=== PATIENT | female | born 1935 | race Caucasian/White ===

== ENCOUNTER 2017-03-30 20:12 | Inpatient (IN) | payer MEDICARE ==
[~2017-03-30] VITALS: Ht 175.3 cm; Wt 60.4 kg
[2017-03-30] MEDS ORDERED: ZIPRASIDONE IM 20 MG VIAL. IM ONE ×2 (20:37→20:45)
[2017-03-30 21:27] LABS: BASO # 0.2 x10^3/uL (0.0-0.2); BASO % 1 % (0-3); EOS # 0.5 x10^3/uL (0.0-0.7); EOS % 4 % (0-3); HEMOGLOBIN 14.4 g/dL (12.0-15.5); LYMPH # 3.6 x10^3/uL (1.0-4.8); LYMPH % 28 % (24-48); MEAN CORPUSCULAR HEMOGLOBIN 29 pg (25-35); MEAN CORPUSCULAR HGB CONC 34 g/dL (31-37); MEAN CORPUSCULAR VOLUME 86 fL (79-100); MONO # 1.2 x10^3/uL (0.0-1.1); MONO % 9 % (0-9); NEUT # 7.5 x10^3uL (1.8-7.7); NEUT % 58 % (31-73); PLATELET COUNT 450 x10^3/uL (140-400); RED CELL DISTRIBUTION WIDTH 13.6 % (11.5-14.5); WHITE BLOOD COUNT 12.9 x10^3/uL (4.0-11.0)
[2017-03-30 21:37] LABS: ACETAMIN < 2.0 mcg/mL (10-30); ETHANOL < 10 mg/dL (0-10)
[2017-03-30 21:39] LABS: ALBUMIN/GLOBULIN RATIO 0.9 (1.0-1.7); CREATININE 0.7 mg/dL (0.6-1.0); GFR 80.1; MAGNESIUM 2.4 mg/dL (1.8-2.4); POTASSIUM 3.8 mmol/L (3.5-5.1); TOTAL BILIRUBIN 0.3 mg/dL (0.2-1.0); TOTAL PROTEIN 8.6 g/dL (6.4-8.2)
--- NOTE | 2017-03-30 21:42 | PHYS DOC ---
Adult General Chief Complaint Chief Complaint: PSYCH EVALUATION [facility] HPI Patient is a 81 year old female who presents for psych clearance. Patient does not know why she is here. She states she was just out here visiting and she got evicted from her. Facility. She states she doesn't have a balcony to try to jump off of. She denies a headache, shortness of breath, neck pain, fevers chills, shortness of breath or abdominal discomfort. Review of Systems Review of Systems Constitutional: Denies fever or chills [] Eyes: Denies change in visual acuity, redness, or eye pain [] HENT: Denies nasal congestion or sore throat [] Respiratory: Denies cough or shortness of breath [] Cardiovascular: No additional information not addressed in HPI [] GI: Denies abdominal pain, nausea, vomiting, bloody stools or diarrhea [] : Denies dysuria or hematuria [] Musculoskeletal: Denies back pain or joint pain [] Integument: Denies rash or skin lesions [] Neurologic: Denies headache, focal weakness or sensory changes [] Endocrine: Denies polyuria or polydipsia [] Current Medications Current Medications Current Medications Medications (Trade) Dose Ordered Sig/Mckenzie Start Time Stop Time Status Last Admin Dose Admin Ziprasidone (Geodon Im) 10 mg 1X ONCE 03/30/17 20:45 03/30/17 20:46 UNV 03/30/17 20:45 10 MG Physical Exam Physical Exam Constitutional: Well developed, well nourished, no acute distress, non-toxic appearance. [] HENT: Normocephalic, atraumatic, bilateral external ears normal, oropharynx moist, no oral exudates, nose normal. [] Eyes: PERRLA, EOMI, conjunctiva normal, no discharge. [] Neck: Normal range of motion, no tenderness, supple, no stridor. [] Cardiovascular:Heart rate regular rhythm, no murmur [] Lungs & Thorax: Bilateral breath sounds clear to auscultation [] Abdomen: Bowel sounds normal, soft, no tenderness, no masses, no pulsatile masses. [] Skin: Warm, dry, no erythema, no rash. [] Back: No tenderness, no CVA tenderness. [] Extremities: No tenderness, no cyanosis, no clubbing, ROM intact, no edema. [] Neurologic: Alert and oriented X 3, normal motor function, normal sensory function, no focal deficits noted. [] Psychologic: Interactive Current Patient Data Lab Results Laboratory Tests Test 03/30/17 21:02 White Blood Count 12.9 x10^3/uL (4.0-11.0) H Red Blood Count 4.90 x10^6/uL (3.50-5.40) Hemoglobin 14.4 g/dL (12.0-15.5) Hematocrit 42.0 % (36.0-47.0) Mean Corpuscular Volume 86 fL (79-100) Mean Corpuscular Hemoglobin 29 pg (25-35) Mean Corpuscular Hemoglobin Concent 34 g/dL (31-37) Red Cell Distribution Width 13.6 % (11.5-14.5) Platelet Count 450 x10^3/uL (140-400) H Neutrophils (%) (Auto) 58 % (31-73) Lymphocytes (%) (Auto) 28 % (24-48) Monocytes (%) (Auto) 9 % (0-9) Eosinophils (%) (Auto) 4 % (0-3) H Basophils (%) (Auto) 1 % (0-3) Neutrophils # (Auto) 7.5 x10^3uL (1.8-7.7) Lymphocytes # (Auto) 3.6 x10^3/uL (1.0-4.8) Monocytes # (Auto) 1.2 x10^3/uL (0.0-1.1) H Eosinophils # (Auto) 0.5 x10^3/uL (0.0-0.7) Basophils # (Auto) 0.2 x10^3/uL (0.0-0.2) Salicylates Level 2.0 mg/dL (2.8-20.0) L Salicylate Last Dose Date 03/30/17 Salicylate Last Dose Time 2047 Acetaminophen Level < 2.0 mcg/mL (10-30) L Acetaminophen Last Dose Date 03/30/17 Acetaminophen Last Dose Time 2047 Ethyl Alcohol Level < 10 mg/dL (0-10) EKG EKG EKG shows sinus rhythm [address] elevations or T-wave inversions, normal axis, QTC 411 ms, as interpreted by me. Radiology/Procedures Radiology/Procedures [] Impressions: Brianna psych clearance Course & Med Decision Making Course & Med Decision Making Pertinent Labs and Imaging studies reviewed. (See chart for details) Do not believe this patient has any medical condition that's holding them up from being transferred to [facility] this time. She did receive 10 mg of Geodon upon arrival for agitation and not wanting to cooperate. Since Geodon she is very pleasant and has been resting. Dragon Disclaimer Dragon Disclaimer This chart was dictated in whole or in part using Voice Recognition software in a busy, high-work load, and often noisy Emergency Department environment. It may contain unintended and wholly unrecognized errors or omissions. Departure Departure: Impression: Primary Impression: Medical clearance for psychiatric admission Disposition: XFER SHT-TRM HOSP Condition: STABLE TOM HELMS MD Mar 30, 2017 21:42
[2017-03-30 22:48] LABS: BILIRUBIN,URINE NEG (NEG); CLARITY,URINE CLEAR; COLOR,URINE STRAW; GLUCOSE,URINE NEG (NEG); NITRITE,URINE NEG (NEG); UROBILINOGEN,URINE 0.2 mg/dL (0.2 mg/dL)
[2017-03-30 22:49] LABS: BACTERIA,URINE 0 /HPF (0-FEW); RBC,URINE OCC /HPF (0-2); SQUAMOUS EPITHELIAL CELL,UR MOD /LPF
--- NOTE | 2017-03-30 23:44 | EKG ---
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
[2017-03-31 00:25] VITALS: BP 156/57
[2017-03-31] MEDS ORDERED: METHYL SALICYLATE/MENTHOL TOPICAL OINTMENT 29GM TUBE. TP PRN (00:30)
[2017-03-31] MEDS ORDERED: ACETAMINOPHEN 325 MG TABLET PO PRN (00:30)
[2017-03-31] MEDS ORDERED: ASPI-630 PO (01:04)
[2017-03-31] MEDS ORDERED: HALO2TAB PO (01:04)
[2017-03-31] MEDS ORDERED: DOCU100C28 PO (01:04)
[2017-03-31] MEDS ORDERED: ATOR20TA58 PO (01:04)
[2017-03-31] MEDS ORDERED: QUET25TA5 PO (01:04)
[2017-03-31] MEDS ORDERED: MECL12.52 PO (01:04)
[2017-03-31 06:25] VITALS: BP 120/61
[2017-03-31] MEDS: HALOPERIDOL 2 MG TABLET PO PRN (07:47)
[2017-03-31] MEDS: NICOTINE 21MG PATCH. TD SCH (08:41)
[2017-03-31] MEDS ORDERED: MECLIZINE 12.5 MG TABLET. PO SCH (09:30)
[2017-03-31 14:44] LABS: THYROID STIM HORMONE (TSH) 4.285 uIU/mL (0.358-3.740)
--- NOTE | 2017-03-31 15:32 | HP ---
ADMIT DATE: 03/31/2017 REASON FOR ADMISSION TO THE SENIOR BEHAVIORAL UNIT: This is an 81-year-old female coming from [facility] in [place], [place], where she has been receiving 18/01 care, private duty and share care, but has been suffering from major depression, suicidal ideation, threatening to throw herself off the third balcony, combative with cares, throwing things. She herself tells me that people are trying to steal from her bank account that she is miserable being here that she came for a visit, is being made to stay here. PAST MEDICAL HISTORY: Dementia, suicidal ideation, stroke 2 weeks ago, hypertension, fall risk. ALLERGIES: None. MEDICATIONS: Aspirin 81 mg a day, atorvastatin 20 mg at bedtime, Colace 100 mg twice a day, Seroquel 6.25 mg at bedtime, Haldol 1 mg q. 8 hours p.r.n., meclizine 12.5 mg q. 8 hours p.r.n. SOCIAL HISTORY: The patient states she started smoking at 9 years of age and smokes 1 pack per day. Alcohol: None. Drug use: None. 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 REVIEW OF SYSTEMS: The patient does not have any specific complaints and was asked several times in several ways. OBJECTIVE: VITAL SIGNS: Blood pressure 120/61, pulse 91, respirations 18, temperature 98, pulse ox is 95% on room air. Height 69 inches, weight 183 pounds. GENERAL: The patient is an 81-year-old in no acute distress. She has her makeup on. She is slightly hard of hearing. HEENT: Her pupils are equal, round, and reactive to light. Extraocular muscles are intact. She can see without glasses. Her nose is patent. Throat was clear. Tongue was midline. NECK: Supple, without adenopathy. Thyroid is not enlarged. LUNGS: Clear to auscultation. CARDIOVASCULAR: Regular rhythm and rate. ABDOMEN: Soft, nontender. EXTREMITIES: Without edema. SKIN: Large scrape on the left posterior upper arm, multiple senile keratoses. 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 LABORATORY DATA: Her white blood cell count was 12.9, platelet count 450,000. Chemistry, essentially unremarkable. Urinalysis appears negative. Tylenol and alcohol screen negative. MENTAL STATUS EXAMINATION: Mood is confused and thought processes, although she has very excellent remote memory, in other words, able to recall her sisters getting her to ask her father for cigarette money at the age of 9 and her giving the money to the older sisters to get cigarettes and then her taking up cigarette smoking at age 9, also remembered her occupation. ASSESSMENT: 1. Cognitive impairment with behavior disturbance. 2. Cerebrovascular accident 2 weeks ago. 3. Hypertension. 4. Fall risk. 5. Suicidal ideation. PLAN: Treat her medical conditions and follow along with Dr. Ren. SAM LOZADA DO DR: ANDRES/shaina JOB#: [id number] / [id number]
[2017-03-31 16:38] VITALS: BP 147/91
[2017-03-31] MEDS ORDERED: traZODone 50 MG TABLET. PO PRN (18:00)
[2017-03-31] MEDS: MAGNESIUM HYDROXIDE 2,400 MG/30 ML ORAL.SUSP. PO PRN (18:17)
[2017-03-31 19:11] LABS: T3 TOTAL 128 ng/dL (71-180); THYROXINE 8.7 ug/dL (4.5-12.0)
[2017-03-31] MEDS: DOCUSATE SODIUM 100 MG CAPSULE PO SCH (20:04)
[2017-03-31] MEDS: traZODone 50 MG TABLET. PO SCH (20:04)
[2017-03-31] MEDS: MIRTAZAPINE 7.5 MG TABLET. PO SCH (20:04)
[2017-03-31] MEDS: ASPIRIN 81 MG TAB.CHEW PO SCH (20:04)
[2017-03-31] MEDS: ATORVASTATIN CALCIUM 20 MG TABLET PO SCH (20:04)
--- NOTE | 2017-03-31 20:59 | PDOC ---
Exam Unruly Demential Exam: Unruly Note: Please also refer to the separate dictated note~for this date of service dictated separately.~Patient seen individually. Discussed the patient with Nursing staff reviewed the chart.~Reviewed interim history and current functioning. Reviewed vital signs,~Labs/ Radiology~and current medications noted below. Continue current treatment with the changes noted in the dictated addendum note Assessment: Vital Signs: Vital Signs Date Time Temp Pulse Resp B/P (MAP) Pulse Ox O2 Delivery O2 Flow Rate FiO2 03/31/17 16:38 98.2 71 20 147/91 (109) 97 03/30/17 23:30 Room Air I&O Intake and Output 04/01/17 07:00 Intake Total 480 ml Balance 480 ml Intake Oral 480 ml Labs: Laboratory Tests Test 03/30/17 21:02 03/30/17 22:02 03/30/17 22:20 White Blood Count 12.9 x10^3/uL (4.0-11.0) H Red Blood Count 4.90 x10^6/uL (3.50-5.40) Hemoglobin 14.4 g/dL (12.0-15.5) Hematocrit 42.0 % (36.0-47.0) Mean Corpuscular Volume 86 fL (79-100) Mean Corpuscular Hemoglobin 29 pg (25-35) Mean Corpuscular Hemoglobin Concent 34 g/dL (31-37) Red Cell Distribution Width 13.6 % (11.5-14.5) Platelet Count 450 x10^3/uL (140-400) H Neutrophils (%) (Auto) 58 % (31-73) Lymphocytes (%) (Auto) 28 % (24-48) Monocytes (%) (Auto) 9 % (0-9) Eosinophils (%) (Auto) 4 % (0-3) H Basophils (%) (Auto) 1 % (0-3) Neutrophils # (Auto) 7.5 x10^3uL (1.8-7.7) Lymphocytes # (Auto) 3.6 x10^3/uL (1.0-4.8) Monocytes # (Auto) 1.2 x10^3/uL (0.0-1.1) H Eosinophils # (Auto) 0.5 x10^3/uL (0.0-0.7) Basophils # (Auto) 0.2 x10^3/uL (0.0-0.2) Sodium Level 139 mmol/L (136-145) Potassium Level 3.8 mmol/L (3.5-5.1) Chloride Level 100 mmol/L (98-107) Carbon Dioxide Level 30 mmol/L (21-32) Anion Gap 9 (6-14) Blood Urea Nitrogen 11 mg/dL (7-20) Creatinine 0.7 mg/dL (0.6-1.0) Estimated GFR (Cockcroft-Gault) 80.1 BUN/Creatinine Ratio 16 (6-20) Glucose Level 145 mg/dL (70-99) H Calcium Level 10.0 mg/dL (8.5-10.1) Magnesium Level 2.4 mg/dL (1.8-2.4) Iron Level 26 ug/dL (50-170) L Total Iron Binding Capacity 349 ug/dL (250-450) Iron Saturation 7 % (15-34) L Total Bilirubin 0.3 mg/dL (0.2-1.0) Aspartate Amino Transferase (AST) 14 U/L (15-37) L Alanine Aminotransferase (ALT) 21 U/L (14-59) Alkaline Phosphatase 102 U/L (46-116) Total Protein 8.6 g/dL (6.4-8.2) H Albumin 4.0 g/dL (3.4-5.0) Albumin/Globulin Ratio 0.9 (1.0-1.7) L Vitamin B12 Level 599 pg/mL (247-911) Salicylates Level 2.0 mg/dL (2.8-20.0) L Salicylate Last Dose Date 03/30/17 Salicylate Last Dose Time 2047 Acetaminophen Level < 2.0 mcg/mL (10-30) L Acetaminophen Last Dose Date 03/30/17 Acetaminophen Last Dose Time 2047 Ethyl Alcohol Level < 10 mg/dL (0-10) Triglycerides Level 92 mg/dL (0-150) Cholesterol Level 137 mg/dL (0-200) LDL Cholesterol, Calculated 75 mg/dL (0-100) VLDL Cholesterol, Calculated 18 mg/dL (0-40) Non-HDL Cholesterol Calculated 93 mg/dL (0-129) HDL Cholesterol 44 mg/dL (40-60) Cholesterol/HDL Ratio 3.0 Thyroid Stimulating Hormone (TSH) 4.285 uIU/mL (0.358-3.740) Thyroxine (T4) 8.7 ug/dL (4.5-12.0) Total Triiodothyronine (TT3) 128 ng/dL (71-180) RPR Titer Additional Testing Pending Urine Collection Type U cath Urine Color Straw Urine Clarity Clear Urine pH 6.0 Urine Specific [place] <=1.005 Urine Protein Neg (NEG-TRACE) Urine Glucose (UA) Neg mg/dL (NEG) Urine Ketones (Stick) Neg mg/dL (NEG) Urine Blood Small (NEG) Urine Nitrite Neg (NEG) Urine Bilirubin Neg (NEG) Urine Urobilinogen Dipstick 0.2 mg/dL (0.2 mg/dL) Urine Leukocyte Esterase Trace (NEG) Urine RBC Occ /HPF (0-2) Urine WBC 1-4 /HPF (0-4) Urine Squamous Epithelial Cells Mod /LPF Urine Bacteria 0 /HPF (0-FEW) Current Medications: Meds: Current Medications Ziprasidone (Geodon Im) 20 mg STK-MED ONCE IM ; Start 03/30/17 at 20:37; Stop 03/30/17 at 20:38; Status DC Ziprasidone (Geodon Im) 10 mg 1X ONCE IM Last administered on 03/30/17 20:45 ; Start 03/30/17 at 20:45; Stop 03/30/17 at 22:14; Status DC Acetaminophen (Tylenol) 650 mg PRN Q6HRS PRN PO PAIN / TEMP; Start 03/31/17 at 00:30 Multi-Ingredient Ointment (Analgesic [place]) 1 jefferson PRN QID PRN TP MUSCLE PAIN; Start 03/31/17 at 00:30 Al Hydroxide/Mg Hydroxide (Mylanta Plus Xs) 15 ml PRN AFTMEALHC PRN PO DYSPEPSIA; Start 03/31/17 at 00:30 Magnesium Hydroxide (Milk Of Magnesia) 2,400 mg PRN QHS PRN PO CONSTIPATION Last administered on 03/31/17 18:17; Start 03/31/17 at 00:30 Nicotine (Nicoderm Cq 21mg) 1 patch DAILY TD Last administered on 03/31/17 08: 41; Start 03/31/17 at 09:00 Haloperidol (Haldol) 1 mg PRN Q8HRS PRN PO ANXIETY / AGITATION Last administered on 03/31/17 07:47; Start 03/31/17 at 01:15 Quetiapine Fumarate (SEROquel) 12.5 mg HS PO ; Start 03/31/17 at 21:00; Stop at 21:00; Status DC Aspirin (Children'S Aspirin) 81 mg QHS PO Last administered on 03/31/17 20:04 ; Start 03/31/17 at 21:00 Atorvastatin Calcium (Lipitor) 20 mg QHS PO Last administered on 03/31/17 20: 04; Start 03/31/17 at 21:00 Docusate Sodium (Colace) 100 mg BID PO Last administered on 03/31/17 20:04; Start 03/31/17 at 21:00 Meclizine HCl (Antivert) 12.5 mg PRN Q8HRS PO ; Start 03/31/17 at 09:30 Quetiapine Fumarate (SEROquel) 6.25 mg HS PO Last administered on 03/31/17 20: 05; Start 03/31/17 at 21:00 Mirtazapine (Remeron) 7.5 mg QHS PO Last administered on 03/31/17 20:04; Start 03/31/17 at 21:00 Trazodone HCl (Desyrel) 50 mg QHS PO Last administered on 03/31/17 20:04; Start 03/31/17 at 21:00 Trazodone HCl (Desyrel) 50 mg PRN QHS PRN PO INSOMNIA, MAY REPEAT X1; Start at 18:00 Olanzapine (ZyPREXA ZYDIS) 2.5 mg PRN Q2HR PRN PO psychosis; Start 03/31/17 at 18:00 Active Scripts Active Reported Meclizine Hcl 12.5 Mg Tablet 12.5 Mg PO PRN Q8HRS Haloperidol 2 Mg Tablet 1 Mg PO PRN Q8HRS PRN Seroquel (Quetiapine Fumarate) 25 Mg Tablet 12.5 Mg PO HS Docusate Sodium 100 Mg Capsule 100 Mg PO BID Atorvastatin Calcium 20 Mg Tablet 20 Mg PO QHS Aspirin 81 Mg Tab.chew 81 Mg PO QHS Diagnosis: Problems: (1) Anxiety disorder (2) Dementia, vascular, with depression (3) Dementia, vascular, with delusions (4) Impulse control disorder (5) Major depressive disorder, recurrent episode EDE OGDEN MD Mar 31, 2017 20:59
[2017-03-31] MEDS ORDERED: QUEtiapine 25 MG TABLET. PO SCH ×2 (21:00)
[2017-03-31 22:09] LABS: HEMOGLOBIN A1C 5.5 % (4.8-5.6)
[2017-04-01 06:32] VITALS: BP 160/62
--- NOTE | 2017-04-01 08:30 | HP ---
ADMIT DATE: 03/31/2017 PSYCHIATRIC ADMISSION HISTORY AND EVALUATION This late entry 03/31 covers elements not covered in my initial note of 03/31. The patient was seen individually evening of 03/31 for this evaluation. I had previously discussed the patient with the nursing staff on 2 or 3 different occasions to gather background historical information from the [facility] and from family about the patient's history and circumstances prompting admission. IDENTIFYING DATA: The patient is an 81-year-old female referred by her primary care physician, Dr. Rasta Cunha, from [facility] and referred from [facility] where she resides since April of 2016 and previously had been living at home. The patient has a history of major depressive disorder, vascular dementia, status post CVA. She is being increasingly depressed and made statements of wanting to commit suicide, planning to jump off the balcony. She was throwing things combative with cares, yelling, paranoid. She had failed outpatient psychiatric interventions and 18/01 care with private duty nursing shared care. She had failed outpatient psychiatric intervention. Behaviors were deemed dangerous worsening over the past 2 weeks since she had a CVA and then referred for inpatient psychiatric stabilization. CHIEF COMPLAINT: "No." The patient is quite confused, oriented perhaps to herself, paranoid, but ambulates on her own. HISTORY OF PRESENT ILLNESS: The patient has a history of approximately 2 years memory deficits specifically for short term which have been much worse since the CVA 2 weeks ago. She does have a family history of dementia and daughter at age 57 has fairly significant dementia. Over the past 2-3 weeks, the patient's behaviors have been escalating. She has been quite impulsive, threatening suicide as noted above. Plan to jump off the balcony and she lives in an independent living creating a high risk situation prompting this admission. No clear history of bipolar disorder or homicidal ideation. She has had marked insomnia, intermittently as well and while in the ER at [facility] she needed 10 mg IM Geodon for her marked psychosis, threatening behaviors, aggressiveness. PAST PSYCHIATRIC HISTORY: As above. PAST MEDICAL HISTORY: Recent CVA, hypertension, and history of falls. CODE STATUS: DNR. DRUG ALLERGIES: Negative. CURRENT PSYCHOTROPICS: Seroquel 6.25 mg at bedtime, Haldol 1 mg q. 8 hours p.r.n. FAMILY HISTORY: Positive for Alzheimer's dementia in daughter who is 57. SOCIAL HISTORY: No alcohol, drug abuse, physical, sexual, or elder abuse. She is not known to be a perpetrator. MENTAL STATUS EXAMINATION: The patient was seen individually evening of 03/31. She is carrying around her purse, believes people are trying to steal from her, quite paranoid, delusional, irritable, labile, ambulating well on her own. Insight, judgment, recent and remote memory, attention, concentration, fund of knowledge poor, consistent with her diagnosis. Attention span short. Language function intact. Intellect compromised due to her dementia. LABORATORY DATA: Reviewed. REVIEW OF SYSTEMS: No CV, , pulmonary, eye, ENT system symptoms on review. IMPRESSION: Major neurocognitive disorder, probably vascular with delusion, depression, behavioral disturbance; anxiety disorder, unspecified; impulse control disorder, unspecified; major depressive disorder, recurrent with suicidal ideation. MEDICATIONS: No current suicidal intent noted at my evaluation. Rest diagnoses as above. PLAN: Admit to the Geropsychiatry Unit at [facility]. I will see the patient daily individually from a psychiatric standpoint and medical followup with Dr. Thomason/Dr. Martinez. Continue current psychotropics, we will observe the patient's baseline, make further adjustments as clinically indicated. We will start Remeron 7.5 mg p.o. at bedtime and trazodone 50 mg at bedtime p.r.n., may repeat x 1 for insomnia and Zyprexa 2.5 mg q. 2 hours p.r.n. psychosis, agitation, max 10 mg in 24 hours. Consider Depakote as a mood stabilizer and we will make all these decisions post baseline assessment. MAN Jess OGDEN MD DR: LEXII/shaina JOB#: [id number] / [id number]
[2017-04-01] MEDS: DOCUSATE SODIUM 100 MG CAPSULE PO SCH ×3 (11:26→20:55)
[2017-04-01] MEDS: NICOTINE 21MG PATCH. TD SCH (11:26)
[2017-04-01] MEDS: LORazepam 0.5 MG TABLET PO PRN (15:12)
[2017-04-01 16:21] VITALS: BP 128/88
[2017-04-01] MEDS: ASPIRIN 81 MG TAB.CHEW PO SCH ×2 (19:15→20:55)
[2017-04-01] MEDS: traZODone 50 MG TABLET. PO SCH ×2 (19:16→20:55)
[2017-04-01] MEDS: ATORVASTATIN CALCIUM 20 MG TABLET PO SCH ×2 (19:16→20:55)
[2017-04-01] MEDS: MIRTAZAPINE 7.5 MG TABLET. PO SCH ×2 (19:16→20:55)
[2017-04-01] MEDS: QUEtiapine 25 MG TABLET. PO SCH ×2 (19:35→20:55)
--- NOTE | 2017-04-01 21:03 | PDOC ---
Exam Unruly Demential Exam: Unruly Note: Please also refer to the separate dictated note~for this date of service dictated separately.~Patient seen individually. Discussed the patient with Nursing staff reviewed the chart.~Reviewed interim history and current functioning. Reviewed vital signs,~Labs/ Radiology~and current medications noted below. Continue current treatment with the changes noted in the dictated addendum note Assessment: Vital Signs: Vital Signs Date Time Temp Pulse Resp B/P (MAP) Pulse Ox O2 Delivery O2 Flow Rate FiO2 04/01/17 16:21 98.4 100 20 128/88 (101) 98 04/01/17 06:32 Room Air I&O Intake and Output 04/02/17 07:00 Intake Total 360 ml Balance 360 ml Intake Oral 360 ml Current Medications: Meds: Current Medications Ziprasidone (Geodon Im) 20 mg STK-MED ONCE IM ; Start 03/30/17 at 20:37; Stop 03/30/17 at 20:38; Status DC Ziprasidone (Geodon Im) 10 mg 1X ONCE IM Last administered on 03/30/17 20:45 ; Start 03/30/17 at 20:45; Stop 03/30/17 at 22:14; Status DC Acetaminophen (Tylenol) 650 mg PRN Q6HRS PRN PO PAIN / TEMP; Start 03/31/17 at 00:30 Multi-Ingredient Ointment (Analgesic [place]) 1 jefferson PRN QID PRN TP MUSCLE PAIN; Start 03/31/17 at 00:30 Al Hydroxide/Mg Hydroxide (Mylanta Plus Xs) 15 ml PRN AFTMEALHC PRN PO DYSPEPSIA; Start 03/31/17 at 00:30 Magnesium Hydroxide (Milk Of Magnesia) 2,400 mg PRN QHS PRN PO CONSTIPATION Last administered on 03/31/17 18:17; Start 03/31/17 at 00:30 Nicotine (Nicoderm Cq 21mg) 1 patch DAILY TD Last administered on 04/01/17 11: 26; Start 03/31/17 at 09:00 Haloperidol (Haldol) 1 mg PRN Q8HRS PRN PO ANXIETY / AGITATION Last administered on 03/31/17 07:47; Start 03/31/17 at 01:15 Quetiapine Fumarate (SEROquel) 12.5 mg HS PO ; Start 03/31/17 at 21:00; Stop at 21:00; Status DC Aspirin (Children'S Aspirin) 81 mg QHS PO Last administered on 03/31/17 20:04 ; Start 03/31/17 at 21:00 Atorvastatin Calcium (Lipitor) 20 mg QHS PO Last administered on 03/31/17 20: 04; Start 03/31/17 at 21:00 Docusate Sodium (Colace) 100 mg BID PO Last administered on 04/01/17 11:26; Start 03/31/17 at 21:00 Meclizine HCl (Antivert) 12.5 mg PRN Q8HRS PO ; Start 03/31/17 at 09:30 Quetiapine Fumarate (SEROquel) 6.25 mg HS PO Last administered on 03/31/17 20: 05; Start 03/31/17 at 21:00; Stop 04/01/17 at 10:09; Status DC Mirtazapine (Remeron) 7.5 mg QHS PO Last administered on 03/31/17 20:04; Start 03/31/17 at 21:00 Trazodone HCl (Desyrel) 50 mg QHS PO Last administered on 03/31/17 20:04; Start 03/31/17 at 21:00 Trazodone HCl (Desyrel) 50 mg PRN QHS PRN PO INSOMNIA, MAY REPEAT X1; Start at 18:00 Olanzapine (ZyPREXA ZYDIS) 2.5 mg PRN Q2HR PRN PO psychosis Last administered on 04/01/17 11:32; Start 03/31/17 at 18:00 Quetiapine Fumarate (SEROquel) 25 mg HS PO ; Start 04/01/17 at 21:00 Sertraline HCl (Zoloft) 25 mg DAILY PO ; Start 04/02/17 at 09:00 Lorazepam (Ativan) 0.5 mg PRN Q2HR PRN PO ANXIETY / AGITATION Last administered on 04/01/17 15:12; Start 04/01/17 at 15:15 Active Scripts Active Reported Meclizine Hcl 12.5 Mg Tablet 12.5 Mg PO PRN Q8HRS Haloperidol 2 Mg Tablet 1 Mg PO PRN Q8HRS PRN Seroquel (Quetiapine Fumarate) 25 Mg Tablet 12.5 Mg PO HS Docusate Sodium 100 Mg Capsule 100 Mg PO BID Atorvastatin Calcium 20 Mg Tablet 20 Mg PO QHS Aspirin 81 Mg Tab.chew 81 Mg PO QHS Diagnosis: Problems: (1) Anxiety disorder (2) Dementia, vascular, with depression (3) Dementia, vascular, with delusions (4) Impulse control disorder (5) Major depressive disorder, recurrent episode EDE OGDEN MD Apr 01, 2017 21:03
[2017-04-02 06:07] VITALS: BP 117/70
[2017-04-02] MEDS ORDERED: SERTRALINE 25 MG TABLET. PO SCH (09:00)
[2017-04-02] MEDS ORDERED: FAMOTIDINE 20 MG TABLET PO ONE (09:25)
[2017-04-02] MEDS: NICOTINE 21MG PATCH. TD SCH (10:00)
[2017-04-02] MEDS: DOCUSATE SODIUM 100 MG CAPSULE PO SCH ×2 (10:00→19:15)
[2017-04-02 15:49] VITALS: BP 139/81
[2017-04-02] MEDS: traZODone 50 MG TABLET. PO SCH (19:15)
[2017-04-02] MEDS: ATORVASTATIN CALCIUM 20 MG TABLET PO SCH (19:15)
[2017-04-02] MEDS: MIRTAZAPINE 7.5 MG TABLET. PO SCH (19:15)
[2017-04-02] MEDS: ASPIRIN 81 MG TAB.CHEW PO SCH (19:15)
[2017-04-02] MEDS: QUEtiapine 25 MG TABLET. PO SCH (19:15)
--- NOTE | 2017-04-02 21:12 | PDOC ---
Exam Unruly Demential Exam: Unruly Note: Please also refer to the separate dictated note~for this date of service dictated separately.~Patient seen individually. Discussed the patient with Nursing staff reviewed the chart.~Reviewed interim history and current functioning. Reviewed vital signs,~Labs/ Radiology~and current medications noted below. Continue current treatment with the changes noted in the dictated addendum note Assessment: Vital Signs: Vital Signs Date Time Temp Pulse Resp B/P (MAP) Pulse Ox O2 Delivery O2 Flow Rate FiO2 04/02/17 15:49 97.7 72 16 139/81 (100) 98 04/01/17 06:32 Room Air I&O Intake and Output 04/03/17 07:00 Intake Total 600 ml Balance 600 ml Intake Oral 600 ml # Bowel Movements 1 Current Medications: Meds: Current Medications Ziprasidone (Geodon Im) 20 mg STK-MED ONCE IM ; Start 03/30/17 at 20:37; Stop 03/30/17 at 20:38; Status DC Ziprasidone (Geodon Im) 10 mg 1X ONCE IM Last administered on 03/30/17 20:45 ; Start 03/30/17 at 20:45; Stop 03/30/17 at 22:14; Status DC Acetaminophen (Tylenol) 650 mg PRN Q6HRS PRN PO PAIN / TEMP; Start 03/31/17 at 00:30 Multi-Ingredient Ointment (Analgesic [place]) 1 jefferson PRN QID PRN TP MUSCLE PAIN; Start 03/31/17 at 00:30 Al Hydroxide/Mg Hydroxide (Mylanta Plus Xs) 15 ml PRN AFTMEALHC PRN PO DYSPEPSIA; Start 03/31/17 at 00:30 Magnesium Hydroxide (Milk Of Magnesia) 2,400 mg PRN QHS PRN PO CONSTIPATION Last administered on 03/31/17 18:17; Start 03/31/17 at 00:30 Nicotine (Nicoderm Cq 21mg) 1 patch DAILY TD Last administered on 04/02/17 10: 00; Start 03/31/17 at 09:00 Haloperidol (Haldol) 1 mg PRN Q8HRS PRN PO ANXIETY / AGITATION Last administered on 03/31/17 07:47; Start 03/31/17 at 01:15 Quetiapine Fumarate (SEROquel) 12.5 mg HS PO ; Start 03/31/17 at 21:00; Stop at 21:00; Status DC Aspirin (Children'S Aspirin) 81 mg QHS PO Last administered on 04/02/17 19:15 ; Start 03/31/17 at 21:00 Atorvastatin Calcium (Lipitor) 20 mg QHS PO Last administered on 04/02/17 19: 15; Start 03/31/17 at 21:00 Docusate Sodium (Colace) 100 mg BID PO Last administered on 04/02/17 19:15; Start 03/31/17 at 21:00 Meclizine HCl (Antivert) 12.5 mg PRN Q8HRS PO ; Start 03/31/17 at 09:30 Quetiapine Fumarate (SEROquel) 6.25 mg HS PO Last administered on 03/31/17 20: 05; Start 03/31/17 at 21:00; Stop 04/01/17 at 10:09; Status DC Mirtazapine (Remeron) 7.5 mg QHS PO Last administered on 04/02/17 19:15; Start 03/31/17 at 21:00 Trazodone HCl (Desyrel) 50 mg QHS PO Last administered on 04/02/17 19:15; Start 03/31/17 at 21:00 Trazodone HCl (Desyrel) 50 mg PRN QHS PRN PO INSOMNIA, MAY REPEAT X1; Start at 18:00 Olanzapine (ZyPREXA ZYDIS) 2.5 mg PRN Q2HR PRN PO psychosis Last administered on 04/01/17 11:32; Start 03/31/17 at 18:00 Quetiapine Fumarate (SEROquel) 25 mg HS PO Last administered on 04/02/17 19:15 ; Start 04/01/17 at 21:00 Sertraline HCl (Zoloft) 25 mg DAILY PO Last administered on 04/02/17 09:59; Start 04/02/17 at 09:00; Stop 04/02/17 at 18:43; Status DC Lorazepam (Ativan) 0.5 mg PRN Q2HR PRN PO ANXIETY / AGITATION Last administered on 04/01/17 15:12; Start 04/01/17 at 15:15 Famotidine (Pepcid) 20 mg PRN DAILY PRN PO HEARTBURN / GAS; Start 04/02/17 at 09:15 Famotidine (Pepcid) 20 mg 1X ONCE PO Last administered on 04/02/17t 09:59; Start 04/02/17 at 09:25; Stop 04/02/17 at 09:26; Status DC Sertraline HCl (Zoloft) 37.5 mg DAILY PO ; Start 04/03/17 at 09:00 Active Scripts Active Reported Meclizine Hcl 12.5 Mg Tablet 12.5 Mg PO PRN Q8HRS Haloperidol 2 Mg Tablet 1 Mg PO PRN Q8HRS PRN Seroquel (Quetiapine Fumarate) 25 Mg Tablet 12.5 Mg PO HS Docusate Sodium 100 Mg Capsule 100 Mg PO BID Atorvastatin Calcium 20 Mg Tablet 20 Mg PO QHS Aspirin 81 Mg Tab.chew 81 Mg PO QHS Diagnosis: Problems: (1) Anxiety disorder (2) Dementia, vascular, with depression (3) Dementia, vascular, with delusions (4) Impulse control disorder (5) Major depressive disorder, recurrent episode EDE OGDEN MD Apr 02, 2017 21:12
--- NOTE | 2017-04-03 00:29 | PN ---
DATE: 04/01/2017 PSYCHIATRIC PROGRESS NOTE This late entry 04/01/2017 covers elements, not covered in my initial note of 04/01/2017. SUBJECTIVE: The patient was staffed at treatment team meeting with entire team morning of 04/01/2017, seen individually evening of 04/01/2017, reviewed her history at length. She had fleeting suicidal ideations, threats of wanting to jump off the balcony at the independent living. She carries around a red purse and has some snacks in it and she is also carrying out some snacks from her dinner tray, remains confused, slept 3-1/2 hours. [place]. Kelsey raised her. Her daughter at age 57 has early onset dementia. Alcohol abuse was evident in the parents. She has 2 daughters, 1 son. 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 For the past 2 years, she has had short-term memory deficits, which has worsened since her CVA. REVIEW OF SYSTEMS: No CV, , pulmonary, eye, ENT system symptoms on review. MENTAL STATUS EXAM: Oriented to herself, at times situation. Speech coherent, abstraction fair, computation impaired, language function intact, attention span short. Mood and affect remain somewhat anxious, labile at times. LABORATORY DATA: Reviewed. IMPRESSION: Unchanged from initial note. Major neurocognitive disorder, probably vascular with delusion, depression, behavioral disturbance; anxiety disorder, unspecified; impulse control disorder, unspecified. PLAN: Increase Seroquel to 25 mg p.o. at bedtime, maintain trazodone at bedtime p.r.n., Remeron and Zyprexa p.r.n. CT head to be done 04/01/2017 and we will await results. Reviewed drug interactions. Risk/benefit ratio favors no further change. EDE OGDEN MD DR: LEXII/shaina JOB#: [id number] / [id number]
[2017-04-03 06:06] VITALS: BP 124/69
[2017-04-03] MEDS ORDERED: SERTRALINE 25 MG TABLET. PO SCH (09:00)
[2017-04-03] MEDS: NICOTINE 21MG PATCH. TD SCH (09:49)
[2017-04-03] MEDS: DOCUSATE SODIUM 100 MG CAPSULE PO SCH ×2 (09:49→19:30)
--- NOTE | 2017-04-03 13:08 | PN ---
DATE: 04/02/2017 This late entry date of service 04/02/2017 covers elements not covered in my initial note of 04/02/2017. SUBJECTIVE: The patient slept 5-1/2 hours previous evening, slept in the morning of 04/02/2017. No PRNs have been given. Anxious in the morning, sarcastic, refused Zoloft, was mocking at others around her. Her son listed at 5:00 p.m., she was smiling and the son made a statement that he felt she was more lucid than she had been in her long time. REVIEW OF SYSTEMS: No CV, , pulmonary, eye, ENT system symptoms on review. Reliability poor. MENTAL STATUS EXAM: Oriented to herself. Insight, judgment, recent and remote memory, attention, concentration, fund of knowledge poor, consistent with her diagnosis. LABORATORY DATA: Reviewed. IMPRESSION: Major neurocognitive disorder; Alzheimer; vascular with depression; delusions; major depressive disorder, recurrent, moderate, with psychotic features. Rest unchanged. PLAN: Increase Seroquel from 25 mg at bedtime to 37.5 mg p.o. at bedtime. Continue the rest of her psychotropics. Reviewed drug interactions, risk/benefit ratio favors, no further change. EDE OGDEN MD DR: LEXII/shaina JOB#: [id number] / [id number]
[2017-04-03] MEDS: HALOPERIDOL 2 MG TABLET PO PRN (17:14)
[2017-04-03] MEDS: ATORVASTATIN CALCIUM 20 MG TABLET PO SCH (19:29)
[2017-04-03] MEDS: MIRTAZAPINE 7.5 MG TABLET. PO SCH (19:30)
[2017-04-03] MEDS: traZODone 50 MG TABLET. PO SCH (19:30)
[2017-04-03] MEDS: QUEtiapine 25 MG TABLET. PO SCH (19:30)
[2017-04-03] MEDS: ASPIRIN 81 MG TAB.CHEW PO SCH (19:30)
[2017-04-03] MEDS: FAMOTIDINE 20 MG TABLET PO PRN (19:53)
--- NOTE | 2017-04-03 22:56 | PDOC ---
Exam Unruly Demential Exam: Unruly Note: Please also refer to the separate dictated note~for this date of service dictated separately.~Patient seen individually. Discussed the patient with Nursing staff reviewed the chart.~Reviewed interim history and current functioning. Reviewed vital signs,~Labs/ Radiology~and current medications noted below. Continue current treatment with the changes noted in the dictated addendum note Assessment: Vital Signs: Vital Signs Date Time Temp Pulse Resp B/P (MAP) Pulse Ox O2 Delivery O2 Flow Rate FiO2 04/03/17 06:06 97.6 68 20 124/69 (87) 97 Room Air I&O Intake and Output 04/04/17 07:00 Intake Total 480 ml Balance 480 ml Intake Oral 480 ml Current Medications: Meds: Current Medications Ziprasidone (Geodon Im) 20 mg STK-MED ONCE IM ; Start 03/30/17 at 20:37; Stop 03/30/17 at 20:38; Status DC Ziprasidone (Geodon Im) 10 mg 1X ONCE IM Last administered on 03/30/17 20:45 ; Start 03/30/17 at 20:45; Stop 03/30/17 at 22:14; Status DC Acetaminophen (Tylenol) 650 mg PRN Q6HRS PRN PO PAIN / TEMP; Start 03/31/17 at 00:30 Multi-Ingredient Ointment (Analgesic [place]) 1 jefferson PRN QID PRN TP MUSCLE PAIN; Start 03/31/17 at 00:30 Al Hydroxide/Mg Hydroxide (Mylanta Plus Xs) 15 ml PRN AFTMEALHC PRN PO DYSPEPSIA; Start 03/31/17 at 00:30 Magnesium Hydroxide (Milk Of Magnesia) 2,400 mg PRN QHS PRN PO CONSTIPATION Last administered on 03/31/17 18:17; Start 03/31/17 at 00:30 Nicotine (Nicoderm Cq 21mg) 1 patch DAILY TD Last administered on 04/03/17 09: 49; Start 03/31/17 at 09:00 Haloperidol (Haldol) 1 mg PRN Q8HRS PRN PO ANXIETY / AGITATION Last administered on 04/03/17 17:14; Start 03/31/17 at 01:15 Quetiapine Fumarate (SEROquel) 12.5 mg HS PO ; Start 03/31/17 at 21:00; Stop at 21:00; Status DC Aspirin (Children'S Aspirin) 81 mg QHS PO Last administered on 04/03/17 19:30 ; Start 03/31/17 at 21:00 Atorvastatin Calcium (Lipitor) 20 mg QHS PO Last administered on 04/03/17 19: 29; Start 03/31/17 at 21:00 Docusate Sodium (Colace) 100 mg BID PO Last administered on 04/03/17 19:30; Start 03/31/17 at 21:00 Meclizine HCl (Antivert) 12.5 mg PRN Q8HRS PO ; Start 03/31/17 at 09:30 Quetiapine Fumarate (SEROquel) 6.25 mg HS PO Last administered on 03/31/17 20: 05; Start 03/31/17 at 21:00; Stop 04/01/17 at 10:09; Status DC Mirtazapine (Remeron) 7.5 mg QHS PO Last administered on 04/03/17 19:30; Start 03/31/17 at 21:00 Trazodone HCl (Desyrel) 50 mg QHS PO Last administered on 04/03/17 19:30; Start 03/31/17 at 21:00 Trazodone HCl (Desyrel) 50 mg PRN QHS PRN PO INSOMNIA, MAY REPEAT X1; Start at 18:00 Olanzapine (ZyPREXA ZYDIS) 2.5 mg PRN Q2HR PRN PO psychosis Last administered on 04/01/17 11:32; Start 03/31/17 at 18:00 Quetiapine Fumarate (SEROquel) 25 mg HS PO Last administered on 04/02/17 19:15 ; Start 04/01/17 at 21:00; Stop 04/03/17 at 18:56; Status DC Sertraline HCl (Zoloft) 25 mg DAILY PO Last administered on 04/02/17 09:59; Start 04/02/17 at 09:00; Stop 04/02/17 at 18:43; Status DC Lorazepam (Ativan) 0.5 mg PRN Q2HR PRN PO ANXIETY / AGITATION Last administered on 04/01/17 15:12; Start 04/01/17 at 15:15 Famotidine (Pepcid) 20 mg PRN DAILY PRN PO HEARTBURN / GAS Last administered on 04/03/17 19:53; Start 04/02/17 at 09:15 Famotidine (Pepcid) 20 mg 1X ONCE PO Last administered on 04/02/17 09:59; Start 04/02/17 at 09:25; Stop 04/02/17 at 09:26; Status DC Sertraline HCl (Zoloft) 37.5 mg DAILY PO Last administered on 04/03/17 09:52; Start 04/03/17 at 09:00; Stop 04/03/17 at 18:56; Status DC Quetiapine Fumarate (SEROquel) 50 mg HS PO Last administered on 04/03/17 19:30 ; Start 04/03/17 at 21:00 Sertraline HCl (Zoloft) 50 mg DAILY PO ; Start 04/04/17 at 09:00 Active Scripts Active Reported Meclizine Hcl 12.5 Mg Tablet 12.5 Mg PO PRN Q8HRS Haloperidol 2 Mg Tablet 1 Mg PO PRN Q8HRS PRN Seroquel (Quetiapine Fumarate) 25 Mg Tablet 12.5 Mg PO HS Docusate Sodium 100 Mg Capsule 100 Mg PO BID Atorvastatin Calcium 20 Mg Tablet 20 Mg PO QHS Aspirin 81 Mg Tab.chew 81 Mg PO QHS Diagnosis: Problems: (1) Medical clearance for psychiatric admission (2) Anxiety disorder (3) Dementia, vascular, with depression (4) Dementia, vascular, with delusions (5) Impulse control disorder (6) Major depressive disorder, recurrent episode EDE OGDEN MD Apr 03, 2017 22:56
[2017-04-04 05:53] VITALS: BP 107/72
[2017-04-04] MEDS: NICOTINE 21MG PATCH. TD SCH (09:00)
[2017-04-04] MEDS: DOCUSATE SODIUM 100 MG CAPSULE PO SCH ×2 (09:07→19:26)
[2017-04-04] MEDS: SERTRALINE 25 MG TABLET. PO SCH (09:08)
[2017-04-04] MEDS: LORazepam 0.5 MG TABLET PO PRN (10:37)
[2017-04-04 15:49] VITALS: BP 129/86
[2017-04-04] MEDS: MIRTAZAPINE 7.5 MG TABLET. PO SCH (19:26)
[2017-04-04] MEDS: FAMOTIDINE 20 MG TABLET PO PRN (19:26)
[2017-04-04] MEDS: QUEtiapine 25 MG TABLET. PO SCH (19:26)
[2017-04-04] MEDS: traZODone 50 MG TABLET. PO SCH (19:26)
[2017-04-04] MEDS: ATORVASTATIN CALCIUM 20 MG TABLET PO SCH (19:26)
[2017-04-04] MEDS: ASPIRIN 81 MG TAB.CHEW PO SCH (19:26)
--- NOTE | 2017-04-04 20:38 | PDOC ---
Exam Unruly Demential Exam: Unruly Note: Please also refer to the separate dictated note~for this date of service dictated separately.~Patient seen individually. Discussed the patient with Nursing staff reviewed the chart.~Reviewed interim history and current functioning. Reviewed vital signs,~Labs/ Radiology~and current medications noted below. Continue current treatment with the changes noted in the dictated addendum note Assessment: Vital Signs: Vital Signs Date Time Temp Pulse Resp B/P (MAP) Pulse Ox O2 Delivery O2 Flow Rate FiO2 04/04/17 15:49 83 22 129/86 (100) 98 04/04/17 05:53 98.3 04/03/17 06:06 Room Air I&O Intake and Output 04/05/17 07:00 Intake Total 840 ml Balance 840 ml Intake Oral 840 ml # Bowel Movements 1 Current Medications: Meds: Current Medications Ziprasidone (Geodon Im) 20 mg STK-MED ONCE IM ; Start 03/30/17 at 20:37; Stop 03/30/17 at 20:38; Status DC Ziprasidone (Geodon Im) 10 mg 1X ONCE IM Last administered on 03/30/17 20:45 ; Start 03/30/17 at 20:45; Stop 03/30/17 at 22:14; Status DC Acetaminophen (Tylenol) 650 mg PRN Q6HRS PRN PO PAIN / TEMP; Start 03/31/17 at 00:30 Multi-Ingredient Ointment (Analgesic [place]) 1 jefferson PRN QID PRN TP MUSCLE PAIN; Start 03/31/17 at 00:30 Al Hydroxide/Mg Hydroxide (Mylanta Plus Xs) 15 ml PRN AFTMEALHC PRN PO DYSPEPSIA; Start 03/31/17 at 00:30 Magnesium Hydroxide (Milk Of Magnesia) 2,400 mg PRN QHS PRN PO CONSTIPATION Last administered on 03/31/17 18:17; Start 03/31/17 at 00:30 Nicotine (Nicoderm Cq 21mg) 1 patch DAILY TD Last administered on 04/03/17 09: 49; Start 03/31/17 at 09:00 Haloperidol (Haldol) 1 mg PRN Q8HRS PRN PO ANXIETY / AGITATION Last administered on 04/03/17 17:14; Start 03/31/17 at 01:15 Quetiapine Fumarate (SEROquel) 12.5 mg HS PO ; Start 03/31/17 at 21:00; Stop at 21:00; Status DC Aspirin (Children'S Aspirin) 81 mg QHS PO Last administered on 04/04/17 19:26 ; Start 03/31/17 at 21:00 Atorvastatin Calcium (Lipitor) 20 mg QHS PO Last administered on 04/04/17 19: 26; Start 03/31/17 at 21:00 Docusate Sodium (Colace) 100 mg BID PO Last administered on 04/04/17 19:26; Start 03/31/17 at 21:00 Meclizine HCl (Antivert) 12.5 mg PRN Q8HRS PO ; Start 03/31/17 at 09:30 Quetiapine Fumarate (SEROquel) 6.25 mg HS PO Last administered on 03/31/17 20: 05; Start 03/31/17 at 21:00; Stop 04/01/17 at 10:09; Status DC Mirtazapine (Remeron) 7.5 mg QHS PO Last administered on 04/04/17 19:26; Start 03/31/17 at 21:00 Trazodone HCl (Desyrel) 50 mg QHS PO Last administered on 04/04/17 19:26; Start 03/31/17 at 21:00 Trazodone HCl (Desyrel) 50 mg PRN QHS PRN PO INSOMNIA, MAY REPEAT X1; Start at 18:00 Olanzapine (ZyPREXA ZYDIS) 2.5 mg PRN Q2HR PRN PO psychosis Last administered on 04/04/17 10:37; Start 03/31/17 at 18:00 Quetiapine Fumarate (SEROquel) 25 mg HS PO Last administered on 04/02/17 19:15 ; Start 04/01/17 at 21:00; Stop 04/03/17 at 18:56; Status DC Sertraline HCl (Zoloft) 25 mg DAILY PO Last administered on 04/02/17 09:59; Start 04/02/17 at 09:00; Stop 04/02/17 at 18:43; Status DC Lorazepam (Ativan) 0.5 mg PRN Q2HR PRN PO ANXIETY / AGITATION Last administered on 04/04/17 10:37; Start 04/01/17 at 15:15 Famotidine (Pepcid) 20 mg PRN DAILY PRN PO HEARTBURN / GAS Last administered on 04/04/17 19:26; Start 04/02/17 at 09:15 Famotidine (Pepcid) 20 mg 1X ONCE PO Last administered on 04/02/17 09:59; Start 04/02/17 at 09:25; Stop 04/02/17 at 09:26; Status DC Sertraline HCl (Zoloft) 37.5 mg DAILY PO Last administered on 04/03/17 09:52; Start 04/03/17 at 09:00; Stop 04/03/17 at 18:56; Status DC Quetiapine Fumarate (SEROquel) 50 mg HS PO Last administered on 04/04/17 19:26 ; Start 04/03/17 at 21:00 Sertraline HCl (Zoloft) 50 mg DAILY PO Last administered on 04/04/17 09:08; Start 04/04/17 at 09:00 Active Scripts Active Reported Meclizine Hcl 12.5 Mg Tablet 12.5 Mg PO PRN Q8HRS Haloperidol 2 Mg Tablet 1 Mg PO PRN Q8HRS PRN Seroquel (Quetiapine Fumarate) 25 Mg Tablet 12.5 Mg PO HS Docusate Sodium 100 Mg Capsule 100 Mg PO BID Atorvastatin Calcium 20 Mg Tablet 20 Mg PO QHS Aspirin 81 Mg Tab.chew 81 Mg PO QHS Diagnosis: Problems: (1) Anxiety disorder (2) Dementia, vascular, with depression (3) Dementia, vascular, with delusions (4) Impulse control disorder (5) Major depressive disorder, recurrent episode EDE OGDEN MD Apr 04, 2017 20:38
--- NOTE | 2017-04-04 22:33 | PN ---
DATE: 04/03/2017 PSYCHIATRIC PROGRESS NOTE This is a late entry for 04/03/2017, covers elements not covered in my initial note of 04/03/2017. SUBJECTIVE: I met with the patient the evening of 04/06/2017. The patient slept 6-1/4 hours the previous evening. She has been quite labile, angry, irritable, paranoid, delusional, takes her medications hidden in ice cream, calling family members " ." She has been obsessing over allergy medications, somewhat confused, banging on the doors at times. REVIEW OF SYSTEMS: No CV, , pulmonary, eye, ENT system symptoms on review. Reliability poor. MENTAL STATUS EXAM: Oriented to herself. Insight, judgment, recent and remote memory, attention, concentration, fund of knowledge poor, consistent with her diagnosis as mentioned in my initial note. PLAN: Increase Seroquel from 37.5 mg at bedtime to 50 mg at bedtime, Zoloft from 25 mg a day to 50 mg a day. Continue rest of the psychotropics unchanged. Reviewed drug interactions. Risk/benefit ratio favors no further change. EDE OGDEN MD DR: LEXII/shaina JOB#: [id number] / [id number]
[2017-04-05 06:22] VITALS: BP 115/74
[2017-04-05 06:27] LABS: BASO # 0.1 x10^3/uL (0.0-0.2); BASO % 1 % (0-3); EOS # 0.3 x10^3/uL (0.0-0.7); EOS % 4 % (0-3); HEMATOCRIT 40.2 % (36.0-47.0); HEMOGLOBIN 13.6 g/dL (12.0-15.5); LYMPH # 3.1 x10^3/uL (1.0-4.8); LYMPH % 35 % (24-48); MEAN CORPUSCULAR HEMOGLOBIN 29 pg (25-35); MEAN CORPUSCULAR HGB CONC 34 g/dL (31-37); MEAN CORPUSCULAR VOLUME 86 fL (79-100); MONO # 0.7 x10^3/uL (0.0-1.1); MONO % 8 % (0-9); NEUT # 4.6 x10^3uL (1.8-7.7); NEUT % 53 % (31-73); PLATELET COUNT 361 x10^3/uL (140-400); RED CELL DISTRIBUTION WIDTH 13.6 % (11.5-14.5); WHITE BLOOD COUNT 8.8 x10^3/uL (4.0-11.0)
[2017-04-05] MEDS: NICOTINE 21MG PATCH. TD SCH (07:56)
[2017-04-05] MEDS: SERTRALINE 25 MG TABLET. PO SCH (07:57)
[2017-04-05] MEDS: DOCUSATE SODIUM 100 MG CAPSULE PO SCH ×2 (07:57→20:26)
[2017-04-05 16:09] VITALS: BP 145/74
[2017-04-05] MEDS: ASPIRIN 81 MG TAB.CHEW PO SCH (20:25)
[2017-04-05] MEDS: ATORVASTATIN CALCIUM 20 MG TABLET PO SCH (20:25)
[2017-04-05] MEDS: traZODone 50 MG TABLET. PO SCH (20:26)
[2017-04-05] MEDS: MIRTAZAPINE 7.5 MG TABLET. PO SCH (20:26)
--- NOTE | 2017-04-05 20:26 | PDOC ---
Exam Unruly Demential Exam: Unruly Note: Please also refer to the separate dictated note~for this date of service dictated separately.~Patient seen individually. Discussed the patient with Nursing staff reviewed the chart.~Reviewed interim history and current functioning. Reviewed vital signs,~Labs/ Radiology~and current medications noted below. Continue current treatment with the changes noted in the dictated addendum note Assessment: Vital Signs: Vital Signs Date Time Temp Pulse Resp B/P (MAP) Pulse Ox O2 Delivery O2 Flow Rate FiO2 04/05/17 16:09 98.5 70 18 145/74 (97) 98 Room Air I&O Intake and Output 04/06/17 07:00 Intake Total 1380 ml Balance 1380 ml Intake Oral 1380 ml Labs: Laboratory Tests Test 04/05/17 06:01 White Blood Count 8.8 x10^3/uL (4.0-11.0) Red Blood Count 4.70 x10^6/uL (3.50-5.40) Hemoglobin 13.6 g/dL (12.0-15.5) Hematocrit 40.2 % (36.0-47.0) Mean Corpuscular Volume 86 fL (79-100) Mean Corpuscular Hemoglobin 29 pg (25-35) Mean Corpuscular Hemoglobin Concent 34 g/dL (31-37) Red Cell Distribution Width 13.6 % (11.5-14.5) Platelet Count 361 x10^3/uL (140-400) Neutrophils (%) (Auto) 53 % (31-73) Lymphocytes (%) (Auto) 35 % (24-48) Monocytes (%) (Auto) 8 % (0-9) Eosinophils (%) (Auto) 4 % (0-3) H Basophils (%) (Auto) 1 % (0-3) Neutrophils # (Auto) 4.6 x10^3uL (1.8-7.7) Lymphocytes # (Auto) 3.1 x10^3/uL (1.0-4.8) Monocytes # (Auto) 0.7 x10^3/uL (0.0-1.1) Eosinophils # (Auto) 0.3 x10^3/uL (0.0-0.7) Basophils # (Auto) 0.1 x10^3/uL (0.0-0.2) Current Medications: Meds: Current Medications Ziprasidone (Geodon Im) 20 mg STK-MED ONCE IM ; Start 03/30/17 at 20:37; Stop 03/30/17 at 20:38; Status DC Ziprasidone (Geodon Im) 10 mg 1X ONCE IM Last administered on 03/30/17 20:45 ; Start 03/30/17 at 20:45; Stop 03/30/17 at 22:14; Status DC Acetaminophen (Tylenol) 650 mg PRN Q6HRS PRN PO PAIN / TEMP; Start 03/31/17 at 00:30 Multi-Ingredient Ointment (Analgesic [place]) 1 jefferson PRN QID PRN TP MUSCLE PAIN; Start 03/31/17 at 00:30 Al Hydroxide/Mg Hydroxide (Mylanta Plus Xs) 15 ml PRN AFTMEALHC PRN PO DYSPEPSIA; Start 03/31/17 at 00:30 Magnesium Hydroxide (Milk Of Magnesia) 2,400 mg PRN QHS PRN PO CONSTIPATION Last administered on 03/31/17 18:17; Start 03/31/17 at 00:30 Nicotine (Nicoderm Cq 21mg) 1 patch DAILY TD Last administered on 04/05/17 07: 56; Start 03/31/17 at 09:00 Haloperidol (Haldol) 1 mg PRN Q8HRS PRN PO ANXIETY / AGITATION Last administered on 04/03/17 17:14; Start 03/31/17 at 01:15 Quetiapine Fumarate (SEROquel) 12.5 mg HS PO ; Start 03/31/17 at 21:00; Stop at 21:00; Status DC Aspirin (Children'S Aspirin) 81 mg QHS PO Last administered on 04/04/17 19:26 ; Start 03/31/17 at 21:00 Atorvastatin Calcium (Lipitor) 20 mg QHS PO Last administered on 04/04/17 19: 26; Start 03/31/17 at 21:00 Docusate Sodium (Colace) 100 mg BID PO Last administered on 04/05/17 07:57; Start 03/31/17 at 21:00 Meclizine HCl (Antivert) 12.5 mg PRN Q8HRS PO ; Start 03/31/17 at 09:30 Quetiapine Fumarate (SEROquel) 6.25 mg HS PO Last administered on 03/31/17 20: 05; Start 03/31/17 at 21:00; Stop 04/01/17 at 10:09; Status DC Mirtazapine (Remeron) 7.5 mg QHS PO Last administered on 04/04/17 19:26; Start 03/31/17 at 21:00 Trazodone HCl (Desyrel) 50 mg QHS PO Last administered on 04/04/17 19:26; Start 03/31/17 at 21:00 Trazodone HCl (Desyrel) 50 mg PRN QHS PRN PO INSOMNIA, MAY REPEAT X1; Start at 18:00 Olanzapine (ZyPREXA ZYDIS) 2.5 mg PRN Q2HR PRN PO psychosis Last administered on 04/04/17 10:37; Start 03/31/17 at 18:00 Quetiapine Fumarate (SEROquel) 25 mg HS PO Last administered on 04/02/17 19:15 ; Start 04/01/17 at 21:00; Stop 04/03/17 at 18:56; Status DC Sertraline HCl (Zoloft) 25 mg DAILY PO Last administered on 04/02/17 09:59; Start 04/02/17 at 09:00; Stop 04/02/17 at 18:43; Status DC Lorazepam (Ativan) 0.5 mg PRN Q2HR PRN PO ANXIETY / AGITATION Last administered on 04/04/17 10:37; Start 04/01/17 at 15:15 Famotidine (Pepcid) 20 mg PRN DAILY PRN PO HEARTBURN / GAS Last administered on 04/04/17 19:26; Start 04/02/17 at 09:15 Famotidine (Pepcid) 20 mg 1X ONCE PO Last administered on 04/02/17 09:59; Start 04/02/17 at 09:25; Stop 04/02/17 at 09:26; Status DC Sertraline HCl (Zoloft) 37.5 mg DAILY PO Last administered on 04/03/17 09:52; Start 04/03/17 at 09:00; Stop 04/03/17 at 18:56; Status DC Quetiapine Fumarate (SEROquel) 50 mg HS PO Last administered on 04/04/17 19:26 ; Start 04/03/17 at 21:00; Stop 04/05/17 at 13:22; Status DC Sertraline HCl (Zoloft) 50 mg DAILY PO Last administered on 04/05/17 07:57; Start 04/04/17 at 09:00; Stop 04/05/17 at 13:23; Status DC Quetiapine Fumarate (SEROquel) 50 mg QHS PO ; Start 04/05/17 at 21:00 Sertraline HCl (Zoloft) 50 mg DAILY PO ; Start 04/06/17 at 09:00 Active Scripts Active Reported Meclizine Hcl 12.5 Mg Tablet 12.5 Mg PO PRN Q8HRS Haloperidol 2 Mg Tablet 1 Mg PO PRN Q8HRS PRN Seroquel (Quetiapine Fumarate) 25 Mg Tablet 12.5 Mg PO HS Docusate Sodium 100 Mg Capsule 100 Mg PO BID Atorvastatin Calcium 20 Mg Tablet 20 Mg PO QHS Aspirin 81 Mg Tab.chew 81 Mg PO QHS Diagnosis: Problems: (1) Anxiety disorder (2) Dementia, vascular, with depression (3) Dementia, vascular, with delusions (4) Impulse control disorder (5) Major depressive disorder, recurrent episode EDE OGDEN MD Apr 05, 2017 20:26
[2017-04-05] MEDS: HALOPERIDOL 2 MG TABLET PO PRN (20:31)
[2017-04-05] MEDS ORDERED: QUEtiapine 50 MG TABLET. PO SCH (21:00)
[2017-04-06 07:12] VITALS: BP 150/73
[2017-04-06] MEDS: SERTRALINE 50 MG TABLET. PO SCH (07:57)
[2017-04-06] MEDS: NICOTINE 21MG PATCH. TD SCH (07:58)
[2017-04-06] MEDS: DOCUSATE SODIUM 100 MG CAPSULE PO SCH ×2 (07:58→19:15)
[2017-04-06] MEDS: MAGNESIUM HYDROXIDE 2,400 MG/30 ML ORAL.SUSP. PO PRN (15:00)
[2017-04-06] MEDS: LORazepam 0.5 MG TABLET PO PRN (15:27)
[2017-04-06] MEDS: FAMOTIDINE 20 MG TABLET PO PRN (15:31)
[2017-04-06 15:58] VITALS: BP 143/81
[2017-04-06] MEDS: traZODone 50 MG TABLET. PO SCH (19:15)
[2017-04-06] MEDS: ASPIRIN 81 MG TAB.CHEW PO SCH (19:15)
[2017-04-06] MEDS: ATORVASTATIN CALCIUM 20 MG TABLET PO SCH (19:16)
[2017-04-06] MEDS: MIRTAZAPINE 7.5 MG TABLET. PO SCH (19:16)
[2017-04-06] MEDS: QUEtiapine 50 MG TABLET. PO SCH (19:36)
--- NOTE | 2017-04-06 20:46 | PDOC ---
Exam Unruly Demential Exam: Unruly Note: Please also refer to the separate dictated note~for this date of service dictated separately.~Patient seen individually. Discussed the patient with Nursing staff reviewed the chart.~Reviewed interim history and current functioning. Reviewed vital signs,~Labs/ Radiology~and current medications noted below. Continue current treatment with the changes noted in the dictated addendum note Assessment: Vital Signs: Vital Signs Date Time Temp Pulse Resp B/P (MAP) Pulse Ox O2 Delivery O2 Flow Rate FiO2 04/06/17 15:58 96.8 90 20 143/81 (101) 99 04/05/17 16:09 Room Air I&O Intake and Output 04/07/17 07:00 Intake Total 840 ml Balance 840 ml Intake Oral 840 ml Current Medications: Meds: Current Medications Ziprasidone (Geodon Im) 20 mg STK-MED ONCE IM ; Start 03/30/17 at 20:37; Stop 03/30/17 at 20:38; Status DC Ziprasidone (Geodon Im) 10 mg 1X ONCE IM Last administered on 03/30/17 20:45 ; Start 03/30/17 at 20:45; Stop 03/30/17 at 22:14; Status DC Acetaminophen (Tylenol) 650 mg PRN Q6HRS PRN PO PAIN / TEMP; Start 03/31/17 at 00:30 Multi-Ingredient Ointment (Analgesic [place]) 1 jefferson PRN QID PRN TP MUSCLE PAIN; Start 03/31/17 at 00:30 Al Hydroxide/Mg Hydroxide (Mylanta Plus Xs) 15 ml PRN AFTMEALHC PRN PO DYSPEPSIA; Start 03/31/17 at 00:30 Magnesium Hydroxide (Milk Of Magnesia) 2,400 mg PRN QHS PRN PO CONSTIPATION Last administered on 03/31/17 18:17; Start 03/31/17 at 00:30 Nicotine (Nicoderm Cq 21mg) 1 patch DAILY TD Last administered on 04/06/17 07 :58; Start 03/31/17 at 09:00 Haloperidol (Haldol) 1 mg PRN Q8HRS PRN PO ANXIETY / AGITATION Last administered on 04/05/17 20:31; Start 03/31/17 at 01:15 Quetiapine Fumarate (SEROquel) 12.5 mg HS PO ; Start 03/31/17 at 21:00; Stop at 21:00; Status DC Aspirin (Children'S Aspirin) 81 mg QHS PO Last administered on 04/06/17 19:15 ; Start 03/31/17 at 21:00 Atorvastatin Calcium (Lipitor) 20 mg QHS PO Last administered on 04/06/17 19: 16; Start 03/31/17 at 21:00 Docusate Sodium (Colace) 100 mg BID PO Last administered on 04/06/17 19:15; Start 03/31/17 at 21:00 Meclizine HCl (Antivert) 12.5 mg PRN Q8HRS PO ; Start 03/31/17 at 09:30 Quetiapine Fumarate (SEROquel) 6.25 mg HS PO Last administered on 03/31/17 20: 05; Start 03/31/17 at 21:00; Stop 04/01/17 at 10:09; Status DC Mirtazapine (Remeron) 7.5 mg QHS PO Last administered on 04/06/17 19:16; Start 03/31/17 at 21:00 Trazodone HCl (Desyrel) 50 mg QHS PO Last administered on 04/06/17 19:15; Start 03/31/17 at 21:00 Trazodone HCl (Desyrel) 50 mg PRN QHS PRN PO INSOMNIA, MAY REPEAT X1; Start at 18:00 Olanzapine (ZyPREXA ZYDIS) 2.5 mg PRN Q2HR PRN PO psychosis Last administered on 04/04/17 10:37; Start 03/31/17 at 18:00 Quetiapine Fumarate (SEROquel) 25 mg HS PO Last administered on 04/02/17 19:15 ; Start 04/01/17 at 21:00; Stop 04/03/17 at 18:56; Status DC Sertraline HCl (Zoloft) 25 mg DAILY PO Last administered on 04/02/17 09:59; Start 04/02/17 at 09:00; Stop 04/02/17 at 18:43; Status DC Lorazepam (Ativan) 0.5 mg PRN Q2HR PRN PO ANXIETY / AGITATION Last administered on 04/06/17 15:27; Start 04/01/17 at 15:15 Famotidine (Pepcid) 20 mg PRN DAILY PRN PO HEARTBURN / GAS Last administered on 04/06/17 15:31; Start 04/02/17 at 09:15 Famotidine (Pepcid) 20 mg 1X ONCE PO Last administered on 04/02/17 09:59; Start 04/02/17 at 09:25; Stop 04/02/17 at 09:26; Status DC Sertraline HCl (Zoloft) 37.5 mg DAILY PO Last administered on 04/03/17 09:52; Start 04/03/17 at 09:00; Stop 04/03/17 at 18:56; Status DC Quetiapine Fumarate (SEROquel) 50 mg HS PO Last administered on 04/04/17 19:26 ; Start 04/03/17 at 21:00; Stop 04/05/17 at 13:22; Status DC Sertraline HCl (Zoloft) 50 mg DAILY PO Last administered on 04/05/17 07:57; Start 04/04/17 at 09:00; Stop 04/05/17 at 13:23; Status DC Quetiapine Fumarate (SEROquel) 50 mg QHS PO Last administered on 04/05/17 20: 26; Start 04/05/17 at 21:00; Stop 04/06/17 at 18:15; Status DC Sertraline HCl (Zoloft) 50 mg DAILY PO Last administered on 04/06/17 07:57; Start 04/06/17 at 09:00 Quetiapine Fumarate (SEROquel) 75 mg QHS PO Last administered on 04/06/17 19: 36; Start 04/06/17 at 21:00 Active Scripts Active Reported Meclizine Hcl 12.5 Mg Tablet 12.5 Mg PO PRN Q8HRS Haloperidol 2 Mg Tablet 1 Mg PO PRN Q8HRS PRN Seroquel (Quetiapine Fumarate) 25 Mg Tablet 12.5 Mg PO HS Docusate Sodium 100 Mg Capsule 100 Mg PO BID Atorvastatin Calcium 20 Mg Tablet 20 Mg PO QHS Aspirin 81 Mg Tab.chew 81 Mg PO QHS Diagnosis: Problems: (1) Anxiety disorder (2) Dementia, vascular, with depression (3) Dementia, vascular, with delusions (4) Impulse control disorder (5) Major depressive disorder, recurrent episode EDE OGDEN MD Apr 06, 2017 20:46
[2017-04-06] MEDS: MAG HYDROX/AL HYDROX/SIMETH 30 ML ORAL.SUSP PO PRN (22:28)
--- NOTE | 2017-04-07 02:26 | PN ---
DATE: 04/05/2017 This late entry 04/05/2017 covers elements not covered in my initial note of 04/05/2017. I met with the patient in the evening of 04/05/2017. Overall, the patient remains somewhat confused, compliant, obsessed about getting into a closet for medication suspicious. Anxious, restless. REVIEW OF SYSTEMS: No CV, , pulmonary, eye, ENT system symptoms on review. MENTAL STATUS EXAM: Oriented to herself. Insight, judgment, recent and remote memory, attention, concentration, fund of knowledge poor, consistent with her diagnosis mentioned in my initial note. PLAN: Continue psychotropics mentioned in my initial note, reviewed drug interactions, risk/benefit ratio favors no further change at this time. MAN Jess OGDEN MD DR: LEXII/shaina JOB#: [id number] / [id number]
[2017-04-07 06:04] VITALS: BP 113/62
[2017-04-07] MEDS: DOCUSATE SODIUM 100 MG CAPSULE PO SCH ×2 (08:52→20:32)
[2017-04-07] MEDS: NICOTINE 21MG PATCH. TD SCH ×2 (08:52→09:00)
[2017-04-07] MEDS: SERTRALINE 50 MG TABLET. PO SCH (08:52)
[2017-04-07 10:04] LABS: ALBUMIN 3.4 g/dL (3.4-5.0); ALBUMIN/GLOBULIN RATIO 0.9 (1.0-1.7); CALCIUM 9.6 mg/dL (8.5-10.1); CREATININE 0.8 mg/dL (0.6-1.0); GFR 68.5; TOTAL BILIRUBIN 0.4 mg/dL (0.2-1.0)
[2017-04-07] MEDS: FAMOTIDINE 20 MG TABLET PO PRN (14:44)
[2017-04-07] MEDS: LORazepam 0.5 MG TABLET PO PRN (14:44)
[2017-04-07 16:39] VITALS: BP 129/66
--- NOTE | 2017-04-07 20:28 | PDOC ---
Exam Unruly Demential Exam: Unruly Note: Please also refer to the separate dictated note~for this date of service dictated separately.~Patient seen individually. Discussed the patient with Nursing staff reviewed the chart.~Reviewed interim history and current functioning. Reviewed vital signs,~Labs/ Radiology~and current medications noted below. Continue current treatment with the changes noted in the dictated addendum note Assessment: Vital Signs: Vital Signs Date Time Temp Pulse Resp B/P (MAP) Pulse Ox O2 Delivery O2 Flow Rate FiO2 04/07/17 16:39 97.9 55 20 129/66 (87) 97 04/05/17 16:09 Room Air I&O Intake and Output 04/08/17 07:00 Intake Total 600 ml Balance 600 ml Intake Oral 600 ml Labs: Laboratory Tests Test 04/07/17 09:20 Sodium Level 140 mmol/L (136-145) Potassium Level 4.0 mmol/L (3.5-5.1) Chloride Level 103 mmol/L (98-107) Carbon Dioxide Level 33 mmol/L (21-32) H Anion Gap 4 (6-14) L Blood Urea Nitrogen 11 mg/dL (7-20) Creatinine 0.8 mg/dL (0.6-1.0) Estimated GFR (Cockcroft-Gault) 68.5 BUN/Creatinine Ratio 14 (6-20) Glucose Level 153 mg/dL (70-99) H Calcium Level 9.6 mg/dL (8.5-10.1) Total Bilirubin 0.4 mg/dL (0.2-1.0) Aspartate Amino Transferase (AST) 11 U/L (15-37) L Alanine Aminotransferase (ALT) 18 U/L (14-59) Alkaline Phosphatase 84 U/L (46-116) Total Protein 7.0 g/dL (6.4-8.2) Albumin 3.4 g/dL (3.4-5.0) Albumin/Globulin Ratio 0.9 (1.0-1.7) L Current Medications: Meds: Current Medications Ziprasidone (Geodon Im) 20 mg STK-MED ONCE IM ; Start 03/30/17 at 20:37; Stop 03/30/17 at 20:38; Status DC Ziprasidone (Geodon Im) 10 mg 1X ONCE IM Last administered on 03/30/17t 20:45 ; Start 03/30/17 at 20:45; Stop 03/30/17 at 22:14; Status DC Acetaminophen (Tylenol) 650 mg PRN Q6HRS PRN PO PAIN / TEMP; Start 03/31/17 at 00:30 Multi-Ingredient Ointment (Analgesic [place]) 1 jefferson PRN QID PRN TP MUSCLE PAIN; Start 03/31/17 at 00:30 Al Hydroxide/Mg Hydroxide (Mylanta Plus Xs) 15 ml PRN AFTMEALHC PRN PO DYSPEPSIA Last administered on 04/06/17 22:28; Start 03/31/17 at 00:30 Magnesium Hydroxide (Milk Of Magnesia) 2,400 mg PRN QHS PRN PO CONSTIPATION Last administered on 03/31/17 18:17; Start 03/31/17 at 00:30 Nicotine (Nicoderm Cq 21mg) 1 patch DAILY TD Last administered on 04/06/17 07 :58; Start 03/31/17 at 09:00 Haloperidol (Haldol) 1 mg PRN Q8HRS PRN PO ANXIETY / AGITATION Last administered on 04/05/17 20:31; Start 03/31/17 at 01:15 Quetiapine Fumarate (SEROquel) 12.5 mg HS PO ; Start 03/31/17 at 21:00; Stop at 21:00; Status DC Aspirin (Children'S Aspirin) 81 mg QHS PO Last administered on 04/06/17 19:15 ; Start 03/31/17 at 21:00 Atorvastatin Calcium (Lipitor) 20 mg QHS PO Last administered on 04/06/17 19: 16; Start 03/31/17 at 21:00 Docusate Sodium (Colace) 100 mg BID PO Last administered on 04/07/17 08:52; Start 03/31/17 at 21:00 Meclizine HCl (Antivert) 12.5 mg PRN Q8HRS PO ; Start 03/31/17 at 09:30 Quetiapine Fumarate (SEROquel) 6.25 mg HS PO Last administered on 03/31/17 20: 05; Start 03/31/17 at 21:00; Stop 04/01/17 at 10:09; Status DC Mirtazapine (Remeron) 7.5 mg QHS PO Last administered on 04/06/17 19:16; Start 03/31/17 at 21:00 Trazodone HCl (Desyrel) 50 mg QHS PO Last administered on 04/06/17 19:15; Start 03/31/17 at 21:00 Trazodone HCl (Desyrel) 50 mg PRN QHS PRN PO INSOMNIA, MAY REPEAT X1 Last administered on 04/06/17 22:29; Start 03/31/17 at 18:00 Olanzapine (ZyPREXA ZYDIS) 2.5 mg PRN Q2HR PRN PO psychosis Last administered on 04/04/17 10:37; Start 03/31/17 at 18:00 Quetiapine Fumarate (SEROquel) 25 mg HS PO Last administered on 04/02/17 19:15 ; Start 04/01/17 at 21:00; Stop 04/03/17 at 18:56; Status DC Sertraline HCl (Zoloft) 25 mg DAILY PO Last administered on 04/02/17 09:59; Start 04/02/17 at 09:00; Stop 04/02/17 at 18:43; Status DC Lorazepam (Ativan) 0.5 mg PRN Q2HR PRN PO ANXIETY / AGITATION Last administered on 04/07/17 14:44; Start 04/01/17 at 15:15 Famotidine (Pepcid) 20 mg PRN DAILY PRN PO HEARTBURN / GAS Last administered on 04/07/17 14:44; Start 04/02/17 at 09:15 Famotidine (Pepcid) 20 mg 1X ONCE PO Last administered on 04/02/17 09:59; Start 04/02/17 at 09:25; Stop 04/02/17 at 09:26; Status DC Sertraline HCl (Zoloft) 37.5 mg DAILY PO Last administered on 04/03/17 09:52; Start 04/03/17 at 09:00; Stop 04/03/17 at 18:56; Status DC Quetiapine Fumarate (SEROquel) 50 mg HS PO Last administered on 04/04/17 19:26 ; Start 04/03/17 at 21:00; Stop 04/05/17 at 13:22; Status DC Sertraline HCl (Zoloft) 50 mg DAILY PO Last administered on 04/05/17 07:57; Start 04/04/17 at 09:00; Stop 04/05/17 at 13:23; Status DC Quetiapine Fumarate (SEROquel) 50 mg QHS PO Last administered on 04/05/17 20: 26; Start 04/05/17 at 21:00; Stop 04/06/17 at 18:15; Status DC Sertraline HCl (Zoloft) 50 mg DAILY PO Last administered on 04/07/17 08:52; Start 04/06/17 at 09:00 Quetiapine Fumarate (SEROquel) 75 mg QHS PO Last administered on 04/06/17 19: 36; Start 04/06/17 at 21:00 Active Scripts Active Reported Meclizine Hcl 12.5 Mg Tablet 12.5 Mg PO PRN Q8HRS Haloperidol 2 Mg Tablet 1 Mg PO PRN Q8HRS PRN Seroquel (Quetiapine Fumarate) 25 Mg Tablet 12.5 Mg PO HS Docusate Sodium 100 Mg Capsule 100 Mg PO BID Atorvastatin Calcium 20 Mg Tablet 20 Mg PO QHS Aspirin 81 Mg Tab.chew 81 Mg PO QHS Diagnosis: Problems: (1) Anxiety disorder (2) Dementia, vascular, with depression (3) Dementia, vascular, with delusions (4) Impulse control disorder (5) Major depressive disorder, recurrent episode EDE OGDEN MD Apr 07, 2017 20:28
[2017-04-07] MEDS: ATORVASTATIN CALCIUM 20 MG TABLET PO SCH (20:32)
[2017-04-07] MEDS: MIRTAZAPINE 7.5 MG TABLET. PO SCH (20:32)
[2017-04-07] MEDS: QUEtiapine 50 MG TABLET. PO SCH (20:32)
[2017-04-07] MEDS: ASPIRIN 81 MG TAB.CHEW PO SCH (20:32)
[2017-04-07] MEDS: traZODone 50 MG TABLET. PO SCH (20:32)
[2017-04-08 03:50] LABS: BACTERIA,URINE FEW /HPF (0-FEW); BILIRUBIN,URINE NEG (NEG); CLARITY,URINE HAZY; COLOR,URINE YELLOW; GLUCOSE,URINE NEG (NEG); NITRITE,URINE NEG (NEG); RBC,URINE OCC /HPF (0-2); UROBILINOGEN,URINE 0.2 mg/dL (0.2 mg/dL)
--- NOTE | 2017-04-08 04:44 | PN ---
DATE: 04/06/2017 This late entry 04/06/2017 covers elements not covered in my initial note of 04/06/2017. I met with the patient evening of 04/06/2017 on two separate occasions and then she followed me around the unit. She has slept through breakfast, slept 5-1/2 hours previous evening, got up at 11:00 a.m., goes back to her room, frequently at times she gets agitated, pushing at nursing staff, slammed the door, slept through lunch as well, anxious, restless, frequently wanting to go to the restroom. We will repeat a UA. REVIEW OF SYSTEMS: Frequency of urination. No CV, pulmonary, eye, ENT, GI system symptoms on review. Reliability poor. MENTAL STATUS EXAM: Oriented to herself. Insight, judgment, recent and remote memory, attention, concentration, fund of knowledge poor, consistent with her diagnosis. During the individual visit, she talked at length going [facility] in [facility] and had caregiver at home. Her mother was a teacher and much of her upbringing was with the caregiver, who she remembers fondly. No suicidal or homicidal ideation. Oriented to herself and situation. Speech coherent, abstraction fair, computation impaired, language function intact. Mood and affect somewhat anxious, labile. LABORATORY DATA: Reviewed. IMPRESSION: Unchanged from initial note. PLAN: Increase Seroquel from 50 mg at bedtime to 75 mg at bedtime. Maintain rest unchanged, reviewed drug interactions, risk/benefit ratio favors no further change. EDE OGDEN MD DR: LEXII/shaina JOB#: [id number] / [id number]
[2017-04-08 06:05] VITALS: BP 115/64
[2017-04-08] MEDS: SERTRALINE 50 MG TABLET. PO SCH (08:03)
[2017-04-08] MEDS: DOCUSATE SODIUM 100 MG CAPSULE PO SCH ×2 (08:03→19:40)
[2017-04-08] MEDS: NICOTINE 21MG PATCH. TD SCH (08:04)
[2017-04-08] MEDS: FAMOTIDINE 20 MG TABLET PO PRN (12:37)
[2017-04-08] MEDS: LORazepam 0.5 MG TABLET PO PRN (12:37)
[2017-04-08] MEDS: QUEtiapine 25 MG TABLET. PO SCH (14:20)
[2017-04-08 16:28] VITALS: BP 138/73
[2017-04-08] MEDS: ASPIRIN 81 MG TAB.CHEW PO SCH (19:39)
[2017-04-08] MEDS: QUEtiapine 50 MG TABLET. PO SCH (19:39)
[2017-04-08] MEDS: ATORVASTATIN CALCIUM 20 MG TABLET PO SCH (19:40)
[2017-04-08] MEDS: traZODone 50 MG TABLET. PO SCH (19:40)
[2017-04-08] MEDS: MIRTAZAPINE 15 MG TABLET PO SCH (19:40)
--- NOTE | 2017-04-08 20:35 | PDOC ---
Exam Unruly Demential Exam: Unruly Note: Please also refer to the separate dictated note~for this date of service dictated separately.~Patient seen individually. Discussed the patient with Nursing staff reviewed the chart.~Reviewed interim history and current functioning. Reviewed vital signs,~Labs/ Radiology~and current medications noted below. Continue current treatment with the changes noted in the dictated addendum note Assessment: Vital Signs: Vital Signs Date Time Temp Pulse Resp B/P (MAP) Pulse Ox O2 Delivery O2 Flow Rate FiO2 04/08/17 16:28 97.6 60 16 138/73 (94) 97 04/05/17 16:09 Room Air I&O Intake and Output 04/09/17 07:00 Intake Total 480 ml Balance 480 ml Intake Oral 480 ml Labs: Laboratory Tests Test 04/08/17 02:30 Urine Collection Type Unknown Urine Color Yellow Urine Clarity Hazy Urine pH 7.0 Urine Specific [place] 1.010 Urine Protein Neg (NEG-TRACE) Urine Glucose (UA) Neg mg/dL (NEG) Urine Ketones (Stick) Neg mg/dL (NEG) Urine Blood Trace (NEG) Urine Nitrite Neg (NEG) Urine Bilirubin Neg (NEG) Urine Urobilinogen Dipstick 0.2 mg/dL (0.2 mg/dL) Urine Leukocyte Esterase Mod (NEG) Urine RBC Occ /HPF (0-2) Urine WBC 5-10 /HPF (0-4) Urine Squamous Epithelial Cells None /LPF Urine Bacteria Few /HPF (0-FEW) Current Medications: Meds: Current Medications Ziprasidone (Geodon Im) 20 mg STK-MED ONCE IM ; Start 03/30/17 at 20:37; Stop 03/30/17 at 20:38; Status DC Ziprasidone (Geodon Im) 10 mg 1X ONCE IM Last administered on 03/30/17t 20:45 ; Start 03/30/17 at 20:45; Stop 03/30/17 at 22:14; Status DC Acetaminophen (Tylenol) 650 mg PRN Q6HRS PRN PO PAIN / TEMP; Start 03/31/17 at 00:30 Multi-Ingredient Ointment (Analgesic [place]) 1 jefferson PRN QID PRN TP MUSCLE PAIN; Start 03/31/17 at 00:30 Al Hydroxide/Mg Hydroxide (Mylanta Plus Xs) 15 ml PRN AFTMEALHC PRN PO DYSPEPSIA Last administered on 04/06/17 22:28; Start 03/31/17 at 00:30 Magnesium Hydroxide (Milk Of Magnesia) 2,400 mg PRN QHS PRN PO CONSTIPATION Last administered on 03/31/17 18:17; Start 03/31/17 at 00:30 Nicotine (Nicoderm Cq 21mg) 1 patch DAILY TD Last administered on 04/08/17 08 :04; Start 03/31/17 at 09:00 Haloperidol (Haldol) 1 mg PRN Q8HRS PRN PO ANXIETY / AGITATION Last administered on 04/05/17 20:31; Start 03/31/17 at 01:15 Quetiapine Fumarate (SEROquel) 12.5 mg HS PO ; Start 03/31/17 at 21:00; Stop at 21:00; Status DC Aspirin (Children'S Aspirin) 81 mg QHS PO Last administered on 04/08/17 19:39 ; Start 03/31/17 at 21:00 Atorvastatin Calcium (Lipitor) 20 mg QHS PO Last administered on 04/08/17 19: 40; Start 03/31/17 at 21:00 Docusate Sodium (Colace) 100 mg BID PO Last administered on 04/08/17 19:40; Start 03/31/17 at 21:00 Meclizine HCl (Antivert) 12.5 mg PRN Q8HRS PO ; Start 03/31/17 at 09:30 Quetiapine Fumarate (SEROquel) 6.25 mg HS PO Last administered on 03/31/17 20: 05; Start 03/31/17 at 21:00; Stop 04/01/17 at 10:09; Status DC Mirtazapine (Remeron) 7.5 mg QHS PO Last administered on 04/07/17 20:32; Start 03/31/17 at 21:00; Stop 04/08/17 at 11:04; Status DC Trazodone HCl (Desyrel) 50 mg QHS PO Last administered on 04/08/17 19:40; Start 03/31/17 at 21:00 Trazodone HCl (Desyrel) 50 mg PRN QHS PRN PO INSOMNIA, MAY REPEAT X1 Last administered on 04/06/17 22:29; Start 03/31/17 at 18:00 Olanzapine (ZyPREXA ZYDIS) 2.5 mg PRN Q2HR PRN PO psychosis Last administered on 04/04/17 10:37; Start 03/31/17 at 18:00 Quetiapine Fumarate (SEROquel) 25 mg HS PO Last administered on 04/02/17 19:15 ; Start 04/01/17 at 21:00; Stop 04/03/17 at 18:56; Status DC Sertraline HCl (Zoloft) 25 mg DAILY PO Last administered on 04/02/17 09:59; Start 04/02/17 at 09:00; Stop 04/02/17 at 18:43; Status DC Lorazepam (Ativan) 0.5 mg PRN Q2HR PRN PO ANXIETY / AGITATION Last administered on 04/08/17 12:37; Start 04/01/17 at 15:15 Famotidine (Pepcid) 20 mg PRN DAILY PRN PO HEARTBURN / GAS Last administered on 04/08/17 12:37; Start 04/02/17 at 09:15 Famotidine (Pepcid) 20 mg 1X ONCE PO Last administered on 04/02/17 09:59; Start 04/02/17 at 09:25; Stop 04/02/17 at 09:26; Status DC Sertraline HCl (Zoloft) 37.5 mg DAILY PO Last administered on 04/03/17 09:52; Start 04/03/17 at 09:00; Stop 04/03/17 at 18:56; Status DC Quetiapine Fumarate (SEROquel) 50 mg HS PO Last administered on 04/04/17 19:26 ; Start 04/03/17 at 21:00; Stop 04/05/17 at 13:22; Status DC Sertraline HCl (Zoloft) 50 mg DAILY PO Last administered on 04/05/17 07:57; Start 04/04/17 at 09:00; Stop 04/05/17 at 13:23; Status DC Quetiapine Fumarate (SEROquel) 50 mg QHS PO Last administered on 04/05/17 20: 26; Start 04/05/17 at 21:00; Stop 04/06/17 at 18:15; Status DC Sertraline HCl (Zoloft) 50 mg DAILY PO Last administered on 04/08/17 08:03; Start 04/06/17 at 09:00; Stop 04/08/17 at 11:04; Status DC Quetiapine Fumarate (SEROquel) 75 mg QHS PO Last administered on 04/08/17 19: 39; Start 04/06/17 at 21:00 Mirtazapine (Remeron) 15 mg QHS PO Last administered on 04/08/17 19:40; Start 04/08/17 at 21:00 Sertraline HCl (Zoloft) 75 mg DAILY PO ; Start 04/09/17 at 09:00 Quetiapine Fumarate (SEROquel) 12.5 mg [id number] PO Last administered on 14:20; Start 04/08/17 at 14:00 Active Scripts Active Reported Meclizine Hcl 12.5 Mg Tablet 12.5 Mg PO PRN Q8HRS Haloperidol 2 Mg Tablet 1 Mg PO PRN Q8HRS PRN Seroquel (Quetiapine Fumarate) 25 Mg Tablet 12.5 Mg PO HS Docusate Sodium 100 Mg Capsule 100 Mg PO BID Atorvastatin Calcium 20 Mg Tablet 20 Mg PO QHS Aspirin 81 Mg Tab.chew 81 Mg PO QHS Diagnosis: Problems: (1) Anxiety disorder (2) Dementia, vascular, with depression (3) Dementia, vascular, with delusions (4) Impulse control disorder (5) Major depressive disorder, recurrent episode EDE OGDEN MD Apr 08, 2017 20:35
--- NOTE | 2017-04-09 04:05 | PN ---
DATE: 04/07/2017 This late entry of 04/07 covers elements not covered in my initial note. SUBJECTIVE: I met with the patient on the evening of 04/07. The patient remains confused, resistant to medications, obsessed with her bowels, received milk of mag, refused Nicorette patch, withdrawn at times. We will repeat a UA. She complains of having had a fall with possible CVA. She had some breakfast and lunch. Complains of some dyspepsia. REVIEW OF SYSTEMS: No CV, or pulmonary system symptoms on review. MENTAL STATUS EXAM: Oriented to herself and situation. Speech is coherent, abstraction fair, computation impaired, language function intact, attention span short. Mood and affect somewhat anxious and labile. LABORATORY DATA: Reviewed. IMPRESSION: Unchanged from initial note. PLAN: Continue current psychotropics as mentioned in my initial note. Reviewed drug interactions, risk/benefit ratio favors no further change. EDE OGDEN MD DR: LEXII/shaina JOB#: [id number] / [id number]
[2017-04-09 06:17] VITALS: BP 145/76
[2017-04-09] MEDS: DOCUSATE SODIUM 100 MG CAPSULE PO SCH ×2 (08:22→19:24)
[2017-04-09] MEDS: QUEtiapine 25 MG TABLET. PO SCH ×2 (08:22→14:00)
[2017-04-09] MEDS: SERTRALINE 50 MG TABLET. PO SCH (08:23)
[2017-04-09] MEDS: NICOTINE 21MG PATCH. TD SCH (09:00)
[2017-04-09] MEDS: MAGNESIUM HYDROXIDE 2,400 MG/30 ML ORAL.SUSP. PO PRN (10:01)
[2017-04-09] MEDS: FAMOTIDINE 20 MG TABLET PO PRN (10:11)
[2017-04-09] MEDS: LORazepam 0.5 MG TABLET PO PRN (10:12)
[2017-04-09 16:34] VITALS: BP 143/73
[2017-04-09] MEDS: MIRTAZAPINE 15 MG TABLET PO SCH (19:24)
[2017-04-09] MEDS: QUEtiapine 50 MG TABLET. PO SCH (19:24)
[2017-04-09] MEDS: ATORVASTATIN CALCIUM 20 MG TABLET PO SCH (19:24)
[2017-04-09] MEDS: ASPIRIN 81 MG TAB.CHEW PO SCH (19:24)
[2017-04-09] MEDS: traZODone 50 MG TABLET. PO SCH (19:25)
--- NOTE | 2017-04-09 20:42 | PDOC ---
Exam Unruly Demential Exam: Unruly Note: Please also refer to the separate dictated note~for this date of service dictated separately.~Patient seen individually. Discussed the patient with Nursing staff reviewed the chart.~Reviewed interim history and current functioning. Reviewed vital signs,~Labs/ Radiology~and current medications noted below. Continue current treatment with the changes noted in the dictated addendum note Assessment: Vital Signs: Vital Signs Date Time Temp Pulse Resp B/P (MAP) Pulse Ox O2 Delivery O2 Flow Rate FiO2 04/09/17 16:34 98.8 64 20 143/73 (96) 97 04/05/17 16:09 Room Air I&O Intake and Output 04/10/17 07:00 Intake Total 1080 ml Balance 1080 ml Intake Oral 1080 ml Current Medications: Meds: Current Medications Ziprasidone (Geodon Im) 20 mg STK-MED ONCE IM ; Start 03/30/17 at 20:37; Stop 03/30/17 at 20:38; Status DC Ziprasidone (Geodon Im) 10 mg 1X ONCE IM Last administered on 03/30/17 20:45 ; Start 03/30/17 at 20:45; Stop 03/30/17 at 22:14; Status DC Acetaminophen (Tylenol) 650 mg PRN Q6HRS PRN PO PAIN / TEMP; Start 03/31/17 at 00:30 Multi-Ingredient Ointment (Analgesic [place]) 1 jefferson PRN QID PRN TP MUSCLE PAIN; Start 03/31/17 at 00:30 Al Hydroxide/Mg Hydroxide (Mylanta Plus Xs) 15 ml PRN AFTMEALHC PRN PO DYSPEPSIA Last administered on 04/06/17 22:28; Start 03/31/17 at 00:30 Magnesium Hydroxide (Milk Of Magnesia) 2,400 mg PRN QHS PRN PO CONSTIPATION Last administered on 03/31/17 18:17; Start 03/31/17 at 00:30 Nicotine (Nicoderm Cq 21mg) 1 patch DAILY TD Last administered on 04/08/17 08 :04; Start 03/31/17 at 09:00 Haloperidol (Haldol) 1 mg PRN Q8HRS PRN PO ANXIETY / AGITATION Last administered on 04/05/17 20:31; Start 03/31/17 at 01:15 Quetiapine Fumarate (SEROquel) 12.5 mg HS PO ; Start 03/31/17 at 21:00; Stop at 21:00; Status DC Aspirin (Children'S Aspirin) 81 mg QHS PO Last administered on 04/09/17 19:24 ; Start 03/31/17 at 21:00 Atorvastatin Calcium (Lipitor) 20 mg QHS PO Last administered on 04/09/17 19: 24; Start 03/31/17 at 21:00 Docusate Sodium (Colace) 100 mg BID PO Last administered on 04/09/17 19:24; Start 03/31/17 at 21:00 Meclizine HCl (Antivert) 12.5 mg PRN Q8HRS PO ; Start 03/31/17 at 09:30 Quetiapine Fumarate (SEROquel) 6.25 mg HS PO Last administered on 03/31/17 20: 05; Start 03/31/17 at 21:00; Stop 04/01/17 at 10:09; Status DC Mirtazapine (Remeron) 7.5 mg QHS PO Last administered on 04/07/17 20:32; Start 03/31/17 at 21:00; Stop 04/08/17 at 11:04; Status DC Trazodone HCl (Desyrel) 50 mg QHS PO Last administered on 04/09/17 19:25; Start 03/31/17 at 21:00 Trazodone HCl (Desyrel) 50 mg PRN QHS PRN PO INSOMNIA, MAY REPEAT X1 Last administered on 04/06/17 22:29; Start 03/31/17 at 18:00 Olanzapine (ZyPREXA ZYDIS) 2.5 mg PRN Q2HR PRN PO psychosis Last administered on 04/04/17 10:37; Start 03/31/17 at 18:00 Quetiapine Fumarate (SEROquel) 25 mg HS PO Last administered on 04/02/17 19:15 ; Start 04/01/17 at 21:00; Stop 04/03/17 at 18:56; Status DC Sertraline HCl (Zoloft) 25 mg DAILY PO Last administered on 04/02/17 09:59; Start 04/02/17 at 09:00; Stop 04/02/17 at 18:43; Status DC Lorazepam (Ativan) 0.5 mg PRN Q2HR PRN PO ANXIETY / AGITATION Last administered on 04/09/17 10:12; Start 04/01/17 at 15:15 Famotidine (Pepcid) 20 mg PRN DAILY PRN PO HEARTBURN / GAS Last administered on 04/09/17 10:11; Start 04/02/17 at 09:15 Famotidine (Pepcid) 20 mg 1X ONCE PO Last administered on 04/02/17 09:59; Start 04/02/17 at 09:25; Stop 04/02/17 at 09:26; Status DC Sertraline HCl (Zoloft) 37.5 mg DAILY PO Last administered on 04/03/17 09:52; Start 04/03/17 at 09:00; Stop 04/03/17 at 18:56; Status DC Quetiapine Fumarate (SEROquel) 50 mg HS PO Last administered on 04/04/17 19:26 ; Start 04/03/17 at 21:00; Stop 04/05/17 at 13:22; Status DC Sertraline HCl (Zoloft) 50 mg DAILY PO Last administered on 04/05/17 07:57; Start 04/04/17 at 09:00; Stop 04/05/17 at 13:23; Status DC Quetiapine Fumarate (SEROquel) 50 mg QHS PO Last administered on 04/05/17 20: 26; Start 04/05/17 at 21:00; Stop 04/06/17 at 18:15; Status DC Sertraline HCl (Zoloft) 50 mg DAILY PO Last administered on 04/08/17 08:03; Start 04/06/17 at 09:00; Stop 04/08/17 at 11:04; Status DC Quetiapine Fumarate (SEROquel) 75 mg QHS PO Last administered on 04/09/17 19: 24; Start 04/06/17 at 21:00 Mirtazapine (Remeron) 15 mg QHS PO Last administered on 04/09/17 19:24; Start 04/08/17 at 21:00 Sertraline HCl (Zoloft) 75 mg DAILY PO Last administered on 04/09/17 08:23; Start 04/09/17 at 09:00 Quetiapine Fumarate (SEROquel) 12.5 mg BID92 PO Last administered on t 08:22; Start 04/08/17 at 14:00; Stop 04/09/17 at 18:32; Status DC Quetiapine Fumarate (SEROquel) 12.5 mg TID@0900,1400,1700 PO ; Start 04/10/17 at 09:00 Active Scripts Active Reported Meclizine Hcl 12.5 Mg Tablet 12.5 Mg PO PRN Q8HRS Haloperidol 2 Mg Tablet 1 Mg PO PRN Q8HRS PRN Seroquel (Quetiapine Fumarate) 25 Mg Tablet 12.5 Mg PO HS Docusate Sodium 100 Mg Capsule 100 Mg PO BID Atorvastatin Calcium 20 Mg Tablet 20 Mg PO QHS Aspirin 81 Mg Tab.chew 81 Mg PO QHS Diagnosis: Problems: (1) Medical clearance for psychiatric admission (2) Anxiety disorder (3) Dementia, vascular, with depression (4) Dementia, vascular, with delusions (5) Impulse control disorder (6) Major depressive disorder, recurrent episode EDE OGDEN MD Apr 09, 2017 20:42
--- NOTE | 2017-04-10 03:44 | PN ---
DATE: 04/08/2017 This late entry 04/08/2017 covers elements not covered in my initial note of 04/08/2017. SUBJECTIVE: I met with the patient in the evening of 04/08/2017. She was staffed at the treatment team meeting with the entire team the morning of 04/08/2017. The patient's daughter Lenora and son Warren attended the treatment team meeting, reviewed her history at length, current diagnosis, progress, medications. She remains anxious up to the nursing station frequently and then to the closet wanting things out of the closet, resistive to medications. Family is looking for a new placement in [place] and she was living at the [facility] in [place] before coming here, prior to that was in [place]. REVIEW OF SYSTEMS: No CV, , pulmonary, eye, ENT system symptoms on review. She slept 5 hours previous evening, appetite 50% of meals. MENTAL STATUS EXAM: Oriented to herself. Insight, judgment, recent and remote memory, attention, concentration, fund of knowledge poor, consistent with her diagnosis mentioned in my initial note. PLAN: Increase Zoloft from 50 mg a day to 75 mg a day. Start Seroquel 12.5 mg at 9:00 a.m. and 2 p.m. and she has already taken 75 mg at bedtime, and increase Remeron from 7.5 mg at bedtime to 15 mg at bedtime. Continue rest of the psychotropics, reviewed drug contractions, risk/benefit ratio favors no further change. EDE OGDEN MD DR: LEXII/shaina JOB#: [id number] / [id number]
[2017-04-10 06:27] VITALS: BP 122/64
[2017-04-10] MEDS: SERTRALINE 50 MG TABLET. PO SCH (07:52)
[2017-04-10] MEDS: DOCUSATE SODIUM 100 MG CAPSULE PO SCH ×2 (07:52→19:25)
[2017-04-10] MEDS: NICOTINE 21MG PATCH. TD SCH ×2 (07:53→09:00)
[2017-04-10] MEDS: QUEtiapine 25 MG TABLET. PO SCH ×3 (07:54→17:00)
[2017-04-10 16:10] VITALS: BP 120/70
[2017-04-10] MEDS: traZODone 50 MG TABLET. PO SCH (19:25)
[2017-04-10] MEDS: QUEtiapine 50 MG TABLET. PO SCH (19:26)
[2017-04-10] MEDS: ATORVASTATIN CALCIUM 20 MG TABLET PO SCH (19:26)
[2017-04-10] MEDS: ASPIRIN 81 MG TAB.CHEW PO SCH (19:26)
[2017-04-10] MEDS: MIRTAZAPINE 15 MG TABLET PO SCH (19:26)
--- NOTE | 2017-04-10 21:42 | PDOC ---
Exam Unruly Demential Exam: Unruly Note: Please also refer to the separate dictated note~for this date of service dictated separately.~Patient seen individually. Discussed the patient with Nursing staff reviewed the chart.~Reviewed interim history and current functioning. Reviewed vital signs,~Labs/ Radiology~and current medications noted below. Continue current treatment with the changes noted in the dictated addendum note Assessment: Vital Signs: Vital Signs Date Time Temp Pulse Resp B/P (MAP) Pulse Ox O2 Delivery O2 Flow Rate FiO2 04/10/17 16:10 98.2 72 18 120/70 (87) 96 Room Air I&O Intake and Output 04/11/17 07:00 Intake Total 720 ml Balance 720 ml Intake Oral 720 ml Current Medications: Meds: Current Medications Ziprasidone (Geodon Im) 20 mg STK-MED ONCE IM ; Start 03/30/17 at 20:37; Stop 03/30/17 at 20:38; Status DC Ziprasidone (Geodon Im) 10 mg 1X ONCE IM Last administered on 03/30/17 20:45 ; Start 03/30/17 at 20:45; Stop 03/30/17 at 22:14; Status DC Acetaminophen (Tylenol) 650 mg PRN Q6HRS PRN PO PAIN / TEMP; Start 03/31/17 at 00:30 Multi-Ingredient Ointment (Analgesic [place]) 1 jefferson PRN QID PRN TP MUSCLE PAIN; Start 03/31/17 at 00:30 Al Hydroxide/Mg Hydroxide (Mylanta Plus Xs) 15 ml PRN AFTMEALHC PRN PO DYSPEPSIA Last administered on 04/06/17 22:28; Start 03/31/17 at 00:30 Magnesium Hydroxide (Milk Of Magnesia) 2,400 mg PRN QHS PRN PO CONSTIPATION Last administered on 03/31/17 18:17; Start 03/31/17 at 00:30 Nicotine (Nicoderm Cq 21mg) 1 patch DAILY TD Last administered on 04/08/17 08 :04; Start 03/31/17 at 09:00 Haloperidol (Haldol) 1 mg PRN Q8HRS PRN PO ANXIETY / AGITATION Last administered on 04/05/17 20:31; Start 03/31/17 at 01:15 Quetiapine Fumarate (SEROquel) 12.5 mg HS PO ; Start 03/31/17 at 21:00; Stop at 21:00; Status DC Aspirin (Children'S Aspirin) 81 mg QHS PO Last administered on 04/10/17 19:26 ; Start 03/31/17 at 21:00 Atorvastatin Calcium (Lipitor) 20 mg QHS PO Last administered on 04/10/17 19: 26; Start 03/31/17 at 21:00 Docusate Sodium (Colace) 100 mg BID PO Last administered on 04/10/17 19:25; Start 03/31/17 at 21:00 Meclizine HCl (Antivert) 12.5 mg PRN Q8HRS PO ; Start 03/31/17 at 09:30 Quetiapine Fumarate (SEROquel) 6.25 mg HS PO Last administered on 03/31/17 20: 05; Start 03/31/17 at 21:00; Stop 04/01/17 at 10:09; Status DC Mirtazapine (Remeron) 7.5 mg QHS PO Last administered on 04/07/17 20:32; Start 03/31/17 at 21:00; Stop 04/08/17 at 11:04; Status DC Trazodone HCl (Desyrel) 50 mg QHS PO Last administered on 04/10/17 19:25; Start 03/31/17 at 21:00 Trazodone HCl (Desyrel) 50 mg PRN QHS PRN PO INSOMNIA, MAY REPEAT X1 Last administered on 04/06/17 22:29; Start 03/31/17 at 18:00 Olanzapine (ZyPREXA ZYDIS) 2.5 mg PRN Q2HR PRN PO psychosis Last administered on 04/04/17 10:37; Start 03/31/17 at 18:00 Quetiapine Fumarate (SEROquel) 25 mg HS PO Last administered on 04/02/17 19:15 ; Start 04/01/17 at 21:00; Stop 04/03/17 at 18:56; Status DC Sertraline HCl (Zoloft) 25 mg DAILY PO Last administered on 04/02/17 09:59; Start 04/02/17 at 09:00; Stop 04/02/17 at 18:43; Status DC Lorazepam (Ativan) 0.5 mg PRN Q2HR PRN PO ANXIETY / AGITATION Last administered on 04/09/17 10:12; Start 04/01/17 at 15:15 Famotidine (Pepcid) 20 mg PRN DAILY PRN PO HEARTBURN / GAS Last administered on 04/09/17 10:11; Start 04/02/17 at 09:15 Famotidine (Pepcid) 20 mg 1X ONCE PO Last administered on 04/02/17 09:59; Start 04/02/17 at 09:25; Stop 04/02/17 at 09:26; Status DC Sertraline HCl (Zoloft) 37.5 mg DAILY PO Last administered on 04/03/17 09:52; Start 04/03/17 at 09:00; Stop 04/03/17 at 18:56; Status DC Quetiapine Fumarate (SEROquel) 50 mg HS PO Last administered on 04/04/17 19:26 ; Start 04/03/17 at 21:00; Stop 04/05/17 at 13:22; Status DC Sertraline HCl (Zoloft) 50 mg DAILY PO Last administered on 04/05/17 07:57; Start 04/04/17 at 09:00; Stop 04/05/17 at 13:23; Status DC Quetiapine Fumarate (SEROquel) 50 mg QHS PO Last administered on 04/05/17 20: 26; Start 04/05/17 at 21:00; Stop 04/06/17 at 18:15; Status DC Sertraline HCl (Zoloft) 50 mg DAILY PO Last administered on 04/08/17 08:03; Start 04/06/17 at 09:00; Stop 04/08/17 at 11:04; Status DC Quetiapine Fumarate (SEROquel) 75 mg QHS PO Last administered on 04/10/17 19: 26; Start 04/06/17 at 21:00 Mirtazapine (Remeron) 15 mg QHS PO Last administered on 04/10/17 19:26; Start 04/08/17 at 21:00 Sertraline HCl (Zoloft) 75 mg DAILY PO Last administered on 04/10/17 07:52; Start 04/09/17 at 09:00 Quetiapine Fumarate (SEROquel) 12.5 mg BID92 PO Last administered on 08:22; Start 04/08/17 at 14:00; Stop 04/09/17 at 18:32; Status DC Quetiapine Fumarate (SEROquel) 12.5 mg TID@0900,1400,1700 PO Last administered on 04/10/17 17:00; Start 04/10/17 at 09:00 Active Scripts Active Reported Meclizine Hcl 12.5 Mg Tablet 12.5 Mg PO PRN Q8HRS Haloperidol 2 Mg Tablet 1 Mg PO PRN Q8HRS PRN Seroquel (Quetiapine Fumarate) 25 Mg Tablet 12.5 Mg PO HS Docusate Sodium 100 Mg Capsule 100 Mg PO BID Atorvastatin Calcium 20 Mg Tablet 20 Mg PO QHS Aspirin 81 Mg Tab.chew 81 Mg PO QHS Diagnosis: Problems: (1) Medical clearance for psychiatric admission (2) Anxiety disorder (3) Dementia, vascular, with depression (4) Dementia, vascular, with delusions (5) Impulse control disorder (6) Major depressive disorder, recurrent episode EDE OGDEN MD Apr 10, 2017 21:42
--- NOTE | 2017-04-11 00:47 | PN ---
DATE: 04/09/2017 This late entry 04/09/2017 covers elements not covered in my initial note of 04/09/2017. SUBJECTIVE: I met with the patient in the evening of 04/09/2017. Per nursing report, the patient was resistive to treatment the previous evening, slept 7 hours, quite hateful, combative morning of 04/09/2017, withdrawn to her room all day, frequently asking for Pepcid and Zantac, somatically preoccupied, delusional, believed people are stealing from her and that her children put her here to get her money. We processed this with her at length but she is somewhat paranoid. REVIEW OF SYSTEMS: No CV, , pulmonary, eye, ENT system symptoms on review. Reliability poor. MENTAL STATUS EXAM: Oriented to herself. Insight, judgment, recent and remote memory, attention, concentration, fund of knowledge poor, consistent with her diagnosis. LABORATORY DATA: Reviewed. IMPRESSION: Unchanged from initial note. PLAN: Continue current psychotropics mentioned in my initial note, increase Seroquel from 12.5 mg b.i.d. to 12.5 mg 3 times a day, reviewed drug interactions, risk/benefit ratio favors no further change. EDE OGDEN MD DR: LEXII/shaina JOB#: [id number] / [id number]
--- NOTE | 2017-04-11 03:07 | PN ---
DATE: 04/10/2017 PSYCHIATRIC PROGRESS NOTE This note covers the elements not covered in my initial note of 04/10/2017. I met with the patient evening of 04/10/2017. She is at times resistive to medications, refuses Seroquel ____ this with her, she feels people are stealing from her at times. No CV, , pulmonary, eye, ENT system symptoms on review. Reliability poor. MENTAL STATUS EXAM: Oriented to herself. Insight, judgment, recent and remote memory, attention, concentration, fund of knowledge poor, consistent with her diagnosis mentioned in my initial note. PLAN: Continue current psychotropics mentioned in my initial note, reviewed drug interactions, risk/benefit ratio favors no further change, may need to increase Seroquel if delusional thought processes persist. MAN Jess OGDEN MD DR: LEXII/shaina JOB#: [id number] / [id number]
[2017-04-11 06:15] VITALS: BP 142/73
[2017-04-11] MEDS: QUEtiapine 25 MG TABLET. PO SCH ×3 (08:00→18:09)
[2017-04-11] MEDS: SERTRALINE 50 MG TABLET. PO SCH (08:00)
[2017-04-11] MEDS: DOCUSATE SODIUM 100 MG CAPSULE PO SCH ×2 (08:00→19:39)
[2017-04-11] MEDS: NICOTINE 21MG PATCH. TD SCH (08:01)
[2017-04-11 08:23] LABS: BASO % 0 % (0-3); EOS # 0.3 x10^3/uL (0.0-0.7); EOS % 2 % (0-3); HEMATOCRIT 38.7 % (36.0-47.0); HEMOGLOBIN 13.1 g/dL (12.0-15.5); LYMPH # 2.4 x10^3/uL (1.0-4.8); LYMPH % 20 % (24-48); MEAN CORPUSCULAR HEMOGLOBIN 29 pg (25-35); MEAN CORPUSCULAR HGB CONC 34 g/dL (31-37); MEAN CORPUSCULAR VOLUME 86 fL (79-100); MONO # 1.1 x10^3/uL (0.0-1.1); MONO % 10 % (0-9); NEUT # 7.9 x10^3uL (1.8-7.7); NEUT % 68 % (31-73); PLATELET COUNT 305 x10^3/uL (140-400); RED BLOOD COUNT 4.53 x10^6/uL (3.50-5.40); RED CELL DISTRIBUTION WIDTH 13.9 % (11.5-14.5); WHITE BLOOD COUNT 11.7 x10^3/uL (4.0-11.0)
[2017-04-11 08:33] LABS: ALBUMIN 3.3 g/dL (3.4-5.0); ALBUMIN/GLOBULIN RATIO 0.9 (1.0-1.7); CALCIUM 9.6 mg/dL (8.5-10.1); CREATININE 0.6 mg/dL (0.6-1.0); GFR 95.5; POTASSIUM 4.4 mmol/L (3.5-5.1); TOTAL BILIRUBIN 0.5 mg/dL (0.2-1.0); TOTAL PROTEIN 6.8 g/dL (6.4-8.2)
[2017-04-11] MEDS: MAG HYDROX/AL HYDROX/SIMETH 30 ML ORAL.SUSP PO PRN (14:17)
[2017-04-11] MEDS: LORazepam 0.5 MG TABLET PO PRN (14:17)
[2017-04-11 16:13] VITALS: BP 109/65
[2017-04-11] MEDS: traZODone 50 MG TABLET. PO SCH (19:38)
[2017-04-11] MEDS: QUEtiapine 50 MG TABLET. PO SCH (19:38)
[2017-04-11] MEDS: MIRTAZAPINE 15 MG TABLET PO SCH (19:38)
[2017-04-11] MEDS: ATORVASTATIN CALCIUM 20 MG TABLET PO SCH (19:39)
[2017-04-11] MEDS: ASPIRIN 81 MG TAB.CHEW PO SCH (19:39)
--- NOTE | 2017-04-11 20:48 | PDOC ---
Exam Unruly Demential Exam: Unruly Note: Please also refer to the separate dictated note~for this date of service dictated separately.~Patient seen individually. Discussed the patient with Nursing staff reviewed the chart.~Reviewed interim history and current functioning. Reviewed vital signs,~Labs/ Radiology~and current medications noted below. Continue current treatment with the changes noted in the dictated addendum note Assessment: Vital Signs: Vital Signs Date Time Temp Pulse Resp B/P (MAP) Pulse Ox O2 Delivery O2 Flow Rate FiO2 04/11/17 16:13 98.6 56 16 109/65 (80) 96 Room Air I&O Intake and Output 04/12/17 07:00 Intake Total 120 ml Balance 120 ml Intake Oral 120 ml Labs: Laboratory Tests Test 04/11/17 07:56 White Blood Count 11.7 x10^3/uL (4.0-11.0) H Red Blood Count 4.53 x10^6/uL (3.50-5.40) Hemoglobin 13.1 g/dL (12.0-15.5) Hematocrit 38.7 % (36.0-47.0) Mean Corpuscular Volume 86 fL (79-100) Mean Corpuscular Hemoglobin 29 pg (25-35) Mean Corpuscular Hemoglobin Concent 34 g/dL (31-37) Red Cell Distribution Width 13.9 % (11.5-14.5) Platelet Count 305 x10^3/uL (140-400) Neutrophils (%) (Auto) 68 % (31-73) Lymphocytes (%) (Auto) 20 % (24-48) L Monocytes (%) (Auto) 10 % (0-9) H Eosinophils (%) (Auto) 2 % (0-3) Basophils (%) (Auto) 0 % (0-3) Neutrophils # (Auto) 7.9 x10^3uL (1.8-7.7) H Lymphocytes # (Auto) 2.4 x10^3/uL (1.0-4.8) Monocytes # (Auto) 1.1 x10^3/uL (0.0-1.1) Eosinophils # (Auto) 0.3 x10^3/uL (0.0-0.7) Basophils # (Auto) 0.0 x10^3/uL (0.0-0.2) Sodium Level 138 mmol/L (136-145) Potassium Level 4.4 mmol/L (3.5-5.1) Chloride Level 102 mmol/L (98-107) Carbon Dioxide Level 32 mmol/L (21-32) Anion Gap 4 (6-14) L Blood Urea Nitrogen 10 mg/dL (7-20) Creatinine 0.6 mg/dL (0.6-1.0) Estimated GFR (Cockcroft-Gault) 95.5 BUN/Creatinine Ratio 17 (6-20) Glucose Level 103 mg/dL (70-99) H Calcium Level 9.6 mg/dL (8.5-10.1) Total Bilirubin 0.5 mg/dL (0.2-1.0) Aspartate Amino Transferase (AST) 12 U/L (15-37) L Alanine Aminotransferase (ALT) 19 U/L (14-59) Alkaline Phosphatase 82 U/L (46-116) Total Protein 6.8 g/dL (6.4-8.2) Albumin 3.3 g/dL (3.4-5.0) L Albumin/Globulin Ratio 0.9 (1.0-1.7) L Current Medications: Meds: Current Medications Ziprasidone (Geodon Im) 20 mg STK-MED ONCE IM ; Start 03/30/17 at 20:37; Stop 03/30/17 at 20:38; Status DC Ziprasidone (Geodon Im) 10 mg 1X ONCE IM Last administered on 03/30/17 20:45 ; Start 03/30/17 at 20:45; Stop 03/30/17 at 22:14; Status DC Acetaminophen (Tylenol) 650 mg PRN Q6HRS PRN PO PAIN / TEMP; Start 03/31/17 at 00:30 Multi-Ingredient Ointment (Analgesic [place]) 1 jefferson PRN QID PRN TP MUSCLE PAIN; Start 03/31/17 at 00:30 Al Hydroxide/Mg Hydroxide (Mylanta Plus Xs) 15 ml PRN AFTMEALHC PRN PO DYSPEPSIA Last administered on 04/11/17 14:17; Start 03/31/17 at 00:30 Magnesium Hydroxide (Milk Of Magnesia) 2,400 mg PRN QHS PRN PO CONSTIPATION Last administered on 03/31/17 18:17; Start 03/31/17 at 00:30 Nicotine (Nicoderm Cq 21mg) 1 patch DAILY TD Last administered on 04/08/17 08 :04; Start 03/31/17 at 09:00 Haloperidol (Haldol) 1 mg PRN Q8HRS PRN PO ANXIETY / AGITATION Last administered on 04/05/17 20:31; Start 03/31/17 at 01:15 Quetiapine Fumarate (SEROquel) 12.5 mg HS PO ; Start 03/31/17 at 21:00; Stop at 21:00; Status DC Aspirin (Children'S Aspirin) 81 mg QHS PO Last administered on 04/11/17 19:39 ; Start 03/31/17 at 21:00 Atorvastatin Calcium (Lipitor) 20 mg QHS PO Last administered on 04/11/17 19: 39; Start 03/31/17 at 21:00 Docusate Sodium (Colace) 100 mg BID PO Last administered on 04/11/17 19:39; Start 03/31/17 at 21:00 Meclizine HCl (Antivert) 12.5 mg PRN Q8HRS PO ; Start 03/31/17 at 09:30 Quetiapine Fumarate (SEROquel) 6.25 mg HS PO Last administered on 03/31/17 20: 05; Start 03/31/17 at 21:00; Stop 04/01/17 at 10:09; Status DC Mirtazapine (Remeron) 7.5 mg QHS PO Last administered on 04/07/17 20:32; Start 03/31/17 at 21:00; Stop 04/08/17 at 11:04; Status DC Trazodone HCl (Desyrel) 50 mg QHS PO Last administered on 04/11/17 19:38; Start 03/31/17 at 21:00 Trazodone HCl (Desyrel) 50 mg PRN QHS PRN PO INSOMNIA, MAY REPEAT X1 Last administered on 04/06/17 22:29; Start 03/31/17 at 18:00 Olanzapine (ZyPREXA ZYDIS) 2.5 mg PRN Q2HR PRN PO psychosis Last administered on 04/04/17 10:37; Start 03/31/17 at 18:00 Quetiapine Fumarate (SEROquel) 25 mg HS PO Last administered on 04/02/17 19:15 ; Start 04/01/17 at 21:00; Stop 04/03/17 at 18:56; Status DC Sertraline HCl (Zoloft) 25 mg DAILY PO Last administered on 04/02/17 09:59; Start 04/02/17 at 09:00; Stop 04/02/17 at 18:43; Status DC Lorazepam (Ativan) 0.5 mg PRN Q2HR PRN PO ANXIETY / AGITATION Last administered on 04/11/17 14:17; Start 04/01/17 at 15:15 Famotidine (Pepcid) 20 mg PRN DAILY PRN PO HEARTBURN / GAS Last administered on 04/09/17 10:11; Start 04/02/17 at 09:15 Famotidine (Pepcid) 20 mg 1X ONCE PO Last administered on 04/02/17 09:59; Start 04/02/17 at 09:25; Stop 04/02/17 at 09:26; Status DC Sertraline HCl (Zoloft) 37.5 mg DAILY PO Last administered on 04/03/17 09:52; Start 04/03/17 at 09:00; Stop 04/03/17 at 18:56; Status DC Quetiapine Fumarate (SEROquel) 50 mg HS PO Last administered on 04/04/17 19:26 ; Start 04/03/17 at 21:00; Stop 04/05/17 at 13:22; Status DC Sertraline HCl (Zoloft) 50 mg DAILY PO Last administered on 04/05/17 07:57; Start 04/04/17 at 09:00; Stop 04/05/17 at 13:23; Status DC Quetiapine Fumarate (SEROquel) 50 mg QHS PO Last administered on 04/05/17 20: 26; Start 04/05/17 at 21:00; Stop 04/06/17 at 18:15; Status DC Sertraline HCl (Zoloft) 50 mg DAILY PO Last administered on 04/08/17 08:03; Start 04/06/17 at 09:00; Stop 04/08/17 at 11:04; Status DC Quetiapine Fumarate (SEROquel) 75 mg QHS PO Last administered on 04/11/17 19: 38; Start 04/06/17 at 21:00 Mirtazapine (Remeron) 15 mg QHS PO Last administered on 04/11/17 19:38; Start 04/08/17 at 21:00 Sertraline HCl (Zoloft) 75 mg DAILY PO Last administered on 04/11/17 08:00; Start 04/09/17 at 09:00; Stop 04/11/17 at 19:18; Status DC Quetiapine Fumarate (SEROquel) 12.5 mg BID92 PO Last administered on 08:22; Start 04/08/17 at 14:00; Stop 04/09/17 at 18:32; Status DC Quetiapine Fumarate (SEROquel) 12.5 mg TID@0900,1400,1700 PO Last administered on 04/11/17 18:09; Start 04/10/17 at 09:00 Fluvoxamine Maleate (Luvox) 50 mg HS PO Last administered on 04/11/17 19:40; Start 04/11/17 at 21:00 Active Scripts Active Reported Meclizine Hcl 12.5 Mg Tablet 12.5 Mg PO PRN Q8HRS Haloperidol 2 Mg Tablet 1 Mg PO PRN Q8HRS PRN Seroquel (Quetiapine Fumarate) 25 Mg Tablet 12.5 Mg PO HS Docusate Sodium 100 Mg Capsule 100 Mg PO BID Atorvastatin Calcium 20 Mg Tablet 20 Mg PO QHS Aspirin 81 Mg Tab.chew 81 Mg PO QHS Diagnosis: Problems: (1) Anxiety disorder (2) Dementia, vascular, with depression (3) Dementia, vascular, with delusions (4) Impulse control disorder (5) Major depressive disorder, recurrent episode EDE OGDEN MD Apr 11, 2017 20:47
[2017-04-12 07:21] VITALS: BP 92/47
[2017-04-12] MEDS: DOCUSATE SODIUM 100 MG CAPSULE PO SCH ×2 (08:06→19:47)
[2017-04-12] MEDS: QUEtiapine 25 MG TABLET. PO SCH ×3 (08:06→17:26)
[2017-04-12] MEDS: NICOTINE 21MG PATCH. TD SCH (09:00)
[2017-04-12 12:09] LABS: BACTERIA,URINE MANY /HPF (0-FEW); BILIRUBIN,URINE NEG (NEG); CLARITY,URINE TURBID; COLOR,URINE YELLOW; GLUCOSE,URINE NEG (NEG); NITRITE,URINE NEG (NEG); SQUAMOUS EPITHELIAL CELL,UR MOD /LPF; UROBILINOGEN,URINE 0.2 mg/dL (0.2 mg/dL); WBC,URINE >40 /HPF (0-4)
[2017-04-12] MEDS: HALOPERIDOL 2 MG TABLET PO PRN (15:29)
[2017-04-12] MEDS: FAMOTIDINE 20 MG TABLET PO PRN (15:29)
[2017-04-12 16:11] VITALS: BP 138/71
[2017-04-12] MEDS: LORazepam 0.5 MG TABLET PO PRN (18:12)
[2017-04-12] MEDS: ASPIRIN 81 MG TAB.CHEW PO SCH (19:46)
[2017-04-12] MEDS: ATORVASTATIN CALCIUM 20 MG TABLET PO SCH (19:46)
[2017-04-12] MEDS: traZODone 50 MG TABLET. PO SCH (19:47)
[2017-04-12] MEDS: MIRTAZAPINE 15 MG TABLET PO SCH (19:47)
[2017-04-12] MEDS: QUEtiapine 50 MG TABLET. PO SCH (19:49)
--- NOTE | 2017-04-12 21:24 | PDOC ---
Exam Unruly Demential Exam: Unruly Note: Please also refer to the separate dictated note~for this date of service dictated separately.~Patient seen individually. Discussed the patient with Nursing staff reviewed the chart.~Reviewed interim history and current functioning. Reviewed vital signs,~Labs/ Radiology~and current medications noted below. Continue current treatment with the changes noted in the dictated addendum note Assessment: Vital Signs: Vital Signs Date Time Temp Pulse Resp B/P (MAP) Pulse Ox O2 Delivery O2 Flow Rate FiO2 04/12/17 16:11 98.9 89 20 138/71 (93) 96 Room Air I&O Intake and Output 04/13/17 07:00 Intake Total 1080 ml Balance 1080 ml Intake Oral 1080 ml Labs: Laboratory Tests Test 04/12/17 11:35 Urine Collection Type Unknown Urine Color Yellow Urine Clarity Turbid Urine pH 6.5 Urine Specific [place] 1.015 Urine Protein Neg (NEG-TRACE) Urine Glucose (UA) Neg mg/dL (NEG) Urine Ketones (Stick) Neg mg/dL (NEG) Urine Blood Small (NEG) Urine Nitrite Neg (NEG) Urine Bilirubin Neg (NEG) Urine Urobilinogen Dipstick 0.2 mg/dL (0.2 mg/dL) Urine Leukocyte Esterase Large (NEG) Urine RBC 3-5 /HPF (0-2) Urine WBC >40 /HPF (0-4) Urine Squamous Epithelial Cells Mod /LPF Urine Bacteria Many /HPF (0-FEW) Current Medications: Meds: Current Medications Ziprasidone (Geodon Im) 20 mg STK-MED ONCE IM ; Start 03/30/17 at 20:37; Stop 03/30/17 at 20:38; Status DC Ziprasidone (Geodon Im) 10 mg 1X ONCE IM Last administered on 03/30/17 20:45 ; Start 03/30/17 at 20:45; Stop 03/30/17 at 22:14; Status DC Acetaminophen (Tylenol) 650 mg PRN Q6HRS PRN PO PAIN / TEMP; Start 03/31/17 at 00:30 Multi-Ingredient Ointment (Analgesic [place]) 1 jefferson PRN QID PRN TP MUSCLE PAIN; Start 03/31/17 at 00:30 Al Hydroxide/Mg Hydroxide (Mylanta Plus Xs) 15 ml PRN AFTMEALHC PRN PO DYSPEPSIA Last administered on 04/11/17 14:17; Start 03/31/17 at 00:30 Magnesium Hydroxide (Milk Of Magnesia) 2,400 mg PRN QHS PRN PO CONSTIPATION Last administered on 03/31/17 18:17; Start 03/31/17 at 00:30 Nicotine (Nicoderm Cq 21mg) 1 patch DAILY TD Last administered on 04/08/17 08 :04; Start 03/31/17 at 09:00 Haloperidol (Haldol) 1 mg PRN Q8HRS PRN PO ANXIETY / AGITATION Last administered on 04/12/17 15:29; Start 03/31/17 at 01:15 Quetiapine Fumarate (SEROquel) 12.5 mg HS PO ; Start 03/31/17 at 21:00; Stop at 21:00; Status DC Aspirin (Children'S Aspirin) 81 mg QHS PO Last administered on 04/12/17 19:46 ; Start 03/31/17 at 21:00 Atorvastatin Calcium (Lipitor) 20 mg QHS PO Last administered on 04/12/17 19: 46; Start 03/31/17 at 21:00 Docusate Sodium (Colace) 100 mg BID PO Last administered on 04/12/17 19:47; Start 03/31/17 at 21:00 Meclizine HCl (Antivert) 12.5 mg PRN Q8HRS PO ; Start 03/31/17 at 09:30 Quetiapine Fumarate (SEROquel) 6.25 mg HS PO Last administered on 03/31/17 20: 05; Start 03/31/17 at 21:00; Stop 04/01/17 at 10:09; Status DC Mirtazapine (Remeron) 7.5 mg QHS PO Last administered on 04/07/17 20:32; Start 03/31/17 at 21:00; Stop 04/08/17 at 11:04; Status DC Trazodone HCl (Desyrel) 50 mg QHS PO Last administered on 04/12/17 19:47; Start 03/31/17 at 21:00 Trazodone HCl (Desyrel) 50 mg PRN QHS PRN PO INSOMNIA, MAY REPEAT X1 Last administered on 04/06/17 22:29; Start 03/31/17 at 18:00 Olanzapine (ZyPREXA ZYDIS) 2.5 mg PRN Q2HR PRN PO psychosis Last administered on 04/04/17 10:37; Start 03/31/17 at 18:00 Quetiapine Fumarate (SEROquel) 25 mg HS PO Last administered on 04/02/17 19:15 ; Start 04/01/17 at 21:00; Stop 04/03/17 at 18:56; Status DC Sertraline HCl (Zoloft) 25 mg DAILY PO Last administered on 04/02/17 09:59; Start 04/02/17 at 09:00; Stop 04/02/17 at 18:43; Status DC Lorazepam (Ativan) 0.5 mg PRN Q2HR PRN PO ANXIETY / AGITATION Last administered on 04/12/17 18:12; Start 04/01/17 at 15:15 Famotidine (Pepcid) 20 mg PRN DAILY PRN PO HEARTBURN / GAS Last administered on 04/12/17 15:29; Start 04/02/17 at 09:15 Famotidine (Pepcid) 20 mg 1X ONCE PO Last administered on 04/02/17 09:59; Start 04/02/17 at 09:25; Stop 04/02/17 at 09:26; Status DC Sertraline HCl (Zoloft) 37.5 mg DAILY PO Last administered on 04/03/17 09:52; Start 04/03/17 at 09:00; Stop 04/03/17 at 18:56; Status DC Quetiapine Fumarate (SEROquel) 50 mg HS PO Last administered on 04/04/17 19:26 ; Start 04/03/17 at 21:00; Stop 04/05/17 at 13:22; Status DC Sertraline HCl (Zoloft) 50 mg DAILY PO Last administered on 04/05/17 07:57; Start 04/04/17 at 09:00; Stop 04/05/17 at 13:23; Status DC Quetiapine Fumarate (SEROquel) 50 mg QHS PO Last administered on 04/05/17 20: 26; Start 04/05/17 at 21:00; Stop 04/06/17 at 18:15; Status DC Sertraline HCl (Zoloft) 50 mg DAILY PO Last administered on 04/08/17 08:03; Start 04/06/17 at 09:00; Stop 04/08/17 at 11:04; Status DC Quetiapine Fumarate (SEROquel) 75 mg QHS PO Last administered on 04/12/17 19: 49; Start 04/06/17 at 21:00 Mirtazapine (Remeron) 15 mg QHS PO Last administered on 04/12/17 19:47; Start 04/08/17 at 21:00 Sertraline HCl (Zoloft) 75 mg DAILY PO Last administered on 04/11/17 08:00; Start 04/09/17 at 09:00; Stop 04/11/17 at 19:18; Status DC Quetiapine Fumarate (SEROquel) 12.5 mg BID92 PO Last administered on 08:22; Start 04/08/17 at 14:00; Stop 04/09/17 at 18:32; Status DC Quetiapine Fumarate (SEROquel) 12.5 mg TID@0900,1400,1700 PO Last administered on 04/12/17 17:26; Start 04/10/17 at 09:00 Fluvoxamine Maleate (Luvox) 50 mg HS PO Last administered on 04/12/17 19:46; Start 04/11/17 at 21:00 Active Scripts Active Reported Meclizine Hcl 12.5 Mg Tablet 12.5 Mg PO PRN Q8HRS Haloperidol 2 Mg Tablet 1 Mg PO PRN Q8HRS PRN Seroquel (Quetiapine Fumarate) 25 Mg Tablet 12.5 Mg PO HS Docusate Sodium 100 Mg Capsule 100 Mg PO BID Atorvastatin Calcium 20 Mg Tablet 20 Mg PO QHS Aspirin 81 Mg Tab.chew 81 Mg PO QHS Diagnosis: Problems: (1) Anxiety disorder (2) Dementia, vascular, with depression (3) Dementia, vascular, with delusions (4) Impulse control disorder (5) Major depressive disorder, recurrent episode EDE OGDEN MD Apr 12, 2017 21:24
--- NOTE | 2017-04-12 23:07 | PN ---
DATE: 04/11/2017 This late entry for 04/11/2017 covers elements not covered in my initial note of 04/11/2017. SUBJECTIVE: Overall, the patient remains quite anxious, obsessive, fixated on wanting things out of her closet, back and forth with the nursing station and she is obsessing about this as I met with her as well. REVIEW OF SYSTEMS: No CV, , pulmonary, eye, ENT system symptoms on review. Reliability poor. MENTAL STATUS EXAM: Oriented to herself. Insight, judgment, recent and remote memory, attention, concentration, fund of knowledge poor, consistent with her diagnosis mentioned in my initial note. PLAN: Given the extent of her obsessive thought processes, compulsive behaviors, we will go ahead and change the Zoloft to Luvox 50 mg p.o. at bedtime. Maintain the rest of the psychotropics including Seroquel along with trazodone p.r.n., Remeron at bedtime. Reviewed drug interactions. Risk/benefit ratio favors no further change. EDE OGDEN MD DR: LEXII/shaina JOB#: [id number] / [id number]
[2017-04-13 06:15] VITALS: BP 103/56
[2017-04-13] MEDS: QUEtiapine 25 MG TABLET. PO SCH ×3 (08:12→17:13)
[2017-04-13] MEDS: DOCUSATE SODIUM 100 MG CAPSULE PO SCH ×2 (08:12→20:22)
[2017-04-13] MEDS: NICOTINE 21MG PATCH. TD SCH ×2 (08:14→08:40)
[2017-04-13] MEDS: LORazepam 0.5 MG TABLET PO PRN (12:05)
[2017-04-13 16:04] VITALS: BP 157/73
[2017-04-13] MEDS: FAMOTIDINE 20 MG TABLET PO PRN (18:46)
--- NOTE | 2017-04-13 20:20 | PDOC ---
Exam Unruly Demential Exam: Unruly Note: Please also refer to the separate dictated note~for this date of service dictated separately.~Patient seen individually. Discussed the patient with Nursing staff reviewed the chart.~Reviewed interim history and current functioning. Reviewed vital signs,~Labs/ Radiology~and current medications noted below. Continue current treatment with the changes noted in the dictated addendum note Assessment: Vital Signs: Vital Signs Date Time Temp Pulse Resp B/P (MAP) Pulse Ox O2 Delivery O2 Flow Rate FiO2 04/13/17 16:04 98.6 66 18 157/73 (101) 97 04/12/17 16:11 Room Air I&O Intake and Output 04/14/17 07:00 Intake Total 1080 ml Balance 1080 ml Intake Oral 1080 ml Current Medications: Meds: Current Medications Ziprasidone (Geodon Im) 20 mg STK-MED ONCE IM ; Start 03/30/17 at 20:37; Stop 03/30/17 at 20:38; Status DC Ziprasidone (Geodon Im) 10 mg 1X ONCE IM Last administered on 03/30/17 20:45 ; Start 03/30/17 at 20:45; Stop 03/30/17 at 22:14; Status DC Acetaminophen (Tylenol) 650 mg PRN Q6HRS PRN PO PAIN / TEMP; Start 03/31/17 at 00:30 Multi-Ingredient Ointment (Analgesic [place]) 1 jefferson PRN QID PRN TP MUSCLE PAIN; Start 03/31/17 at 00:30 Al Hydroxide/Mg Hydroxide (Mylanta Plus Xs) 15 ml PRN AFTMEALHC PRN PO DYSPEPSIA Last administered on 04/11/17 14:17; Start 03/31/17 at 00:30 Magnesium Hydroxide (Milk Of Magnesia) 2,400 mg PRN QHS PRN PO CONSTIPATION Last administered on 03/31/17 18:17; Start 03/31/17 at 00:30 Nicotine (Nicoderm Cq 21mg) 1 patch DAILY TD Last administered on 04/08/17 08 :04; Start 03/31/17 at 09:00 Haloperidol (Haldol) 1 mg PRN Q8HRS PRN PO ANXIETY / AGITATION Last administered on 04/12/17 15:29; Start 03/31/17 at 01:15 Quetiapine Fumarate (SEROquel) 12.5 mg HS PO ; Start 03/31/17 at 21:00; Stop at 21:00; Status DC Aspirin (Children'S Aspirin) 81 mg QHS PO Last administered on 04/12/17 19:46 ; Start 03/31/17 at 21:00 Atorvastatin Calcium (Lipitor) 20 mg QHS PO Last administered on 04/12/17 19: 46; Start 03/31/17 at 21:00 Docusate Sodium (Colace) 100 mg BID PO Last administered on 04/13/17 08:12; Start 03/31/17 at 21:00 Meclizine HCl (Antivert) 12.5 mg PRN Q8HRS PO ; Start 03/31/17 at 09:30 Quetiapine Fumarate (SEROquel) 6.25 mg HS PO Last administered on 03/31/17 20: 05; Start 03/31/17 at 21:00; Stop 04/01/17 at 10:09; Status DC Mirtazapine (Remeron) 7.5 mg QHS PO Last administered on 04/07/17 20:32; Start 03/31/17 at 21:00; Stop 04/08/17 at 11:04; Status DC Trazodone HCl (Desyrel) 50 mg QHS PO Last administered on 04/12/17 19:47; Start 03/31/17 at 21:00 Trazodone HCl (Desyrel) 50 mg PRN QHS PRN PO INSOMNIA, MAY REPEAT X1 Last administered on 04/06/17 22:29; Start 03/31/17 at 18:00 Olanzapine (ZyPREXA ZYDIS) 2.5 mg PRN Q2HR PRN PO psychosis Last administered on 04/04/17 10:37; Start 03/31/17 at 18:00 Quetiapine Fumarate (SEROquel) 25 mg HS PO Last administered on 04/02/17 19:15 ; Start 04/01/17 at 21:00; Stop 04/03/17 at 18:56; Status DC Sertraline HCl (Zoloft) 25 mg DAILY PO Last administered on 04/02/17 09:59; Start 04/02/17 at 09:00; Stop 04/02/17 at 18:43; Status DC Lorazepam (Ativan) 0.5 mg PRN Q2HR PRN PO ANXIETY / AGITATION Last administered on 04/13/17 12:05; Start 04/01/17 at 15:15 Famotidine (Pepcid) 20 mg PRN DAILY PRN PO HEARTBURN / GAS Last administered on 04/13/17 18:46; Start 04/02/17 at 09:15 Famotidine (Pepcid) 20 mg 1X ONCE PO Last administered on 04/02/17 09:59; Start 04/02/17 at 09:25; Stop 04/02/17 at 09:26; Status DC Sertraline HCl (Zoloft) 37.5 mg DAILY PO Last administered on 04/03/17 09:52; Start 04/03/17 at 09:00; Stop 04/03/17 at 18:56; Status DC Quetiapine Fumarate (SEROquel) 50 mg HS PO Last administered on 04/04/17 19:26 ; Start 04/03/17 at 21:00; Stop 04/05/17 at 13:22; Status DC Sertraline HCl (Zoloft) 50 mg DAILY PO Last administered on 04/05/17 07:57; Start 04/04/17 at 09:00; Stop 04/05/17 at 13:23; Status DC Quetiapine Fumarate (SEROquel) 50 mg QHS PO Last administered on 04/05/17 20: 26; Start 04/05/17 at 21:00; Stop 04/06/17 at 18:15; Status DC Sertraline HCl (Zoloft) 50 mg DAILY PO Last administered on 04/08/17 08:03; Start 04/06/17 at 09:00; Stop 04/08/17 at 11:04; Status DC Quetiapine Fumarate (SEROquel) 75 mg QHS PO Last administered on 04/12/17 19: 49; Start 04/06/17 at 21:00 Mirtazapine (Remeron) 15 mg QHS PO Last administered on 04/12/17 19:47; Start 04/08/17 at 21:00 Sertraline HCl (Zoloft) 75 mg DAILY PO Last administered on 04/11/17 08:00; Start 04/09/17 at 09:00; Stop 04/11/17 at 19:18; Status DC Quetiapine Fumarate (SEROquel) 12.5 mg BID92 PO Last administered on 08:22; Start 04/08/17 at 14:00; Stop 04/09/17 at 18:32; Status DC Quetiapine Fumarate (SEROquel) 12.5 mg TID@0900,1400,1700 PO Last administered on 04/13/17 17:13; Start 04/10/17 at 09:00 Fluvoxamine Maleate (Luvox) 50 mg HS PO Last administered on 04/12/17 19:46; Start 04/11/17 at 21:00 Active Scripts Active Reported Meclizine Hcl 12.5 Mg Tablet 12.5 Mg PO PRN Q8HRS Haloperidol 2 Mg Tablet 1 Mg PO PRN Q8HRS PRN Seroquel (Quetiapine Fumarate) 25 Mg Tablet 12.5 Mg PO HS Docusate Sodium 100 Mg Capsule 100 Mg PO BID Atorvastatin Calcium 20 Mg Tablet 20 Mg PO QHS Aspirin 81 Mg Tab.chew 81 Mg PO QHS Diagnosis: Problems: (1) Anxiety disorder (2) Dementia, vascular, with depression (3) Dementia, vascular, with delusions (4) Impulse control disorder (5) Major depressive disorder, recurrent episode EDE OGDEN MD Apr 13, 2017 20:20
[2017-04-13] MEDS: ASPIRIN 81 MG TAB.CHEW PO SCH (20:21)
[2017-04-13] MEDS: traZODone 50 MG TABLET. PO SCH (20:22)
[2017-04-13] MEDS: QUEtiapine 50 MG TABLET. PO SCH (20:22)
[2017-04-13] MEDS: MIRTAZAPINE 15 MG TABLET PO SCH (20:22)
[2017-04-13] MEDS: ATORVASTATIN CALCIUM 20 MG TABLET PO SCH (20:23)
--- NOTE | 2017-04-14 03:02 | PN ---
DATE: 04/12/2017 This late entry, date of service 04/12/2017, covers elements not covered in my initial note of 04/12/2017. SUBJECTIVE: The patient slept 7 hours previous evening. UA has reflex to culture. She remains quite confused, obsessed about her purse and followed me around the unit even after I met with her, asking for her purse. She has done the same with nursing staff. She did take a shower with the persistence of nursing staff that she had refused one since from the time of her admission. REVIEW OF SYSTEMS: No CV, , pulmonary, eye, ENT system symptoms on review. Reliability poor. MENTAL STATUS EXAM: Oriented to herself and situation. Insight, judgment, recent and remote memory, attention, concentration, fund of knowledge poor, consistent with her diagnosis. LABORATORY DATA: Reviewed. IMPRESSION: Unchanged from initial note. PLAN: Continue current psychotropics including Luvox 50 mg at bedtime. May need to increase this gradually. Reviewed drug interactions. Risk/benefit ratio favors no further change. EDE OGDEN MD DR: LEXII/shaina JOB#: [id number] / [id number]
[2017-04-14 05:57] VITALS: BP 145/77
[2017-04-14] MEDS: NICOTINE 21MG PATCH. TD SCH (09:00)
[2017-04-14] MEDS: QUEtiapine 25 MG TABLET. PO SCH ×3 (09:20→16:51)
[2017-04-14] MEDS: DOCUSATE SODIUM 100 MG CAPSULE PO SCH ×2 (09:20→19:33)
[2017-04-14] MEDS: HALOPERIDOL 2 MG TABLET PO PRN (10:52)
[2017-04-14] MEDS: FAMOTIDINE 20 MG TABLET PO PRN (11:21)
[2017-04-14] MEDS: LORazepam 0.5 MG TABLET PO PRN (15:39)
[2017-04-14 16:17] VITALS: BP 128/70
[2017-04-14] MEDS: ASPIRIN 81 MG TAB.CHEW PO SCH ×2 (19:32→21:00)
[2017-04-14] MEDS: MIRTAZAPINE 15 MG TABLET PO SCH ×2 (19:33→21:00)
[2017-04-14] MEDS: traZODone 50 MG TABLET. PO SCH ×2 (19:33→21:00)
[2017-04-14] MEDS: ATORVASTATIN CALCIUM 20 MG TABLET PO SCH ×2 (19:33→21:00)
[2017-04-14] MEDS: QUEtiapine 50 MG TABLET. PO SCH ×2 (19:34→21:00)
--- NOTE | 2017-04-14 20:48 | PDOC ---
Exam Unruly Demential Exam: Unruly Note: Please also refer to the separate dictated note~for this date of service dictated separately.~Patient seen individually. Discussed the patient with Nursing staff reviewed the chart.~Reviewed interim history and current functioning. Reviewed vital signs,~Labs/ Radiology~and current medications noted below. Continue current treatment with the changes noted in the dictated addendum note Assessment: Vital Signs: Vital Signs Date Time Temp Pulse Resp B/P (MAP) Pulse Ox O2 Delivery O2 Flow Rate FiO2 04/14/17 16:17 98.0 83 18 128/70 (89) 97 04/12/17 16:11 Room Air I&O Intake and Output 04/15/17 06:59 Intake Total 540 ml Balance 540 ml Intake Oral 540 ml Current Medications: Meds: Current Medications Ziprasidone (Geodon Im) 20 mg STK-MED ONCE IM ; Start 03/30/17 at 20:37; Stop 03/30/17 at 20:38; Status DC Ziprasidone (Geodon Im) 10 mg 1X ONCE IM Last administered on 03/30/17 20:45 ; Start 03/30/17 at 20:45; Stop 03/30/17 at 22:14; Status DC Acetaminophen (Tylenol) 650 mg PRN Q6HRS PRN PO PAIN / TEMP; Start 03/31/17 at 00:30 Multi-Ingredient Ointment (Analgesic [place]) 1 jefferson PRN QID PRN TP MUSCLE PAIN; Start 03/31/17 at 00:30 Al Hydroxide/Mg Hydroxide (Mylanta Plus Xs) 15 ml PRN AFTMEALHC PRN PO DYSPEPSIA Last administered on 04/11/17 14:17; Start 03/31/17 at 00:30 Magnesium Hydroxide (Milk Of Magnesia) 2,400 mg PRN QHS PRN PO CONSTIPATION Last administered on 03/31/17 18:17; Start 03/31/17 at 00:30 Nicotine (Nicoderm Cq 21mg) 1 patch DAILY TD Last administered on 04/08/17 08 :04; Start 03/31/17 at 09:00 Haloperidol (Haldol) 1 mg PRN Q8HRS PRN PO ANXIETY / AGITATION Last administered on 04/14/17 10:52; Start 03/31/17 at 01:15 Quetiapine Fumarate (SEROquel) 12.5 mg HS PO ; Start 03/31/17 at 21:00; Stop at 21:00; Status DC Aspirin (Children'S Aspirin) 81 mg QHS PO Last administered on 04/14/17 19:32 ; Start 03/31/17 at 21:00 Atorvastatin Calcium (Lipitor) 20 mg QHS PO Last administered on 04/14/17 19: 33; Start 03/31/17 at 21:00 Docusate Sodium (Colace) 100 mg BID PO Last administered on 04/14/17 19:33; Start 03/31/17 at 21:00 Meclizine HCl (Antivert) 12.5 mg PRN Q8HRS PO ; Start 03/31/17 at 09:30 Quetiapine Fumarate (SEROquel) 6.25 mg HS PO Last administered on 03/31/17 20: 05; Start 03/31/17 at 21:00; Stop 04/01/17 at 10:09; Status DC Mirtazapine (Remeron) 7.5 mg QHS PO Last administered on 04/07/17 20:32; Start 03/31/17 at 21:00; Stop 04/08/17 at 11:04; Status DC Trazodone HCl (Desyrel) 50 mg QHS PO Last administered on 04/14/17 19:33; Start 03/31/17 at 21:00 Trazodone HCl (Desyrel) 50 mg PRN QHS PRN PO INSOMNIA, MAY REPEAT X1 Last administered on 04/06/17 22:29; Start 03/31/17 at 18:00 Olanzapine (ZyPREXA ZYDIS) 2.5 mg PRN Q2HR PRN PO psychosis Last administered on 04/04/17 10:37; Start 03/31/17 at 18:00 Quetiapine Fumarate (SEROquel) 25 mg HS PO Last administered on 04/02/17 19:15 ; Start 04/01/17 at 21:00; Stop 04/03/17 at 18:56; Status DC Sertraline HCl (Zoloft) 25 mg DAILY PO Last administered on 04/02/17 09:59; Start 04/02/17 at 09:00; Stop 04/02/17 at 18:43; Status DC Lorazepam (Ativan) 0.5 mg PRN Q2HR PRN PO ANXIETY / AGITATION Last administered on 04/14/17 15:39; Start 04/01/17 at 15:15 Famotidine (Pepcid) 20 mg PRN DAILY PRN PO HEARTBURN / GAS Last administered on 04/14/17 11:21; Start 04/02/17 at 09:15 Famotidine (Pepcid) 20 mg 1X ONCE PO Last administered on 04/02/17 09:59; Start 04/02/17 at 09:25; Stop 04/02/17 at 09:26; Status DC Sertraline HCl (Zoloft) 37.5 mg DAILY PO Last administered on 04/03/17 09:52; Start 04/03/17 at 09:00; Stop 04/03/17 at 18:56; Status DC Quetiapine Fumarate (SEROquel) 50 mg HS PO Last administered on 04/04/17 19:26 ; Start 04/03/17 at 21:00; Stop 04/05/17 at 13:22; Status DC Sertraline HCl (Zoloft) 50 mg DAILY PO Last administered on 04/05/17 07:57; Start 04/04/17 at 09:00; Stop 04/05/17 at 13:23; Status DC Quetiapine Fumarate (SEROquel) 50 mg QHS PO Last administered on 04/05/17 20: 26; Start 04/05/17 at 21:00; Stop 04/06/17 at 18:15; Status DC Sertraline HCl (Zoloft) 50 mg DAILY PO Last administered on 04/08/17 08:03; Start 04/06/17 at 09:00; Stop 04/08/17 at 11:04; Status DC Quetiapine Fumarate (SEROquel) 75 mg QHS PO Last administered on 04/14/17 19: 34; Start 04/06/17 at 21:00 Mirtazapine (Remeron) 15 mg QHS PO Last administered on 04/14/17 19:33; Start 04/08/17 at 21:00 Sertraline HCl (Zoloft) 75 mg DAILY PO Last administered on 04/11/17 08:00; Start 04/09/17 at 09:00; Stop 04/11/17 at 19:18; Status DC Quetiapine Fumarate (SEROquel) 12.5 mg BID92 PO Last administered on 08:22; Start 04/08/17 at 14:00; Stop 04/09/17 at 18:32; Status DC Quetiapine Fumarate (SEROquel) 12.5 mg TID@0900,1400,1700 PO Last administered on 04/14/17 16:51; Start 04/10/17 at 09:00 Fluvoxamine Maleate (Luvox) 50 mg HS PO Last administered on 04/13/17 20:22; Start 04/11/17 at 21:00; Stop 04/14/17 at 14:45; Status DC Fluvoxamine Maleate (Luvox) 75 mg HS PO Last administered on 04/14/17 19:34; Start 04/14/17 at 21:00 Active Scripts Active Reported Meclizine Hcl 12.5 Mg Tablet 12.5 Mg PO PRN Q8HRS Haloperidol 2 Mg Tablet 1 Mg PO PRN Q8HRS PRN Seroquel (Quetiapine Fumarate) 25 Mg Tablet 12.5 Mg PO HS Docusate Sodium 100 Mg Capsule 100 Mg PO BID Atorvastatin Calcium 20 Mg Tablet 20 Mg PO QHS Aspirin 81 Mg Tab.chew 81 Mg PO QHS Diagnosis: Problems: (1) Anxiety disorder (2) Dementia, vascular, with depression (3) Dementia, vascular, with delusions (4) Impulse control disorder (5) Major depressive disorder, recurrent episode EDE OGDEN MD Apr 14, 2017 20:48
--- NOTE | 2017-04-14 23:59 | PN ---
DATE: 04/13/2017 This late entry 04/13/2017 covers elements not covered in my initial note of 04/13/2017. Met with the patient evening of 04/13/2017. The patient slept 7-1/2 hours previous evening, very obsessive, anxious, repetitive, wanting Zantac, wanting things out of her closet, wanting a wallet, following everyone around the unit including myself, looking for her belongings, quite forgetful, anxious, but redirects. REVIEW OF SYSTEMS: No CV, , pulmonary, eye, ENT system symptoms on review. Reliability poor. MENTAL STATUS EXAM: Oriented to herself. Insight, judgment, recent and remote memory, attention, concentration, fund of knowledge poor, consistent with her diagnosis mentioned in my initial note. LABORATORY DATA: Reviewed. IMPRESSION: Unchanged from initial. PLAN: Continue current psychotropics mentioned in my initial note. Starting 04/14/2017, we will increase the Luvox from 50 mg at bedtime to 75 mg at bedtime. Reviewed drug interactions. Risk/benefit ratio favors no further change. MAN Jess OGDEN MD DR: LEXII/shaina JOB#: [id number] / [id number]
[2017-04-15 06:31] VITALS: BP 147/72
[2017-04-15] MEDS: QUEtiapine 25 MG TABLET. PO SCH ×3 (08:35→17:32)
[2017-04-15] MEDS: NICOTINE 21MG PATCH. TD SCH (08:36)
[2017-04-15] MEDS: DOCUSATE SODIUM 100 MG CAPSULE PO SCH ×2 (08:36→19:14)
[2017-04-15] MEDS: MAGNESIUM HYDROXIDE 2,400 MG/30 ML ORAL.SUSP. PO PRN (11:08)
[2017-04-15] MEDS: HALOPERIDOL 2 MG TABLET PO PRN (14:55)
[2017-04-15 16:18] VITALS: BP 168/74
[2017-04-15] MEDS: MIRTAZAPINE 15 MG TABLET PO SCH (19:14)
[2017-04-15] MEDS: traZODone 50 MG TABLET. PO SCH (19:14)
[2017-04-15] MEDS: ATORVASTATIN CALCIUM 20 MG TABLET PO SCH (19:14)
[2017-04-15] MEDS: QUEtiapine 50 MG TABLET. PO SCH (19:14)
[2017-04-15] MEDS: ASPIRIN 81 MG TAB.CHEW PO SCH (19:14)
--- NOTE | 2017-04-15 20:52 | PDOC ---
Exam Unruly Demential Exam: Unruly Note: Please also refer to the separate dictated note~for this date of service dictated separately.~Patient seen individually. Discussed the patient with Nursing staff reviewed the chart.~Reviewed interim history and current functioning. Reviewed vital signs,~Labs/ Radiology~and current medications noted below. Continue current treatment with the changes noted in the dictated addendum note Assessment: Vital Signs: Vital Signs Date Time Temp Pulse Resp B/P (MAP) Pulse Ox O2 Delivery O2 Flow Rate FiO2 04/15/17 16:18 98.0 75 22 168/74 (105) 98 04/12/17 16:11 Room Air I&O Intake and Output 04/16/17 07:00 Intake Total 840 ml Balance 840 ml Intake Oral 840 ml Current Medications: Meds: Current Medications Ziprasidone (Geodon Im) 20 mg STK-MED ONCE IM ; Start 03/30/17 at 20:37; Stop 03/30/17 at 20:38; Status DC Ziprasidone (Geodon Im) 10 mg 1X ONCE IM Last administered on 03/30/17 20:45 ; Start 03/30/17 at 20:45; Stop 03/30/17 at 22:14; Status DC Acetaminophen (Tylenol) 650 mg PRN Q6HRS PRN PO PAIN / TEMP; Start 03/31/17 at 00:30 Multi-Ingredient Ointment (Analgesic [place]) 1 jefferson PRN QID PRN TP MUSCLE PAIN; Start 03/31/17 at 00:30 Al Hydroxide/Mg Hydroxide (Mylanta Plus Xs) 15 ml PRN AFTMEALHC PRN PO DYSPEPSIA Last administered on 04/11/17 14:17; Start 03/31/17 at 00:30 Magnesium Hydroxide (Milk Of Magnesia) 2,400 mg PRN QHS PRN PO CONSTIPATION Last administered on 04/15/17 11:08; Start 03/31/17 at 00:30 Nicotine (Nicoderm Cq 21mg) 1 patch DAILY TD Last administered on 04/08/17 08 :04; Start 03/31/17 at 09:00 Haloperidol (Haldol) 1 mg PRN Q8HRS PRN PO ANXIETY / AGITATION Last administered on 04/15/17 14:55; Start 03/31/17 at 01:15 Quetiapine Fumarate (SEROquel) 12.5 mg HS PO ; Start 03/31/17 at 21:00; Stop at 21:00; Status DC Aspirin (Children'S Aspirin) 81 mg QHS PO Last administered on 04/15/17 19:14 ; Start 03/31/17 at 21:00 Atorvastatin Calcium (Lipitor) 20 mg QHS PO Last administered on 04/15/17 19: 14; Start 03/31/17 at 21:00 Docusate Sodium (Colace) 100 mg BID PO Last administered on 04/15/17 19:14; Start 03/31/17 at 21:00 Meclizine HCl (Antivert) 12.5 mg PRN Q8HRS PO ; Start 03/31/17 at 09:30 Quetiapine Fumarate (SEROquel) 6.25 mg HS PO Last administered on 03/31/17 20: 05; Start 03/31/17 at 21:00; Stop 04/01/17 at 10:09; Status DC Mirtazapine (Remeron) 7.5 mg QHS PO Last administered on 04/07/17 20:32; Start 03/31/17 at 21:00; Stop 04/08/17 at 11:04; Status DC Trazodone HCl (Desyrel) 50 mg QHS PO Last administered on 04/15/17 19:14; Start 03/31/17 at 21:00 Trazodone HCl (Desyrel) 50 mg PRN QHS PRN PO INSOMNIA, MAY REPEAT X1 Last administered on 04/06/17 22:29; Start 03/31/17 at 18:00 Olanzapine (ZyPREXA ZYDIS) 2.5 mg PRN Q2HR PRN PO psychosis Last administered on 04/04/17 10:37; Start 03/31/17 at 18:00 Quetiapine Fumarate (SEROquel) 25 mg HS PO Last administered on 04/02/17 19:15 ; Start 04/01/17 at 21:00; Stop 04/03/17 at 18:56; Status DC Sertraline HCl (Zoloft) 25 mg DAILY PO Last administered on 04/02/17 09:59; Start 04/02/17 at 09:00; Stop 04/02/17 at 18:43; Status DC Lorazepam (Ativan) 0.5 mg PRN Q2HR PRN PO ANXIETY / AGITATION Last administered on 04/14/17 15:39; Start 04/01/17 at 15:15 Famotidine (Pepcid) 20 mg PRN DAILY PRN PO HEARTBURN / GAS Last administered on 04/14/17 11:21; Start 04/02/17 at 09:15 Famotidine (Pepcid) 20 mg 1X ONCE PO Last administered on 04/02/17 09:59; Start 04/02/17 at 09:25; Stop 04/02/17 at 09:26; Status DC Sertraline HCl (Zoloft) 37.5 mg DAILY PO Last administered on 04/03/17 09:52; Start 04/03/17 at 09:00; Stop 04/03/17 at 18:56; Status DC Quetiapine Fumarate (SEROquel) 50 mg HS PO Last administered on 04/04/17 19:26 ; Start 04/03/17 at 21:00; Stop 04/05/17 at 13:22; Status DC Sertraline HCl (Zoloft) 50 mg DAILY PO Last administered on 04/05/17 07:57; Start 04/04/17 at 09:00; Stop 04/05/17 at 13:23; Status DC Quetiapine Fumarate (SEROquel) 50 mg QHS PO Last administered on 04/05/17 20: 26; Start 04/05/17 at 21:00; Stop 04/06/17 at 18:15; Status DC Sertraline HCl (Zoloft) 50 mg DAILY PO Last administered on 04/08/17 08:03; Start 04/06/17 at 09:00; Stop 04/08/17 at 11:04; Status DC Quetiapine Fumarate (SEROquel) 75 mg QHS PO Last administered on 04/15/17 19: 14; Start 04/06/17 at 21:00 Mirtazapine (Remeron) 15 mg QHS PO Last administered on 04/15/17 19:14; Start 04/08/17 at 21:00 Sertraline HCl (Zoloft) 75 mg DAILY PO Last administered on 04/11/17 08:00; Start 04/09/17 at 09:00; Stop 04/11/17 at 19:18; Status DC Quetiapine Fumarate (SEROquel) 12.5 mg BID92 PO Last administered on 08:22; Start 04/08/17 at 14:00; Stop 04/09/17 at 18:32; Status DC Quetiapine Fumarate (SEROquel) 12.5 mg TID@0900,1400,1700 PO Last administered on 04/15/17 17:32; Start 04/10/17 at 09:00 Fluvoxamine Maleate (Luvox) 50 mg HS PO Last administered on 04/13/17 20:22; Start 04/11/17 at 21:00; Stop 04/14/17 at 14:45; Status DC Fluvoxamine Maleate (Luvox) 75 mg HS PO Last administered on 04/15/17 19:14; Start 04/14/17 at 21:00 Active Scripts Active Reported Meclizine Hcl 12.5 Mg Tablet 12.5 Mg PO PRN Q8HRS Haloperidol 2 Mg Tablet 1 Mg PO PRN Q8HRS PRN Seroquel (Quetiapine Fumarate) 25 Mg Tablet 12.5 Mg PO HS Docusate Sodium 100 Mg Capsule 100 Mg PO BID Atorvastatin Calcium 20 Mg Tablet 20 Mg PO QHS Aspirin 81 Mg Tab.chew 81 Mg PO QHS Diagnosis: Problems: (1) Anxiety disorder (2) Dementia, vascular, with depression (3) Dementia, vascular, with delusions (4) Impulse control disorder (5) Major depressive disorder, recurrent episode EDE OGDEN MD Apr 15, 2017 20:52
--- NOTE | 2017-04-16 03:58 | PN ---
DATE: 04/14/2017 PSYCHIATRIC PROGRESS NOTE This is a late entry for 04/14/2017, covers the elements not covered in my initial note of 04/14/2017. SUBJECTIVE: I met with the patient evening of 04/14/2017. The patient was quite angry, irritable, labile morning of 04/14/2017, resistive to medications through the red bag around her, received Haldol morning of 04/14/2017 and Ativan in the afternoon seemed to help. REVIEW OF SYSTEMS: No CV, , pulmonary, eye, ENT system symptoms on review. Reliability poor. MENTAL STATUS EXAM: Oriented to herself. Insight, judgment, recent and remote memory, attention, concentration, fund of knowledge poor, consistent with her diagnosis mentioned in my initial note. PLAN: Continue current psychotropics. Reviewed drug interactions, risk/benefit ratio favors no further change. MAN Jess OGDEN MD DR: LEXII/shaina JOB#: [id number] / [id number]
[2017-04-16 05:47] VITALS: BP 127/72
[2017-04-16] MEDS: QUEtiapine 25 MG TABLET. PO SCH ×3 (07:16→17:00)
[2017-04-16] MEDS: DOCUSATE SODIUM 100 MG CAPSULE PO SCH ×3 (07:16→21:00)
[2017-04-16] MEDS: NICOTINE 21MG PATCH. TD SCH (07:16)
[2017-04-16 16:29] VITALS: BP 145/79
[2017-04-16] MEDS: traZODone 50 MG TABLET. PO SCH (19:34)
[2017-04-16] MEDS: QUEtiapine 50 MG TABLET. PO SCH (19:34)
[2017-04-16] MEDS: ASPIRIN 81 MG TAB.CHEW PO SCH ×2 (19:34→21:00)
[2017-04-16] MEDS: MIRTAZAPINE 15 MG TABLET PO SCH (19:34)
[2017-04-16] MEDS: ATORVASTATIN CALCIUM 20 MG TABLET PO SCH ×2 (19:34→21:00)
--- NOTE | 2017-04-16 20:51 | PDOC ---
Exam Unruly Demential Exam: Unruly Note: Please also refer to the separate dictated note~for this date of service dictated separately.~Patient seen individually. Discussed the patient with Nursing staff reviewed the chart.~Reviewed interim history and current functioning. Reviewed vital signs,~Labs/ Radiology~and current medications noted below. Continue current treatment with the changes noted in the dictated addendum note Assessment: Vital Signs: Vital Signs Date Time Temp Pulse Resp B/P (MAP) Pulse Ox O2 Delivery O2 Flow Rate FiO2 04/16/17 16:29 99.2 84 19 145/79 (101) 98 04/12/17 16:11 Room Air I&O Intake and Output 04/17/17 07:00 Intake Total 360 ml Balance 360 ml Intake Oral 360 ml Current Medications: Meds: Current Medications Ziprasidone (Geodon Im) 20 mg STK-MED ONCE IM ; Start 03/30/17 at 20:37; Stop 03/30/17 at 20:38; Status DC Ziprasidone (Geodon Im) 10 mg 1X ONCE IM Last administered on 03/30/17 20:45 ; Start 03/30/17 at 20:45; Stop 03/30/17 at 22:14; Status DC Acetaminophen (Tylenol) 650 mg PRN Q6HRS PRN PO PAIN / TEMP; Start 03/31/17 at 00:30 Multi-Ingredient Ointment (Analgesic [place]) 1 jefferson PRN QID PRN TP MUSCLE PAIN; Start 03/31/17 at 00:30 Al Hydroxide/Mg Hydroxide (Mylanta Plus Xs) 15 ml PRN AFTMEALHC PRN PO DYSPEPSIA Last administered on 04/11/17 14:17; Start 03/31/17 at 00:30 Magnesium Hydroxide (Milk Of Magnesia) 2,400 mg PRN QHS PRN PO CONSTIPATION Last administered on 04/15/17 11:08; Start 03/31/17 at 00:30 Nicotine (Nicoderm Cq 21mg) 1 patch DAILY TD Last administered on 04/08/17 08 :04; Start 03/31/17 at 09:00 Haloperidol (Haldol) 1 mg PRN Q8HRS PRN PO ANXIETY / AGITATION Last administered on 04/15/17 14:55; Start 03/31/17 at 01:15 Quetiapine Fumarate (SEROquel) 12.5 mg HS PO ; Start 03/31/17 at 21:00; Stop at 21:00; Status DC Aspirin (Children'S Aspirin) 81 mg QHS PO Last administered on 04/16/17 19:34 ; Start 03/31/17 at 21:00 Atorvastatin Calcium (Lipitor) 20 mg QHS PO Last administered on 04/16/17 19: 34; Start 03/31/17 at 21:00 Docusate Sodium (Colace) 100 mg BID PO Last administered on 04/16/17 19:34; Start 03/31/17 at 21:00 Meclizine HCl (Antivert) 12.5 mg PRN Q8HRS PO ; Start 03/31/17 at 09:30 Quetiapine Fumarate (SEROquel) 6.25 mg HS PO Last administered on 03/31/17 20: 05; Start 03/31/17 at 21:00; Stop 04/01/17 at 10:09; Status DC Mirtazapine (Remeron) 7.5 mg QHS PO Last administered on 04/07/17 20:32; Start 03/31/17 at 21:00; Stop 04/08/17 at 11:04; Status DC Trazodone HCl (Desyrel) 50 mg QHS PO Last administered on 04/16/17 19:34; Start 03/31/17 at 21:00 Trazodone HCl (Desyrel) 50 mg PRN QHS PRN PO INSOMNIA, MAY REPEAT X1 Last administered on 04/06/17 22:29; Start 03/31/17 at 18:00 Olanzapine (ZyPREXA ZYDIS) 2.5 mg PRN Q2HR PRN PO psychosis Last administered on 04/04/17 10:37; Start 03/31/17 at 18:00 Quetiapine Fumarate (SEROquel) 25 mg HS PO Last administered on 04/02/17 19:15 ; Start 04/01/17 at 21:00; Stop 04/03/17 at 18:56; Status DC Sertraline HCl (Zoloft) 25 mg DAILY PO Last administered on 04/02/17 09:59; Start 04/02/17 at 09:00; Stop 04/02/17 at 18:43; Status DC Lorazepam (Ativan) 0.5 mg PRN Q2HR PRN PO ANXIETY / AGITATION Last administered on 04/14/17 15:39; Start 04/01/17 at 15:15 Famotidine (Pepcid) 20 mg PRN DAILY PRN PO HEARTBURN / GAS Last administered on 04/14/17 11:21; Start 04/02/17 at 09:15 Famotidine (Pepcid) 20 mg 1X ONCE PO Last administered on 04/02/17 09:59; Start 04/02/17 at 09:25; Stop 04/02/17 at 09:26; Status DC Sertraline HCl (Zoloft) 37.5 mg DAILY PO Last administered on 04/03/17 09:52; Start 04/03/17 at 09:00; Stop 04/03/17 at 18:56; Status DC Quetiapine Fumarate (SEROquel) 50 mg HS PO Last administered on 04/04/17 19:26 ; Start 04/03/17 at 21:00; Stop 04/05/17 at 13:22; Status DC Sertraline HCl (Zoloft) 50 mg DAILY PO Last administered on 04/05/17 07:57; Start 04/04/17 at 09:00; Stop 04/05/17 at 13:23; Status DC Quetiapine Fumarate (SEROquel) 50 mg QHS PO Last administered on 04/05/17 20: 26; Start 04/05/17 at 21:00; Stop 04/06/17 at 18:15; Status DC Sertraline HCl (Zoloft) 50 mg DAILY PO Last administered on 04/08/17 08:03; Start 04/06/17 at 09:00; Stop 04/08/17 at 11:04; Status DC Quetiapine Fumarate (SEROquel) 75 mg QHS PO Last administered on 04/16/17 19: 34; Start 04/06/17 at 21:00 Mirtazapine (Remeron) 15 mg QHS PO Last administered on 04/16/17 19:34; Start 04/08/17 at 21:00 Sertraline HCl (Zoloft) 75 mg DAILY PO Last administered on 04/11/17 08:00; Start 04/09/17 at 09:00; Stop 04/11/17 at 19:18; Status DC Quetiapine Fumarate (SEROquel) 12.5 mg BID92 PO Last administered on 08:22; Start 04/08/17 at 14:00; Stop 04/09/17 at 18:32; Status DC Quetiapine Fumarate (SEROquel) 12.5 mg TID@0900,1400,1700 PO Last administered on 04/16/17 17:00; Start 04/10/17 at 09:00 Fluvoxamine Maleate (Luvox) 50 mg HS PO Last administered on 04/13/17 20:22; Start 04/11/17 at 21:00; Stop 04/14/17 at 14:45; Status DC Fluvoxamine Maleate (Luvox) 75 mg HS PO Last administered on 04/15/17 19:14; Start 04/14/17 at 21:00; Stop 04/16/17 at 15:48; Status DC Fluvoxamine Maleate (Luvox) 75 mg DAILYWSUP PO Last administered on 04/16/17 17:00; Start 04/16/17 at 17:00 Active Scripts Active Reported Meclizine Hcl 12.5 Mg Tablet 12.5 Mg PO PRN Q8HRS Haloperidol 2 Mg Tablet 1 Mg PO PRN Q8HRS PRN Seroquel (Quetiapine Fumarate) 25 Mg Tablet 12.5 Mg PO HS Docusate Sodium 100 Mg Capsule 100 Mg PO BID Atorvastatin Calcium 20 Mg Tablet 20 Mg PO QHS Aspirin 81 Mg Tab.chew 81 Mg PO QHS Diagnosis: Problems: (1) Anxiety disorder (2) Dementia, vascular, with depression (3) Dementia, vascular, with delusions (4) Impulse control disorder (5) Major depressive disorder, recurrent episode EDE OGDEN MD Apr 16, 2017 20:51
[2017-04-17 05:54] VITALS: BP 120/65
[2017-04-17] MEDS: DOCUSATE SODIUM 100 MG CAPSULE PO SCH ×2 (08:06→19:51)
[2017-04-17] MEDS: QUEtiapine 25 MG TABLET. PO SCH ×3 (08:06→16:42)
[2017-04-17] MEDS: NICOTINE 21MG PATCH. TD SCH ×2 (08:07→08:49)
[2017-04-17] MEDS: LORazepam 0.5 MG TABLET PO PRN (12:16)
[2017-04-17] MEDS: MAGNESIUM HYDROXIDE 2,400 MG/30 ML ORAL.SUSP. PO PRN (14:17)
--- NOTE | 2017-04-17 15:08 | PN ---
DATE: 04/16/2017 This is a late entry for 04/16/2017 and covers elements not covered in my initial note of 04/16/2017. I met with the patient the evening of 04/16/2017. The patient remains confused, anxious, restless, somewhat obsessive, wanting things out of her closet amongst other things. She refused breakfast, ate little for lunch, around 3:00 p.m. obsessive, anxiety was much worse. REVIEW OF SYSTEMS: No CV, , pulmonary, eye, ENT system symptoms on review. She has some vague somatic symptoms. MENTAL STATUS EXAM: Oriented to herself. Insight, judgment, recent and remote memory, attention, concentration, fund of knowledge poor, consistent with her diagnosis as mentioned in my initial note. PLAN: Continue current psychotropics. Reviewed drug interactions. May need to increase Luvox further in due course. Risk/benefit ratio favors no further change at this time. EDE OGDEN MD DR: LEXII/shaina JOB#: [id number] / [id number]
[2017-04-17 16:14] VITALS: BP 136/66
[2017-04-17] MEDS: FAMOTIDINE 20 MG TABLET PO PRN (16:43)
[2017-04-17] MEDS: QUEtiapine 50 MG TABLET. PO SCH (19:22)
[2017-04-17] MEDS: MIRTAZAPINE 15 MG TABLET PO SCH (19:23)
[2017-04-17] MEDS: traZODone 50 MG TABLET. PO SCH (19:23)
[2017-04-17] MEDS: ASPIRIN 81 MG TAB.CHEW PO SCH (19:51)
[2017-04-17] MEDS: ATORVASTATIN CALCIUM 20 MG TABLET PO SCH (19:52)
--- NOTE | 2017-04-17 20:03 | OP ---
DATE OF SURGERY: 04/17/2017 This note covers elements not covered in my initial note of 04/17/2017. I am redictating this note since the prior dictation could not be traced in the system. SUBJECTIVE: Per nursing report, the patient remains somewhat anxious, repetitive. The patient was quite agitated previous evening with CPR and did better. She woke up middle of the night, ____ flooded the toilet and water was on the floor. She was oblivious of this. No CV, , Pulmonary, Eye, ENT system symptoms on review. Reliability poor. MENTAL STATUS EXAMINATION: Oriented to herself. Insight, judgment, recent and remote memory, attention, concentration, fund of knowledge poor, consistent with the diagnosis mentioned in my initial note. PLAN: Continue current psychotropics, review drug interactions. Risk-benefit ratio favors no further change for now. MAN Jess OGDEN MD DR: LEXII/shaina JOB#: [id number] / [id number]
--- NOTE | 2017-04-17 21:53 | PDOC ---
Exam Unruly Demential Exam: Unruly Note: Please also refer to the separate dictated note~for this date of service dictated separately.~Patient seen individually. Discussed the patient with Nursing staff reviewed the chart.~Reviewed interim history and current functioning. Reviewed vital signs,~Labs/ Radiology~and current medications noted below. Continue current treatment with the changes noted in the dictated addendum note Assessment: Vital Signs: Vital Signs Date Time Temp Pulse Resp B/P (MAP) Pulse Ox O2 Delivery O2 Flow Rate FiO2 04/17/17 16:14 98.5 74 16 136/66 (89) 97 04/17/17 05:54 Room Air I&O Intake and Output 04/18/17 07:00 Intake Total 240 ml Balance 240 ml Intake Oral 240 ml Current Medications: Meds: Current Medications Ziprasidone (Geodon Im) 20 mg STK-MED ONCE IM ; Start 03/30/17 at 20:37; Stop 03/30/17 at 20:38; Status DC Ziprasidone (Geodon Im) 10 mg 1X ONCE IM Last administered on 03/30/17 20:45 ; Start 03/30/17 at 20:45; Stop 03/30/17 at 22:14; Status DC Acetaminophen (Tylenol) 650 mg PRN Q6HRS PRN PO PAIN / TEMP; Start 03/31/17 at 00:30 Multi-Ingredient Ointment (Analgesic [place]) 1 jefferson PRN QID PRN TP MUSCLE PAIN; Start 03/31/17 at 00:30 Al Hydroxide/Mg Hydroxide (Mylanta Plus Xs) 15 ml PRN AFTMEALHC PRN PO DYSPEPSIA Last administered on 04/11/17 14:17; Start 03/31/17 at 00:30 Magnesium Hydroxide (Milk Of Magnesia) 2,400 mg PRN QHS PRN PO CONSTIPATION Last administered on 04/17/17 14:17; Start 03/31/17 at 00:30 Nicotine (Nicoderm Cq 21mg) 1 patch DAILY TD Last administered on 04/08/17 08 :04; Start 03/31/17 at 09:00 Haloperidol (Haldol) 1 mg PRN Q8HRS PRN PO ANXIETY / AGITATION Last administered on 04/15/17 14:55; Start 03/31/17 at 01:15 Quetiapine Fumarate (SEROquel) 12.5 mg HS PO ; Start 03/31/17 at 21:00; Stop at 21:00; Status DC Aspirin (Children'S Aspirin) 81 mg QHS PO Last administered on 04/15/17 19:14 ; Start 03/31/17 at 21:00 Atorvastatin Calcium (Lipitor) 20 mg QHS PO Last administered on 04/15/17 19: 14; Start 03/31/17 at 21:00 Docusate Sodium (Colace) 100 mg BID PO Last administered on 04/17/17 08:06; Start 03/31/17 at 21:00 Meclizine HCl (Antivert) 12.5 mg PRN Q8HRS PO ; Start 03/31/17 at 09:30 Quetiapine Fumarate (SEROquel) 6.25 mg HS PO Last administered on 03/31/17 20: 05; Start 03/31/17 at 21:00; Stop 04/01/17 at 10:09; Status DC Mirtazapine (Remeron) 7.5 mg QHS PO Last administered on 04/07/17 20:32; Start 03/31/17 at 21:00; Stop 04/08/17 at 11:04; Status DC Trazodone HCl (Desyrel) 50 mg QHS PO Last administered on 04/17/17 19:23; Start 03/31/17 at 21:00 Trazodone HCl (Desyrel) 50 mg PRN QHS PRN PO INSOMNIA, MAY REPEAT X1 Last administered on 04/06/17 22:29; Start 03/31/17 at 18:00 Olanzapine (ZyPREXA ZYDIS) 2.5 mg PRN Q2HR PRN PO psychosis Last administered on 04/04/17 10:37; Start 03/31/17 at 18:00 Quetiapine Fumarate (SEROquel) 25 mg HS PO Last administered on 04/02/17 19:15 ; Start 04/01/17 at 21:00; Stop 04/03/17 at 18:56; Status DC Sertraline HCl (Zoloft) 25 mg DAILY PO Last administered on 04/02/17 09:59; Start 04/02/17 at 09:00; Stop 04/02/17 at 18:43; Status DC Lorazepam (Ativan) 0.5 mg PRN Q2HR PRN PO ANXIETY / AGITATION Last administered on 04/17/17 12:16; Start 04/01/17 at 15:15 Famotidine (Pepcid) 20 mg PRN DAILY PRN PO HEARTBURN / GAS Last administered on 04/17/17 16:43; Start 04/02/17 at 09:15 Famotidine (Pepcid) 20 mg 1X ONCE PO Last administered on 04/02/17 09:59; Start 04/02/17 at 09:25; Stop 04/02/17 at 09:26; Status DC Sertraline HCl (Zoloft) 37.5 mg DAILY PO Last administered on 04/03/17 09:52; Start 04/03/17 at 09:00; Stop 04/03/17 at 18:56; Status DC Quetiapine Fumarate (SEROquel) 50 mg HS PO Last administered on 04/04/17 19:26 ; Start 04/03/17 at 21:00; Stop 04/05/17 at 13:22; Status DC Sertraline HCl (Zoloft) 50 mg DAILY PO Last administered on 04/05/17 07:57; Start 04/04/17 at 09:00; Stop 04/05/17 at 13:23; Status DC Quetiapine Fumarate (SEROquel) 50 mg QHS PO Last administered on 04/05/17 20: 26; Start 04/05/17 at 21:00; Stop 04/06/17 at 18:15; Status DC Sertraline HCl (Zoloft) 50 mg DAILY PO Last administered on 04/08/17 08:03; Start 04/06/17 at 09:00; Stop 04/08/17 at 11:04; Status DC Quetiapine Fumarate (SEROquel) 75 mg QHS PO Last administered on 04/17/17 19: 22; Start 04/06/17 at 21:00 Mirtazapine (Remeron) 15 mg QHS PO Last administered on 04/17/17 19:23; Start 04/08/17 at 21:00 Sertraline HCl (Zoloft) 75 mg DAILY PO Last administered on 04/11/17 08:00; Start 04/09/17 at 09:00; Stop 04/11/17 at 19:18; Status DC Quetiapine Fumarate (SEROquel) 12.5 mg BID92 PO Last administered on 08:22; Start 04/08/17 at 14:00; Stop 04/09/17 at 18:32; Status DC Quetiapine Fumarate (SEROquel) 12.5 mg TID@0900,1400,1700 PO Last administered on 04/17/17 16:42; Start 04/10/17 at 09:00 Fluvoxamine Maleate (Luvox) 50 mg HS PO Last administered on 04/13/17 20:22; Start 04/11/17 at 21:00; Stop 04/14/17 at 14:45; Status DC Fluvoxamine Maleate (Luvox) 75 mg HS PO Last administered on 04/15/17 19:14; Start 04/14/17 at 21:00; Stop 04/16/17 at 15:48; Status DC Fluvoxamine Maleate (Luvox) 75 mg DAILYWSUP PO Last administered on 04/17/17 16:42; Start 04/16/17 at 17:00 Active Scripts Active Reported Meclizine Hcl 12.5 Mg Tablet 12.5 Mg PO PRN Q8HRS Haloperidol 2 Mg Tablet 1 Mg PO PRN Q8HRS PRN Seroquel (Quetiapine Fumarate) 25 Mg Tablet 12.5 Mg PO HS Docusate Sodium 100 Mg Capsule 100 Mg PO BID Atorvastatin Calcium 20 Mg Tablet 20 Mg PO QHS Aspirin 81 Mg Tab.chew 81 Mg PO QHS Diagnosis: Problems: (1) Anxiety disorder (2) Dementia, vascular, with depression (3) Dementia, vascular, with delusions (4) Impulse control disorder (5) Major depressive disorder, recurrent episode EDE OGDEN MD Apr 17, 2017 21:53
--- NOTE | 2017-04-18 01:16 | PN ---
DATE: 04/17/2017 This note covers elements not covered in my initial note of 04/17/2017. SUBJECTIVE: The patient was seen individually. Per nursing report, the patient remains somewhat anxious, restless, obsessive. Last evening, she was quite agitated around 4:30 p.m., CPRN seemed to help. She woke up in the middle of the night, flushed her in the toilet, toilet was flooded with water on the floor, she was oblivious of this. REVIEW OF SYSTEMS: No CV, , pulmonary, eye, ENT system symptoms on review. Reliability poor. MENTAL STATUS EXAM: Oriented to herself. Insight, judgment, recent and remote memory, attention, concentration, fund of knowledge poor, consistent with her diagnosis. She is obsessed about wanting things from the clouds of which is difficult for her. LABORATORY DATA: Reviewed. IMPRESSION: Unchanged from initial note. PLAN: Continue current psychotropics, reviewed drug interactions, risk/benefit ratio favors no further change. MAN Jess OGDEN MD DR: LEXII/shaina JOB#: [id number] / [id number]
[2017-04-18 06:00] VITALS: BP 162/67
[2017-04-18] MEDS: QUEtiapine 25 MG TABLET. PO SCH ×3 (07:35→18:01)
[2017-04-18] MEDS: DOCUSATE SODIUM 100 MG CAPSULE PO SCH ×2 (07:36→19:22)
[2017-04-18] MEDS: NICOTINE 21MG PATCH. TD SCH (07:36)
[2017-04-18] MEDS ORDERED: MAGNESIUM CITRATE 296 ML SOLUTION. PO ONE (13:45)
[2017-04-18 16:07] VITALS: BP 109/67
[2017-04-18] MEDS: QUEtiapine 50 MG TABLET. PO SCH (19:21)
[2017-04-18] MEDS: MIRTAZAPINE 15 MG TABLET PO SCH (19:21)
[2017-04-18] MEDS: ASPIRIN 81 MG TAB.CHEW PO SCH (19:21)
[2017-04-18] MEDS: ATORVASTATIN CALCIUM 20 MG TABLET PO SCH (19:21)
[2017-04-18] MEDS: traZODone 50 MG TABLET. PO SCH (19:22)
--- NOTE | 2017-04-19 00:29 | PN ---
DATE: 04/18/2017 REFERRING PHYSICIAN: Dr. Ren SUBJECTIVE: The patient denies any new medical or neurological complaints. She eats and drinks well, but she continues to be depressed, anxious, and restless. She has been less obsessive, but on occasions she became more agitated. OBJECTIVE: GENERAL: Well-developed, well-nourished female, not in acute distress. VITAL SIGNS: Blood pressure 162/67, respiratory rate 20, pulse 73, temperature 97.7, oxygen saturation 99% on room air. HEENT: Normocephalic, atraumatic, otherwise unremarkable. NECK: Supple. Negative for carotid bruit, lymphadenopathy, or thyromegaly. LUNGS: Clear to A and P. CARDIOVASCULAR: Regular rate and rhythm, normal S1 and S2. ABDOMEN: Soft, bowel sounds positive. EXTREMITIES: Negative for cyanosis, clubbing, or pitting edema. NEUROLOGIC: The patient is alert, but alert to herself. She is disoriented to time and place. Speech is somewhat sluggish. There is no language dysfunction. Memory, judgment, and abstract thinking and insights are poor. The patient denies hallucination or delusion. Cranial nerves are intact. No focal motor or sensory deficit. Deep tendon reflexes are symmetric and hypoactive without pathological responses. Gait is not tested at this time. IMPRESSION: 1. Dementia and depression. 2. Multiple medical problems to include hypertension and recent history of stroke. RECOMMENDATIONS: Would continue with current psychiatric care initiated by Dr. Ren and with current medications and medical care. M Nica ROB MD DR: SANDEE/shaina JOB#: [id number] / [id number]
[2017-04-19 06:06] VITALS: BP 129/76
[2017-04-19] MEDS: NICOTINE 21MG PATCH. TD SCH ×2 (09:00→10:06)
[2017-04-19 09:55] LABS: BASO # 0.1 x10^3/uL (0.0-0.2); BASO % 1 % (0-3); EOS # 0.4 x10^3/uL (0.0-0.7); EOS % 4 % (0-3); HEMATOCRIT 36.2 % (36.0-47.0); HEMOGLOBIN 12.2 g/dL (12.0-15.5); LYMPH # 2.4 x10^3/uL (1.0-4.8); LYMPH % 25 % (24-48); MEAN CORPUSCULAR HEMOGLOBIN 29 pg (25-35); MEAN CORPUSCULAR HGB CONC 34 g/dL (31-37); MEAN CORPUSCULAR VOLUME 86 fL (79-100); MONO # 0.7 x10^3/uL (0.0-1.1); MONO % 8 % (0-9); NEUT # 5.8 x10^3uL (1.8-7.7); NEUT % 62 % (31-73); PLATELET COUNT 306 x10^3/uL (140-400); RED BLOOD COUNT 4.22 x10^6/uL (3.50-5.40); RED CELL DISTRIBUTION WIDTH 13.6 % (11.5-14.5); WHITE BLOOD COUNT 9.4 x10^3/uL (4.0-11.0)
[2017-04-19] MEDS: DOCUSATE SODIUM 100 MG CAPSULE PO SCH ×2 (10:05→19:13)
[2017-04-19] MEDS: QUEtiapine 25 MG TABLET. PO SCH ×3 (10:06→17:18)
[2017-04-19] MEDS: FAMOTIDINE 20 MG TABLET PO PRN (10:06)
[2017-04-19] MEDS: HALOPERIDOL 2 MG TABLET PO PRN (10:06)
[2017-04-19 10:10] LABS: ALBUMIN 3.1 g/dL (3.4-5.0); ALBUMIN/GLOBULIN RATIO 0.9 (1.0-1.7); CALCIUM 9.7 mg/dL (8.5-10.1); CREATININE 0.6 mg/dL (0.6-1.0); GFR 95.5; MAGNESIUM 2.3 mg/dL (1.8-2.4); POTASSIUM 4.6 mmol/L (3.5-5.1); TOTAL BILIRUBIN 0.3 mg/dL (0.2-1.0); TOTAL PROTEIN 6.7 g/dL (6.4-8.2)
--- NOTE | 2017-04-19 11:18 | PN ---
DATE: 04/15/2017 This late entry 04/15/2017 covers elements not covered in my initial note. I met with the patient evening of 04/15/2017 on 2 or 3 different occasions and she would follow me around the unit. Again had questions about her closet, her belongings, her purse, somewhat obsessive. She was also staffed at treatment team meeting with the entire team morning of 04/15/2017 and her daughter, Lenora and son, Warren attended the conference. Lengthy discussion about her history, diagnosis, current medications, obsessiveness, irritability. She slept 5 hours previous evening. No CV, , pulmonary, eye, ENT system symptoms on review. She had significant GI symptoms, but these appear to be more somatic, preoccupation than specific symptoms, which she has received Pepcid for this. MENTAL STATUS EXAM: Oriented to herself. Insight, judgment, recent and remote memory, attention, concentration, fund of knowledge poor, consistent with her diagnosis mentioned in my initial note. PLAN: Continue current psychotropics. Starting 04/16/2017, we will change the Luvox to suppertime to be given with her food in case this is contributing to any of her GI symptoms. Review drug interactions, risk/benefit ratio favors no further change. EDE OGDEN MD DR: LEXII/shaina JOB#: [id number] / [id number]
[2017-04-19 16:10] VITALS: BP 132/68
[2017-04-19] MEDS: LORazepam 0.5 MG TABLET PO PRN (17:18)
[2017-04-19] MEDS: ASPIRIN 81 MG TAB.CHEW PO SCH (19:13)
[2017-04-19] MEDS: MIRTAZAPINE 15 MG TABLET PO SCH (19:13)
[2017-04-19] MEDS: QUEtiapine 50 MG TABLET. PO SCH (19:13)
[2017-04-19] MEDS: traZODone 50 MG TABLET. PO SCH (19:13)
[2017-04-19] MEDS: ATORVASTATIN CALCIUM 20 MG TABLET PO SCH (19:13)
--- NOTE | 2017-04-20 01:53 | PN ---
DATE: 04/19/2017 SUBJECTIVE: The patient was seen today, met with the staff, chart reviewed, and covering for Dr. Ren. Staff reports increased anxiety, periods of agitation, marked confusion. The patient did not have any falls. The patient is also difficult to redirect. The patient has threatened suicide before including wanting to jump off the balcony. The patient also has been combative with the staff. The patient apparently had a stroke about 2 weeks ago and the patient did have falls in the past. OBJECTIVE: VITAL SIGNS: Temperature 98.2, blood pressure 129/76, pulse 76, respiration 18. O2 sat 98%. GENERAL: The patient slept about 5-1/2 hours last night. The patient apparently not happy with all the changes and his son and daughter wants her to be placed closer to [place], [place]. The patient is able to walk. The patient states she is confused at times, and also feels angry sometimes, but she is not able to make any decision. The patient states she is close to all family members. MEDICATIONS: The patient's current medications include Luvox 75 mg daily, Seroquel 12.5 mg t.i.d., Remeron 15 mg at night, also on Seroquel 75 mg at night, trazodone 50 mg at night. She is also on Haldol 1 mg q. 8 hours p.r.n. The patient's labs reviewed. The patient is not having any side effects to the medications. ASSESSMENT: Vascular dementia with depression. PLAN: To continue with the treatment. LILY BAUMANN MD DR: ISIDORO/shaina JOB#: [id number] / [id number]
[2017-04-20 06:33] VITALS: BP 116/65
[2017-04-20] MEDS: DOCUSATE SODIUM 100 MG CAPSULE PO SCH ×2 (08:54→19:40)
[2017-04-20] MEDS: NICOTINE 21MG PATCH. TD SCH ×2 (08:57→09:00)
[2017-04-20] MEDS: QUEtiapine 25 MG TABLET. PO SCH ×3 (08:57→16:57)
[2017-04-20] MEDS: FAMOTIDINE 20 MG TABLET PO PRN (08:58)
[2017-04-20] MEDS: LORazepam 0.5 MG TABLET PO PRN (13:33)
[2017-04-20] MEDS: HALOPERIDOL 2 MG TABLET PO PRN (13:33)
[2017-04-20 15:28] VITALS: BP 116/63
[2017-04-20] MEDS: ASPIRIN 81 MG TAB.CHEW PO SCH (19:40)
[2017-04-20] MEDS: MIRTAZAPINE 15 MG TABLET PO SCH (19:41)
[2017-04-20] MEDS: traZODone 50 MG TABLET. PO SCH (19:41)
[2017-04-20] MEDS: QUEtiapine 50 MG TABLET. PO SCH (19:41)
[2017-04-20] MEDS: ATORVASTATIN CALCIUM 20 MG TABLET PO SCH (19:41)
--- NOTE | 2017-04-21 03:23 | PN ---
DATE: 04/20/2017 SUBJECTIVE: The patient was seen today, met with the staff, chart reviewed. The patient's behavior remains the same, still episodes of confusion, agitation and increased anxiety. The patient is constantly pacing. The patient also talked about her past, said that she never had any allergies. When she moved to [place], she started having allergies. 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 Her family wants her to be placed somewhere closer to [place]: OBSERVATION: VITAL SIGNS: Temperature 97.5, blood pressure 116/65, pulse 65, respirations 16, O2 sat 96%. Slept about 8 hours last night. Staff feels that the patient has shown some improvement since admission. MEDICATIONS: The patient's current medications include Luvox 75 mg daily, Seroquel 25 mg t.i.d., Remeron 15 mg at night, Seroquel 75 mg at night, trazodone 50 mg at night. ASSESSMENT: Vascular dementia with depression. PLAN: We will continue with the treatment. We will explore the placement options in the next few days. LILY BAUMANN MD DR: ISIDORO/shaina JOB#: [id number] / [id number]
[2017-04-21 06:02] VITALS: BP 143/72
[2017-04-21] MEDS: DOCUSATE SODIUM 100 MG CAPSULE PO SCH ×2 (08:51→20:39)
[2017-04-21] MEDS: NICOTINE 21MG PATCH. TD SCH ×2 (08:51→08:52)
[2017-04-21] MEDS: QUEtiapine 25 MG TABLET. PO SCH ×3 (08:52→18:11)
[2017-04-21 16:11] VITALS: BP 141/97
[2017-04-21] MEDS: ATORVASTATIN CALCIUM 20 MG TABLET PO SCH (20:39)
[2017-04-21] MEDS: traZODone 50 MG TABLET. PO SCH (20:42)
[2017-04-21] MEDS: ASPIRIN 81 MG TAB.CHEW PO SCH (20:42)
[2017-04-21] MEDS: QUEtiapine 50 MG TABLET. PO SCH (20:42)
[2017-04-21] MEDS: MIRTAZAPINE 7.5 MG TABLET. PO SCH (20:42)
--- NOTE | 2017-04-22 02:58 | PN ---
DATE: 04/21/2017 SUBJECTIVE: The patient was seen today, met with the staff, chart reviewed. The patient's behavior remains the same, still irritable, snyder, angry, significant mood swings. The patient is also constantly pacing. The patient's behavior and mood fluctuates on a daily basis. OBSERVATION: VITAL SIGNS: Temperature 97.6, blood pressure 146/72, pulse 68, respirations 18, O2 sat 97%. Slept about 6 hours last night. The patient is not having any physical complaints. The patient also showing increased cognitive deficits. MEDICATIONS: The patient's current medications include Luvox 75 mg daily, Seroquel 25 mg t.i.d., Remeron 15 mg at night, Seroquel 75 mg at night, and trazodone 50 mg at night. ASSESSMENT: Vascular dementia with depression. PLAN: The patient will continue with the treatment. Staff will monitor closely because of her behaviors. The patient was started on Depakote 125 mg b.i.d. to stabilize her mood and Remeron to be decreased to 7.5 mg at night and Seroquel to be increased to 150 mg at night. LILY BAUMANN MD DR: ISIDORO/shaina JOB#: [id number] / [id number]
[2017-04-22 05:54] VITALS: BP 120/58
[2017-04-22] MEDS: NICOTINE 21MG PATCH. TD SCH (07:30)
[2017-04-22] MEDS: QUEtiapine 25 MG TABLET. PO SCH ×3 (07:32→15:56)
[2017-04-22] MEDS: DIVALPROEX 125 MG CAP.SPRINK PO SCH ×2 (07:32→13:17)
[2017-04-22] MEDS: DOCUSATE SODIUM 100 MG CAPSULE PO SCH ×2 (07:32→19:28)
[2017-04-22] MEDS: FAMOTIDINE 20 MG TABLET PO PRN (10:14)
[2017-04-22 15:31] VITALS: BP 112/67
[2017-04-22] MEDS: ASPIRIN 81 MG TAB.CHEW PO SCH (19:27)
[2017-04-22] MEDS: MIRTAZAPINE 7.5 MG TABLET. PO SCH (19:28)
[2017-04-22] MEDS: traZODone 50 MG TABLET. PO SCH (19:28)
[2017-04-22] MEDS: ATORVASTATIN CALCIUM 20 MG TABLET PO SCH (19:28)
[2017-04-22] MEDS: QUEtiapine 50 MG TABLET. PO SCH (19:28)
[2017-04-23 05:40] VITALS: BP 114/62
[2017-04-23] MEDS: DIVALPROEX 125 MG CAP.SPRINK PO SCH ×2 (07:45→12:38)
[2017-04-23] MEDS: QUEtiapine 25 MG TABLET. PO SCH ×3 (07:45→17:00)
[2017-04-23] MEDS: NICOTINE 21MG PATCH. TD SCH (07:45)
[2017-04-23] MEDS: DOCUSATE SODIUM 100 MG CAPSULE PO SCH ×2 (07:45→19:49)
--- NOTE | 2017-04-23 08:05 | PN ---
DATE: 04/22/2017 SUBJECTIVE: I discussed the patient's diagnosis, progress, treatment and discharge plans, also talked to the patient's son and daughter and discussed the diagnosis. The patient's behavior remains the same. She continues to be hyperanxious, sometimes agitated, and constantly pacing. The patient is also exhibiting low frustration tolerance, tends to become irritable, gets annoyed easily. The patient also has difficulty comprehending surrounding sometimes, had episodes of confusion. OBSERVATION: VITAL SIGNS: Temperature 97.7, blood pressure 120/58, pulse 63, respirations 18, O2 sat 97%. The patient slept about 9 hours last night. CURRENT MEDICATIONS: The patient's current medications include Depakote 125 mg b.i.d., Remeron 7.5 mg at night and Seroquel 150 mg at night. The patient is not having any side effects. ASSESSMENT: Vascular dementia with depression. PLAN: Continue with the medication. The patient's Depakote should be increased to 125 mg in the morning and 250 ____. Continue with the treatment. LILY BAUMANN MD DR: ISIDORO/shaina JOB#: [id number] / [id number]
[2017-04-23 16:30] VITALS: BP 112/71
[2017-04-23] MEDS: ATORVASTATIN CALCIUM 20 MG TABLET PO SCH (19:49)
[2017-04-23] MEDS: MIRTAZAPINE 7.5 MG TABLET. PO SCH (19:49)
[2017-04-23] MEDS: QUEtiapine 50 MG TABLET. PO SCH (19:49)
[2017-04-23] MEDS: traZODone 50 MG TABLET. PO SCH (19:50)
[2017-04-23] MEDS: ASPIRIN 81 MG TAB.CHEW PO SCH (19:50)
[2017-04-24 05:56] VITALS: BP 150/70
[2017-04-24] MEDS: NICOTINE 21MG PATCH. TD SCH (07:40)
[2017-04-24] MEDS: DOCUSATE SODIUM 100 MG CAPSULE PO SCH ×2 (07:40→19:42)
[2017-04-24] MEDS: QUEtiapine 25 MG TABLET. PO SCH ×3 (07:40→17:01)
[2017-04-24] MEDS: DIVALPROEX 125 MG CAP.SPRINK PO SCH ×2 (07:43→14:02)
--- NOTE | 2017-04-24 11:11 | PN ---
DATE: 04/23/2017 SUBJECTIVE: The patient was seen today, met with the staff, chart reviewed. Staff reports continued behavioral problems with increased anxiety, constantly pacing, paranoia, easily agitated. OBSERVATION: Vital signs stable. The patient's appetite and sleep have improved. The patient is having difficulty settling down, constantly pacing. The patient is not exhibiting any major side effects to the medications. MEDICATIONS: Include Depakote 125 mg b.i.d., Seroquel 150 mg at night, mirtazapine 7.5 mg at night, fluvoxamine 25 mg daily, also Seroquel 12.5 mg t.i.d., trazodone 50 mg at night. She is also on p.r.n. Haldol, trazodone and lorazepam p.r.n. ASSESSMENT: Vascular dementia with depression. PLAN: Continue with the treatment. We will increase Depakote 250 mg b.i.d. Continue with the treatment. LILY BAUMANN MD DR: ISIDORO/shaina JOB#: [id number] / [id number]
[2017-04-24] MEDS: FAMOTIDINE 20 MG TABLET PO PRN (11:33)
[2017-04-24 15:50] VITALS: BP 144/75
[2017-04-24] MEDS: ATORVASTATIN CALCIUM 20 MG TABLET PO SCH (19:43)
[2017-04-24] MEDS: MIRTAZAPINE 7.5 MG TABLET. PO SCH (19:43)
[2017-04-24] MEDS: traZODone 50 MG TABLET. PO SCH (19:43)
[2017-04-24] MEDS: QUEtiapine 50 MG TABLET. PO SCH (19:43)
[2017-04-24] MEDS: ASPIRIN 81 MG TAB.CHEW PO SCH (19:43)
--- NOTE | 2017-04-25 02:23 | PN ---
DATE: 04/24/2017 SUBJECTIVE: The patient was seen today, met with the staff, chart reviewed. The patient's behavior remains the same. The patient tends to pace constantly, episodes of agitation, difficult to redirect and also highly emotional and also exhibiting poor impulse control. OBJECTIVE: VITAL SIGNS: Temperature 97.8, blood pressure 150/70, pulse 62, respirations 20, and O2 sat 98%. GENERAL: Slept about 7 hours last night. The patient is not having any physical problems. The patient's gait is steady, no falls. CURRENT MEDICATIONS: Include Depakote 250 mg b.i.d., Seroquel 150 mg at night, mirtazapine 7.5 mg at night, fluvoxamine 75 mg daily, trazodone 50 mg at night. The patient is on p.r.n. medications including Haldol, trazodone and olanzapine. ASSESSMENT: Vascular dementia with depression. PLAN: To continue with the treatment. LILY BAUMANN MD DR: ISIDORO/shaina JOB#: [id number] / [id number]
[2017-04-25 05:57] VITALS: BP 118/70
[2017-04-25] MEDS: NICOTINE 21MG PATCH. TD SCH (07:49)
[2017-04-25] MEDS: DOCUSATE SODIUM 100 MG CAPSULE PO SCH ×2 (07:49→20:52)
[2017-04-25] MEDS: DIVALPROEX 125 MG CAP.SPRINK PO SCH ×2 (07:49→14:19)
[2017-04-25] MEDS: QUEtiapine 25 MG TABLET. PO SCH ×3 (07:49→17:58)
[2017-04-25 16:41] VITALS: BP 123/84
[2017-04-25] MEDS: traZODone 50 MG TABLET. PO SCH (20:51)
[2017-04-25] MEDS: QUEtiapine 50 MG TABLET. PO SCH (20:51)
[2017-04-25] MEDS: ASPIRIN 81 MG TAB.CHEW PO SCH (20:52)
[2017-04-25] MEDS: MIRTAZAPINE 7.5 MG TABLET. PO SCH (20:52)
[2017-04-25] MEDS: ATORVASTATIN CALCIUM 20 MG TABLET PO SCH (20:52)
--- NOTE | 2017-04-26 03:26 | PN ---
DATE: 04/25/2017 SUBJECTIVE: The patient was seen today, met with the staff, chart reviewed. The patient's behavior remains the same, still agitated, hollering towards staff, indifferent towards surroundings, not able to follow directions. OBSERVATION: Temperature 97.4, blood pressure 118/70, pulse 72, respirations 20, O2 sat 99%. Slept about 6-1/2 hours last night. The patient is not having any physical complaints. Her gait is fairly steady, still tends to pace a lot. CURRENT MEDICATIONS: Include Depakote 250 mg at night, Seroquel 150 mg at night, mirtazapine 7.5 mg at night, fluvoxamine 75 mg daily, Seroquel 12.5 mg t.i.d., trazodone 50 mg at night. She is also on p.r.n. Haldol and olanzapine. ASSESSMENT: Vascular dementia with depression. PLAN: To continue with the treatment. LILY BAUMANN MD DR: ISIDORO/shaina JOB#: [id number] / [id number]
[2017-04-26 06:20] VITALS: BP 121/65
[2017-04-26 08:32] LABS: ALBUMIN 3.1 g/dL (3.4-5.0); ALBUMIN/GLOBULIN RATIO 0.8 (1.0-1.7); ALK PHOS 91 U/L (46-116); ALT (SGPT) 30 U/L (14-59); ANION GAP 5 (6-14); AST (SGOT) 25 U/L (15-37); BLOOD UREA NITROGEN 10 mg/dL (7-20); BUN/CREATININE RATIO 17 (6-20); CALCIUM 9.6 mg/dL (8.5-10.1); CARBON DIOXIDE 32 mmol/L (21-32); CHLORIDE 104 mmol/L (98-107); CREATININE 0.6 mg/dL (0.6-1.0); GFR 95.5; GLUCOSE 99 mg/dL (70-99); POTASSIUM 4.4 mmol/L (3.5-5.1); SODIUM 141 mmol/L (136-145); TOTAL BILIRUBIN 0.3 mg/dL (0.2-1.0); TOTAL PROTEIN 6.8 g/dL (6.4-8.2)
[2017-04-26 08:33] LABS: BASO # 0.4 x10^3/uL (0.0-0.2); BASO % 4 % (0-3); EOS # 0.4 x10^3/uL (0.0-0.7); EOS % 4 % (0-3); HEMATOCRIT 39.1 % (36.0-47.0); LYMPH # 2.4 x10^3/uL (1.0-4.8); LYMPH % 25 % (24-48); MEAN CORPUSCULAR HEMOGLOBIN 29 pg (25-35); MEAN CORPUSCULAR HGB CONC 33 g/dL (31-37); MEAN CORPUSCULAR VOLUME 86 fL (79-100); MONO # 0.7 x10^3/uL (0.0-1.1); MONO % 8 % (0-9); NEUT # 5.5 x10^3uL (1.8-7.7); NEUT % 59 % (31-73); PLATELET COUNT 325 x10^3/uL (140-400); RED BLOOD COUNT 4.53 x10^6/uL (3.50-5.40); RED CELL DISTRIBUTION WIDTH 13.9 % (11.5-14.5); WHITE BLOOD COUNT 9.5 x10^3/uL (4.0-11.0)
[2017-04-26 08:34] LABS: VAL ACID 11 mcg/mL (50-100)
[2017-04-26] MEDS: NICOTINE 21MG PATCH. TD SCH (09:00)
[2017-04-26] MEDS: DOCUSATE SODIUM 100 MG CAPSULE PO SCH ×2 (10:12→19:52)
[2017-04-26] MEDS: QUEtiapine 25 MG TABLET. PO SCH ×3 (10:13→17:06)
[2017-04-26] MEDS: DIVALPROEX 125 MG CAP.SPRINK PO SCH ×2 (10:14→14:11)
[2017-04-26 16:01] VITALS: BP 102/65
[2017-04-26] MEDS: ASPIRIN 81 MG TAB.CHEW PO SCH (19:51)
[2017-04-26] MEDS: QUEtiapine 50 MG TABLET. PO SCH (19:52)
[2017-04-26] MEDS: traZODone 50 MG TABLET. PO SCH (19:52)
[2017-04-26] MEDS: MIRTAZAPINE 7.5 MG TABLET. PO SCH (19:52)
[2017-04-26] MEDS: ATORVASTATIN CALCIUM 20 MG TABLET PO SCH (19:52)
--- NOTE | 2017-04-26 20:39 | PDOC ---
Exam Unruly Demential Exam: Unruly Note: Please also refer to the separate dictated note~for this date of service dictated separately.~Patient seen individually. Discussed the patient with Nursing staff reviewed the chart.~Reviewed interim history and current functioning. Reviewed vital signs,~Labs/ Radiology~and current medications noted below. Continue current treatment with the changes noted in the dictated addendum note Assessment: Vital Signs: Vital Signs Date Time Temp Pulse Resp B/P (MAP) Pulse Ox O2 Delivery O2 Flow Rate FiO2 04/26/17 16:01 97.7 99 20 102/65 (77) 98 04/26/17 06:20 Room Air I&O Intake and Output 04/27/17 07:00 Intake Total 780 ml Balance 780 ml Intake Oral 780 ml Labs: Laboratory Tests Test 04/26/17 07:37 White Blood Count 9.5 x10^3/uL (4.0-11.0) Red Blood Count 4.53 x10^6/uL (3.50-5.40) Hemoglobin 13.0 g/dL (12.0-15.5) Hematocrit 39.1 % (36.0-47.0) Mean Corpuscular Volume 86 fL (79-100) Mean Corpuscular Hemoglobin 29 pg (25-35) Mean Corpuscular Hemoglobin Concent 33 g/dL (31-37) Red Cell Distribution Width 13.9 % (11.5-14.5) Platelet Count 325 x10^3/uL (140-400) Neutrophils (%) (Auto) 59 % (31-73) Lymphocytes (%) (Auto) 25 % (24-48) Monocytes (%) (Auto) 8 % (0-9) Eosinophils (%) (Auto) 4 % (0-3) H Basophils (%) (Auto) 4 % (0-3) H Neutrophils # (Auto) 5.5 x10^3uL (1.8-7.7) Lymphocytes # (Auto) 2.4 x10^3/uL (1.0-4.8) Monocytes # (Auto) 0.7 x10^3/uL (0.0-1.1) Eosinophils # (Auto) 0.4 x10^3/uL (0.0-0.7) Basophils # (Auto) 0.4 x10^3/uL (0.0-0.2) H Sodium Level 141 mmol/L (136-145) Potassium Level 4.4 mmol/L (3.5-5.1) Chloride Level 104 mmol/L (98-107) Carbon Dioxide Level 32 mmol/L (21-32) Anion Gap 5 (6-14) L Blood Urea Nitrogen 10 mg/dL (7-20) Creatinine 0.6 mg/dL (0.6-1.0) Estimated GFR (Cockcroft-Gault) 95.5 BUN/Creatinine Ratio 17 (6-20) Glucose Level 99 mg/dL (70-99) Calcium Level 9.6 mg/dL (8.5-10.1) Total Bilirubin 0.3 mg/dL (0.2-1.0) Aspartate Amino Transferase (AST) 25 U/L (15-37) Alanine Aminotransferase (ALT) 30 U/L (14-59) Alkaline Phosphatase 91 U/L (46-116) Total Protein 6.8 g/dL (6.4-8.2) Albumin 3.1 g/dL (3.4-5.0) L Albumin/Globulin Ratio 0.8 (1.0-1.7) L Valproic Acid Level 11 mcg/mL (50-100) L Valproic Acid Last Dose Date 04/25/17 Valproic Acid Last Dose Time 2100 Current Medications: Meds: Current Medications Ziprasidone (Geodon Im) 20 mg STK-MED ONCE IM ; Start 03/30/17 at 20:37; Stop 03/30/17 at 20:38; Status DC Ziprasidone (Geodon Im) 10 mg 1X ONCE IM Last administered on 03/30/17 20:45 ; Start 03/30/17 at 20:45; Stop 03/30/17 at 22:14; Status DC Acetaminophen (Tylenol) 650 mg PRN Q6HRS PRN PO PAIN / TEMP; Start 03/31/17 at 00:30 Multi-Ingredient Ointment (Analgesic [place]) 1 jefferson PRN QID PRN TP MUSCLE PAIN; Start 03/31/17 at 00:30 Al Hydroxide/Mg Hydroxide (Mylanta Plus Xs) 15 ml PRN AFTMEALHC PRN PO DYSPEPSIA Last administered on 04/11/17 14:17; Start 03/31/17 at 00:30 Magnesium Hydroxide (Milk Of Magnesia) 2,400 mg PRN QHS PRN PO CONSTIPATION Last administered on 04/17/17 14:17; Start 03/31/17 at 00:30 Nicotine (Nicoderm Cq 21mg) 1 patch DAILY TD Last administered on 04/08/17 08 :04; Start 03/31/17 at 09:00 Haloperidol (Haldol) 1 mg PRN Q8HRS PRN PO ANXIETY / AGITATION Last administered on 04/20/17 13:33; Start 03/31/17 at 01:15 Quetiapine Fumarate (SEROquel) 12.5 mg HS PO ; Start 03/31/17 at 21:00; Stop at 21:00; Status DC Aspirin (Children'S Aspirin) 81 mg QHS PO Last administered on 04/26/17 19:51 ; Start 03/31/17 at 21:00 Atorvastatin Calcium (Lipitor) 20 mg QHS PO Last administered on 04/26/17 19: 52; Start 03/31/17 at 21:00 Docusate Sodium (Colace) 100 mg BID PO Last administered on 04/26/17 19:52; Start 03/31/17 at 21:00 Meclizine HCl (Antivert) 12.5 mg PRN Q8HRS PO ; Start 03/31/17 at 09:30 Quetiapine Fumarate (SEROquel) 6.25 mg HS PO Last administered on 03/31/17 20: 05; Start 03/31/17 at 21:00; Stop 04/01/17 at 10:09; Status DC Mirtazapine (Remeron) 7.5 mg QHS PO Last administered on 04/07/17 20:32; Start 03/31/17 at 21:00; Stop 04/08/17 at 11:04; Status DC Trazodone HCl (Desyrel) 50 mg QHS PO Last administered on 04/26/17 19:52; Start 03/31/17 at 21:00 Trazodone HCl (Desyrel) 50 mg PRN QHS PRN PO INSOMNIA, MAY REPEAT X1 Last administered on 04/06/17 22:29; Start 03/31/17 at 18:00 Olanzapine (ZyPREXA ZYDIS) 2.5 mg PRN Q2HR PRN PO psychosis Last administered on 04/04/17 10:37; Start 03/31/17 at 18:00 Quetiapine Fumarate (SEROquel) 25 mg HS PO Last administered on 04/02/17 19:15 ; Start 04/01/17 at 21:00; Stop 04/03/17 at 18:56; Status DC Sertraline HCl (Zoloft) 25 mg DAILY PO Last administered on 04/02/17 09:59; Start 04/02/17 at 09:00; Stop 04/02/17 at 18:43; Status DC Lorazepam (Ativan) 0.5 mg PRN Q2HR PRN PO ANXIETY / AGITATION Last administered on 04/20/17 13:33; Start 04/01/17 at 15:15 Famotidine (Pepcid) 20 mg PRN DAILY PRN PO HEARTBURN / GAS Last administered on 04/24/17 11:33; Start 04/02/17 at 09:15 Famotidine (Pepcid) 20 mg 1X ONCE PO Last administered on 04/02/17 09:59; Start 04/02/17 at 09:25; Stop 04/02/17 at 09:26; Status DC Sertraline HCl (Zoloft) 37.5 mg DAILY PO Last administered on 04/03/17 09:52; Start 04/03/17 at 09:00; Stop 04/03/17 at 18:56; Status DC Quetiapine Fumarate (SEROquel) 50 mg HS PO Last administered on 04/04/17 19:26 ; Start 04/03/17 at 21:00; Stop 04/05/17 at 13:22; Status DC Sertraline HCl (Zoloft) 50 mg DAILY PO Last administered on 04/05/17 07:57; Start 04/04/17 at 09:00; Stop 04/05/17 at 13:23; Status DC Quetiapine Fumarate (SEROquel) 50 mg QHS PO Last administered on 04/05/17 20: 26; Start 04/05/17 at 21:00; Stop 04/06/17 at 18:15; Status DC Sertraline HCl (Zoloft) 50 mg DAILY PO Last administered on 04/08/17 08:03; Start 04/06/17 at 09:00; Stop 04/08/17 at 11:04; Status DC Quetiapine Fumarate (SEROquel) 75 mg QHS PO Last administered on 04/20/17 19: 41; Start 04/06/17 at 21:00; Stop 04/21/17 at 14:43; Status DC Mirtazapine (Remeron) 15 mg QHS PO Last administered on 04/20/17 19:41; Start 04/08/17 at 21:00; Stop 04/21/17 at 14:43; Status DC Sertraline HCl (Zoloft) 75 mg DAILY PO Last administered on 04/11/17 08:00; Start 04/09/17 at 09:00; Stop 04/11/17 at 19:18; Status DC Quetiapine Fumarate (SEROquel) 12.5 mg BID92 PO Last administered on 08:22; Start 04/08/17 at 14:00; Stop 04/09/17 at 18:32; Status DC Quetiapine Fumarate (SEROquel) 12.5 mg TID@0900,1400,1700 PO Last administered on 04/26/17 17:06; Start 04/10/17 at 09:00 Fluvoxamine Maleate (Luvox) 50 mg HS PO Last administered on 04/13/17 20:22; Start 04/11/17 at 21:00; Stop 04/14/17 at 14:45; Status DC Fluvoxamine Maleate (Luvox) 75 mg HS PO Last administered on 04/15/17 19:14; Start 04/14/17 at 21:00; Stop 04/16/17 at 15:48; Status DC Fluvoxamine Maleate (Luvox) 75 mg DAILYWSUP PO Last administered on 04/26/17 17:06; Start 04/16/17 at 17:00 Magnesium Citrate (Citroma) 148 ml 1X ONCE PO Last administered on 04/18/17 13:45; Start 04/18/17 at 13:45; Stop 04/18/17 at 13:46; Status DC Mirtazapine (Remeron) 7.5 mg QHS PO Last administered on 04/26/17 19:52; Start 04/21/17 at 21:00 Quetiapine Fumarate (SEROquel) 150 mg QHS PO Last administered on 04/26/17 19 :52; Start 04/21/17 at 21:00 Divalproex Sodium (Depakote Sprinkles) 125 mg BID@0900,1400 PO Last administered on 04/23/17 12:38; Start 04/22/17 at 09:00; Stop 04/23/17 at 18 :26; Status DC Divalproex Sodium (Depakote Sprinkles) 250 mg BID@0900,1400 PO Last administered on 04/26/17 14:11; Start 04/24/17 at 09:00; Stop 04/26/17 at 19 :26; Status DC Divalproex Sodium (Depakote Sprinkles) 375 mg BID@0900,1400 PO ; Start at 09:00 Active Scripts Active Reported Meclizine Hcl 12.5 Mg Tablet 12.5 Mg PO PRN Q8HRS Haloperidol 2 Mg Tablet 1 Mg PO PRN Q8HRS PRN Seroquel (Quetiapine Fumarate) 25 Mg Tablet 12.5 Mg PO HS Docusate Sodium 100 Mg Capsule 100 Mg PO BID Atorvastatin Calcium 20 Mg Tablet 20 Mg PO QHS Aspirin 81 Mg Tab.chew 81 Mg PO QHS Diagnosis: Problems: (1) Anxiety disorder (2) Dementia, vascular, with depression (3) Dementia, vascular, with delusions (4) Impulse control disorder (5) Major depressive disorder, recurrent episode EDE OGDEN MD Apr 26, 2017 20:39
[2017-04-27 05:49] VITALS: BP 134/56
[2017-04-27] MEDS: QUEtiapine 25 MG TABLET. PO SCH ×3 (07:53→17:30)
[2017-04-27] MEDS: DOCUSATE SODIUM 100 MG CAPSULE PO SCH ×2 (07:53→19:39)
[2017-04-27] MEDS: DIVALPROEX 125 MG CAP.SPRINK PO SCH ×2 (07:55→15:13)
[2017-04-27] MEDS: NICOTINE 21MG PATCH. TD SCH (08:24)
[2017-04-27 16:11] VITALS: BP 124/73
[2017-04-27] MEDS: LORazepam 0.5 MG TABLET PO PRN (17:30)
[2017-04-27] MEDS: MAGNESIUM HYDROXIDE 2,400 MG/30 ML ORAL.SUSP. PO PRN (17:30)
[2017-04-27] MEDS: ASPIRIN 81 MG TAB.CHEW PO SCH (19:39)
[2017-04-27] MEDS: traZODone 50 MG TABLET. PO SCH (19:40)
[2017-04-27] MEDS: MIRTAZAPINE 7.5 MG TABLET. PO SCH (19:40)
[2017-04-27] MEDS: ATORVASTATIN CALCIUM 20 MG TABLET PO SCH (19:40)
[2017-04-27] MEDS: QUEtiapine 50 MG TABLET. PO SCH (19:40)
--- NOTE | 2017-04-27 22:04 | PDOC ---
Exam Unruly Demential Exam: Unruly Note: Please also refer to the separate dictated note~for this date of service dictated separately.~Patient seen individually. Discussed the patient with Nursing staff reviewed the chart.~Reviewed interim history and current functioning. Reviewed vital signs,~Labs/ Radiology~and current medications noted below. Continue current treatment with the changes noted in the dictated addendum note Assessment: Vital Signs: Vital Signs Date Time Temp Pulse Resp B/P (MAP) Pulse Ox O2 Delivery O2 Flow Rate FiO2 04/27/17 16:11 97.5 92 20 124/73 (90) 96 04/26/17 06:20 Room Air I&O Intake and Output 04/28/17 07:00 Intake Total 840 ml Balance 840 ml Intake Oral 840 ml Current Medications: Meds: Current Medications Ziprasidone (Geodon Im) 20 mg STK-MED ONCE IM ; Start 03/30/17 at 20:37; Stop 03/30/17 at 20:38; Status DC Ziprasidone (Geodon Im) 10 mg 1X ONCE IM Last administered on 03/30/17 20:45 ; Start 03/30/17 at 20:45; Stop 03/30/17 at 22:14; Status DC Acetaminophen (Tylenol) 650 mg PRN Q6HRS PRN PO PAIN / TEMP; Start 03/31/17 at 00:30 Multi-Ingredient Ointment (Analgesic [place]) 1 jefferson PRN QID PRN TP MUSCLE PAIN; Start 03/31/17 at 00:30 Al Hydroxide/Mg Hydroxide (Mylanta Plus Xs) 15 ml PRN AFTMEALHC PRN PO DYSPEPSIA Last administered on 04/11/17 14:17; Start 03/31/17 at 00:30 Magnesium Hydroxide (Milk Of Magnesia) 2,400 mg PRN QHS PRN PO CONSTIPATION Last administered on 04/27/17 17:30; Start 03/31/17 at 00:30 Nicotine (Nicoderm Cq 21mg) 1 patch DAILY TD Last administered on 04/08/17 08 :04; Start 03/31/17 at 09:00 Haloperidol (Haldol) 1 mg PRN Q8HRS PRN PO ANXIETY / AGITATION Last administered on 04/20/17 13:33; Start 03/31/17 at 01:15 Quetiapine Fumarate (SEROquel) 12.5 mg HS PO ; Start 03/31/17 at 21:00; Stop at 21:00; Status DC Aspirin (Children'S Aspirin) 81 mg QHS PO Last administered on 04/27/17 19:39 ; Start 03/31/17 at 21:00 Atorvastatin Calcium (Lipitor) 20 mg QHS PO Last administered on 04/27/17 19: 40; Start 03/31/17 at 21:00 Docusate Sodium (Colace) 100 mg BID PO Last administered on 04/27/17 19:39; Start 03/31/17 at 21:00 Meclizine HCl (Antivert) 12.5 mg PRN Q8HRS PO ; Start 03/31/17 at 09:30 Quetiapine Fumarate (SEROquel) 6.25 mg HS PO Last administered on 03/31/17 20: 05; Start 03/31/17 at 21:00; Stop 04/01/17 at 10:09; Status DC Mirtazapine (Remeron) 7.5 mg QHS PO Last administered on 04/07/17 20:32; Start 03/31/17 at 21:00; Stop 04/08/17 at 11:04; Status DC Trazodone HCl (Desyrel) 50 mg QHS PO Last administered on 04/27/17 19:40; Start 03/31/17 at 21:00 Trazodone HCl (Desyrel) 50 mg PRN QHS PRN PO INSOMNIA, MAY REPEAT X1 Last administered on 04/06/17 22:29; Start 03/31/17 at 18:00 Olanzapine (ZyPREXA ZYDIS) 2.5 mg PRN Q2HR PRN PO psychosis Last administered on 04/04/17 10:37; Start 03/31/17 at 18:00 Quetiapine Fumarate (SEROquel) 25 mg HS PO Last administered on 04/02/17 19:15 ; Start 04/01/17 at 21:00; Stop 04/03/17 at 18:56; Status DC Sertraline HCl (Zoloft) 25 mg DAILY PO Last administered on 04/02/17 09:59; Start 04/02/17 at 09:00; Stop 04/02/17 at 18:43; Status DC Lorazepam (Ativan) 0.5 mg PRN Q2HR PRN PO ANXIETY / AGITATION Last administered on 04/27/17 17:30; Start 04/01/17 at 15:15 Famotidine (Pepcid) 20 mg PRN DAILY PRN PO HEARTBURN / GAS Last administered on 04/24/17 11:33; Start 04/02/17 at 09:15 Famotidine (Pepcid) 20 mg 1X ONCE PO Last administered on 04/02/17 09:59; Start 04/02/17 at 09:25; Stop 04/02/17 at 09:26; Status DC Sertraline HCl (Zoloft) 37.5 mg DAILY PO Last administered on 04/03/17 09:52; Start 04/03/17 at 09:00; Stop 04/03/17 at 18:56; Status DC Quetiapine Fumarate (SEROquel) 50 mg HS PO Last administered on 04/04/17 19:26 ; Start 04/03/17 at 21:00; Stop 04/05/17 at 13:22; Status DC Sertraline HCl (Zoloft) 50 mg DAILY PO Last administered on 04/05/17 07:57; Start 04/04/17 at 09:00; Stop 04/05/17 at 13:23; Status DC Quetiapine Fumarate (SEROquel) 50 mg QHS PO Last administered on 04/05/17 20: 26; Start 04/05/17 at 21:00; Stop 04/06/17 at 18:15; Status DC Sertraline HCl (Zoloft) 50 mg DAILY PO Last administered on 04/08/17 08:03; Start 04/06/17 at 09:00; Stop 04/08/17 at 11:04; Status DC Quetiapine Fumarate (SEROquel) 75 mg QHS PO Last administered on 04/20/17 19: 41; Start 04/06/17 at 21:00; Stop 04/21/17 at 14:43; Status DC Mirtazapine (Remeron) 15 mg QHS PO Last administered on 04/20/17 19:41; Start 04/08/17 at 21:00; Stop 04/21/17 at 14:43; Status DC Sertraline HCl (Zoloft) 75 mg DAILY PO Last administered on 04/11/17 08:00; Start 04/09/17 at 09:00; Stop 04/11/17 at 19:18; Status DC Quetiapine Fumarate (SEROquel) 12.5 mg BID92 PO Last administered on 08:22; Start 04/08/17 at 14:00; Stop 04/09/17 at 18:32; Status DC Quetiapine Fumarate (SEROquel) 12.5 mg TID@0900,1400,1700 PO Last administered on 04/27/17 17:30; Start 04/10/17 at 09:00; Stop 04/27/17 at 18:48; Status DC Fluvoxamine Maleate (Luvox) 50 mg HS PO Last administered on 04/13/17 20:22; Start 04/11/17 at 21:00; Stop 04/14/17 at 14:45; Status DC Fluvoxamine Maleate (Luvox) 75 mg HS PO Last administered on 04/15/17 19:14; Start 04/14/17 at 21:00; Stop 04/16/17 at 15:48; Status DC Fluvoxamine Maleate (Luvox) 75 mg DAILYWSUP PO Last administered on 04/27/17 17:29; Start 04/16/17 at 17:00; Stop 04/27/17 at 18:48; Status DC Magnesium Citrate (Citroma) 148 ml 1X ONCE PO Last administered on 04/18/17 13:45; Start 04/18/17 at 13:45; Stop 04/18/17 at 13:46; Status DC Mirtazapine (Remeron) 7.5 mg QHS PO Last administered on 04/27/17 19:40; Start 04/21/17 at 21:00 Quetiapine Fumarate (SEROquel) 150 mg QHS PO Last administered on 04/27/17 19 :40; Start 04/21/17 at 21:00 Divalproex Sodium (Depakote Sprinkles) 125 mg BID@0900,1400 PO Last administered on 04/23/17 12:38; Start 04/22/17 at 09:00; Stop 04/23/17 at 18 :26; Status DC Divalproex Sodium (Depakote Sprinkles) 250 mg BID@0900,1400 PO Last administered on 04/26/17 14:11; Start 04/24/17 at 09:00; Stop 04/26/17 at 19 :26; Status DC Divalproex Sodium (Depakote Sprinkles) 375 mg BID@0900,1400 PO Last administered on 04/27/17 15:13; Start 04/27/17 at 09:00 Fluvoxamine Maleate (Luvox) 100 mg DAILYWSUP PO ; Start 04/28/17 at 17:00 Quetiapine Fumarate (SEROquel) 12.5 mg DAILY@1400 PO ; Start 04/28/17 at 14:00 Quetiapine Fumarate (SEROquel) 25 mg BID@0900,1700 PO ; Start 04/28/17 at 09:00 Active Scripts Active Reported Meclizine Hcl 12.5 Mg Tablet 12.5 Mg PO PRN Q8HRS Haloperidol 2 Mg Tablet 1 Mg PO PRN Q8HRS PRN Seroquel (Quetiapine Fumarate) 25 Mg Tablet 12.5 Mg PO HS Docusate Sodium 100 Mg Capsule 100 Mg PO BID Atorvastatin Calcium 20 Mg Tablet 20 Mg PO QHS Aspirin 81 Mg Tab.chew 81 Mg PO QHS Diagnosis: Problems: (1) Anxiety disorder (2) Dementia, vascular, with depression (3) Dementia, vascular, with delusions (4) Impulse control disorder (5) Major depressive disorder, recurrent episode EDE OGDEN MD Apr 27, 2017 22:04
[2017-04-28 05:54] VITALS: BP 117/65
[2017-04-28] MEDS: QUEtiapine 25 MG TABLET. PO SCH ×3 (08:53→16:33)
[2017-04-28] MEDS: DIVALPROEX 125 MG CAP.SPRINK PO SCH ×2 (08:53→13:31)
[2017-04-28] MEDS: DOCUSATE SODIUM 100 MG CAPSULE PO SCH ×2 (08:53→19:15)
[2017-04-28] MEDS: NICOTINE 21MG PATCH. TD SCH (08:53)
[2017-04-28] MEDS ORDERED: MAGNESIUM CITRATE 296 ML SOLUTION. ONE (08:56)
[2017-04-28] MEDS ORDERED: MAGNESIUM CITRATE 296 ML SOLUTION. PO ONE (09:00)
--- NOTE | 2017-04-28 10:46 | PN ---
DATE: 04/26/2017 This late entry, date of service 04/26/2017, covers elements not covered in my initial note of 04/26/2017. The patient was seen individually evening of 04/26/2017. She remains confused, somewhat anxious, in and out of her room, repetitive, irritable at times. Depakote has had to be given in milkshake at times, she has been yelling. At one time, she was irritable, frustrated earlier in the day 10:30 a.m. and threw her makeup bag. REVIEW OF SYSTEMS: No CV, , pulmonary, eye, ENT system symptoms on review. Reliability poor. MENTAL STATUS EXAM: Oriented to herself. Insight, judgment, recent and remote memory, attention, concentration, fund of knowledge poor, consistent with her diagnosis. Valproic acid level is low at 11 on Depakote 250 b.i.d. IMPRESSION: Unchanged from initial note. PLAN: Increase Depakote to 375 mg b.i.d. Check CBC, CMP, valproic acid level in 3 days. Continue rest of the psychotropics mentioned in my initial note including Luvox, Seroquel, trazodone along with Zyprexa and Ativan p.r.n., Remeron 7.5 mg p.o. at bedtime, Seroquel 12.5 mg t.i.d. and 150 mg at bedtime. Reviewed drug interactions, risk/benefit ratio favors no further change. EDE OGDEN MD DR: LEXII/shaina JOB#: [id number] / [id number]
[2017-04-28] MEDS: POLYETHYLENE GLYCOL 3350 17 GM PACKET. PO SCH (13:31)
[2017-04-28] MEDS ORDERED: BISACODYL 10 MG SUPP.RECT PR ONE (14:00)
--- NOTE | 2017-04-28 15:15 | RAD ---
VICTORIA 04/28/2017 Indication: Constipation Comparison study: None Discussion: Increased stool is noted throughout the colon. A large amount of stool appears to be present in the rectum. Fecal impaction not excluded. No significantly dilated loops of bowel fluid levels are identified. No gross pneumoperitoneum is identified though exam is limited for this purpose. No acute osseous changes are seen. Impression: Increased stool throughout the colon particularly involving the rectum. Findings consistent with constipation. Fecal impaction not excluded.
[2017-04-28 16:31] VITALS: BP 136/76
[2017-04-28] MEDS: MIRTAZAPINE 7.5 MG TABLET. PO SCH (19:15)
[2017-04-28] MEDS: ASPIRIN 81 MG TAB.CHEW PO SCH (19:15)
[2017-04-28] MEDS: ATORVASTATIN CALCIUM 20 MG TABLET PO SCH (19:15)
[2017-04-28] MEDS: traZODone 50 MG TABLET. PO SCH (19:15)
[2017-04-28] MEDS: QUEtiapine 50 MG TABLET. PO SCH (19:16)
--- NOTE | 2017-04-28 20:49 | PDOC ---
Exam Unruly Demential Exam: Unruly Note: Please also refer to the separate dictated note~for this date of service dictated separately.~Patient seen individually. Discussed the patient with Nursing staff reviewed the chart.~Reviewed interim history and current functioning. Reviewed vital signs,~Labs/ Radiology~and current medications noted below. Continue current treatment with the changes noted in the dictated addendum note Assessment: Vital Signs: Vital Signs Date Time Temp Pulse Resp B/P (MAP) Pulse Ox O2 Delivery O2 Flow Rate FiO2 04/28/17 16:31 97.7 98 20 136/76 (96) 98 Room Air I&O Intake and Output 04/29/17 07:00 Intake Total 600 ml Balance 600 ml Intake Oral 600 ml # Bowel Movements 1 Current Medications: Meds: Current Medications Ziprasidone (Geodon Im) 20 mg STK-MED ONCE IM ; Start 03/30/17 at 20:37; Stop 03/30/17 at 20:38; Status DC Ziprasidone (Geodon Im) 10 mg 1X ONCE IM Last administered on 03/30/17 20:45 ; Start 03/30/17 at 20:45; Stop 03/30/17 at 22:14; Status DC Acetaminophen (Tylenol) 650 mg PRN Q6HRS PRN PO PAIN / TEMP; Start 03/31/17 at 00:30 Multi-Ingredient Ointment (Analgesic [place]) 1 jefferson PRN QID PRN TP MUSCLE PAIN; Start 03/31/17 at 00:30 Al Hydroxide/Mg Hydroxide (Mylanta Plus Xs) 15 ml PRN AFTMEALHC PRN PO DYSPEPSIA Last administered on 04/11/17 14:17; Start 03/31/17 at 00:30 Magnesium Hydroxide (Milk Of Magnesia) 2,400 mg PRN QHS PRN PO CONSTIPATION Last administered on 04/27/17 17:30; Start 03/31/17 at 00:30 Nicotine (Nicoderm Cq 21mg) 1 patch DAILY TD Last administered on 04/28/17 08: 53; Start 03/31/17 at 09:00 Haloperidol (Haldol) 1 mg PRN Q8HRS PRN PO ANXIETY / AGITATION Last administered on 04/20/17 13:33; Start 03/31/17 at 01:15 Quetiapine Fumarate (SEROquel) 12.5 mg HS PO ; Start 03/31/17 at 21:00; Stop at 21:00; Status DC Aspirin (Children'S Aspirin) 81 mg QHS PO Last administered on 04/28/17 19:15 ; Start 03/31/17 at 21:00 Atorvastatin Calcium (Lipitor) 20 mg QHS PO Last administered on 04/28/17 19: 15; Start 03/31/17 at 21:00 Docusate Sodium (Colace) 100 mg BID PO Last administered on 04/28/17 19:15; Start 03/31/17 at 21:00 Meclizine HCl (Antivert) 12.5 mg PRN Q8HRS PO ; Start 03/31/17 at 09:30 Quetiapine Fumarate (SEROquel) 6.25 mg HS PO Last administered on 03/31/17 20: 05; Start 03/31/17 at 21:00; Stop 04/01/17 at 10:09; Status DC Mirtazapine (Remeron) 7.5 mg QHS PO Last administered on 04/07/17 20:32; Start 03/31/17 at 21:00; Stop 04/08/17 at 11:04; Status DC Trazodone HCl (Desyrel) 50 mg QHS PO Last administered on 04/28/17 19:15; Start 03/31/17 at 21:00 Trazodone HCl (Desyrel) 50 mg PRN QHS PRN PO INSOMNIA, MAY REPEAT X1 Last administered on 04/06/17 22:29; Start 03/31/17 at 18:00 Olanzapine (ZyPREXA ZYDIS) 2.5 mg PRN Q2HR PRN PO psychosis Last administered on 04/04/17 10:37; Start 03/31/17 at 18:00 Quetiapine Fumarate (SEROquel) 25 mg HS PO Last administered on 04/02/17 19:15 ; Start 04/01/17 at 21:00; Stop 04/03/17 at 18:56; Status DC Sertraline HCl (Zoloft) 25 mg DAILY PO Last administered on 04/02/17 09:59; Start 04/02/17 at 09:00; Stop 04/02/17 at 18:43; Status DC Lorazepam (Ativan) 0.5 mg PRN Q2HR PRN PO ANXIETY / AGITATION Last administered on 04/27/17 17:30; Start 04/01/17 at 15:15 Famotidine (Pepcid) 20 mg PRN DAILY PRN PO HEARTBURN / GAS Last administered on 04/24/17 11:33; Start 04/02/17 at 09:15 Famotidine (Pepcid) 20 mg 1X ONCE PO Last administered on 04/02/17 09:59; Start 04/02/17 at 09:25; Stop 04/02/17 at 09:26; Status DC Sertraline HCl (Zoloft) 37.5 mg DAILY PO Last administered on 04/03/17 09:52; Start 04/03/17 at 09:00; Stop 04/03/17 at 18:56; Status DC Quetiapine Fumarate (SEROquel) 50 mg HS PO Last administered on 04/04/17 19:26 ; Start 04/03/17 at 21:00; Stop 04/05/17 at 13:22; Status DC Sertraline HCl (Zoloft) 50 mg DAILY PO Last administered on 04/05/17 07:57; Start 04/04/17 at 09:00; Stop 04/05/17 at 13:23; Status DC Quetiapine Fumarate (SEROquel) 50 mg QHS PO Last administered on 04/05/17 20: 26; Start 04/05/17 at 21:00; Stop 04/06/17 at 18:15; Status DC Sertraline HCl (Zoloft) 50 mg DAILY PO Last administered on 04/08/17 08:03; Start 04/06/17 at 09:00; Stop 04/08/17 at 11:04; Status DC Quetiapine Fumarate (SEROquel) 75 mg QHS PO Last administered on 04/20/17 19: 41; Start 04/06/17 at 21:00; Stop 04/21/17 at 14:43; Status DC Mirtazapine (Remeron) 15 mg QHS PO Last administered on 04/20/17 19:41; Start 04/08/17 at 21:00; Stop 04/21/17 at 14:43; Status DC Sertraline HCl (Zoloft) 75 mg DAILY PO Last administered on 04/11/17 08:00; Start 04/09/17 at 09:00; Stop 04/11/17 at 19:18; Status DC Quetiapine Fumarate (SEROquel) 12.5 mg BID92 PO Last administered on 08:22; Start 04/08/17 at 14:00; Stop 04/09/17 at 18:32; Status DC Quetiapine Fumarate (SEROquel) 12.5 mg TID@0900,1400,1700 PO Last administered on 04/27/17 17:30; Start 04/10/17 at 09:00; Stop 04/27/17 at 18:48; Status DC Fluvoxamine Maleate (Luvox) 50 mg HS PO Last administered on 04/13/17 20:22; Start 04/11/17 at 21:00; Stop 04/14/17 at 14:45; Status DC Fluvoxamine Maleate (Luvox) 75 mg HS PO Last administered on 04/15/17 19:14; Start 04/14/17 at 21:00; Stop 04/16/17 at 15:48; Status DC Fluvoxamine Maleate (Luvox) 75 mg DAILYWSUP PO Last administered on 04/27/17 17:29; Start 04/16/17 at 17:00; Stop 04/27/17 at 18:48; Status DC Magnesium Citrate (Citroma) 148 ml 1X ONCE PO Last administered on 04/18/17 13:45; Start 04/18/17 at 13:45; Stop 04/18/17 at 13:46; Status DC Mirtazapine (Remeron) 7.5 mg QHS PO Last administered on 04/28/17 19:15; Start 04/21/17 at 21:00 Quetiapine Fumarate (SEROquel) 150 mg QHS PO Last administered on 04/28/17 19: 16; Start 04/21/17 at 21:00 Divalproex Sodium (Depakote Sprinkles) 125 mg BID@0900,1400 PO Last administered on 04/23/17 12:38; Start 04/22/17 at 09:00; Stop 04/23/17 at 18 :26; Status DC Divalproex Sodium (Depakote Sprinkles) 250 mg BID@0900,1400 PO Last administered on 04/26/17 14:11; Start 04/24/17 at 09:00; Stop 04/26/17 at 19 :26; Status DC Divalproex Sodium (Depakote Sprinkles) 375 mg BID@0900,1400 PO Last administered on 04/28/17 13:31; Start 04/27/17 at 09:00 Fluvoxamine Maleate (Luvox) 100 mg DAILYWSUP PO Last administered on 04/28/17 16:33; Start 04/28/17 at 17:00 Quetiapine Fumarate (SEROquel) 12.5 mg DAILY@1400 PO Last administered on 13:31; Start 04/28/17 at 14:00 Quetiapine Fumarate (SEROquel) 25 mg BID@0900,1700 PO Last administered on 04/28 16:33; Start 04/28/17 at 09:00 Magnesium Citrate (Citroma) 296 ml 1X ONCE PO Last administered on 04/28/17 08:56; Start 04/28/17 at 09:00; Stop 04/28/17 at 09:01; Status DC Magnesium Citrate (Citroma) 296 ml STK-MED ONCE .ROUTE Last administered on 08:56; Start 04/28/17 at 08:56; Stop 04/28/17 at 08:57; Status DC Polyethylene Glycol (miraLAX) 17 gm DAILY PO Last administered on 04/28/17 13: 31; Start 04/28/17 at 10:30 Bisacodyl (Dulcolax Supp) 10 mg 1X ONCE MI Last administered on 04/28/17 14: 00; Start 04/28/17 at 14:00; Stop 04/28/17 at 14:01; Status DC Senna/Docusate Sodium (Senna Plus) 2 tab 1X ONCE PO Last administered on 19:37; Start 04/28/17 at 21:00; Stop 04/28/17 at 21:01 Active Scripts Active Reported Meclizine Hcl 12.5 Mg Tablet 12.5 Mg PO PRN Q8HRS Haloperidol 2 Mg Tablet 1 Mg PO PRN Q8HRS PRN Seroquel (Quetiapine Fumarate) 25 Mg Tablet 12.5 Mg PO HS Docusate Sodium 100 Mg Capsule 100 Mg PO BID Atorvastatin Calcium 20 Mg Tablet 20 Mg PO QHS Aspirin 81 Mg Tab.chew 81 Mg PO QHS Diagnosis: Problems: (1) Anxiety disorder (2) Dementia, vascular, with depression (3) Dementia, vascular, with delusions (4) Impulse control disorder (5) Major depressive disorder, recurrent episode EDE OGDEN MD Apr 28, 2017 20:49
[2017-04-28] MEDS ORDERED: SENNOSIDES/DOCUSATE 8.6/50MG TABLET. PO ONE (21:00)
--- NOTE | 2017-04-28 22:54 | PN ---
DATE: 04/27/2017 PSYCHIATRIC PROGRESS NOTE This late entry, date of service 04/27/2017 covers elements not covered in my initial note of 04/27/2017. SUBJECTIVE: The patient has been extremely obsessive regarding her purse, believes people are stealing from her, repetitively back to the nursing station and nursing staff had patiently reiterated to her that her purse is in safekeeping. At times she gets tearful, got frustrated surrounding the purse and slapped herself in the face and then stomped off per nursing report. REVIEW OF SYSTEMS: No CV, , pulmonary, eye, ENT system symptoms on review. Reliability poor. MENTAL STATUS EXAM: Oriented to herself. Insight, judgment, recent and remote memory, attention, concentration, fund of knowledge poor, consistent with her diagnosis mentioned in my initial note. PLAN: Increase Luvox from 75 mg a day to 100 mg a day, Seroquel from 12.5 mg 3 times a day to 25 mg in the morning and 12.5 in the afternoon, 25 mg in the evening. Maintain trazodone, Remeron, along with Zyprexa and Ativan p.r.n. and Depakote at current dosage. Depakote has been adjusted to 375 mg b.i.d. with repeat labs level in 3 days. Review drug interactions, risk/benefit ratio favors no further change. EDE OGDEN MD DR: LEXII/shaina JOB#: [id number] / [id number]
[2017-04-29 06:16] VITALS: BP 134/64
[2017-04-29 08:19] LABS: ALBUMIN/GLOBULIN RATIO 0.8 (1.0-1.7); ALK PHOS 92 U/L (46-116); ALT (SGPT) 32 U/L (14-59); ANION GAP 4 (6-14); AST (SGOT) 15 U/L (15-37); BLOOD UREA NITROGEN 11 mg/dL (7-20); BUN/CREATININE RATIO 16 (6-20); CALCIUM 9.5 mg/dL (8.5-10.1); CARBON DIOXIDE 33 mmol/L (21-32); CHLORIDE 104 mmol/L (98-107); CREATININE 0.7 mg/dL (0.6-1.0); GFR 79.9; GLUCOSE 96 mg/dL (70-99); POTASSIUM 4.8 mmol/L (3.5-5.1); SODIUM 141 mmol/L (136-145); TOTAL BILIRUBIN 0.4 mg/dL (0.2-1.0); TOTAL PROTEIN 6.6 g/dL (6.4-8.2)
[2017-04-29 08:25] LABS: VAL ACID 29 mcg/mL (50-100)
[2017-04-29 08:26] LABS: BASO % 0 % (0-3); EOS # 0.3 x10^3/uL (0.0-0.7); EOS % 3 % (0-3); HEMATOCRIT 36.7 % (36.0-47.0); HEMOGLOBIN 12.4 g/dL (12.0-15.5); LYMPH # 1.6 x10^3/uL (1.0-4.8); LYMPH % 14 % (24-48); MEAN CORPUSCULAR HEMOGLOBIN 29 pg (25-35); MEAN CORPUSCULAR HGB CONC 34 g/dL (31-37); MEAN CORPUSCULAR VOLUME 86 fL (79-100); MONO # 1.2 x10^3/uL (0.0-1.1); MONO % 10 % (0-9); NEUT # 8.5 x10^3uL (1.8-7.7); NEUT % 73 % (31-73); PLATELET COUNT 308 x10^3/uL (140-400); RED BLOOD COUNT 4.25 x10^6/uL (3.50-5.40); RED CELL DISTRIBUTION WIDTH 14.2 % (11.5-14.5); WHITE BLOOD COUNT 11.7 x10^3/uL (4.0-11.0)
[2017-04-29 08:53] LABS: % BANDS 1 % (0-9); % EOS 2 % (0-5); % LYMPHS 17 % (24-48); % MONOS 7 % (0-10); % SEGS 73 % (35-66); PLT ESTIMATE ADEQUATE (ADEQUATE)
[2017-04-29] MEDS: DIVALPROEX 125 MG CAP.SPRINK PO SCH ×2 (08:54→14:11)
[2017-04-29] MEDS: DOCUSATE SODIUM 100 MG CAPSULE PO SCH ×2 (08:54→19:22)
[2017-04-29] MEDS: NICOTINE 21MG PATCH. TD SCH ×2 (08:55→09:00)
[2017-04-29] MEDS: POLYETHYLENE GLYCOL 3350 17 GM PACKET. PO SCH (08:55)
[2017-04-29] MEDS: QUEtiapine 25 MG TABLET. PO SCH ×3 (08:55→16:42)
--- NOTE | 2017-04-29 12:10 | PN ---
DATE: 04/28/2017 This is a late entry for date of service 04/28/2017 and covers elements not covered in my initial note of 04/28/2017. SUBJECTIVE: The patient was seen individually evening of 04/28/2017, staffed at a treatment team meeting with the entire team morning of 04/28/2017. The patient takes her medications whole, somewhat obsessed about her medications and the purse. Remains confused, obsessive. REVIEW OF SYSTEMS: No CV, , pulmonary, eye, ENT system symptoms on review, somewhat more sedated evening of 04/28/2017 as compared to earlier, perhaps due to increase in the Seroquel. MENTAL STATUS EXAM: Oriented to herself. Insight, judgment, recent and remote memory, attention, concentration, fund of knowledge poor, consistent with her diagnoses as mentioned in my initial note. PLAN: Continue current psychotropics. Reviewed drug interactions, risks/benefit ratio favors no further change. Luvox was increased as was the Seroquel, we may have to further adjust these in due course. MAN Jess OGDEN MD DR: LEXII/shaina JOB#: [id number] / [id number]
[2017-04-29 16:22] VITALS: BP 111/64
[2017-04-29] MEDS: ATORVASTATIN CALCIUM 20 MG TABLET PO SCH (19:22)
[2017-04-29] MEDS: MIRTAZAPINE 7.5 MG TABLET. PO SCH (19:22)
[2017-04-29] MEDS: QUEtiapine 50 MG TABLET. PO SCH (19:23)
[2017-04-29] MEDS: ASPIRIN 81 MG TAB.CHEW PO SCH (19:23)
[2017-04-29] MEDS: traZODone 50 MG TABLET. PO SCH (19:23)
--- NOTE | 2017-04-29 20:46 | PDOC ---
Exam Unruly Demential Exam: Unruly Note: Please also refer to the separate dictated note~for this date of service dictated separately.~Patient seen individually. Discussed the patient with Nursing staff reviewed the chart.~Reviewed interim history and current functioning. Reviewed vital signs,~Labs/ Radiology~and current medications noted below. Continue current treatment with the changes noted in the dictated addendum note Assessment: Vital Signs: Vital Signs Date Time Temp Pulse Resp B/P (MAP) Pulse Ox O2 Delivery O2 Flow Rate FiO2 04/29/17 16:22 97.9 73 18 111/64 (80) 97 Room Air I&O Intake and Output 04/30/17 07:00 Intake Total 720 ml Balance 720 ml Intake Oral 720 ml # Bowel Movements 2 Labs: Laboratory Tests Test 04/29/17 07:50 White Blood Count 11.7 x10^3/uL (4.0-11.0) H Red Blood Count 4.25 x10^6/uL (3.50-5.40) Hemoglobin 12.4 g/dL (12.0-15.5) Hematocrit 36.7 % (36.0-47.0) Mean Corpuscular Volume 86 fL (79-100) Mean Corpuscular Hemoglobin 29 pg (25-35) Mean Corpuscular Hemoglobin Concent 34 g/dL (31-37) Red Cell Distribution Width 14.2 % (11.5-14.5) Platelet Count 308 x10^3/uL (140-400) Neutrophils (%) (Auto) 73 % (31-73) Lymphocytes (%) (Auto) 14 % (24-48) L Monocytes (%) (Auto) 10 % (0-9) H Eosinophils (%) (Auto) 3 % (0-3) Basophils (%) (Auto) 0 % (0-3) Neutrophils # (Auto) 8.5 x10^3uL (1.8-7.7) H Lymphocytes # (Auto) 1.6 x10^3/uL (1.0-4.8) Monocytes # (Auto) 1.2 x10^3/uL (0.0-1.1) H Eosinophils # (Auto) 0.3 x10^3/uL (0.0-0.7) Basophils # (Auto) 0.0 x10^3/uL (0.0-0.2) Segmented Neutrophils % 73 % (35-66) H Band Neutrophils % 1 % (0-9) Lymphocytes % 17 % (24-48) L Monocytes % 7 % (0-10) Eosinophils % 2 % (0-5) Platelet Estimate Adequate (ADEQUATE) Large Platelets Occ Sodium Level 141 mmol/L (136-145) Potassium Level 4.8 mmol/L (3.5-5.1) Chloride Level 104 mmol/L (98-107) Carbon Dioxide Level 33 mmol/L (21-32) H Anion Gap 4 (6-14) L Blood Urea Nitrogen 11 mg/dL (7-20) Creatinine 0.7 mg/dL (0.6-1.0) Estimated GFR (Cockcroft-Gault) 79.9 BUN/Creatinine Ratio 16 (6-20) Glucose Level 96 mg/dL (70-99) Calcium Level 9.5 mg/dL (8.5-10.1) Total Bilirubin 0.4 mg/dL (0.2-1.0) Aspartate Amino Transferase (AST) 15 U/L (15-37) Alanine Aminotransferase (ALT) 32 U/L (14-59) Alkaline Phosphatase 92 U/L (46-116) Total Protein 6.6 g/dL (6.4-8.2) Albumin 3.0 g/dL (3.4-5.0) L Albumin/Globulin Ratio 0.8 (1.0-1.7) L Valproic Acid Level 29 mcg/mL (50-100) L Valproic Acid Last Dose Date 04/28/2017 Valproic Acid Last Dose Time 2100 Current Medications: Meds: Current Medications Ziprasidone (Geodon Im) 20 mg STK-MED ONCE IM ; Start 03/30/17 at 20:37; Stop 03/30/17 at 20:38; Status DC Ziprasidone (Geodon Im) 10 mg 1X ONCE IM Last administered on 03/30/17t 20:45 ; Start 03/30/17 at 20:45; Stop 03/30/17 at 22:14; Status DC Acetaminophen (Tylenol) 650 mg PRN Q6HRS PRN PO PAIN / TEMP; Start 03/31/17 at 00:30 Multi-Ingredient Ointment (Analgesic [place]) 1 jefferson PRN QID PRN TP MUSCLE PAIN; Start 03/31/17 at 00:30 Al Hydroxide/Mg Hydroxide (Mylanta Plus Xs) 15 ml PRN AFTMEALHC PRN PO DYSPEPSIA Last administered on 04/11/17 14:17; Start 03/31/17 at 00:30 Magnesium Hydroxide (Milk Of Magnesia) 2,400 mg PRN QHS PRN PO CONSTIPATION Last administered on 04/27/17 17:30; Start 03/31/17 at 00:30 Nicotine (Nicoderm Cq 21mg) 1 patch DAILY TD Last administered on 04/28/17 08: 53; Start 03/31/17 at 09:00 Haloperidol (Haldol) 1 mg PRN Q8HRS PRN PO ANXIETY / AGITATION Last administered on 04/20/17 13:33; Start 03/31/17 at 01:15 Quetiapine Fumarate (SEROquel) 12.5 mg HS PO ; Start 03/31/17 at 21:00; Stop at 21:00; Status DC Aspirin (Children'S Aspirin) 81 mg QHS PO Last administered on 04/29/17 19:23 ; Start 03/31/17 at 21:00 Atorvastatin Calcium (Lipitor) 20 mg QHS PO Last administered on 04/29/17 19: 22; Start 03/31/17 at 21:00 Docusate Sodium (Colace) 100 mg BID PO Last administered on 04/29/17 19:22; Start 03/31/17 at 21:00 Meclizine HCl (Antivert) 12.5 mg PRN Q8HRS PO ; Start 03/31/17 at 09:30 Quetiapine Fumarate (SEROquel) 6.25 mg HS PO Last administered on 03/31/17 20: 05; Start 03/31/17 at 21:00; Stop 04/01/17 at 10:09; Status DC Mirtazapine (Remeron) 7.5 mg QHS PO Last administered on 04/07/17 20:32; Start 03/31/17 at 21:00; Stop 04/08/17 at 11:04; Status DC Trazodone HCl (Desyrel) 50 mg QHS PO Last administered on 04/29/17 19:23; Start 03/31/17 at 21:00 Trazodone HCl (Desyrel) 50 mg PRN QHS PRN PO INSOMNIA, MAY REPEAT X1 Last administered on 04/06/17 22:29; Start 03/31/17 at 18:00 Olanzapine (ZyPREXA ZYDIS) 2.5 mg PRN Q2HR PRN PO psychosis Last administered on 04/04/17 10:37; Start 03/31/17 at 18:00 Quetiapine Fumarate (SEROquel) 25 mg HS PO Last administered on 04/02/17 19:15 ; Start 04/01/17 at 21:00; Stop 04/03/17 at 18:56; Status DC Sertraline HCl (Zoloft) 25 mg DAILY PO Last administered on 04/02/17 09:59; Start 04/02/17 at 09:00; Stop 04/02/17 at 18:43; Status DC Lorazepam (Ativan) 0.5 mg PRN Q2HR PRN PO ANXIETY / AGITATION Last administered on 04/27/17 17:30; Start 04/01/17 at 15:15 Famotidine (Pepcid) 20 mg PRN DAILY PRN PO HEARTBURN / GAS Last administered on 04/24/17 11:33; Start 04/02/17 at 09:15 Famotidine (Pepcid) 20 mg 1X ONCE PO Last administered on 04/02/17 09:59; Start 04/02/17 at 09:25; Stop 04/02/17 at 09:26; Status DC Sertraline HCl (Zoloft) 37.5 mg DAILY PO Last administered on 04/03/17 09:52; Start 04/03/17 at 09:00; Stop 04/03/17 at 18:56; Status DC Quetiapine Fumarate (SEROquel) 50 mg HS PO Last administered on 04/04/17 19:26 ; Start 04/03/17 at 21:00; Stop 04/05/17 at 13:22; Status DC Sertraline HCl (Zoloft) 50 mg DAILY PO Last administered on 04/05/17 07:57; Start 04/04/17 at 09:00; Stop 04/05/17 at 13:23; Status DC Quetiapine Fumarate (SEROquel) 50 mg QHS PO Last administered on 04/05/17 20: 26; Start 04/05/17 at 21:00; Stop 04/06/17 at 18:15; Status DC Sertraline HCl (Zoloft) 50 mg DAILY PO Last administered on 04/08/17 08:03; Start 04/06/17 at 09:00; Stop 04/08/17 at 11:04; Status DC Quetiapine Fumarate (SEROquel) 75 mg QHS PO Last administered on 04/20/17 19: 41; Start 04/06/17 at 21:00; Stop 04/21/17 at 14:43; Status DC Mirtazapine (Remeron) 15 mg QHS PO Last administered on 04/20/17 19:41; Start 04/08/17 at 21:00; Stop 04/21/17 at 14:43; Status DC Sertraline HCl (Zoloft) 75 mg DAILY PO Last administered on 04/11/17 08:00; Start 04/09/17 at 09:00; Stop 04/11/17 at 19:18; Status DC Quetiapine Fumarate (SEROquel) 12.5 mg BID92 PO Last administered on 08:22; Start 04/08/17 at 14:00; Stop 04/09/17 at 18:32; Status DC Quetiapine Fumarate (SEROquel) 12.5 mg TID@0900,1400,1700 PO Last administered on 04/27/17 17:30; Start 04/10/17 at 09:00; Stop 04/27/17 at 18:48; Status DC Fluvoxamine Maleate (Luvox) 50 mg HS PO Last administered on 04/13/17 20:22; Start 04/11/17 at 21:00; Stop 04/14/17 at 14:45; Status DC Fluvoxamine Maleate (Luvox) 75 mg HS PO Last administered on 04/15/17 19:14; Start 04/14/17 at 21:00; Stop 04/16/17 at 15:48; Status DC Fluvoxamine Maleate (Luvox) 75 mg DAILYWSUP PO Last administered on 04/27/17 17:29; Start 04/16/17 at 17:00; Stop 04/27/17 at 18:48; Status DC Magnesium Citrate (Citroma) 148 ml 1X ONCE PO Last administered on 04/18/17 13:45; Start 04/18/17 at 13:45; Stop 04/18/17 at 13:46; Status DC Mirtazapine (Remeron) 7.5 mg QHS PO Last administered on 04/29/17 19:22; Start 04/21/17 at 21:00 Quetiapine Fumarate (SEROquel) 150 mg QHS PO Last administered on 04/29/17 19: 23; Start 04/21/17 at 21:00 Divalproex Sodium (Depakote Sprinkles) 125 mg BID@0900,1400 PO Last administered on 04/23/17 12:38; Start 04/22/17 at 09:00; Stop 04/23/17 at 18 :26; Status DC Divalproex Sodium (Depakote Sprinkles) 250 mg BID@0900,1400 PO Last administered on 04/26/17 14:11; Start 04/24/17 at 09:00; Stop 04/26/17 at 19 :26; Status DC Divalproex Sodium (Depakote Sprinkles) 375 mg BID@0900,1400 PO Last administered on 04/29/17 14:11; Start 04/27/17 at 09:00; Stop 04/29/17 at 19: 13; Status DC Fluvoxamine Maleate (Luvox) 100 mg DAILYWSUP PO Last administered on 04/29/17 16:42; Start 04/28/17 at 17:00 Quetiapine Fumarate (SEROquel) 12.5 mg DAILY@1400 PO Last administered on 14:11; Start 04/28/17 at 14:00 Quetiapine Fumarate (SEROquel) 25 mg BID@0900,1700 PO Last administered on 04/29 16:42; Start 04/28/17 at 09:00 Magnesium Citrate (Citroma) 296 ml 1X ONCE PO Last administered on 04/28/17 08:56; Start 04/28/17 at 09:00; Stop 04/28/17 at 09:01; Status DC Magnesium Citrate (Citroma) 296 ml STK-MED ONCE .ROUTE Last administered on 08:56; Start 04/28/17 at 08:56; Stop 04/28/17 at 08:57; Status DC Polyethylene Glycol (miraLAX) 17 gm DAILY PO Last administered on 04/29/17 08: 55; Start 04/28/17 at 10:30 Bisacodyl (Dulcolax Supp) 10 mg 1X ONCE OR Last administered on 04/28/17 14: 00; Start 04/28/17 at 14:00; Stop 04/28/17 at 14:01; Status DC Senna/Docusate Sodium (Senna Plus) 2 tab 1X ONCE PO Last administered on 19:37; Start 04/28/17 at 21:00; Stop 04/28/17 at 21:01; Status DC Divalproex Sodium (Depakote Er) 1,000 mg QHS PO ; Start 04/30/17 at 21:00 Active Scripts Active Reported Meclizine Hcl 12.5 Mg Tablet 12.5 Mg PO PRN Q8HRS Haloperidol 2 Mg Tablet 1 Mg PO PRN Q8HRS PRN Seroquel (Quetiapine Fumarate) 25 Mg Tablet 12.5 Mg PO HS Docusate Sodium 100 Mg Capsule 100 Mg PO BID Atorvastatin Calcium 20 Mg Tablet 20 Mg PO QHS Aspirin 81 Mg Tab.chew 81 Mg PO QHS Diagnosis: Problems: (1) Anxiety disorder (2) Dementia, vascular, with depression (3) Dementia, vascular, with delusions (4) Impulse control disorder (5) Major depressive disorder, recurrent episode EDE OGDEN MD Apr 29, 2017 20:46
[2017-04-30 06:11] VITALS: BP 126/87
[2017-04-30] MEDS: POLYETHYLENE GLYCOL 3350 17 GM PACKET. PO SCH (07:53)
[2017-04-30] MEDS: NICOTINE 21MG PATCH. TD SCH (07:53)
[2017-04-30] MEDS: DOCUSATE SODIUM 100 MG CAPSULE PO SCH ×2 (07:53→20:17)
[2017-04-30] MEDS: QUEtiapine 25 MG TABLET. PO SCH ×3 (08:02→16:29)
[2017-04-30 16:12] VITALS: BP 117/69
[2017-04-30] MEDS: ASPIRIN 81 MG TAB.CHEW PO SCH (20:17)
[2017-04-30] MEDS: MIRTAZAPINE 7.5 MG TABLET. PO SCH (20:17)
[2017-04-30] MEDS: ATORVASTATIN CALCIUM 20 MG TABLET PO SCH (20:17)
[2017-04-30] MEDS: QUEtiapine 50 MG TABLET. PO SCH (20:17)
[2017-04-30] MEDS: traZODone 50 MG TABLET. PO SCH (20:17)
[2017-04-30] MEDS: DIVALPROEX ER 500 MG TAB.ER.24H PO SCH (20:19)
--- NOTE | 2017-04-30 20:55 | PDOC ---
Exam Unruly Demential Exam: Unruly Note: Please also refer to the separate dictated note~for this date of service dictated separately.~Patient seen individually. Discussed the patient with Nursing staff reviewed the chart.~Reviewed interim history and current functioning. Reviewed vital signs,~Labs/ Radiology~and current medications noted below. Continue current treatment with the changes noted in the dictated addendum note Assessment: Vital Signs: Vital Signs Date Time Temp Pulse Resp B/P (MAP) Pulse Ox O2 Delivery O2 Flow Rate FiO2 04/30/17 16:12 98.4 84 16 117/69 (85) 95 04/29/17 16:22 Room Air I&O Intake and Output 05/01/17 07:00 Intake Total 600 ml Balance 600 ml Intake Oral 600 ml Current Medications: Meds: Current Medications Ziprasidone (Geodon Im) 20 mg STK-MED ONCE IM ; Start 03/30/17 at 20:37; Stop 03/30/17 at 20:38; Status DC Ziprasidone (Geodon Im) 10 mg 1X ONCE IM Last administered on 03/30/17 20:45 ; Start 03/30/17 at 20:45; Stop 03/30/17 at 22:14; Status DC Acetaminophen (Tylenol) 650 mg PRN Q6HRS PRN PO PAIN / TEMP; Start 03/31/17 at 00:30 Multi-Ingredient Ointment (Analgesic [place]) 1 jefferson PRN QID PRN TP MUSCLE PAIN; Start 03/31/17 at 00:30 Al Hydroxide/Mg Hydroxide (Mylanta Plus Xs) 15 ml PRN AFTMEALHC PRN PO DYSPEPSIA Last administered on 04/11/17 14:17; Start 03/31/17 at 00:30 Magnesium Hydroxide (Milk Of Magnesia) 2,400 mg PRN QHS PRN PO CONSTIPATION Last administered on 04/27/17 17:30; Start 03/31/17 at 00:30 Nicotine (Nicoderm Cq 21mg) 1 patch DAILY TD Last administered on 04/28/17 08: 53; Start 03/31/17 at 09:00 Haloperidol (Haldol) 1 mg PRN Q8HRS PRN PO ANXIETY / AGITATION Last administered on 04/20/17 13:33; Start 03/31/17 at 01:15 Quetiapine Fumarate (SEROquel) 12.5 mg HS PO ; Start 03/31/17 at 21:00; Stop at 21:00; Status DC Aspirin (Children'S Aspirin) 81 mg QHS PO Last administered on 04/30/17 20:17 ; Start 03/31/17 at 21:00 Atorvastatin Calcium (Lipitor) 20 mg QHS PO Last administered on 04/30/17 20: 17; Start 03/31/17 at 21:00 Docusate Sodium (Colace) 100 mg BID PO Last administered on 04/30/17 20:17; Start 03/31/17 at 21:00 Meclizine HCl (Antivert) 12.5 mg PRN Q8HRS PO ; Start 03/31/17 at 09:30 Quetiapine Fumarate (SEROquel) 6.25 mg HS PO Last administered on 03/31/17 20: 05; Start 03/31/17 at 21:00; Stop 04/01/17 at 10:09; Status DC Mirtazapine (Remeron) 7.5 mg QHS PO Last administered on 04/07/17 20:32; Start 03/31/17 at 21:00; Stop 04/08/17 at 11:04; Status DC Trazodone HCl (Desyrel) 50 mg QHS PO Last administered on 04/30/17 20:17; Start 03/31/17 at 21:00 Trazodone HCl (Desyrel) 50 mg PRN QHS PRN PO INSOMNIA, MAY REPEAT X1 Last administered on 04/06/17 22:29; Start 03/31/17 at 18:00 Olanzapine (ZyPREXA ZYDIS) 2.5 mg PRN Q2HR PRN PO psychosis Last administered on 04/04/17 10:37; Start 03/31/17 at 18:00 Quetiapine Fumarate (SEROquel) 25 mg HS PO Last administered on 04/02/17 19:15 ; Start 04/01/17 at 21:00; Stop 04/03/17 at 18:56; Status DC Sertraline HCl (Zoloft) 25 mg DAILY PO Last administered on 04/02/17 09:59; Start 04/02/17 at 09:00; Stop 04/02/17 at 18:43; Status DC Lorazepam (Ativan) 0.5 mg PRN Q2HR PRN PO ANXIETY / AGITATION Last administered on 04/27/17 17:30; Start 04/01/17 at 15:15 Famotidine (Pepcid) 20 mg PRN DAILY PRN PO HEARTBURN / GAS Last administered on 04/24/17 11:33; Start 04/02/17 at 09:15 Famotidine (Pepcid) 20 mg 1X ONCE PO Last administered on 04/02/17 09:59; Start 04/02/17 at 09:25; Stop 04/02/17 at 09:26; Status DC Sertraline HCl (Zoloft) 37.5 mg DAILY PO Last administered on 04/03/17 09:52; Start 04/03/17 at 09:00; Stop 04/03/17 at 18:56; Status DC Quetiapine Fumarate (SEROquel) 50 mg HS PO Last administered on 04/04/17 19:26 ; Start 04/03/17 at 21:00; Stop 04/05/17 at 13:22; Status DC Sertraline HCl (Zoloft) 50 mg DAILY PO Last administered on 04/05/17 07:57; Start 04/04/17 at 09:00; Stop 04/05/17 at 13:23; Status DC Quetiapine Fumarate (SEROquel) 50 mg QHS PO Last administered on 04/05/17 20: 26; Start 04/05/17 at 21:00; Stop 04/06/17 at 18:15; Status DC Sertraline HCl (Zoloft) 50 mg DAILY PO Last administered on 04/08/17 08:03; Start 04/06/17 at 09:00; Stop 04/08/17 at 11:04; Status DC Quetiapine Fumarate (SEROquel) 75 mg QHS PO Last administered on 04/20/17 19: 41; Start 04/06/17 at 21:00; Stop 04/21/17 at 14:43; Status DC Mirtazapine (Remeron) 15 mg QHS PO Last administered on 04/20/17 19:41; Start 04/08/17 at 21:00; Stop 04/21/17 at 14:43; Status DC Sertraline HCl (Zoloft) 75 mg DAILY PO Last administered on 04/11/17 08:00; Start 04/09/17 at 09:00; Stop 04/11/17 at 19:18; Status DC Quetiapine Fumarate (SEROquel) 12.5 mg BID92 PO Last administered on 08:22; Start 04/08/17 at 14:00; Stop 04/09/17 at 18:32; Status DC Quetiapine Fumarate (SEROquel) 12.5 mg TID@0900,1400,1700 PO Last administered on 04/27/17 17:30; Start 04/10/17 at 09:00; Stop 04/27/17 at 18:48; Status DC Fluvoxamine Maleate (Luvox) 50 mg HS PO Last administered on 04/13/17 20:22; Start 04/11/17 at 21:00; Stop 04/14/17 at 14:45; Status DC Fluvoxamine Maleate (Luvox) 75 mg HS PO Last administered on 04/15/17 19:14; Start 04/14/17 at 21:00; Stop 04/16/17 at 15:48; Status DC Fluvoxamine Maleate (Luvox) 75 mg DAILYWSUP PO Last administered on 04/27/17 17:29; Start 04/16/17 at 17:00; Stop 04/27/17 at 18:48; Status DC Magnesium Citrate (Citroma) 148 ml 1X ONCE PO Last administered on 04/18/17 13:45; Start 04/18/17 at 13:45; Stop 04/18/17 at 13:46; Status DC Mirtazapine (Remeron) 7.5 mg QHS PO Last administered on 04/30/17 20:17; Start 04/21/17 at 21:00 Quetiapine Fumarate (SEROquel) 150 mg QHS PO Last administered on 04/30/17 20: 17; Start 04/21/17 at 21:00 Divalproex Sodium (Depakote Sprinkles) 125 mg BID@0900,1400 PO Last administered on 04/23/17 12:38; Start 04/22/17 at 09:00; Stop 04/23/17 at 18 :26; Status DC Divalproex Sodium (Depakote Sprinkles) 250 mg BID@0900,1400 PO Last administered on 04/26/17 14:11; Start 04/24/17 at 09:00; Stop 04/26/17 at 19 :26; Status DC Divalproex Sodium (Depakote Sprinkles) 375 mg BID@0900,1400 PO Last administered on 04/29/17 14:11; Start 04/27/17 at 09:00; Stop 04/29/17 at 19: 13; Status DC Fluvoxamine Maleate (Luvox) 100 mg DAILYWSUP PO Last administered on 04/30/17 16:29; Start 04/28/17 at 17:00 Quetiapine Fumarate (SEROquel) 12.5 mg DAILY@1400 PO Last administered on 13:54; Start 04/28/17 at 14:00; Stop 04/30/17 at 18:36; Status DC Quetiapine Fumarate (SEROquel) 25 mg BID@0900,1700 PO Last administered on 04/30 16:29; Start 04/28/17 at 09:00; Stop 04/30/17 at 18:36; Status DC Magnesium Citrate (Citroma) 296 ml 1X ONCE PO Last administered on 04/28/17 08:56; Start 04/28/17 at 09:00; Stop 04/28/17 at 09:01; Status DC Magnesium Citrate (Citroma) 296 ml STK-MED ONCE .ROUTE Last administered on 08:56; Start 04/28/17 at 08:56; Stop 04/28/17 at 08:57; Status DC Polyethylene Glycol (miraLAX) 17 gm DAILY PO Last administered on 04/29/17 08: 55; Start 04/28/17 at 10:30 Bisacodyl (Dulcolax Supp) 10 mg 1X ONCE [place] Last administered on 04/28/17 14: 00; Start 04/28/17 at 14:00; Stop 04/28/17 at 14:01; Status DC Senna/Docusate Sodium (Senna Plus) 2 tab 1X ONCE PO Last administered on 19:37; Start 04/28/17 at 21:00; Stop 04/28/17 at 21:01; Status DC Divalproex Sodium (Depakote Er) 1,000 mg QHS PO Last administered on 04/30/17t 20:19; Start 04/30/17 at 21:00 Quetiapine Fumarate (SEROquel) 62.5 mg DAILY PO ; Start 05/01/17 at 09:00 Active Scripts Active Reported Meclizine Hcl 12.5 Mg Tablet 12.5 Mg PO PRN Q8HRS Haloperidol 2 Mg Tablet 1 Mg PO PRN Q8HRS PRN Seroquel (Quetiapine Fumarate) 25 Mg Tablet 12.5 Mg PO HS Docusate Sodium 100 Mg Capsule 100 Mg PO BID Atorvastatin Calcium 20 Mg Tablet 20 Mg PO QHS Aspirin 81 Mg Tab.chew 81 Mg PO QHS Diagnosis: Problems: (1) Anxiety disorder (2) Dementia, vascular, with depression (3) Dementia, vascular, with delusions (4) Impulse control disorder (5) Major depressive disorder, recurrent episode EDE OGDEN MD Apr 30, 2017 20:55
[2017-05-01 06:01] VITALS: BP 130/67
[2017-05-01] MEDS: NICOTINE 21MG PATCH. TD SCH ×2 (09:00→09:33)
--- NOTE | 2017-05-01 09:06 | PN ---
DATE: 04/29/2017 This late entry date of service 04/29/2017 covers elements not covered in my initial note of 04/29/2017. SUBJECTIVE: Per nursing report, the patient remains somewhat anxious, obsessive, repetitive about her purse, but less so than before. She takes her medications crushed. Valproic acid level on 04/29/2017 is 29, subtherapeutic. REVIEW OF SYSTEMS: No CV, , pulmonary, eye, ENT system symptoms on review. Reliability is poor. MENTAL STATUS EXAM: Oriented to herself. Insight, judgment, recent and remote memory, attention, concentration, fund of knowledge poor, consistent with her diagnosis mentioned in my initial note. PLAN: Depakote currently 375 mg b.i.d. She resists taking medications often and we will change it to Depakote ER 1000 mg p.o. at bedtime as the nursing staff suggested. We will have to see how she does because she only takes her medications crushed and this may be an issue with the ER. We will check CBC, CMP, valproic acid level in 3 days. Maintain the rest of the psychotropics unchanged as mentioned in my initial note. Reviewed and drug contractions, risk/benefit ratio favors no further change,. EDE OGDEN MD DR: LEXII/shaina JOB#: [id number] / [id number]
[2017-05-01] MEDS: DOCUSATE SODIUM 100 MG CAPSULE PO SCH ×2 (09:32→19:22)
[2017-05-01] MEDS: POLYETHYLENE GLYCOL 3350 17 GM PACKET. PO SCH (09:32)
[2017-05-01] MEDS: QUEtiapine 25 MG TABLET. PO SCH (09:34)
[2017-05-01 16:13] VITALS: BP 127/75
[2017-05-01] MEDS: HALOPERIDOL 2 MG TABLET PO PRN (18:03)
[2017-05-01] MEDS: MIRTAZAPINE 7.5 MG TABLET. PO SCH (19:22)
[2017-05-01] MEDS: ASPIRIN 81 MG TAB.CHEW PO SCH (19:22)
[2017-05-01] MEDS: ATORVASTATIN CALCIUM 20 MG TABLET PO SCH (19:22)
[2017-05-01] MEDS: DIVALPROEX ER 500 MG TAB.ER.24H PO SCH (19:22)
[2017-05-01] MEDS: traZODone 50 MG TABLET. PO SCH (19:23)
[2017-05-01] MEDS: QUEtiapine 50 MG TABLET. PO SCH (19:23)
--- NOTE | 2017-05-01 22:22 | PN ---
DATE: 04/30/2017 This late entry 04/30/2017 covers elements not covered in my initial note of 04/30/2017. SUBJECTIVE: Met with the patient evening of 04/30/2017. The patient is somewhat resistive to medications, very difficult for nursing staff to administer the Seroquel four times a day and we will change it to 62.5 mg in the morning and 150 mg at bedtime without dosage increased, but simplifying the regimen to twice a day. The patient is labile in the morning, who feels medications repetitive, anxious, obsessive in the evening. REVIEW OF SYSTEMS: No CV, , pulmonary, eye, ENT system symptoms on review. Reliability poor. MENTAL STATUS EXAM: Oriented to herself. Insight, judgment, recent and remote memory, attention, concentration, fund of knowledge poor, consistent with her diagnosis mentioned in my initial note. LABORATORY DATA: Reviewed. PLAN: Continue psychotropics mentioned in my initial note with the changes noted above. Review drug interactions, risk/benefit ratio favors no further change. EDE OGDEN MD DR: LEXII/shaian JOB#: [id number] / [id number]
--- NOTE | 2017-05-01 23:47 | PDOC ---
Exam Unruly Demential Exam: Unruly Note: Please also refer to the separate dictated note~for this date of service dictated separately.~Patient seen individually. Discussed the patient with Nursing staff reviewed the chart.~Reviewed interim history and current functioning. Reviewed vital signs,~Labs/ Radiology~and current medications noted below. Continue current treatment with the changes noted in the dictated addendum note Assessment: Vital Signs: Vital Signs Date Time Temp Pulse Resp B/P (MAP) Pulse Ox O2 Delivery O2 Flow Rate FiO2 05/01/17 16:13 97.8 90 18 127/75 (92) 97 04/29/17 16:22 Room Air I&O Intake and Output 05/02/17 07:00 Intake Total 300 ml Balance 300 ml Intake Oral 300 ml Current Medications: Meds: Current Medications Ziprasidone (Geodon Im) 20 mg STK-MED ONCE IM ; Start 03/30/17 at 20:37; Stop 03/30/17 at 20:38; Status DC Ziprasidone (Geodon Im) 10 mg 1X ONCE IM Last administered on 03/30/17 20:45 ; Start 03/30/17 at 20:45; Stop 03/30/17 at 22:14; Status DC Acetaminophen (Tylenol) 650 mg PRN Q6HRS PRN PO PAIN / TEMP; Start 03/31/17 at 00:30 Multi-Ingredient Ointment (Analgesic [place]) 1 jefferson PRN QID PRN TP MUSCLE PAIN; Start 03/31/17 at 00:30 Al Hydroxide/Mg Hydroxide (Mylanta Plus Xs) 15 ml PRN AFTMEALHC PRN PO DYSPEPSIA Last administered on 04/11/17 14:17; Start 03/31/17 at 00:30 Magnesium Hydroxide (Milk Of Magnesia) 2,400 mg PRN QHS PRN PO CONSTIPATION Last administered on 04/27/17 17:30; Start 03/31/17 at 00:30 Nicotine (Nicoderm Cq 21mg) 1 patch DAILY TD Last administered on 04/28/17 08: 53; Start 03/31/17 at 09:00 Haloperidol (Haldol) 1 mg PRN Q8HRS PRN PO ANXIETY / AGITATION Last administered on 05/01/17 18:03; Start 03/31/17 at 01:15 Quetiapine Fumarate (SEROquel) 12.5 mg HS PO ; Start 03/31/17 at 21:00; Stop at 21:00; Status DC Aspirin (Children'S Aspirin) 81 mg QHS PO Last administered on 05/01/17 19:22 ; Start 03/31/17 at 21:00 Atorvastatin Calcium (Lipitor) 20 mg QHS PO Last administered on 05/01/17 19: 22; Start 03/31/17 at 21:00 Docusate Sodium (Colace) 100 mg BID PO Last administered on 05/01/17 19:22; Start 03/31/17 at 21:00 Meclizine HCl (Antivert) 12.5 mg PRN Q8HRS PO ; Start 03/31/17 at 09:30 Quetiapine Fumarate (SEROquel) 6.25 mg HS PO Last administered on 03/31/17 20: 05; Start 03/31/17 at 21:00; Stop 04/01/17 at 10:09; Status DC Mirtazapine (Remeron) 7.5 mg QHS PO Last administered on 04/07/17 20:32; Start 03/31/17 at 21:00; Stop 04/08/17 at 11:04; Status DC Trazodone HCl (Desyrel) 50 mg QHS PO Last administered on 05/01/17 19:23; Start 03/31/17 at 21:00 Trazodone HCl (Desyrel) 50 mg PRN QHS PRN PO INSOMNIA, MAY REPEAT X1 Last administered on 04/06/17 22:29; Start 03/31/17 at 18:00 Olanzapine (ZyPREXA ZYDIS) 2.5 mg PRN Q2HR PRN PO psychosis Last administered on 04/04/17 10:37; Start 03/31/17 at 18:00 Quetiapine Fumarate (SEROquel) 25 mg HS PO Last administered on 04/02/17 19:15 ; Start 04/01/17 at 21:00; Stop 04/03/17 at 18:56; Status DC Sertraline HCl (Zoloft) 25 mg DAILY PO Last administered on 04/02/17 09:59; Start 04/02/17 at 09:00; Stop 04/02/17 at 18:43; Status DC Lorazepam (Ativan) 0.5 mg PRN Q2HR PRN PO ANXIETY / AGITATION Last administered on 04/27/17 17:30; Start 04/01/17 at 15:15 Famotidine (Pepcid) 20 mg PRN DAILY PRN PO HEARTBURN / GAS Last administered on 04/24/17 11:33; Start 04/02/17 at 09:15 Famotidine (Pepcid) 20 mg 1X ONCE PO Last administered on 04/02/17 09:59; Start 04/02/17 at 09:25; Stop 04/02/17 at 09:26; Status DC Sertraline HCl (Zoloft) 37.5 mg DAILY PO Last administered on 04/03/17 09:52; Start 04/03/17 at 09:00; Stop 04/03/17 at 18:56; Status DC Quetiapine Fumarate (SEROquel) 50 mg HS PO Last administered on 04/04/17 19:26 ; Start 04/03/17 at 21:00; Stop 04/05/17 at 13:22; Status DC Sertraline HCl (Zoloft) 50 mg DAILY PO Last administered on 04/05/17 07:57; Start 04/04/17 at 09:00; Stop 04/05/17 at 13:23; Status DC Quetiapine Fumarate (SEROquel) 50 mg QHS PO Last administered on 04/05/17 20: 26; Start 04/05/17 at 21:00; Stop 04/06/17 at 18:15; Status DC Sertraline HCl (Zoloft) 50 mg DAILY PO Last administered on 04/08/17 08:03; Start 04/06/17 at 09:00; Stop 04/08/17 at 11:04; Status DC Quetiapine Fumarate (SEROquel) 75 mg QHS PO Last administered on 04/20/17 19: 41; Start 04/06/17 at 21:00; Stop 04/21/17 at 14:43; Status DC Mirtazapine (Remeron) 15 mg QHS PO Last administered on 04/20/17 19:41; Start 04/08/17 at 21:00; Stop 04/21/17 at 14:43; Status DC Sertraline HCl (Zoloft) 75 mg DAILY PO Last administered on 04/11/17 08:00; Start 04/09/17 at 09:00; Stop 04/11/17 at 19:18; Status DC Quetiapine Fumarate (SEROquel) 12.5 mg BID92 PO Last administered on 08:22; Start 04/08/17 at 14:00; Stop 04/09/17 at 18:32; Status DC Quetiapine Fumarate (SEROquel) 12.5 mg TID@0900,1400,1700 PO Last administered on 04/27/17 17:30; Start 04/10/17 at 09:00; Stop 04/27/17 at 18:48; Status DC Fluvoxamine Maleate (Luvox) 50 mg HS PO Last administered on 04/13/17 20:22; Start 04/11/17 at 21:00; Stop 04/14/17 at 14:45; Status DC Fluvoxamine Maleate (Luvox) 75 mg HS PO Last administered on 04/15/17 19:14; Start 04/14/17 at 21:00; Stop 04/16/17 at 15:48; Status DC Fluvoxamine Maleate (Luvox) 75 mg DAILYWSUP PO Last administered on 04/27/17 17:29; Start 04/16/17 at 17:00; Stop 04/27/17 at 18:48; Status DC Magnesium Citrate (Citroma) 148 ml 1X ONCE PO Last administered on 04/18/17 13:45; Start 04/18/17 at 13:45; Stop 04/18/17 at 13:46; Status DC Mirtazapine (Remeron) 7.5 mg QHS PO Last administered on 05/01/17 19:22; Start 04/21/17 at 21:00 Quetiapine Fumarate (SEROquel) 150 mg QHS PO Last administered on 05/01/17 19: 23; Start 04/21/17 at 21:00 Divalproex Sodium (Depakote Sprinkles) 125 mg BID@0900,1400 PO Last administered on 04/23/17 12:38; Start 04/22/17 at 09:00; Stop 04/23/17 at 18 :26; Status DC Divalproex Sodium (Depakote Sprinkles) 250 mg BID@0900,1400 PO Last administered on 04/26/17 14:11; Start 04/24/17 at 09:00; Stop 04/26/17 at 19 :26; Status DC Divalproex Sodium (Depakote Sprinkles) 375 mg BID@0900,1400 PO Last administered on 04/29/17 14:11; Start 04/27/17 at 09:00; Stop 04/29/17 at 19: 13; Status DC Fluvoxamine Maleate (Luvox) 100 mg DAILYWSUP PO Last administered on 05/01/17 18:03; Start 04/28/17 at 17:00 Quetiapine Fumarate (SEROquel) 12.5 mg DAILY@1400 PO Last administered on 13:54; Start 04/28/17 at 14:00; Stop 04/30/17 at 18:36; Status DC Quetiapine Fumarate (SEROquel) 25 mg BID@0900,1700 PO Last administered on 04/30 16:29; Start 04/28/17 at 09:00; Stop 04/30/17 at 18:36; Status DC Magnesium Citrate (Citroma) 296 ml 1X ONCE PO Last administered on 04/28/17 08:56; Start 04/28/17 at 09:00; Stop 04/28/17 at 09:01; Status DC Magnesium Citrate (Citroma) 296 ml STK-MED ONCE .ROUTE Last administered on 08:56; Start 04/28/17 at 08:56; Stop 04/28/17 at 08:57; Status DC Polyethylene Glycol (miraLAX) 17 gm DAILY PO Last administered on 05/01/17 09: 32; Start 04/28/17 at 10:30 Bisacodyl (Dulcolax Supp) 10 mg 1X ONCE [place] Last administered on 04/28/17 14: 00; Start 04/28/17 at 14:00; Stop 04/28/17 at 14:01; Status DC Senna/Docusate Sodium (Senna Plus) 2 tab 1X ONCE PO Last administered on 19:37; Start 04/28/17 at 21:00; Stop 04/28/17 at 21:01; Status DC Divalproex Sodium (Depakote Er) 1,000 mg QHS PO Last administered on 05/01/17 19:22; Start 04/30/17 at 21:00 Quetiapine Fumarate (SEROquel) 62.5 mg DAILY PO Last administered on 05/01/17 09:34; Start 05/01/17 at 09:00 Active Scripts Active Reported Meclizine Hcl 12.5 Mg Tablet 12.5 Mg PO PRN Q8HRS Haloperidol 2 Mg Tablet 1 Mg PO PRN Q8HRS PRN Seroquel (Quetiapine Fumarate) 25 Mg Tablet 12.5 Mg PO HS Docusate Sodium 100 Mg Capsule 100 Mg PO BID Atorvastatin Calcium 20 Mg Tablet 20 Mg PO QHS Aspirin 81 Mg Tab.chew 81 Mg PO QHS Diagnosis: Problems: (1) Medical clearance for psychiatric admission (2) Anxiety disorder (3) Dementia, vascular, with depression (4) Dementia, vascular, with delusions (5) Impulse control disorder (6) Major depressive disorder, recurrent episode EDE OGDEN MD May 01, 2017 23:47
[2017-05-02 06:14] VITALS: BP 98/60
[2017-05-02] MEDS: NICOTINE 21MG PATCH. TD SCH (09:00)
[2017-05-02] MEDS: DOCUSATE SODIUM 100 MG CAPSULE PO SCH ×2 (09:00→17:53)
[2017-05-02] MEDS: POLYETHYLENE GLYCOL 3350 17 GM PACKET. PO SCH (09:00)
[2017-05-02] MEDS: QUEtiapine 25 MG TABLET. PO SCH (09:13)
[2017-05-02 16:35] VITALS: BP 116/73
[2017-05-02] MEDS: traZODone 50 MG TABLET. PO SCH (17:52)
[2017-05-02] MEDS: QUEtiapine 50 MG TABLET. PO SCH (17:52)
[2017-05-02] MEDS: DIVALPROEX ER 500 MG TAB.ER.24H PO SCH (17:52)
[2017-05-02] MEDS: MIRTAZAPINE 7.5 MG TABLET. PO SCH (17:53)
[2017-05-02] MEDS: ASPIRIN 81 MG TAB.CHEW PO SCH (17:53)
[2017-05-02] MEDS: ATORVASTATIN CALCIUM 20 MG TABLET PO SCH (17:53)
--- NOTE | 2017-05-02 18:03 | PDOC ---
Exam Unruly Demential Exam: Unruly Note: Please also refer to the separate dictated note~for this date of service dictated separately.~Patient seen individually. Discussed the patient with Nursing staff reviewed the chart.~Reviewed interim history and current functioning. Reviewed vital signs,~Labs/ Radiology~and current medications noted below. Continue current treatment with the changes noted in the dictated addendum note Assessment: Vital Signs: Vital Signs Date Time Temp Pulse Resp B/P (MAP) Pulse Ox O2 Delivery O2 Flow Rate FiO2 05/02/17 16:35 97.3 81 18 116/73 (87) 96 04/29/17 16:22 Room Air I&O Intake and Output 05/03/17 07:00 Intake Total 720 ml Balance 720 ml Intake Oral 720 ml Current Medications: Meds: Current Medications Ziprasidone (Geodon Im) 20 mg STK-MED ONCE IM ; Start 03/30/17 at 20:37; Stop 03/30/17 at 20:38; Status DC Ziprasidone (Geodon Im) 10 mg 1X ONCE IM Last administered on 03/30/17 20:45 ; Start 03/30/17 at 20:45; Stop 03/30/17 at 22:14; Status DC Acetaminophen (Tylenol) 650 mg PRN Q6HRS PRN PO PAIN / TEMP; Start 03/31/17 at 00:30 Multi-Ingredient Ointment (Analgesic [place]) 1 jefferson PRN QID PRN TP MUSCLE PAIN; Start 03/31/17 at 00:30 Al Hydroxide/Mg Hydroxide (Mylanta Plus Xs) 15 ml PRN AFTMEALHC PRN PO DYSPEPSIA Last administered on 04/11/17 14:17; Start 03/31/17 at 00:30 Magnesium Hydroxide (Milk Of Magnesia) 2,400 mg PRN QHS PRN PO CONSTIPATION Last administered on 04/27/17 17:30; Start 03/31/17 at 00:30 Nicotine (Nicoderm Cq 21mg) 1 patch DAILY TD Last administered on 04/28/17 08: 53; Start 03/31/17 at 09:00 Haloperidol (Haldol) 1 mg PRN Q8HRS PRN PO ANXIETY / AGITATION Last administered on 05/01/17 18:03; Start 03/31/17 at 01:15 Quetiapine Fumarate (SEROquel) 12.5 mg HS PO ; Start 03/31/17 at 21:00; Stop at 21:00; Status DC Aspirin (Children'S Aspirin) 81 mg QHS PO Last administered on 05/02/17 17:53 ; Start 03/31/17 at 21:00 Atorvastatin Calcium (Lipitor) 20 mg QHS PO Last administered on 05/02/17 17: 53; Start 03/31/17 at 21:00 Docusate Sodium (Colace) 100 mg BID PO Last administered on 05/02/17 17:53; Start 03/31/17 at 21:00 Meclizine HCl (Antivert) 12.5 mg PRN Q8HRS PO ; Start 03/31/17 at 09:30 Quetiapine Fumarate (SEROquel) 6.25 mg HS PO Last administered on 03/31/17 20: 05; Start 03/31/17 at 21:00; Stop 04/01/17 at 10:09; Status DC Mirtazapine (Remeron) 7.5 mg QHS PO Last administered on 04/07/17 20:32; Start 03/31/17 at 21:00; Stop 04/08/17 at 11:04; Status DC Trazodone HCl (Desyrel) 50 mg QHS PO Last administered on 05/02/17 17:52; Start 03/31/17 at 21:00 Trazodone HCl (Desyrel) 50 mg PRN QHS PRN PO INSOMNIA, MAY REPEAT X1 Last administered on 04/06/17 22:29; Start 03/31/17 at 18:00 Olanzapine (ZyPREXA ZYDIS) 2.5 mg PRN Q2HR PRN PO psychosis Last administered on 04/04/17 10:37; Start 03/31/17 at 18:00 Quetiapine Fumarate (SEROquel) 25 mg HS PO Last administered on 04/02/17 19:15 ; Start 04/01/17 at 21:00; Stop 04/03/17 at 18:56; Status DC Sertraline HCl (Zoloft) 25 mg DAILY PO Last administered on 04/02/17 09:59; Start 04/02/17 at 09:00; Stop 04/02/17 at 18:43; Status DC Lorazepam (Ativan) 0.5 mg PRN Q2HR PRN PO ANXIETY / AGITATION Last administered on 04/27/17 17:30; Start 04/01/17 at 15:15 Famotidine (Pepcid) 20 mg PRN DAILY PRN PO HEARTBURN / GAS Last administered on 04/24/17 11:33; Start 04/02/17 at 09:15 Famotidine (Pepcid) 20 mg 1X ONCE PO Last administered on 04/02/17 09:59; Start 04/02/17 at 09:25; Stop 04/02/17 at 09:26; Status DC Sertraline HCl (Zoloft) 37.5 mg DAILY PO Last administered on 04/03/17 09:52; Start 04/03/17 at 09:00; Stop 04/03/17 at 18:56; Status DC Quetiapine Fumarate (SEROquel) 50 mg HS PO Last administered on 04/04/17 19:26 ; Start 04/03/17 at 21:00; Stop 04/05/17 at 13:22; Status DC Sertraline HCl (Zoloft) 50 mg DAILY PO Last administered on 04/05/17 07:57; Start 04/04/17 at 09:00; Stop 04/05/17 at 13:23; Status DC Quetiapine Fumarate (SEROquel) 50 mg QHS PO Last administered on 04/05/17 20: 26; Start 04/05/17 at 21:00; Stop 04/06/17 at 18:15; Status DC Sertraline HCl (Zoloft) 50 mg DAILY PO Last administered on 04/08/17 08:03; Start 04/06/17 at 09:00; Stop 04/08/17 at 11:04; Status DC Quetiapine Fumarate (SEROquel) 75 mg QHS PO Last administered on 04/20/17 19: 41; Start 04/06/17 at 21:00; Stop 04/21/17 at 14:43; Status DC Mirtazapine (Remeron) 15 mg QHS PO Last administered on 04/20/17 19:41; Start 04/08/17 at 21:00; Stop 04/21/17 at 14:43; Status DC Sertraline HCl (Zoloft) 75 mg DAILY PO Last administered on 04/11/17 08:00; Start 04/09/17 at 09:00; Stop 04/11/17 at 19:18; Status DC Quetiapine Fumarate (SEROquel) 12.5 mg BID92 PO Last administered on 08:22; Start 04/08/17 at 14:00; Stop 04/09/17 at 18:32; Status DC Quetiapine Fumarate (SEROquel) 12.5 mg TID@0900,1400,1700 PO Last administered on 04/27/17 17:30; Start 04/10/17 at 09:00; Stop 04/27/17 at 18:48; Status DC Fluvoxamine Maleate (Luvox) 50 mg HS PO Last administered on 04/13/17 20:22; Start 04/11/17 at 21:00; Stop 04/14/17 at 14:45; Status DC Fluvoxamine Maleate (Luvox) 75 mg HS PO Last administered on 04/15/17 19:14; Start 04/14/17 at 21:00; Stop 04/16/17 at 15:48; Status DC Fluvoxamine Maleate (Luvox) 75 mg DAILYWSUP PO Last administered on 04/27/17 17:29; Start 04/16/17 at 17:00; Stop 04/27/17 at 18:48; Status DC Magnesium Citrate (Citroma) 148 ml 1X ONCE PO Last administered on 04/18/17 13:45; Start 04/18/17 at 13:45; Stop 04/18/17 at 13:46; Status DC Mirtazapine (Remeron) 7.5 mg QHS PO Last administered on 05/02/17 17:53; Start 04/21/17 at 21:00 Quetiapine Fumarate (SEROquel) 150 mg QHS PO Last administered on 05/02/17 17: 52; Start 04/21/17 at 21:00 Divalproex Sodium (Depakote Sprinkles) 125 mg BID@0900,1400 PO Last administered on 04/23/17 12:38; Start 04/22/17 at 09:00; Stop 04/23/17 at 18 :26; Status DC Divalproex Sodium (Depakote Sprinkles) 250 mg BID@0900,1400 PO Last administered on 04/26/17 14:11; Start 04/24/17 at 09:00; Stop 04/26/17 at 19 :26; Status DC Divalproex Sodium (Depakote Sprinkles) 375 mg BID@0900,1400 PO Last administered on 04/29/17 14:11; Start 04/27/17 at 09:00; Stop 04/29/17 at 19: 13; Status DC Fluvoxamine Maleate (Luvox) 100 mg DAILYWSUP PO Last administered on 05/02/17 17:52; Start 04/28/17 at 17:00 Quetiapine Fumarate (SEROquel) 12.5 mg DAILY@1400 PO Last administered on 13:54; Start 04/28/17 at 14:00; Stop 04/30/17 at 18:36; Status DC Quetiapine Fumarate (SEROquel) 25 mg BID@0900,1700 PO Last administered on 04/30 16:29; Start 04/28/17 at 09:00; Stop 04/30/17 at 18:36; Status DC Magnesium Citrate (Citroma) 296 ml 1X ONCE PO Last administered on 04/28/17 08:56; Start 04/28/17 at 09:00; Stop 04/28/17 at 09:01; Status DC Magnesium Citrate (Citroma) 296 ml STK-MED ONCE .ROUTE Last administered on 08:56; Start 04/28/17 at 08:56; Stop 04/28/17 at 08:57; Status DC Polyethylene Glycol (miraLAX) 17 gm DAILY PO Last administered on 05/01/17 09: 32; Start 04/28/17 at 10:30 Bisacodyl (Dulcolax Supp) 10 mg 1X ONCE [place] Last administered on 04/28/17 14: 00; Start 04/28/17 at 14:00; Stop 04/28/17 at 14:01; Status DC Senna/Docusate Sodium (Senna Plus) 2 tab 1X ONCE PO Last administered on 19:37; Start 04/28/17 at 21:00; Stop 04/28/17 at 21:01; Status DC Divalproex Sodium (Depakote Er) 1,000 mg QHS PO Last administered on 05/02/17 17:52; Start 04/30/17 at 21:00 Quetiapine Fumarate (SEROquel) 62.5 mg DAILY PO Last administered on 05/02/17 09:13; Start 05/01/17 at 09:00 Active Scripts Active Reported Meclizine Hcl 12.5 Mg Tablet 12.5 Mg PO PRN Q8HRS Haloperidol 2 Mg Tablet 1 Mg PO PRN Q8HRS PRN Seroquel (Quetiapine Fumarate) 25 Mg Tablet 12.5 Mg PO HS Docusate Sodium 100 Mg Capsule 100 Mg PO BID Atorvastatin Calcium 20 Mg Tablet 20 Mg PO QHS Aspirin 81 Mg Tab.chew 81 Mg PO QHS Diagnosis: Problems: (1) Major depressive disorder, recurrent episode (2) Impulse control disorder (3) Dementia, vascular, with delusions (4) Dementia, vascular, with depression (5) Anxiety disorder EDE OGDEN MD May 02, 2017 18:03
[2017-05-03 06:23] VITALS: BP 131/68
[2017-05-03 07:55] LABS: BASO # 0.1 x10^3/uL (0.0-0.2); BASO % 1 % (0-3); EOS # 0.2 x10^3/uL (0.0-0.7); EOS % 3 % (0-3); HEMATOCRIT 37.9 % (36.0-47.0); HEMOGLOBIN 12.5 g/dL (12.0-15.5); LYMPH # 2.1 x10^3/uL (1.0-4.8); LYMPH % 22 % (24-48); MEAN CORPUSCULAR HEMOGLOBIN 29 pg (25-35); MEAN CORPUSCULAR HGB CONC 33 g/dL (31-37); MEAN CORPUSCULAR VOLUME 87 fL (79-100); MONO # 0.8 x10^3/uL (0.0-1.1); MONO % 9 % (0-9); NEUT # 6.3 x10^3uL (1.8-7.7); NEUT % 66 % (31-73); PLATELET COUNT 310 x10^3/uL (140-400); RED BLOOD COUNT 4.36 x10^6/uL (3.50-5.40); RED CELL DISTRIBUTION WIDTH 14.1 % (11.5-14.5); WHITE BLOOD COUNT 9.5 x10^3/uL (4.0-11.0)
[2017-05-03 08:09] LABS: ALBUMIN/GLOBULIN RATIO 0.8 (1.0-1.7); ALK PHOS 80 U/L (46-116); ALT (SGPT) 24 U/L (14-59); ANION GAP 5 (6-14); AST (SGOT) 15 U/L (15-37); BLOOD UREA NITROGEN 10 mg/dL (7-20); BUN/CREATININE RATIO 17 (6-20); CALCIUM 9.2 mg/dL (8.5-10.1); CARBON DIOXIDE 33 mmol/L (21-32); CHLORIDE 104 mmol/L (98-107); CREATININE 0.6 mg/dL (0.6-1.0); GFR 95.5; GLUCOSE 92 mg/dL (70-99); POTASSIUM 4.2 mmol/L (3.5-5.1); SODIUM 142 mmol/L (136-145); TOTAL BILIRUBIN 0.3 mg/dL (0.2-1.0); TOTAL PROTEIN 6.7 g/dL (6.4-8.2)
[2017-05-03 08:11] LABS: VAL ACID 48 mcg/mL (50-100)
[2017-05-03] MEDS: NICOTINE 21MG PATCH. TD SCH (09:00)
[2017-05-03] MEDS: DOCUSATE SODIUM 100 MG CAPSULE PO SCH ×2 (10:35→19:52)
[2017-05-03] MEDS: QUEtiapine 25 MG TABLET. PO SCH (10:35)
[2017-05-03] MEDS: POLYETHYLENE GLYCOL 3350 17 GM PACKET. PO SCH (10:35)
--- NOTE | 2017-05-03 11:04 | PN ---
DATE: 05/01/2017 This is a late entry, covers the elements not covered in my initial note of 05/01/2017. I met with the patient the evening of 05/01/2017. The patient remains somewhat obsessed about having cereal for each meal. She is delusional at times; believes, she is in a family vacation less obsessive; however. REVIEW OF SYSTEMS: No CV, , pulmonary, eye, ENT system symptoms on review. Reliability poor. MENTAL STATUS EXAM: Oriented to herself. Insight, judgment, recent and remote memory, attention, concentration, fund of knowledge poor, consistent with her diagnosis as mentioned in my initial note. PLAN: Continue current psychotropics, reviewed drug interactions, risk/benefit ratio favors no further change. MAN Jess OGDEN MD DR: LEXII/shaina JOB#: [id number] / [id number]
[2017-05-03 16:02] VITALS: BP 107/54
[2017-05-03] MEDS: MIRTAZAPINE 7.5 MG TABLET. PO SCH (19:52)
[2017-05-03] MEDS: traZODone 50 MG TABLET. PO SCH (19:52)
[2017-05-03] MEDS: ATORVASTATIN CALCIUM 20 MG TABLET PO SCH (19:52)
[2017-05-03] MEDS: QUEtiapine 50 MG TABLET. PO SCH (19:52)
[2017-05-03] MEDS: DIVALPROEX ER 500 MG TAB.ER.24H PO SCH (19:52)
[2017-05-03] MEDS: ASPIRIN 81 MG TAB.CHEW PO SCH (19:53)
--- NOTE | 2017-05-03 19:55 | PDOC ---
Exam Unruly Demential Exam: Unruly Note: Please also refer to the separate dictated note~for this date of service dictated separately.~Patient seen individually. Discussed the patient with Nursing staff reviewed the chart.~Reviewed interim history and current functioning. Reviewed vital signs,~Labs/ Radiology~and current medications noted below. Continue current treatment with the changes noted in the dictated addendum note Assessment: Vital Signs: Vital Signs Date Time Temp Pulse Resp B/P (MAP) Pulse Ox O2 Delivery O2 Flow Rate FiO2 05/03/17 16:02 97.8 83 20 107/54 (71) 96 04/29/17 16:22 Room Air I&O Intake and Output 05/04/17 07:00 Intake Total 660 ml Balance 660 ml Intake Oral 660 ml Labs: Laboratory Tests Test 05/03/17 07:40 White Blood Count 9.5 x10^3/uL (4.0-11.0) Red Blood Count 4.36 x10^6/uL (3.50-5.40) Hemoglobin 12.5 g/dL (12.0-15.5) Hematocrit 37.9 % (36.0-47.0) Mean Corpuscular Volume 87 fL (79-100) Mean Corpuscular Hemoglobin 29 pg (25-35) Mean Corpuscular Hemoglobin Concent 33 g/dL (31-37) Red Cell Distribution Width 14.1 % (11.5-14.5) Platelet Count 310 x10^3/uL (140-400) Neutrophils (%) (Auto) 66 % (31-73) Lymphocytes (%) (Auto) 22 % (24-48) L Monocytes (%) (Auto) 9 % (0-9) Eosinophils (%) (Auto) 3 % (0-3) Basophils (%) (Auto) 1 % (0-3) Neutrophils # (Auto) 6.3 x10^3uL (1.8-7.7) Lymphocytes # (Auto) 2.1 x10^3/uL (1.0-4.8) Monocytes # (Auto) 0.8 x10^3/uL (0.0-1.1) Eosinophils # (Auto) 0.2 x10^3/uL (0.0-0.7) Basophils # (Auto) 0.1 x10^3/uL (0.0-0.2) Sodium Level 142 mmol/L (136-145) Potassium Level 4.2 mmol/L (3.5-5.1) Chloride Level 104 mmol/L (98-107) Carbon Dioxide Level 33 mmol/L (21-32) H Anion Gap 5 (6-14) L Blood Urea Nitrogen 10 mg/dL (7-20) Creatinine 0.6 mg/dL (0.6-1.0) Estimated GFR (Cockcroft-Gault) 95.5 BUN/Creatinine Ratio 17 (6-20) Glucose Level 92 mg/dL (70-99) Calcium Level 9.2 mg/dL (8.5-10.1) Total Bilirubin 0.3 mg/dL (0.2-1.0) Aspartate Amino Transferase (AST) 15 U/L (15-37) Alanine Aminotransferase (ALT) 24 U/L (14-59) Alkaline Phosphatase 80 U/L (46-116) Total Protein 6.7 g/dL (6.4-8.2) Albumin 3.0 g/dL (3.4-5.0) L Albumin/Globulin Ratio 0.8 (1.0-1.7) L Valproic Acid Level 48 mcg/mL (50-100) L Valproic Acid Last Dose Date 05/02/17 Valproic Acid Last Dose Time 2100 Current Medications: Meds: Current Medications Ziprasidone (Geodon Im) 20 mg STK-MED ONCE IM ; Start 03/30/17 at 20:37; Stop 03/30/17 at 20:38; Status DC Ziprasidone (Geodon Im) 10 mg 1X ONCE IM Last administered on 03/30/17 20:45 ; Start 03/30/17 at 20:45; Stop 03/30/17 at 22:14; Status DC Acetaminophen (Tylenol) 650 mg PRN Q6HRS PRN PO PAIN / TEMP; Start 03/31/17 at 00:30 Multi-Ingredient Ointment (Analgesic [place]) 1 jefferson PRN QID PRN TP MUSCLE PAIN; Start 03/31/17 at 00:30 Al Hydroxide/Mg Hydroxide (Mylanta Plus Xs) 15 ml PRN AFTMEALHC PRN PO DYSPEPSIA Last administered on 04/11/17 14:17; Start 03/31/17 at 00:30 Magnesium Hydroxide (Milk Of Magnesia) 2,400 mg PRN QHS PRN PO CONSTIPATION Last administered on 04/27/17 17:30; Start 03/31/17 at 00:30 Nicotine (Nicoderm Cq 21mg) 1 patch DAILY TD Last administered on 04/28/17 08: 53; Start 03/31/17 at 09:00 Haloperidol (Haldol) 1 mg PRN Q8HRS PRN PO ANXIETY / AGITATION Last administered on 05/01/17 18:03; Start 03/31/17 at 01:15 Quetiapine Fumarate (SEROquel) 12.5 mg HS PO ; Start 03/31/17 at 21:00; Stop at 21:00; Status DC Aspirin (Children'S Aspirin) 81 mg QHS PO Last administered on 05/03/17 19:53 ; Start 03/31/17 at 21:00 Atorvastatin Calcium (Lipitor) 20 mg QHS PO Last administered on 05/03/17 19: 52; Start 03/31/17 at 21:00 Docusate Sodium (Colace) 100 mg BID PO Last administered on 05/03/17 19:52; Start 03/31/17 at 21:00 Meclizine HCl (Antivert) 12.5 mg PRN Q8HRS PO ; Start 03/31/17 at 09:30 Quetiapine Fumarate (SEROquel) 6.25 mg HS PO Last administered on 03/31/17 20: 05; Start 03/31/17 at 21:00; Stop 04/01/17 at 10:09; Status DC Mirtazapine (Remeron) 7.5 mg QHS PO Last administered on 04/07/17 20:32; Start 03/31/17 at 21:00; Stop 04/08/17 at 11:04; Status DC Trazodone HCl (Desyrel) 50 mg QHS PO Last administered on 05/03/17 19:52; Start 03/31/17 at 21:00 Trazodone HCl (Desyrel) 50 mg PRN QHS PRN PO INSOMNIA, MAY REPEAT X1 Last administered on 04/06/17 22:29; Start 03/31/17 at 18:00 Olanzapine (ZyPREXA ZYDIS) 2.5 mg PRN Q2HR PRN PO psychosis Last administered on 04/04/17 10:37; Start 03/31/17 at 18:00 Quetiapine Fumarate (SEROquel) 25 mg HS PO Last administered on 04/02/17 19:15 ; Start 04/01/17 at 21:00; Stop 04/03/17 at 18:56; Status DC Sertraline HCl (Zoloft) 25 mg DAILY PO Last administered on 04/02/17 09:59; Start 04/02/17 at 09:00; Stop 04/02/17 at 18:43; Status DC Lorazepam (Ativan) 0.5 mg PRN Q2HR PRN PO ANXIETY / AGITATION Last administered on 04/27/17 17:30; Start 04/01/17 at 15:15 Famotidine (Pepcid) 20 mg PRN DAILY PRN PO HEARTBURN / GAS Last administered on 04/24/17 11:33; Start 04/02/17 at 09:15 Famotidine (Pepcid) 20 mg 1X ONCE PO Last administered on 04/02/17 09:59; Start 04/02/17 at 09:25; Stop 04/02/17 at 09:26; Status DC Sertraline HCl (Zoloft) 37.5 mg DAILY PO Last administered on 04/03/17 09:52; Start 04/03/17 at 09:00; Stop 04/03/17 at 18:56; Status DC Quetiapine Fumarate (SEROquel) 50 mg HS PO Last administered on 04/04/17 19:26 ; Start 04/03/17 at 21:00; Stop 04/05/17 at 13:22; Status DC Sertraline HCl (Zoloft) 50 mg DAILY PO Last administered on 04/05/17 07:57; Start 04/04/17 at 09:00; Stop 04/05/17 at 13:23; Status DC Quetiapine Fumarate (SEROquel) 50 mg QHS PO Last administered on 04/05/17 20: 26; Start 04/05/17 at 21:00; Stop 04/06/17 at 18:15; Status DC Sertraline HCl (Zoloft) 50 mg DAILY PO Last administered on 04/08/17 08:03; Start 04/06/17 at 09:00; Stop 04/08/17 at 11:04; Status DC Quetiapine Fumarate (SEROquel) 75 mg QHS PO Last administered on 04/20/17 19: 41; Start 04/06/17 at 21:00; Stop 04/21/17 at 14:43; Status DC Mirtazapine (Remeron) 15 mg QHS PO Last administered on 04/20/17 19:41; Start 04/08/17 at 21:00; Stop 04/21/17 at 14:43; Status DC Sertraline HCl (Zoloft) 75 mg DAILY PO Last administered on 04/11/17 08:00; Start 04/09/17 at 09:00; Stop 04/11/17 at 19:18; Status DC Quetiapine Fumarate (SEROquel) 12.5 mg BID92 PO Last administered on 08:22; Start 04/08/17 at 14:00; Stop 04/09/17 at 18:32; Status DC Quetiapine Fumarate (SEROquel) 12.5 mg TID@0900,1400,1700 PO Last administered on 04/27/17 17:30; Start 04/10/17 at 09:00; Stop 04/27/17 at 18:48; Status DC Fluvoxamine Maleate (Luvox) 50 mg HS PO Last administered on 04/13/17 20:22; Start 04/11/17 at 21:00; Stop 04/14/17 at 14:45; Status DC Fluvoxamine Maleate (Luvox) 75 mg HS PO Last administered on 04/15/17 19:14; Start 04/14/17 at 21:00; Stop 04/16/17 at 15:48; Status DC Fluvoxamine Maleate (Luvox) 75 mg DAILYWSUP PO Last administered on 04/27/17 17:29; Start 04/16/17 at 17:00; Stop 04/27/17 at 18:48; Status DC Magnesium Citrate (Citroma) 148 ml 1X ONCE PO Last administered on 04/18/17 13:45; Start 04/18/17 at 13:45; Stop 04/18/17 at 13:46; Status DC Mirtazapine (Remeron) 7.5 mg QHS PO Last administered on 05/03/17 19:52; Start 04/21/17 at 21:00 Quetiapine Fumarate (SEROquel) 150 mg QHS PO Last administered on 05/03/17 19: 52; Start 04/21/17 at 21:00 Divalproex Sodium (Depakote Sprinkles) 125 mg BID@0900,1400 PO Last administered on 04/23/17 12:38; Start 04/22/17 at 09:00; Stop 04/23/17 at 18 :26; Status DC Divalproex Sodium (Depakote Sprinkles) 250 mg BID@0900,1400 PO Last administered on 04/26/17 14:11; Start 04/24/17 at 09:00; Stop 04/26/17 at 19 :26; Status DC Divalproex Sodium (Depakote Sprinkles) 375 mg BID@0900,1400 PO Last administered on 04/29/17 14:11; Start 04/27/17 at 09:00; Stop 04/29/17 at 19: 13; Status DC Fluvoxamine Maleate (Luvox) 100 mg DAILYWSUP PO Last administered on 05/03/17 16:50; Start 04/28/17 at 17:00 Quetiapine Fumarate (SEROquel) 12.5 mg DAILY@1400 PO Last administered on 13:54; Start 04/28/17 at 14:00; Stop 04/30/17 at 18:36; Status DC Quetiapine Fumarate (SEROquel) 25 mg BID@0900,1700 PO Last administered on 04/30 16:29; Start 04/28/17 at 09:00; Stop 04/30/17 at 18:36; Status DC Magnesium Citrate (Citroma) 296 ml 1X ONCE PO Last administered on 04/28/17 08:56; Start 04/28/17 at 09:00; Stop 04/28/17 at 09:01; Status DC Magnesium Citrate (Citroma) 296 ml STK-MED ONCE .ROUTE Last administered on 08:56; Start 04/28/17 at 08:56; Stop 04/28/17 at 08:57; Status DC Polyethylene Glycol (miraLAX) 17 gm DAILY PO Last administered on 05/03/17 10: 35; Start 04/28/17 at 10:30 Bisacodyl (Dulcolax Supp) 10 mg 1X ONCE [place] Last administered on 04/28/17 14: 00; Start 04/28/17 at 14:00; Stop 04/28/17 at 14:01; Status DC Senna/Docusate Sodium (Senna Plus) 2 tab 1X ONCE PO Last administered on 19:37; Start 04/28/17 at 21:00; Stop 04/28/17 at 21:01; Status DC Divalproex Sodium (Depakote Er) 1,000 mg QHS PO Last administered on 05/03/17 19:52; Start 04/30/17 at 21:00 Quetiapine Fumarate (SEROquel) 62.5 mg DAILY PO Last administered on 05/03/17 10:35; Start 05/01/17 at 09:00 Active Scripts Active Reported Meclizine Hcl 12.5 Mg Tablet 12.5 Mg PO PRN Q8HRS Haloperidol 2 Mg Tablet 1 Mg PO PRN Q8HRS PRN Seroquel (Quetiapine Fumarate) 25 Mg Tablet 12.5 Mg PO HS Docusate Sodium 100 Mg Capsule 100 Mg PO BID Atorvastatin Calcium 20 Mg Tablet 20 Mg PO QHS Aspirin 81 Mg Tab.chew 81 Mg PO QHS EDE OGDEN MD May 03, 2017 19:55
--- NOTE | 2017-05-04 04:55 | PN ---
DATE: 05/02/2017 This is a late entry for 05/02/2017 covers elements not covered in my initial note of 05/02/2017. SUBJECTIVE: I met with the patient in the evening of 05/02/2017. The patient remains somewhat delusional, confused at times, resistive to medications, gets obsessed about her red purse and clothes, prefers to have cereal for all her meals. She is more redirectable, less obsessive nevertheless per nursing report. REVIEW OF SYSTEMS: No CV, , pulmonary, eye, ENT system symptoms on review. Reliability poor. MENTAL STATUS EXAM: Oriented to herself. Insight, judgment, recent and remote memory, attention, concentration, fund of knowledge poor, consistent with her diagnosis mentioned in my initial note. PLAN: Continue current psychotropics. Reviewed drug interactions. Risk/benefit ratio favors no further change. MAN Jess OGDEN MD DR: LEXII/shaina JOB#: [id number] / [id number]
[2017-05-04 06:45] VITALS: BP 125/64
[2017-05-04] MEDS: NICOTINE 21MG PATCH. TD SCH (07:45)
[2017-05-04] MEDS: DOCUSATE SODIUM 100 MG CAPSULE PO SCH ×2 (07:46→19:20)
[2017-05-04] MEDS: QUEtiapine 25 MG TABLET. PO SCH (07:46)
[2017-05-04] MEDS: POLYETHYLENE GLYCOL 3350 17 GM PACKET. PO SCH (07:47)
[2017-05-04 16:38] VITALS: BP 117/64
[2017-05-04] MEDS: DIVALPROEX ER 500 MG TAB.ER.24H PO SCH (19:20)
[2017-05-04] MEDS: traZODone 50 MG TABLET. PO SCH ×2 (19:20→19:51)
[2017-05-04] MEDS: ATORVASTATIN CALCIUM 20 MG TABLET PO SCH (19:20)
[2017-05-04] MEDS: ASPIRIN 81 MG TAB.CHEW PO SCH (19:20)
[2017-05-04] MEDS: MIRTAZAPINE 7.5 MG TABLET. PO SCH (19:21)
[2017-05-04] MEDS: QUEtiapine 50 MG TABLET. PO SCH (19:21)
[2017-05-04] MEDS ORDERED: traZODone 50 MG TABLET. PO PRN (19:30)
[2017-05-04] MEDS: SENNOSIDES 8.6 MG TABLET PO SCH (19:43)
--- NOTE | 2017-05-04 21:45 | PDOC ---
Exam Unruly Demential Exam: Unruly Note: Please also refer to the separate dictated note~for this date of service dictated separately.~Patient seen individually. Discussed the patient with Nursing staff reviewed the chart.~Reviewed interim history and current functioning. Reviewed vital signs,~Labs/ Radiology~and current medications noted below. Continue current treatment with the changes noted in the dictated addendum note Assessment: Vital Signs: Vital Signs Date Time Temp Pulse Resp B/P (MAP) Pulse Ox O2 Delivery O2 Flow Rate FiO2 05/04/17 16:38 97.6 69 20 117/64 (81) 99 04/29/17 16:22 Room Air I&O Intake and Output 05/05/17 07:00 Intake Total 840 ml Balance 840 ml Intake Oral 840 ml # Bowel Movements 1 Current Medications: Meds: Current Medications Ziprasidone (Geodon Im) 20 mg STK-MED ONCE IM ; Start 03/30/17 at 20:37; Stop 03/30/17 at 20:38; Status DC Ziprasidone (Geodon Im) 10 mg 1X ONCE IM Last administered on 03/30/17 20:45 ; Start 03/30/17 at 20:45; Stop 03/30/17 at 22:14; Status DC Acetaminophen (Tylenol) 650 mg PRN Q6HRS PRN PO PAIN / TEMP; Start 03/31/17 at 00:30 Multi-Ingredient Ointment (Analgesic [place]) 1 jefferson PRN QID PRN TP MUSCLE PAIN; Start 03/31/17 at 00:30 Al Hydroxide/Mg Hydroxide (Mylanta Plus Xs) 15 ml PRN AFTMEALHC PRN PO DYSPEPSIA Last administered on 04/11/17 14:17; Start 03/31/17 at 00:30 Magnesium Hydroxide (Milk Of Magnesia) 2,400 mg PRN QHS PRN PO CONSTIPATION Last administered on 04/27/17 17:30; Start 03/31/17 at 00:30 Nicotine (Nicoderm Cq 21mg) 1 patch DAILY TD Last administered on 04/28/17 08: 53; Start 03/31/17 at 09:00 Haloperidol (Haldol) 1 mg PRN Q8HRS PRN PO ANXIETY / AGITATION Last administered on 05/01/17 18:03; Start 03/31/17 at 01:15 Quetiapine Fumarate (SEROquel) 12.5 mg HS PO ; Start 03/31/17 at 21:00; Stop at 21:00; Status DC Aspirin (Children'S Aspirin) 81 mg QHS PO Last administered on 05/04/17 19:20 ; Start 03/31/17 at 21:00 Atorvastatin Calcium (Lipitor) 20 mg QHS PO Last administered on 05/04/17 19: 20; Start 03/31/17 at 21:00 Docusate Sodium (Colace) 100 mg BID PO Last administered on 05/04/17 19:20; Start 03/31/17 at 21:00 Meclizine HCl (Antivert) 12.5 mg PRN Q8HRS PO ; Start 03/31/17 at 09:30 Quetiapine Fumarate (SEROquel) 6.25 mg HS PO Last administered on 03/31/17 20: 05; Start 03/31/17 at 21:00; Stop 04/01/17 at 10:09; Status DC Mirtazapine (Remeron) 7.5 mg QHS PO Last administered on 04/07/17 20:32; Start 03/31/17 at 21:00; Stop 04/08/17 at 11:04; Status DC Trazodone HCl (Desyrel) 50 mg QHS PO Last administered on 05/04/17 19:20; Start 03/31/17 at 21:00; Stop 05/04/17 at 19:29; Status DC Trazodone HCl (Desyrel) 50 mg PRN QHS PRN PO INSOMNIA, MAY REPEAT X1 Last administered on 04/06/17 22:29; Start 03/31/17 at 18:00; Stop 05/04/17 at 19: 29; Status DC Olanzapine (ZyPREXA ZYDIS) 2.5 mg PRN Q2HR PRN PO psychosis Last administered on 04/04/17 10:37; Start 03/31/17 at 18:00 Quetiapine Fumarate (SEROquel) 25 mg HS PO Last administered on 04/02/17 19:15 ; Start 04/01/17 at 21:00; Stop 04/03/17 at 18:56; Status DC Sertraline HCl (Zoloft) 25 mg DAILY PO Last administered on 04/02/17 09:59; Start 04/02/17 at 09:00; Stop 04/02/17 at 18:43; Status DC Lorazepam (Ativan) 0.5 mg PRN Q2HR PRN PO ANXIETY / AGITATION Last administered on 04/27/17 17:30; Start 04/01/17 at 15:15 Famotidine (Pepcid) 20 mg PRN DAILY PRN PO HEARTBURN / GAS Last administered on 04/24/17 11:33; Start 04/02/17 at 09:15 Famotidine (Pepcid) 20 mg 1X ONCE PO Last administered on 04/02/17 09:59; Start 04/02/17 at 09:25; Stop 04/02/17 at 09:26; Status DC Sertraline HCl (Zoloft) 37.5 mg DAILY PO Last administered on 04/03/17 09:52; Start 04/03/17 at 09:00; Stop 04/03/17 at 18:56; Status DC Quetiapine Fumarate (SEROquel) 50 mg HS PO Last administered on 04/04/17 19:26 ; Start 04/03/17 at 21:00; Stop 04/05/17 at 13:22; Status DC Sertraline HCl (Zoloft) 50 mg DAILY PO Last administered on 04/05/17 07:57; Start 04/04/17 at 09:00; Stop 04/05/17 at 13:23; Status DC Quetiapine Fumarate (SEROquel) 50 mg QHS PO Last administered on 04/05/17 20: 26; Start 04/05/17 at 21:00; Stop 04/06/17 at 18:15; Status DC Sertraline HCl (Zoloft) 50 mg DAILY PO Last administered on 04/08/17 08:03; Start 04/06/17 at 09:00; Stop 04/08/17 at 11:04; Status DC Quetiapine Fumarate (SEROquel) 75 mg QHS PO Last administered on 04/20/17 19: 41; Start 04/06/17 at 21:00; Stop 04/21/17 at 14:43; Status DC Mirtazapine (Remeron) 15 mg QHS PO Last administered on 04/20/17 19:41; Start 04/08/17 at 21:00; Stop 04/21/17 at 14:43; Status DC Sertraline HCl (Zoloft) 75 mg DAILY PO Last administered on 04/11/17 08:00; Start 04/09/17 at 09:00; Stop 04/11/17 at 19:18; Status DC Quetiapine Fumarate (SEROquel) 12.5 mg BID92 PO Last administered on 08:22; Start 04/08/17 at 14:00; Stop 04/09/17 at 18:32; Status DC Quetiapine Fumarate (SEROquel) 12.5 mg TID@0900,1400,1700 PO Last administered on 04/27/17 17:30; Start 04/10/17 at 09:00; Stop 04/27/17 at 18:48; Status DC Fluvoxamine Maleate (Luvox) 50 mg HS PO Last administered on 04/13/17 20:22; Start 04/11/17 at 21:00; Stop 04/14/17 at 14:45; Status DC Fluvoxamine Maleate (Luvox) 75 mg HS PO Last administered on 04/15/17 19:14; Start 04/14/17 at 21:00; Stop 04/16/17 at 15:48; Status DC Fluvoxamine Maleate (Luvox) 75 mg DAILYWSUP PO Last administered on 04/27/17 17:29; Start 04/16/17 at 17:00; Stop 04/27/17 at 18:48; Status DC Magnesium Citrate (Citroma) 148 ml 1X ONCE PO Last administered on 04/18/17 13:45; Start 04/18/17 at 13:45; Stop 04/18/17 at 13:46; Status DC Mirtazapine (Remeron) 7.5 mg QHS PO Last administered on 05/04/17 19:21; Start 04/21/17 at 21:00 Quetiapine Fumarate (SEROquel) 150 mg QHS PO Last administered on 05/04/17 19: 21; Start 04/21/17 at 21:00 Divalproex Sodium (Depakote Sprinkles) 125 mg BID@0900,1400 PO Last administered on 04/23/17 12:38; Start 04/22/17 at 09:00; Stop 04/23/17 at 18 :26; Status DC Divalproex Sodium (Depakote Sprinkles) 250 mg BID@0900,1400 PO Last administered on 04/26/17 14:11; Start 04/24/17 at 09:00; Stop 04/26/17 at 19 :26; Status DC Divalproex Sodium (Depakote Sprinkles) 375 mg BID@0900,1400 PO Last administered on 04/29/17 14:11; Start 04/27/17 at 09:00; Stop 04/29/17 at 19: 13; Status DC Fluvoxamine Maleate (Luvox) 100 mg DAILYWSUP PO Last administered on 05/04/17 16:03; Start 04/28/17 at 17:00 Quetiapine Fumarate (SEROquel) 12.5 mg DAILY@1400 PO Last administered on 13:54; Start 04/28/17 at 14:00; Stop 04/30/17 at 18:36; Status DC Quetiapine Fumarate (SEROquel) 25 mg BID@0900,1700 PO Last administered on 04/30 16:29; Start 04/28/17 at 09:00; Stop 04/30/17 at 18:36; Status DC Magnesium Citrate (Citroma) 296 ml 1X ONCE PO Last administered on 04/28/17 08:56; Start 04/28/17 at 09:00; Stop 04/28/17 at 09:01; Status DC Magnesium Citrate (Citroma) 296 ml STK-MED ONCE .ROUTE Last administered on 08:56; Start 04/28/17 at 08:56; Stop 04/28/17 at 08:57; Status DC Polyethylene Glycol (miraLAX) 17 gm DAILY PO Last administered on 05/04/17 07: 47; Start 04/28/17 at 10:30 Bisacodyl (Dulcolax Supp) 10 mg 1X ONCE TX Last administered on 04/28/17 14: 00; Start 04/28/17 at 14:00; Stop 04/28/17 at 14:01; Status DC Senna/Docusate Sodium (Senna Plus) 2 tab 1X ONCE PO Last administered on 19:37; Start 04/28/17 at 21:00; Stop 04/28/17 at 21:01; Status DC Divalproex Sodium (Depakote Er) 1,000 mg QHS PO Last administered on 05/04/17 19:20; Start 04/30/17 at 21:00 Quetiapine Fumarate (SEROquel) 62.5 mg DAILY PO Last administered on 05/04/17 07:46; Start 05/01/17 at 09:00 Sennosides (Senna) 8.6 mg BID PO Last administered on 05/04/17 19:43; Start 05/04/17 at 21:00 Trazodone HCl (Desyrel) 100 mg PRN QHS PRN PO INSOMNIA, MAY REPEAT X1; Start 05/04/17 at 19:30 Trazodone HCl (Desyrel) 100 mg QHS PO Last administered on 05/04/17 19:51; Start 05/04/17 at 21:00 Active Scripts Active Reported Meclizine Hcl 12.5 Mg Tablet 12.5 Mg PO PRN Q8HRS Haloperidol 2 Mg Tablet 1 Mg PO PRN Q8HRS PRN Seroquel (Quetiapine Fumarate) 25 Mg Tablet 12.5 Mg PO HS Docusate Sodium 100 Mg Capsule 100 Mg PO BID Atorvastatin Calcium 20 Mg Tablet 20 Mg PO QHS Aspirin 81 Mg Tab.chew 81 Mg PO QHS Diagnosis: Problems: (1) Medical clearance for psychiatric admission (2) Anxiety disorder (3) Dementia, vascular, with depression (4) Dementia, vascular, with delusions (5) Impulse control disorder (6) Major depressive disorder, recurrent episode EDE OGDEN MD May 04, 2017 21:45
[2017-05-05 06:17] VITALS: BP 146/74
--- NOTE | 2017-05-05 07:58 | PN ---
DATE: 05/03/2017 This late entry, 05/03/2017, covers elements not covered in my initial note of 05/03/2017. SUBJECTIVE: I met with the patient the evening of 05/03/2017. The patient's behaviors and mood lability and obsessiveness seemed to worsen at meal times. She can sit down to eat focused and repetitive about wanting milk and cereal and nothing else, very controlling of what she would eat because she feels the doctor asked her to eat nothing but cereal. Nursing staff will make out a dale authentic looking from a physician to the patient indicating she should have her regular meals as well and we will see how this does. REVIEW OF SYSTEMS: No CV, , pulmonary, eye, ENT system symptoms on review. Reliability varies. MENTAL STATUS EXAM: Oriented to herself and situation. Insight, judgment, recent and remote memory, attention, concentration, fund of knowledge poor consistent with her diagnosis mentioned in my initial note. PLAN: Continue current psychotropics. Reviewed drug interactions. Risk/benefit ratio favors no further. MAN Jess OGDEN MD DR: LEXII/shaina JOB#: [id number] / [id number]
[2017-05-05] MEDS: NICOTINE 21MG PATCH. TD SCH (09:00)
[2017-05-05] MEDS: SENNOSIDES 8.6 MG TABLET PO SCH ×2 (09:50→19:28)
[2017-05-05] MEDS: DOCUSATE SODIUM 100 MG CAPSULE PO SCH ×2 (09:50→19:29)
[2017-05-05] MEDS: QUEtiapine 25 MG TABLET. PO SCH (09:50)
[2017-05-05] MEDS: POLYETHYLENE GLYCOL 3350 17 GM PACKET. PO SCH (09:50)
[2017-05-05 16:34] VITALS: BP 126/78
[2017-05-05] MEDS: ASPIRIN 81 MG TAB.CHEW PO SCH (19:27)
[2017-05-05] MEDS: ATORVASTATIN CALCIUM 20 MG TABLET PO SCH (19:28)
[2017-05-05] MEDS: QUEtiapine 50 MG TABLET. PO SCH (19:28)
[2017-05-05] MEDS: DIVALPROEX ER 500 MG TAB.ER.24H PO SCH (19:28)
[2017-05-05] MEDS: MIRTAZAPINE 7.5 MG TABLET. PO SCH (19:28)
[2017-05-05] MEDS: traZODone 50 MG TABLET. PO SCH (19:28)
[2017-05-05] MEDS: HALOPERIDOL 2 MG TABLET PO PRN (19:31)
--- NOTE | 2017-05-05 21:46 | PDOC ---
Exam Unruly Demential Exam: Unruly Note: Please also refer to the separate dictated note~for this date of service dictated separately.~Patient seen individually. Discussed the patient with Nursing staff reviewed the chart.~Reviewed interim history and current functioning. Reviewed vital signs,~Labs/ Radiology~and current medications noted below. Continue current treatment with the changes noted in the dictated addendum note Assessment: Vital Signs: Vital Signs Date Time Temp Pulse Resp B/P (MAP) Pulse Ox O2 Delivery O2 Flow Rate FiO2 05/05/17 16:34 97.0 88 20 126/78 (94) 98 Room Air I&O Intake and Output 05/06/17 07:00 Intake Total 480 ml Balance 480 ml Intake Oral 480 ml Current Medications: Meds: Current Medications Ziprasidone (Geodon Im) 20 mg STK-MED ONCE IM ; Start 03/30/17 at 20:37; Stop 03/30/17 at 20:38; Status DC Ziprasidone (Geodon Im) 10 mg 1X ONCE IM Last administered on 03/30/17 20:45 ; Start 03/30/17 at 20:45; Stop 03/30/17 at 22:14; Status DC Acetaminophen (Tylenol) 650 mg PRN Q6HRS PRN PO PAIN / TEMP; Start 03/31/17 at 00:30 Multi-Ingredient Ointment (Analgesic [place]) 1 jefferson PRN QID PRN TP MUSCLE PAIN; Start 03/31/17 at 00:30 Al Hydroxide/Mg Hydroxide (Mylanta Plus Xs) 15 ml PRN AFTMEALHC PRN PO DYSPEPSIA Last administered on 04/11/17 14:17; Start 03/31/17 at 00:30 Magnesium Hydroxide (Milk Of Magnesia) 2,400 mg PRN QHS PRN PO CONSTIPATION Last administered on 04/27/17 17:30; Start 03/31/17 at 00:30 Nicotine (Nicoderm Cq 21mg) 1 patch DAILY TD Last administered on 04/28/17 08: 53; Start 03/31/17 at 09:00 Haloperidol (Haldol) 1 mg PRN Q8HRS PRN PO ANXIETY / AGITATION Last administered on 05/05/17 19:31; Start 03/31/17 at 01:15 Quetiapine Fumarate (SEROquel) 12.5 mg HS PO ; Start 03/31/17 at 21:00; Stop at 21:00; Status DC Aspirin (Children'S Aspirin) 81 mg QHS PO Last administered on 05/05/17 19:27 ; Start 03/31/17 at 21:00 Atorvastatin Calcium (Lipitor) 20 mg QHS PO Last administered on 05/05/17 19: 28; Start 03/31/17 at 21:00 Docusate Sodium (Colace) 100 mg BID PO Last administered on 05/05/17 19:29; Start 03/31/17 at 21:00 Meclizine HCl (Antivert) 12.5 mg PRN Q8HRS PO ; Start 03/31/17 at 09:30 Quetiapine Fumarate (SEROquel) 6.25 mg HS PO Last administered on 03/31/17 20: 05; Start 03/31/17 at 21:00; Stop 04/01/17 at 10:09; Status DC Mirtazapine (Remeron) 7.5 mg QHS PO Last administered on 04/07/17 20:32; Start 03/31/17 at 21:00; Stop 04/08/17 at 11:04; Status DC Trazodone HCl (Desyrel) 50 mg QHS PO Last administered on 05/04/17 19:20; Start 03/31/17 at 21:00; Stop 05/04/17 at 19:29; Status DC Trazodone HCl (Desyrel) 50 mg PRN QHS PRN PO INSOMNIA, MAY REPEAT X1 Last administered on 04/06/17 22:29; Start 03/31/17 at 18:00; Stop 05/04/17 at 19: 29; Status DC Olanzapine (ZyPREXA ZYDIS) 2.5 mg PRN Q2HR PRN PO psychosis Last administered on 04/04/17 10:37; Start 03/31/17 at 18:00 Quetiapine Fumarate (SEROquel) 25 mg HS PO Last administered on 04/02/17 19:15 ; Start 04/01/17 at 21:00; Stop 04/03/17 at 18:56; Status DC Sertraline HCl (Zoloft) 25 mg DAILY PO Last administered on 04/02/17 09:59; Start 04/02/17 at 09:00; Stop 04/02/17 at 18:43; Status DC Lorazepam (Ativan) 0.5 mg PRN Q2HR PRN PO ANXIETY / AGITATION Last administered on 04/27/17 17:30; Start 04/01/17 at 15:15 Famotidine (Pepcid) 20 mg PRN DAILY PRN PO HEARTBURN / GAS Last administered on 04/24/17 11:33; Start 04/02/17 at 09:15 Famotidine (Pepcid) 20 mg 1X ONCE PO Last administered on 04/02/17 09:59; Start 04/02/17 at 09:25; Stop 04/02/17 at 09:26; Status DC Sertraline HCl (Zoloft) 37.5 mg DAILY PO Last administered on 04/03/17 09:52; Start 04/03/17 at 09:00; Stop 04/03/17 at 18:56; Status DC Quetiapine Fumarate (SEROquel) 50 mg HS PO Last administered on 04/04/17 19:26 ; Start 04/03/17 at 21:00; Stop 04/05/17 at 13:22; Status DC Sertraline HCl (Zoloft) 50 mg DAILY PO Last administered on 04/05/17 07:57; Start 04/04/17 at 09:00; Stop 04/05/17 at 13:23; Status DC Quetiapine Fumarate (SEROquel) 50 mg QHS PO Last administered on 04/05/17 20: 26; Start 04/05/17 at 21:00; Stop 04/06/17 at 18:15; Status DC Sertraline HCl (Zoloft) 50 mg DAILY PO Last administered on 04/08/17 08:03; Start 04/06/17 at 09:00; Stop 04/08/17 at 11:04; Status DC Quetiapine Fumarate (SEROquel) 75 mg QHS PO Last administered on 04/20/17 19: 41; Start 04/06/17 at 21:00; Stop 04/21/17 at 14:43; Status DC Mirtazapine (Remeron) 15 mg QHS PO Last administered on 04/20/17 19:41; Start 04/08/17 at 21:00; Stop 04/21/17 at 14:43; Status DC Sertraline HCl (Zoloft) 75 mg DAILY PO Last administered on 04/11/17 08:00; Start 04/09/17 at 09:00; Stop 04/11/17 at 19:18; Status DC Quetiapine Fumarate (SEROquel) 12.5 mg BID92 PO Last administered on 08:22; Start 04/08/17 at 14:00; Stop 04/09/17 at 18:32; Status DC Quetiapine Fumarate (SEROquel) 12.5 mg TID@0900,1400,1700 PO Last administered on 04/27/17 17:30; Start 04/10/17 at 09:00; Stop 04/27/17 at 18:48; Status DC Fluvoxamine Maleate (Luvox) 50 mg HS PO Last administered on 04/13/17 20:22; Start 04/11/17 at 21:00; Stop 04/14/17 at 14:45; Status DC Fluvoxamine Maleate (Luvox) 75 mg HS PO Last administered on 04/15/17 19:14; Start 04/14/17 at 21:00; Stop 04/16/17 at 15:48; Status DC Fluvoxamine Maleate (Luvox) 75 mg DAILYWSUP PO Last administered on 04/27/17 17:29; Start 04/16/17 at 17:00; Stop 04/27/17 at 18:48; Status DC Magnesium Citrate (Citroma) 148 ml 1X ONCE PO Last administered on 04/18/17 13:45; Start 04/18/17 at 13:45; Stop 04/18/17 at 13:46; Status DC Mirtazapine (Remeron) 7.5 mg QHS PO Last administered on 05/05/17 19:28; Start 04/21/17 at 21:00 Quetiapine Fumarate (SEROquel) 150 mg QHS PO Last administered on 05/05/17 19: 28; Start 04/21/17 at 21:00 Divalproex Sodium (Depakote Sprinkles) 125 mg BID@0900,1400 PO Last administered on 04/23/17 12:38; Start 04/22/17 at 09:00; Stop 04/23/17 at 18 :26; Status DC Divalproex Sodium (Depakote Sprinkles) 250 mg BID@0900,1400 PO Last administered on 04/26/17 14:11; Start 04/24/17 at 09:00; Stop 04/26/17 at 19 :26; Status DC Divalproex Sodium (Depakote Sprinkles) 375 mg BID@0900,1400 PO Last administered on 04/29/17 14:11; Start 04/27/17 at 09:00; Stop 04/29/17 at 19: 13; Status DC Fluvoxamine Maleate (Luvox) 100 mg DAILYWSUP PO Last administered on 05/05/17 17:48; Start 04/28/17 at 17:00 Quetiapine Fumarate (SEROquel) 12.5 mg DAILY@1400 PO Last administered on 13:54; Start 04/28/17 at 14:00; Stop 04/30/17 at 18:36; Status DC Quetiapine Fumarate (SEROquel) 25 mg BID@0900,1700 PO Last administered on 04/30 16:29; Start 04/28/17 at 09:00; Stop 04/30/17 at 18:36; Status DC Magnesium Citrate (Citroma) 296 ml 1X ONCE PO Last administered on 04/28/17 08:56; Start 04/28/17 at 09:00; Stop 04/28/17 at 09:01; Status DC Magnesium Citrate (Citroma) 296 ml STK-MED ONCE .ROUTE Last administered on 08:56; Start 04/28/17 at 08:56; Stop 04/28/17 at 08:57; Status DC Polyethylene Glycol (miraLAX) 17 gm DAILY PO Last administered on 05/05/17 09: 50; Start 04/28/17 at 10:30 Bisacodyl (Dulcolax Supp) 10 mg 1X ONCE SC Last administered on 04/28/17 14: 00; Start 04/28/17 at 14:00; Stop 04/28/17 at 14:01; Status DC Senna/Docusate Sodium (Senna Plus) 2 tab 1X ONCE PO Last administered on 19:37; Start 04/28/17 at 21:00; Stop 04/28/17 at 21:01; Status DC Divalproex Sodium (Depakote Er) 1,000 mg QHS PO Last administered on 05/05/17 19:28; Start 04/30/17 at 21:00 Quetiapine Fumarate (SEROquel) 62.5 mg DAILY PO Last administered on 05/05/17 09:50; Start 05/01/17 at 09:00 Sennosides (Senna) 8.6 mg BID PO Last administered on 05/05/17 19:28; Start 05/04/17 at 21:00 Trazodone HCl (Desyrel) 100 mg PRN QHS PRN PO INSOMNIA, MAY REPEAT X1; Start 05/04/17 at 19:30 Trazodone HCl (Desyrel) 100 mg QHS PO Last administered on 05/05/17 19:28; Start 05/04/17 at 21:00 Active Scripts Active Reported Meclizine Hcl 12.5 Mg Tablet 12.5 Mg PO PRN Q8HRS Haloperidol 2 Mg Tablet 1 Mg PO PRN Q8HRS PRN Seroquel (Quetiapine Fumarate) 25 Mg Tablet 12.5 Mg PO HS Docusate Sodium 100 Mg Capsule 100 Mg PO BID Atorvastatin Calcium 20 Mg Tablet 20 Mg PO QHS Aspirin 81 Mg Tab.chew 81 Mg PO QHS Diagnosis: Problems: (1) Medical clearance for psychiatric admission (2) Anxiety disorder (3) Dementia, vascular, with depression (4) Dementia, vascular, with delusions (5) Impulse control disorder (6) Major depressive disorder, recurrent episode EDE OGDEN MD May 05, 2017 21:46
--- NOTE | 2017-05-06 04:31 | PN ---
DATE: 05/04/2017 This late entry 05/04/2017 covers elements not covered in my initial note of 05/04/2017. The patient slept 3 hours previous evening, was sarcastic in the morning, confrontational, confused. Afternoon, she was less irritable, appetite is better, outbursts are better as well, slept poorly last night for 3 hours however. No CV, , pulmonary, eye, ENT system symptoms on review. Reliability poor. She is anxious, repetitive, constantly asking for one thing over and over, which was purse. Mental status exam oriented to herself. Insight, judgment, recent and remote memory, attention, concentration, fund of knowledge poor, consistent with her diagnosis mentioned in my initial note. PLAN: Continue current psychotropics. Increase trazodone scheduled to 100 mg at bedtime, october repeat x 1 p.r.n. insomnia. Review drug interactions, risk/benefit ratio favors no further change. EDE OGDEN MD DR: LEXII/shaina JOB#: [id number] / [id number]
[2017-05-06 06:44] VITALS: BP 114/64
[2017-05-06] MEDS: POLYETHYLENE GLYCOL 3350 17 GM PACKET. PO SCH (10:11)
[2017-05-06] MEDS: SENNOSIDES 8.6 MG TABLET PO SCH ×2 (10:11→19:29)
[2017-05-06] MEDS: QUEtiapine 25 MG TABLET. PO SCH (10:12)
[2017-05-06] MEDS: DOCUSATE SODIUM 100 MG CAPSULE PO SCH ×2 (10:13→19:27)
[2017-05-06] MEDS: NICOTINE 21MG PATCH. TD SCH (10:14)
[2017-05-06 15:33] VITALS: BP 111/64
[2017-05-06] MEDS: HALOPERIDOL 2 MG TABLET PO PRN (15:34)
[2017-05-06] MEDS: DIVALPROEX ER 500 MG TAB.ER.24H PO SCH (19:27)
[2017-05-06] MEDS: MIRTAZAPINE 7.5 MG TABLET. PO SCH (19:27)
[2017-05-06] MEDS: ASPIRIN 81 MG TAB.CHEW PO SCH (19:27)
[2017-05-06] MEDS: ATORVASTATIN CALCIUM 20 MG TABLET PO SCH (19:27)
[2017-05-06] MEDS: QUEtiapine 50 MG TABLET. PO SCH (19:27)
[2017-05-06] MEDS: traZODone 50 MG TABLET. PO SCH (19:29)
[2017-05-07 06:13] VITALS: BP 114/64
[2017-05-07] MEDS: NICOTINE 21MG PATCH. TD SCH (09:00)
[2017-05-07 09:25] LABS: ALBUMIN 3.1 g/dL (3.4-5.0); ALBUMIN/GLOBULIN RATIO 0.8 (1.0-1.7); CALCIUM 9.2 mg/dL (8.5-10.1); CREATININE 0.7 mg/dL (0.6-1.0); GFR 79.9; POTASSIUM 4.5 mmol/L (3.5-5.1); TOTAL BILIRUBIN 0.3 mg/dL (0.2-1.0); TOTAL PROTEIN 6.8 g/dL (6.4-8.2)
[2017-05-07] MEDS: POLYETHYLENE GLYCOL 3350 17 GM PACKET. PO SCH (10:31)
[2017-05-07] MEDS: SENNOSIDES 8.6 MG TABLET PO SCH ×2 (10:31→19:26)
[2017-05-07] MEDS: QUEtiapine 25 MG TABLET. PO SCH (10:31)
[2017-05-07] MEDS: DOCUSATE SODIUM 100 MG CAPSULE PO SCH ×2 (10:31→19:26)
[2017-05-07 16:37] VITALS: BP 105/58
[2017-05-07] MEDS: DIVALPROEX ER 500 MG TAB.ER.24H PO SCH (19:26)
[2017-05-07] MEDS: ATORVASTATIN CALCIUM 20 MG TABLET PO SCH (19:26)
[2017-05-07] MEDS: traZODone 50 MG TABLET. PO SCH (19:26)
[2017-05-07] MEDS: ASPIRIN 81 MG TAB.CHEW PO SCH (19:26)
[2017-05-07] MEDS: MIRTAZAPINE 7.5 MG TABLET. PO SCH (19:26)
[2017-05-07] MEDS: QUEtiapine 50 MG TABLET. PO SCH (19:26)
--- NOTE | 2017-05-07 20:10 | PDOC ---
Exam Note: Unruly Note: Please also refer to the separate dictated note~for this date of service dictated separately.~Patient seen individually. Discussed the patient with Nursing staff reviewed the chart.~Reviewed interim history and current functioning. Reviewed vital signs,~Labs/ Radiology~and current medications noted below. Continue current treatment with the changes noted in the dictated addendum note Assessment: Vital Signs: Vital Signs Date Time Temp Pulse Resp B/P (MAP) Pulse Ox O2 Delivery O2 Flow Rate FiO2 05/07/17 16:37 97.9 71 18 105/58 (74) 99 05/05/17 16:34 Room Air I&O Intake and Output 05/08/17 07:00 Intake Total 840 ml Balance 840 ml Intake Oral 840 ml Labs: Laboratory Tests Test 05/07/17 09:07 Sodium Level 141 mmol/L (136-145) Potassium Level 4.5 mmol/L (3.5-5.1) Chloride Level 105 mmol/L (98-107) Carbon Dioxide Level 34 mmol/L (21-32) H Anion Gap 2 (6-14) L Blood Urea Nitrogen 12 mg/dL (7-20) Creatinine 0.7 mg/dL (0.6-1.0) Estimated GFR (Cockcroft-Gault) 79.9 BUN/Creatinine Ratio 17 (6-20) Glucose Level 158 mg/dL (70-99) H Calcium Level 9.2 mg/dL (8.5-10.1) Total Bilirubin 0.3 mg/dL (0.2-1.0) Aspartate Amino Transferase (AST) 21 U/L (15-37) Alanine Aminotransferase (ALT) 35 U/L (14-59) Alkaline Phosphatase 90 U/L (46-116) Total Protein 6.8 g/dL (6.4-8.2) Albumin 3.1 g/dL (3.4-5.0) L Albumin/Globulin Ratio 0.8 (1.0-1.7) L Current Medications: Meds: Current Medications Ziprasidone (Geodon Im) 20 mg STK-MED ONCE IM ; Start 03/30/17 at 20:37; Stop 03/30/17 at 20:38; Status DC Ziprasidone (Geodon Im) 10 mg 1X ONCE IM Last administered on 03/30/17t 20:45 ; Start 03/30/17 at 20:45; Stop 03/30/17 at 22:14; Status DC Acetaminophen (Tylenol) 650 mg PRN Q6HRS PRN PO PAIN / TEMP; Start 03/31/17 at 00:30 Multi-Ingredient Ointment (Analgesic [place]) 1 jefferson PRN QID PRN TP MUSCLE PAIN; Start 03/31/17 at 00:30 Al Hydroxide/Mg Hydroxide (Mylanta Plus Xs) 15 ml PRN AFTMEALHC PRN PO DYSPEPSIA Last administered on 04/11/17 14:17; Start 03/31/17 at 00:30 Magnesium Hydroxide (Milk Of Magnesia) 2,400 mg PRN QHS PRN PO CONSTIPATION Last administered on 04/27/17 17:30; Start 03/31/17 at 00:30 Nicotine (Nicoderm Cq 21mg) 1 patch DAILY TD Last administered on 05/06/17 10: 14; Start 03/31/17 at 09:00; Stop 05/07/17 at 11:22; Status DC Haloperidol (Haldol) 1 mg PRN Q8HRS PRN PO ANXIETY / AGITATION Last administered on 05/06/17 15:34; Start 03/31/17 at 01:15 Quetiapine Fumarate (SEROquel) 12.5 mg HS PO ; Start 03/31/17 at 21:00; Stop at 21:00; Status DC Aspirin (Children'S Aspirin) 81 mg QHS PO Last administered on 05/07/17 19:26 ; Start 03/31/17 at 21:00 Atorvastatin Calcium (Lipitor) 20 mg QHS PO Last administered on 05/07/17 19: 26; Start 03/31/17 at 21:00 Docusate Sodium (Colace) 100 mg BID PO Last administered on 05/07/17 19:26; Start 03/31/17 at 21:00 Meclizine HCl (Antivert) 12.5 mg PRN Q8HRS PO ; Start 03/31/17 at 09:30 Quetiapine Fumarate (SEROquel) 6.25 mg HS PO Last administered on 03/31/17 20: 05; Start 03/31/17 at 21:00; Stop 04/01/17 at 10:09; Status DC Mirtazapine (Remeron) 7.5 mg QHS PO Last administered on 04/07/17 20:32; Start 03/31/17 at 21:00; Stop 04/08/17 at 11:04; Status DC Trazodone HCl (Desyrel) 50 mg QHS PO Last administered on 05/04/17 19:20; Start 03/31/17 at 21:00; Stop 05/04/17 at 19:29; Status DC Trazodone HCl (Desyrel) 50 mg PRN QHS PRN PO INSOMNIA, MAY REPEAT X1 Last administered on 04/06/17 22:29; Start 03/31/17 at 18:00; Stop 05/04/17 at 19: 29; Status DC Olanzapine (ZyPREXA ZYDIS) 2.5 mg PRN Q2HR PRN PO psychosis Last administered on 04/04/17 10:37; Start 03/31/17 at 18:00 Quetiapine Fumarate (SEROquel) 25 mg HS PO Last administered on 04/02/17 19:15 ; Start 04/01/17 at 21:00; Stop 04/03/17 at 18:56; Status DC Sertraline HCl (Zoloft) 25 mg DAILY PO Last administered on 04/02/17 09:59; Start 04/02/17 at 09:00; Stop 04/02/17 at 18:43; Status DC Lorazepam (Ativan) 0.5 mg PRN Q2HR PRN PO ANXIETY / AGITATION Last administered on 04/27/17 17:30; Start 04/01/17 at 15:15 Famotidine (Pepcid) 20 mg PRN DAILY PRN PO HEARTBURN / GAS Last administered on 04/24/17 11:33; Start 04/02/17 at 09:15 Famotidine (Pepcid) 20 mg 1X ONCE PO Last administered on 04/02/17 09:59; Start 04/02/17 at 09:25; Stop 04/02/17 at 09:26; Status DC Sertraline HCl (Zoloft) 37.5 mg DAILY PO Last administered on 04/03/17 09:52; Start 04/03/17 at 09:00; Stop 04/03/17 at 18:56; Status DC Quetiapine Fumarate (SEROquel) 50 mg HS PO Last administered on 04/04/17 19:26 ; Start 04/03/17 at 21:00; Stop 04/05/17 at 13:22; Status DC Sertraline HCl (Zoloft) 50 mg DAILY PO Last administered on 04/05/17 07:57; Start 04/04/17 at 09:00; Stop 04/05/17 at 13:23; Status DC Quetiapine Fumarate (SEROquel) 50 mg QHS PO Last administered on 04/05/17 20: 26; Start 04/05/17 at 21:00; Stop 04/06/17 at 18:15; Status DC Sertraline HCl (Zoloft) 50 mg DAILY PO Last administered on 04/08/17 08:03; Start 04/06/17 at 09:00; Stop 04/08/17 at 11:04; Status DC Quetiapine Fumarate (SEROquel) 75 mg QHS PO Last administered on 04/20/17 19: 41; Start 04/06/17 at 21:00; Stop 04/21/17 at 14:43; Status DC Mirtazapine (Remeron) 15 mg QHS PO Last administered on 04/20/17 19:41; Start 04/08/17 at 21:00; Stop 04/21/17 at 14:43; Status DC Sertraline HCl (Zoloft) 75 mg DAILY PO Last administered on 04/11/17 08:00; Start 04/09/17 at 09:00; Stop 04/11/17 at 19:18; Status DC Quetiapine Fumarate (SEROquel) 12.5 mg BID92 PO Last administered on 08:22; Start 04/08/17 at 14:00; Stop 04/09/17 at 18:32; Status DC Quetiapine Fumarate (SEROquel) 12.5 mg TID@0900,1400,1700 PO Last administered on 04/27/17 17:30; Start 04/10/17 at 09:00; Stop 04/27/17 at 18:48; Status DC Fluvoxamine Maleate (Luvox) 50 mg HS PO Last administered on 04/13/17 20:22; Start 04/11/17 at 21:00; Stop 04/14/17 at 14:45; Status DC Fluvoxamine Maleate (Luvox) 75 mg HS PO Last administered on 04/15/17 19:14; Start 04/14/17 at 21:00; Stop 04/16/17 at 15:48; Status DC Fluvoxamine Maleate (Luvox) 75 mg DAILYWSUP PO Last administered on 04/27/17 17:29; Start 04/16/17 at 17:00; Stop 04/27/17 at 18:48; Status DC Magnesium Citrate (Citroma) 148 ml 1X ONCE PO Last administered on 04/18/17 13:45; Start 04/18/17 at 13:45; Stop 04/18/17 at 13:46; Status DC Mirtazapine (Remeron) 7.5 mg QHS PO Last administered on 05/07/17 19:26; Start 04/21/17 at 21:00 Quetiapine Fumarate (SEROquel) 150 mg QHS PO Last administered on 05/07/17 19 :26; Start 04/21/17 at 21:00 Divalproex Sodium (Depakote Sprinkles) 125 mg BID@0900,1400 PO Last administered on 04/23/17 12:38; Start 04/22/17 at 09:00; Stop 04/23/17 at 18 :26; Status DC Divalproex Sodium (Depakote Sprinkles) 250 mg BID@0900,1400 PO Last administered on 04/26/17 14:11; Start 04/24/17 at 09:00; Stop 04/26/17 at 19 :26; Status DC Divalproex Sodium (Depakote Sprinkles) 375 mg BID@0900,1400 PO Last administered on 04/29/17 14:11; Start 04/27/17 at 09:00; Stop 04/29/17 at 19: 13; Status DC Fluvoxamine Maleate (Luvox) 100 mg DAILYWSUP PO Last administered on 17:31; Start 04/28/17 at 17:00 Quetiapine Fumarate (SEROquel) 12.5 mg DAILY@1400 PO Last administered on 13:54; Start 04/28/17 at 14:00; Stop 04/30/17 at 18:36; Status DC Quetiapine Fumarate (SEROquel) 25 mg BID@0900,1700 PO Last administered on 04/30 16:29; Start 04/28/17 at 09:00; Stop 04/30/17 at 18:36; Status DC Magnesium Citrate (Citroma) 296 ml 1X ONCE PO Last administered on 04/28/17 08:56; Start 04/28/17 at 09:00; Stop 04/28/17 at 09:01; Status DC Magnesium Citrate (Citroma) 296 ml STK-MED ONCE .ROUTE Last administered on 08:56; Start 04/28/17 at 08:56; Stop 04/28/17 at 08:57; Status DC Polyethylene Glycol (miraLAX) 17 gm DAILY PO Last administered on 05/07/17 10 :31; Start 04/28/17 at 10:30 Bisacodyl (Dulcolax Supp) 10 mg 1X ONCE AL Last administered on 04/28/17 14: 00; Start 04/28/17 at 14:00; Stop 04/28/17 at 14:01; Status DC Senna/Docusate Sodium (Senna Plus) 2 tab 1X ONCE PO Last administered on 19:37; Start 04/28/17 at 21:00; Stop 04/28/17 at 21:01; Status DC Divalproex Sodium (Depakote Er) 1,000 mg QHS PO Last administered on 19:26; Start 04/30/17 at 21:00 Quetiapine Fumarate (SEROquel) 62.5 mg DAILY PO Last administered on 10:31; Start 05/01/17 at 09:00 Sennosides (Senna) 8.6 mg BID PO Last administered on 05/07/17 19:26; Start 05/04/17 at 21:00 Trazodone HCl (Desyrel) 100 mg PRN QHS PRN PO INSOMNIA, MAY REPEAT X1; Start 05/04/17 at 19:30 Trazodone HCl (Desyrel) 100 mg QHS PO Last administered on 11/10/17at 19:26; Start 05/04/17 at 21:00 Nicotine (Nicoderm Cq 21mg) 1 patch PRN DAILY PRN TD smoking cessation; Start 05/08/17 at 09:00 Active Scripts Active Reported Meclizine Hcl 12.5 Mg Tablet 12.5 Mg PO PRN Q8HRS Haloperidol 2 Mg Tablet 1 Mg PO PRN Q8HRS PRN Seroquel (Quetiapine Fumarate) 25 Mg Tablet 12.5 Mg PO HS Docusate Sodium 100 Mg Capsule 100 Mg PO BID Atorvastatin Calcium 20 Mg Tablet 20 Mg PO QHS Aspirin 81 Mg Tab.chew 81 Mg PO QHS I have reviewed the current psychotropics carefully including drug interactions. Risk benefit ratio favors no change other than as noted in my dictated progress note. Diagnosis: Problems: (1) Medical clearance for psychiatric admission (2) Anxiety disorder (3) Dementia, vascular, with depression (4) Dementia, vascular, with delusions (5) Impulse control disorder (6) Major depressive disorder, recurrent episode EDE OGDEN MD May 07, 2017 20:10
[2017-05-08 05:24] VITALS: BP 132/71
--- NOTE | 2017-05-08 06:13 | PN ---
DATE: 05/06/2017 PSYCHIATRIC PROGRESS NOTE This late entry 05/06/2017 covers elements, not covered in my initial note of 05/06/2017. SUBJECTIVE: The patient was staffed at treatment team meeting with entire team morning of 05/06/2017, seen individually evening of 05/06/2017. Appetite 35%, sleeping about 7 hours. Got quite agitated evening of 05/05/2017, received Haldol, did much better, still obsessed about her person going to [place]. I reviewed her history, discharge plans, medications at length at treatment team meeting. MENTAL STATUS EXAM: Oriented to herself. Insight, judgment, recent and remote memory, attention, concentration, fund of knowledge poor, consistent with her diagnosis. Takes her medications and chocolate ice cream. LABORATORY DATA: Reviewed. IMPRESSION: Unchanged from initial note. PLAN: Continue current psychotropics. Reviewed drug interactions. Risk/benefit ratio favors no further change. EDE OGDEN MD DR: LEXII/shaina JOB#: [id number] / [id number]
[2017-05-08] MEDS: SENNOSIDES 8.6 MG TABLET PO SCH ×2 (08:08→19:16)
[2017-05-08] MEDS: QUEtiapine 25 MG TABLET. PO SCH (08:08)
[2017-05-08] MEDS: DOCUSATE SODIUM 100 MG CAPSULE PO SCH ×2 (08:08→19:15)
[2017-05-08] MEDS: POLYETHYLENE GLYCOL 3350 17 GM PACKET. PO SCH (08:08)
[2017-05-08 08:29] LABS: MAGNESIUM 2.1 mg/dL (1.8-2.4)
[2017-05-08 08:34] LABS: BASO # 0.1 x10^3/uL (0.0-0.2); BASO % 1 % (0-3); EOS # 0.2 x10^3/uL (0.0-0.7); EOS % 2 % (0-3); HEMATOCRIT 37.5 % (36.0-47.0); HEMOGLOBIN 12.5 g/dL (12.0-15.5); LYMPH # 2.5 x10^3/uL (1.0-4.8); LYMPH % 19 % (24-48); MEAN CORPUSCULAR HEMOGLOBIN 29 pg (25-35); MEAN CORPUSCULAR HGB CONC 33 g/dL (31-37); MEAN CORPUSCULAR VOLUME 86 fL (79-100); MONO # 0.9 x10^3/uL (0.0-1.1); MONO % 7 % (0-9); NEUT # 9.6 x10^3uL (1.8-7.7); NEUT % 72 % (31-73); PLATELET COUNT 287 x10^3/uL (140-400); RED BLOOD COUNT 4.35 x10^6/uL (3.50-5.40); RED CELL DISTRIBUTION WIDTH 14.1 % (11.5-14.5); WHITE BLOOD COUNT 13.3 x10^3/uL (4.0-11.0)
[2017-05-08 08:35] LABS: VAL ACID 72 mcg/mL (50-100)
[2017-05-08] MEDS ORDERED: NICOTINE 21MG PATCH. TD PRN (09:00)
[2017-05-08 09:57] LABS: % BANDS 3 % (0-9); % LYMPHS 20 % (24-48); % MONOS 10 % (0-10); % SEGS 66 % (35-66); PLT ESTIMATE ADEQUATE (ADEQUATE); TOXIC GRANULATION SLIGHT
[2017-05-08 09:58] LABS: % ATYL 1 % (0-0)
--- NOTE | 2017-05-08 11:36 | PN ---
DATE: 05/05/2017 PSYCHIATRIC PROGRESS NOTE This late entry 05/05/2017 covers elements, not covered in the initial note of 05/05/2017. SUBJECTIVE: I met the patient in the evening of 05/05/2017. The patient is less anxious, less obsessive in returning back to the nursing station window, which she would do almost on a constant basis previously. She has been out of the dayroom, compliant with medications, still fixated on having cereal for each meal. Somewhat obsessed about going to "[place]." REVIEW OF SYSTEMS: No CV, , pulmonary, eye, ENT system symptoms on review. Reliability is poor. MENTAL STATUS EXAM: Oriented to herself. Insight, judgment, recent and remote memory, attention, concentration, fund of knowledge poor, consistent with her diagnosis mentioned in my initial note. PLAN: Continue current psychotropics. Reviewed drug contractions. Risk/benefit ratio favors no further change. EDE OGDEN MD DR: LEXII/shaina JOB#: [id number] / [id number]
[2017-05-08 16:08] VITALS: BP 119/77
[2017-05-08] MEDS: MIRTAZAPINE 7.5 MG TABLET. PO SCH (19:15)
[2017-05-08] MEDS: QUEtiapine 50 MG TABLET. PO SCH (19:15)
[2017-05-08] MEDS: traZODone 50 MG TABLET. PO SCH (19:16)
[2017-05-08] MEDS: ATORVASTATIN CALCIUM 20 MG TABLET PO SCH (19:16)
[2017-05-08] MEDS: ASPIRIN 81 MG TAB.CHEW PO SCH (19:17)
[2017-05-08] MEDS: DIVALPROEX ER 500 MG TAB.ER.24H PO SCH (19:18)
--- NOTE | 2017-05-08 19:58 | PDOC ---
Exam Note: Unruly Note: Please also refer to the separate dictated note~for this date of service dictated separately.~Patient seen individually. Discussed the patient with Nursing staff reviewed the chart.~Reviewed interim history and current functioning. Reviewed vital signs,~Labs/ Radiology~and current medications noted below. Continue current treatment with the changes noted in the dictated addendum note Assessment: Vital Signs: Vital Signs Date Time Temp Pulse Resp B/P (MAP) Pulse Ox O2 Delivery O2 Flow Rate FiO2 05/08/17 16:08 97.8 71 18 119/77 (91) 99 Room Air I&O Intake and Output 05/09/17 07:00 Intake Total 1740 ml Balance 1740 ml Intake Oral 1740 ml Labs: Laboratory Tests Test 05/08/17 07:26 White Blood Count 13.3 x10^3/uL (4.0-11.0) H Red Blood Count 4.35 x10^6/uL (3.50-5.40) Hemoglobin 12.5 g/dL (12.0-15.5) Hematocrit 37.5 % (36.0-47.0) Mean Corpuscular Volume 86 fL (79-100) Mean Corpuscular Hemoglobin 29 pg (25-35) Mean Corpuscular Hemoglobin Concent 33 g/dL (31-37) Red Cell Distribution Width 14.1 % (11.5-14.5) Platelet Count 287 x10^3/uL (140-400) Neutrophils (%) (Auto) 72 % (31-73) Lymphocytes (%) (Auto) 19 % (24-48) L Monocytes (%) (Auto) 7 % (0-9) Eosinophils (%) (Auto) 2 % (0-3) Basophils (%) (Auto) 1 % (0-3) Neutrophils # (Auto) 9.6 x10^3uL (1.8-7.7) H Lymphocytes # (Auto) 2.5 x10^3/uL (1.0-4.8) Monocytes # (Auto) 0.9 x10^3/uL (0.0-1.1) Eosinophils # (Auto) 0.2 x10^3/uL (0.0-0.7) Basophils # (Auto) 0.1 x10^3/uL (0.0-0.2) Segmented Neutrophils % 66 % (35-66) Band Neutrophils % 3 % (0-9) Lymphocytes % 20 % (24-48) L Atypical Lymphocytes % (Manual) 1 % (0-0) H Monocytes % 10 % (0-10) Toxic Granulation Slight Platelet Estimate Adequate (ADEQUATE) Large Platelets Occ Magnesium Level 2.1 mg/dL (1.8-2.4) Valproic Acid Level 72 mcg/mL (50-100) Valproic Acid Last Dose Date 05/07/17 Valproic Acid Last Dose Time 2100 Current Medications: Meds: Current Medications Ziprasidone (Geodon Im) 20 mg STK-MED ONCE IM ; Start 03/30/17 at 20:37; Stop 03/30/17 at 20:38; Status DC Ziprasidone (Geodon Im) 10 mg 1X ONCE IM Last administered on 03/30/17 20:45 ; Start 03/30/17 at 20:45; Stop 03/30/17 at 22:14; Status DC Acetaminophen (Tylenol) 650 mg PRN Q6HRS PRN PO PAIN / TEMP; Start 03/31/17 at 00:30 Multi-Ingredient Ointment (Analgesic [place]) 1 jefferson PRN QID PRN TP MUSCLE PAIN; Start 03/31/17 at 00:30 Al Hydroxide/Mg Hydroxide (Mylanta Plus Xs) 15 ml PRN AFTMEALHC PRN PO DYSPEPSIA Last administered on 04/11/17 14:17; Start 03/31/17 at 00:30 Magnesium Hydroxide (Milk Of Magnesia) 2,400 mg PRN QHS PRN PO CONSTIPATION Last administered on 04/27/17 17:30; Start 03/31/17 at 00:30 Nicotine (Nicoderm Cq 21mg) 1 patch DAILY TD Last administered on 05/06/17 10: 14; Start 03/31/17 at 09:00; Stop 05/07/17 at 11:22; Status DC Haloperidol (Haldol) 1 mg PRN Q8HRS PRN PO ANXIETY / AGITATION Last administered on 05/06/17 15:34; Start 03/31/17 at 01:15 Quetiapine Fumarate (SEROquel) 12.5 mg HS PO ; Start 03/31/17 at 21:00; Stop at 21:00; Status DC Aspirin (Children'S Aspirin) 81 mg QHS PO Last administered on 05/08/17 19:17 ; Start 03/31/17 at 21:00 Atorvastatin Calcium (Lipitor) 20 mg QHS PO Last administered on 05/08/17 19: 16; Start 03/31/17 at 21:00 Docusate Sodium (Colace) 100 mg BID PO Last administered on 05/08/17 19:15; Start 03/31/17 at 21:00 Meclizine HCl (Antivert) 12.5 mg PRN Q8HRS PO ; Start 03/31/17 at 09:30 Quetiapine Fumarate (SEROquel) 6.25 mg HS PO Last administered on 03/31/17 20: 05; Start 03/31/17 at 21:00; Stop 04/01/17 at 10:09; Status DC Mirtazapine (Remeron) 7.5 mg QHS PO Last administered on 04/07/17 20:32; Start 03/31/17 at 21:00; Stop 04/08/17 at 11:04; Status DC Trazodone HCl (Desyrel) 50 mg QHS PO Last administered on 05/04/17 19:20; Start 03/31/17 at 21:00; Stop 05/04/17 at 19:29; Status DC Trazodone HCl (Desyrel) 50 mg PRN QHS PRN PO INSOMNIA, MAY REPEAT X1 Last administered on 04/06/17 22:29; Start 03/31/17 at 18:00; Stop 05/04/17 at 19: 29; Status DC Olanzapine (ZyPREXA ZYDIS) 2.5 mg PRN Q2HR PRN PO psychosis Last administered on 04/04/17 10:37; Start 03/31/17 at 18:00 Quetiapine Fumarate (SEROquel) 25 mg HS PO Last administered on 04/02/17 19:15 ; Start 04/01/17 at 21:00; Stop 04/03/17 at 18:56; Status DC Sertraline HCl (Zoloft) 25 mg DAILY PO Last administered on 04/02/17 09:59; Start 04/02/17 at 09:00; Stop 04/02/17 at 18:43; Status DC Lorazepam (Ativan) 0.5 mg PRN Q2HR PRN PO ANXIETY / AGITATION Last administered on 04/27/17 17:30; Start 04/01/17 at 15:15 Famotidine (Pepcid) 20 mg PRN DAILY PRN PO HEARTBURN / GAS Last administered on 04/24/17 11:33; Start 04/02/17 at 09:15 Famotidine (Pepcid) 20 mg 1X ONCE PO Last administered on 04/02/17 09:59; Start 04/02/17 at 09:25; Stop 04/02/17 at 09:26; Status DC Sertraline HCl (Zoloft) 37.5 mg DAILY PO Last administered on 04/03/17 09:52; Start 04/03/17 at 09:00; Stop 04/03/17 at 18:56; Status DC Quetiapine Fumarate (SEROquel) 50 mg HS PO Last administered on 04/04/17 19:26 ; Start 04/03/17 at 21:00; Stop 04/05/17 at 13:22; Status DC Sertraline HCl (Zoloft) 50 mg DAILY PO Last administered on 04/05/17 07:57; Start 04/04/17 at 09:00; Stop 04/05/17 at 13:23; Status DC Quetiapine Fumarate (SEROquel) 50 mg QHS PO Last administered on 04/05/17 20: 26; Start 04/05/17 at 21:00; Stop 04/06/17 at 18:15; Status DC Sertraline HCl (Zoloft) 50 mg DAILY PO Last administered on 04/08/17 08:03; Start 04/06/17 at 09:00; Stop 04/08/17 at 11:04; Status DC Quetiapine Fumarate (SEROquel) 75 mg QHS PO Last administered on 04/20/17 19: 41; Start 04/06/17 at 21:00; Stop 04/21/17 at 14:43; Status DC Mirtazapine (Remeron) 15 mg QHS PO Last administered on 04/20/17 19:41; Start 04/08/17 at 21:00; Stop 04/21/17 at 14:43; Status DC Sertraline HCl (Zoloft) 75 mg DAILY PO Last administered on 04/11/17 08:00; Start 04/09/17 at 09:00; Stop 04/11/17 at 19:18; Status DC Quetiapine Fumarate (SEROquel) 12.5 mg BID92 PO Last administered on 08:22; Start 04/08/17 at 14:00; Stop 04/09/17 at 18:32; Status DC Quetiapine Fumarate (SEROquel) 12.5 mg TID@0900,1400,1700 PO Last administered on 04/27/17 17:30; Start 04/10/17 at 09:00; Stop 04/27/17 at 18:48; Status DC Fluvoxamine Maleate (Luvox) 50 mg HS PO Last administered on 04/13/17 20:22; Start 04/11/17 at 21:00; Stop 04/14/17 at 14:45; Status DC Fluvoxamine Maleate (Luvox) 75 mg HS PO Last administered on 04/15/17 19:14; Start 04/14/17 at 21:00; Stop 04/16/17 at 15:48; Status DC Fluvoxamine Maleate (Luvox) 75 mg DAILYWSUP PO Last administered on 04/27/17 17:29; Start 04/16/17 at 17:00; Stop 04/27/17 at 18:48; Status DC Magnesium Citrate (Citroma) 148 ml 1X ONCE PO Last administered on 04/18/17 13:45; Start 04/18/17 at 13:45; Stop 04/18/17 at 13:46; Status DC Mirtazapine (Remeron) 7.5 mg QHS PO Last administered on 05/08/17 19:15; Start 04/21/17 at 21:00 Quetiapine Fumarate (SEROquel) 150 mg QHS PO Last administered on 05/08/17 19 :15; Start 04/21/17 at 21:00 Divalproex Sodium (Depakote Sprinkles) 125 mg BID@0900,1400 PO Last administered on 04/23/17 12:38; Start 04/22/17 at 09:00; Stop 04/23/17 at 18 :26; Status DC Divalproex Sodium (Depakote Sprinkles) 250 mg BID@0900,1400 PO Last administered on 04/26/17 14:11; Start 04/24/17 at 09:00; Stop 04/26/17 at 19 :26; Status DC Divalproex Sodium (Depakote Sprinkles) 375 mg BID@0900,1400 PO Last administered on 04/29/17 14:11; Start 04/27/17 at 09:00; Stop 04/29/17 at 19: 13; Status DC Fluvoxamine Maleate (Luvox) 100 mg DAILYWSUP PO Last administered on 17:15; Start 04/28/17 at 17:00 Quetiapine Fumarate (SEROquel) 12.5 mg DAILY@1400 PO Last administered on 13:54; Start 04/28/17 at 14:00; Stop 04/30/17 at 18:36; Status DC Quetiapine Fumarate (SEROquel) 25 mg BID@0900,1700 PO Last administered on 04/30 16:29; Start 04/28/17 at 09:00; Stop 04/30/17 at 18:36; Status DC Magnesium Citrate (Citroma) 296 ml 1X ONCE PO Last administered on 04/28/17 08:56; Start 04/28/17 at 09:00; Stop 04/28/17 at 09:01; Status DC Magnesium Citrate (Citroma) 296 ml STK-MED ONCE .ROUTE Last administered on 08:56; Start 04/28/17 at 08:56; Stop 04/28/17 at 08:57; Status DC Polyethylene Glycol (miraLAX) 17 gm DAILY PO Last administered on 05/08/17 08 :08; Start 04/28/17 at 10:30 Bisacodyl (Dulcolax Supp) 10 mg 1X ONCE NM Last administered on 04/28/17 14: 00; Start 04/28/17 at 14:00; Stop 04/28/17 at 14:01; Status DC Senna/Docusate Sodium (Senna Plus) 2 tab 1X ONCE PO Last administered on 19:37; Start 04/28/17 at 21:00; Stop 04/28/17 at 21:01; Status DC Divalproex Sodium (Depakote Er) 1,000 mg QHS PO Last administered on 19:18; Start 04/30/17 at 21:00 Quetiapine Fumarate (SEROquel) 62.5 mg DAILY PO Last administered on 08:08; Start 05/01/17 at 09:00 Sennosides (Senna) 8.6 mg BID PO Last administered on 05/08/17 19:16; Start 05/04/17 at 21:00 Trazodone HCl (Desyrel) 100 mg PRN QHS PRN PO INSOMNIA, MAY REPEAT X1; Start 05/04/17 at 19:30 Trazodone HCl (Desyrel) 100 mg QHS PO Last administered on 05/08/17 19:16; Start 05/04/17 at 21:00 Nicotine (Nicoderm Cq 21mg) 1 patch PRN DAILY PRN TD smoking cessation; Start 05/08/17 at 09:00 Active Scripts Active Reported Meclizine Hcl 12.5 Mg Tablet 12.5 Mg PO PRN Q8HRS Haloperidol 2 Mg Tablet 1 Mg PO PRN Q8HRS PRN Seroquel (Quetiapine Fumarate) 25 Mg Tablet 12.5 Mg PO HS Docusate Sodium 100 Mg Capsule 100 Mg PO BID Atorvastatin Calcium 20 Mg Tablet 20 Mg PO QHS Aspirin 81 Mg Tab.chew 81 Mg PO QHS I have reviewed the current psychotropics carefully including drug interactions. Risk benefit ratio favors no change other than as noted in my dictated progress note. Diagnosis: Problems: (1) Medical clearance for psychiatric admission (2) Anxiety disorder (3) Dementia, vascular, with depression (4) Dementia, vascular, with delusions (5) Impulse control disorder (6) Major depressive disorder, recurrent episode EDE OGDEN MD May 08, 2017 19:58
[2017-05-09 06:33] VITALS: BP 110/67
--- NOTE | 2017-05-09 07:25 | PN ---
DATE: 05/07/2017 PSYCHIATRIC PROGRESS NOTE This late entry 05/07/2017, covers elements not covered in my initial note. I met with the patient in the evening of 05/07/2017. The patient remains confused, had a better day, less repetitive, more so in the evening; however, no CV, , pulmonary, eye, ENT system symptoms on review. She is coming back to me several times during my rounds concerned about other patients, oblivious of the way she was. REVIEW OF SYSTEMS: No CV, , pulmonary, eye, ENT system symptoms on review. MENTAL STATUS EXAM: Insight, judgment, recent and remote memory, attention, concentration, fund of knowledge poor, consistent with her diagnosis, obsessive, anxious. IMPRESSION: Unchanged from my initial note. PLAN: Continue psychotropics mentioned in my initial note. MAN Jess OGDEN MD DR: LEXII/shaina JOB#: [id number] / [id number]
[2017-05-09] MEDS: POLYETHYLENE GLYCOL 3350 17 GM PACKET. PO SCH (08:39)
[2017-05-09] MEDS: DOCUSATE SODIUM 100 MG CAPSULE PO SCH ×2 (08:39→19:34)
[2017-05-09] MEDS: SENNOSIDES 8.6 MG TABLET PO SCH ×2 (08:39→19:39)
[2017-05-09] MEDS: QUEtiapine 25 MG TABLET. PO SCH (08:40)
[2017-05-09 16:05] VITALS: BP 151/80
[2017-05-09] MEDS: ASPIRIN 81 MG TAB.CHEW PO SCH (19:34)
[2017-05-09] MEDS: traZODone 50 MG TABLET. PO SCH (19:35)
[2017-05-09] MEDS: QUEtiapine 50 MG TABLET. PO SCH (19:35)
[2017-05-09] MEDS: ATORVASTATIN CALCIUM 20 MG TABLET PO SCH (19:35)
[2017-05-09] MEDS: DIVALPROEX ER 500 MG TAB.ER.24H PO SCH (19:39)
[2017-05-09] MEDS: MIRTAZAPINE 7.5 MG TABLET. PO SCH (19:39)
--- NOTE | 2017-05-09 20:01 | PDOC ---
Exam Note: Unruly Note: Please also refer to the separate dictated note~for this date of service dictated separately.~Patient seen individually. Discussed the patient with Nursing staff reviewed the chart.~Reviewed interim history and current functioning. Reviewed vital signs,~Labs/ Radiology~and current medications noted below. Continue current treatment with the changes noted in the dictated addendum note Assessment: Vital Signs: Vital Signs Date Time Temp Pulse Resp B/P (MAP) Pulse Ox O2 Delivery O2 Flow Rate FiO2 05/09/17 16:05 96.9 80 16 151/80 (103) 96 Room Air I&O Intake and Output 05/10/17 07:00 Intake Total 600 ml Balance 600 ml Intake Oral 600 ml Current Medications: Meds: Current Medications Ziprasidone (Geodon Im) 20 mg STK-MED ONCE IM ; Start 03/30/17 at 20:37; Stop 03/30/17 at 20:38; Status DC Ziprasidone (Geodon Im) 10 mg 1X ONCE IM Last administered on 03/30/17 20:45 ; Start 03/30/17 at 20:45; Stop 03/30/17 at 22:14; Status DC Acetaminophen (Tylenol) 650 mg PRN Q6HRS PRN PO PAIN / TEMP; Start 03/31/17 at 00:30 Multi-Ingredient Ointment (Analgesic [place]) 1 jefferson PRN QID PRN TP MUSCLE PAIN; Start 03/31/17 at 00:30 Al Hydroxide/Mg Hydroxide (Mylanta Plus Xs) 15 ml PRN AFTMEALHC PRN PO DYSPEPSIA Last administered on 04/11/17 14:17; Start 03/31/17 at 00:30 Magnesium Hydroxide (Milk Of Magnesia) 2,400 mg PRN QHS PRN PO CONSTIPATION Last administered on 04/27/17 17:30; Start 03/31/17 at 00:30 Nicotine (Nicoderm Cq 21mg) 1 patch DAILY TD Last administered on 05/06/17 10: 14; Start 03/31/17 at 09:00; Stop 05/07/17 at 11:22; Status DC Haloperidol (Haldol) 1 mg PRN Q8HRS PRN PO ANXIETY / AGITATION Last administered on 05/06/17 15:34; Start 03/31/17 at 01:15 Quetiapine Fumarate (SEROquel) 12.5 mg HS PO ; Start 03/31/17 at 21:00; Stop at 21:00; Status DC Aspirin (Children'S Aspirin) 81 mg QHS PO Last administered on 05/09/17 19:34 ; Start 03/31/17 at 21:00 Atorvastatin Calcium (Lipitor) 20 mg QHS PO Last administered on 05/09/17 19: 35; Start 03/31/17 at 21:00 Docusate Sodium (Colace) 100 mg BID PO Last administered on 05/09/17 19:34; Start 03/31/17 at 21:00 Meclizine HCl (Antivert) 12.5 mg PRN Q8HRS PO ; Start 03/31/17 at 09:30 Quetiapine Fumarate (SEROquel) 6.25 mg HS PO Last administered on 03/31/17 20: 05; Start 03/31/17 at 21:00; Stop 04/01/17 at 10:09; Status DC Mirtazapine (Remeron) 7.5 mg QHS PO Last administered on 04/07/17 20:32; Start 03/31/17 at 21:00; Stop 04/08/17 at 11:04; Status DC Trazodone HCl (Desyrel) 50 mg QHS PO Last administered on 05/04/17 19:20; Start 03/31/17 at 21:00; Stop 05/04/17 at 19:29; Status DC Trazodone HCl (Desyrel) 50 mg PRN QHS PRN PO INSOMNIA, MAY REPEAT X1 Last administered on 04/06/17 22:29; Start 03/31/17 at 18:00; Stop 05/04/17 at 19: 29; Status DC Olanzapine (ZyPREXA ZYDIS) 2.5 mg PRN Q2HR PRN PO psychosis Last administered on 04/04/17 10:37; Start 03/31/17 at 18:00 Quetiapine Fumarate (SEROquel) 25 mg HS PO Last administered on 04/02/17 19:15 ; Start 04/01/17 at 21:00; Stop 04/03/17 at 18:56; Status DC Sertraline HCl (Zoloft) 25 mg DAILY PO Last administered on 04/02/17 09:59; Start 04/02/17 at 09:00; Stop 04/02/17 at 18:43; Status DC Lorazepam (Ativan) 0.5 mg PRN Q2HR PRN PO ANXIETY / AGITATION Last administered on 04/27/17 17:30; Start 04/01/17 at 15:15 Famotidine (Pepcid) 20 mg PRN DAILY PRN PO HEARTBURN / GAS Last administered on 04/24/17 11:33; Start 04/02/17 at 09:15 Famotidine (Pepcid) 20 mg 1X ONCE PO Last administered on 04/02/17 09:59; Start 04/02/17 at 09:25; Stop 04/02/17 at 09:26; Status DC Sertraline HCl (Zoloft) 37.5 mg DAILY PO Last administered on 04/03/17 09:52; Start 04/03/17 at 09:00; Stop 04/03/17 at 18:56; Status DC Quetiapine Fumarate (SEROquel) 50 mg HS PO Last administered on 04/04/17 19:26 ; Start 04/03/17 at 21:00; Stop 04/05/17 at 13:22; Status DC Sertraline HCl (Zoloft) 50 mg DAILY PO Last administered on 04/05/17 07:57; Start 04/04/17 at 09:00; Stop 04/05/17 at 13:23; Status DC Quetiapine Fumarate (SEROquel) 50 mg QHS PO Last administered on 04/05/17 20: 26; Start 04/05/17 at 21:00; Stop 04/06/17 at 18:15; Status DC Sertraline HCl (Zoloft) 50 mg DAILY PO Last administered on 04/08/17 08:03; Start 04/06/17 at 09:00; Stop 04/08/17 at 11:04; Status DC Quetiapine Fumarate (SEROquel) 75 mg QHS PO Last administered on 04/20/17 19: 41; Start 04/06/17 at 21:00; Stop 04/21/17 at 14:43; Status DC Mirtazapine (Remeron) 15 mg QHS PO Last administered on 04/20/17 19:41; Start 04/08/17 at 21:00; Stop 04/21/17 at 14:43; Status DC Sertraline HCl (Zoloft) 75 mg DAILY PO Last administered on 04/11/17 08:00; Start 04/09/17 at 09:00; Stop 04/11/17 at 19:18; Status DC Quetiapine Fumarate (SEROquel) 12.5 mg BID92 PO Last administered on 08:22; Start 04/08/17 at 14:00; Stop 04/09/17 at 18:32; Status DC Quetiapine Fumarate (SEROquel) 12.5 mg TID@0900,1400,1700 PO Last administered on 04/27/17 17:30; Start 04/10/17 at 09:00; Stop 04/27/17 at 18:48; Status DC Fluvoxamine Maleate (Luvox) 50 mg HS PO Last administered on 04/13/17 20:22; Start 04/11/17 at 21:00; Stop 04/14/17 at 14:45; Status DC Fluvoxamine Maleate (Luvox) 75 mg HS PO Last administered on 04/15/17 19:14; Start 04/14/17 at 21:00; Stop 04/16/17 at 15:48; Status DC Fluvoxamine Maleate (Luvox) 75 mg DAILYWSUP PO Last administered on 04/27/17 17:29; Start 04/16/17 at 17:00; Stop 04/27/17 at 18:48; Status DC Magnesium Citrate (Citroma) 148 ml 1X ONCE PO Last administered on 04/18/17 13:45; Start 04/18/17 at 13:45; Stop 04/18/17 at 13:46; Status DC Mirtazapine (Remeron) 7.5 mg QHS PO Last administered on 05/09/17 19:39; Start 04/21/17 at 21:00 Quetiapine Fumarate (SEROquel) 150 mg QHS PO Last administered on 05/09/17 19 :35; Start 04/21/17 at 21:00 Divalproex Sodium (Depakote Sprinkles) 125 mg BID@0900,1400 PO Last administered on 04/23/17 12:38; Start 04/22/17 at 09:00; Stop 04/23/17 at 18 :26; Status DC Divalproex Sodium (Depakote Sprinkles) 250 mg BID@0900,1400 PO Last administered on 04/26/17 14:11; Start 04/24/17 at 09:00; Stop 04/26/17 at 19 :26; Status DC Divalproex Sodium (Depakote Sprinkles) 375 mg BID@0900,1400 PO Last administered on 04/29/17 14:11; Start 04/27/17 at 09:00; Stop 04/29/17 at 19: 13; Status DC Fluvoxamine Maleate (Luvox) 100 mg DAILYWSUP PO Last administered on 16:53; Start 04/28/17 at 17:00 Quetiapine Fumarate (SEROquel) 12.5 mg DAILY@1400 PO Last administered on 13:54; Start 04/28/17 at 14:00; Stop 04/30/17 at 18:36; Status DC Quetiapine Fumarate (SEROquel) 25 mg BID@0900,1700 PO Last administered on 04/30 16:29; Start 04/28/17 at 09:00; Stop 04/30/17 at 18:36; Status DC Magnesium Citrate (Citroma) 296 ml 1X ONCE PO Last administered on 04/28/17 08:56; Start 04/28/17 at 09:00; Stop 04/28/17 at 09:01; Status DC Magnesium Citrate (Citroma) 296 ml STK-MED ONCE .ROUTE Last administered on 08:56; Start 04/28/17 at 08:56; Stop 04/28/17 at 08:57; Status DC Polyethylene Glycol (miraLAX) 17 gm DAILY PO Last administered on 05/09/17 08 :39; Start 04/28/17 at 10:30 Bisacodyl (Dulcolax Supp) 10 mg 1X ONCE SD Last administered on 04/28/17 14: 00; Start 04/28/17 at 14:00; Stop 04/28/17 at 14:01; Status DC Senna/Docusate Sodium (Senna Plus) 2 tab 1X ONCE PO Last administered on 19:37; Start 04/28/17 at 21:00; Stop 04/28/17 at 21:01; Status DC Divalproex Sodium (Depakote Er) 1,000 mg QHS PO Last administered on 19:39; Start 04/30/17 at 21:00 Quetiapine Fumarate (SEROquel) 62.5 mg DAILY PO Last administered on 08:40; Start 05/01/17 at 09:00 Sennosides (Senna) 8.6 mg BID PO Last administered on 05/09/17 19:39; Start 05/04/17 at 21:00 Trazodone HCl (Desyrel) 100 mg PRN QHS PRN PO INSOMNIA, MAY REPEAT X1; Start 05/04/17 at 19:30 Trazodone HCl (Desyrel) 100 mg QHS PO Last administered on 05/09/17 19:35; Start 05/04/17 at 21:00 Nicotine (Nicoderm Cq 21mg) 1 patch PRN DAILY PRN TD smoking cessation; Start 05/08/17 at 09:00 Active Scripts Active Reported Meclizine Hcl 12.5 Mg Tablet 12.5 Mg PO PRN Q8HRS Haloperidol 2 Mg Tablet 1 Mg PO PRN Q8HRS PRN Seroquel (Quetiapine Fumarate) 25 Mg Tablet 12.5 Mg PO HS Docusate Sodium 100 Mg Capsule 100 Mg PO BID Atorvastatin Calcium 20 Mg Tablet 20 Mg PO QHS Aspirin 81 Mg Tab.chew 81 Mg PO QHS I have reviewed the current psychotropics carefully including drug interactions. Risk benefit ratio favors no change other than as noted in my dictated progress note. Diagnosis: Problems: (1) Medical clearance for psychiatric admission (2) Anxiety disorder (3) Dementia, vascular, with depression (4) Dementia, vascular, with delusions (5) Impulse control disorder (6) Major depressive disorder, recurrent episode EDE OGDEN MD May 09, 2017 20:01
[2017-05-10 06:01] VITALS: BP 125/67
[2017-05-10] MEDS: DOCUSATE SODIUM 100 MG CAPSULE PO SCH ×2 (08:56→19:44)
[2017-05-10] MEDS: POLYETHYLENE GLYCOL 3350 17 GM PACKET. PO SCH (08:56)
[2017-05-10] MEDS: SENNOSIDES 8.6 MG TABLET PO SCH ×2 (08:56→19:44)
[2017-05-10] MEDS: QUEtiapine 25 MG TABLET. PO SCH (08:57)
--- NOTE | 2017-05-10 10:02 | PN ---
DATE: 05/08/2017 PSYCHIATRIC PROGRESS NOTE This late entry 05/08/2017, covers elements not covered in my initial note 05/08/2017. SUBJECTIVE: Overall, the patient remains confused, but is better, less anxious. WBC is elevated 11.3, valproic acid level 72. We will check UA and make sure she does not have a UTI. REVIEW OF SYSTEMS: No CV, , pulmonary, eye, ENT system symptoms on review. Reliability poor. MENTAL STATUS EXAM: Oriented to herself. Insight, judgment, recent and remote memory, attention, concentration, fund of knowledge poor, consistent with her diagnosis mentioned in my initial note. PLAN: No further change other than noted above. Rest unchanged from my initial note. MAN Jess OGDEN MD DR: LEXII/shaina JOB#: [id number] / [id number]
[2017-05-10 16:18] VITALS: BP 110/65
[2017-05-10] MEDS: MIRTAZAPINE 7.5 MG TABLET. PO SCH (19:43)
[2017-05-10] MEDS: ASPIRIN 81 MG TAB.CHEW PO SCH (19:43)
[2017-05-10] MEDS: traZODone 50 MG TABLET. PO SCH (19:44)
[2017-05-10] MEDS: DIVALPROEX ER 500 MG TAB.ER.24H PO SCH (19:44)
[2017-05-10] MEDS: QUEtiapine 50 MG TABLET. PO SCH (19:44)
[2017-05-10] MEDS: ATORVASTATIN CALCIUM 20 MG TABLET PO SCH (19:44)
--- NOTE | 2017-05-10 20:14 | PDOC ---
Exam Note: Unruly Note: Please also refer to the separate dictated note~for this date of service dictated separately.~Patient seen individually. Discussed the patient with Nursing staff reviewed the chart.~Reviewed interim history and current functioning. Reviewed vital signs,~Labs/ Radiology~and current medications noted below. Continue current treatment with the changes noted in the dictated addendum note Assessment: Vital Signs: Vital Signs Date Time Temp Pulse Resp B/P (MAP) Pulse Ox O2 Delivery O2 Flow Rate FiO2 05/10/17 16:18 97.7 80 20 110/65 (80) 98 05/09/17 16:05 Room Air I&O Intake and Output 05/10/17 07:00 Intake Total 850 ml Balance 850 ml Intake Oral 850 ml # Voids 1 # Bowel Movements 1 Current Medications: Meds: Current Medications Ziprasidone (Geodon Im) 20 mg STK-MED ONCE IM ; Start 03/30/17 at 20:37; Stop 03/30/17 at 20:38; Status DC Ziprasidone (Geodon Im) 10 mg 1X ONCE IM Last administered on 03/30/17 20:45 ; Start 03/30/17 at 20:45; Stop 03/30/17 at 22:14; Status DC Acetaminophen (Tylenol) 650 mg PRN Q6HRS PRN PO PAIN / TEMP; Start 03/31/17 at 00:30 Multi-Ingredient Ointment (Analgesic [place]) 1 jefferson PRN QID PRN TP MUSCLE PAIN; Start 03/31/17 at 00:30 Al Hydroxide/Mg Hydroxide (Mylanta Plus Xs) 15 ml PRN AFTMEALHC PRN PO DYSPEPSIA Last administered on 04/11/17 14:17; Start 03/31/17 at 00:30 Magnesium Hydroxide (Milk Of Magnesia) 2,400 mg PRN QHS PRN PO CONSTIPATION Last administered on 04/27/17 17:30; Start 03/31/17 at 00:30 Nicotine (Nicoderm Cq 21mg) 1 patch DAILY TD Last administered on 05/06/17 10: 14; Start 03/31/17 at 09:00; Stop 05/07/17 at 11:22; Status DC Haloperidol (Haldol) 1 mg PRN Q8HRS PRN PO ANXIETY / AGITATION Last administered on 05/06/17 15:34; Start 03/31/17 at 01:15 Quetiapine Fumarate (SEROquel) 12.5 mg HS PO ; Start 03/31/17 at 21:00; Stop at 21:00; Status DC Aspirin (Children'S Aspirin) 81 mg QHS PO Last administered on 05/10/17 19:43 ; Start 03/31/17 at 21:00 Atorvastatin Calcium (Lipitor) 20 mg QHS PO Last administered on 05/10/17 19: 44; Start 03/31/17 at 21:00 Docusate Sodium (Colace) 100 mg BID PO Last administered on 05/10/17 19:44; Start 03/31/17 at 21:00 Meclizine HCl (Antivert) 12.5 mg PRN Q8HRS PO ; Start 03/31/17 at 09:30 Quetiapine Fumarate (SEROquel) 6.25 mg HS PO Last administered on 03/31/17 20: 05; Start 03/31/17 at 21:00; Stop 04/01/17 at 10:09; Status DC Mirtazapine (Remeron) 7.5 mg QHS PO Last administered on 04/07/17 20:32; Start 03/31/17 at 21:00; Stop 04/08/17 at 11:04; Status DC Trazodone HCl (Desyrel) 50 mg QHS PO Last administered on 05/04/17 19:20; Start 03/31/17 at 21:00; Stop 05/04/17 at 19:29; Status DC Trazodone HCl (Desyrel) 50 mg PRN QHS PRN PO INSOMNIA, MAY REPEAT X1 Last administered on 04/06/17 22:29; Start 03/31/17 at 18:00; Stop 05/04/17 at 19: 29; Status DC Olanzapine (ZyPREXA ZYDIS) 2.5 mg PRN Q2HR PRN PO psychosis Last administered on 05/10/17 16:07; Start 03/31/17 at 18:00 Quetiapine Fumarate (SEROquel) 25 mg HS PO Last administered on 04/02/17 19:15 ; Start 04/01/17 at 21:00; Stop 04/03/17 at 18:56; Status DC Sertraline HCl (Zoloft) 25 mg DAILY PO Last administered on 04/02/17 09:59; Start 04/02/17 at 09:00; Stop 04/02/17 at 18:43; Status DC Lorazepam (Ativan) 0.5 mg PRN Q2HR PRN PO ANXIETY / AGITATION Last administered on 04/27/17 17:30; Start 04/01/17 at 15:15 Famotidine (Pepcid) 20 mg PRN DAILY PRN PO HEARTBURN / GAS Last administered on 04/24/17 11:33; Start 04/02/17 at 09:15 Famotidine (Pepcid) 20 mg 1X ONCE PO Last administered on 04/02/17 09:59; Start 04/02/17 at 09:25; Stop 04/02/17 at 09:26; Status DC Sertraline HCl (Zoloft) 37.5 mg DAILY PO Last administered on 04/03/17 09:52; Start 04/03/17 at 09:00; Stop 04/03/17 at 18:56; Status DC Quetiapine Fumarate (SEROquel) 50 mg HS PO Last administered on 04/04/17 19:26 ; Start 04/03/17 at 21:00; Stop 04/05/17 at 13:22; Status DC Sertraline HCl (Zoloft) 50 mg DAILY PO Last administered on 04/05/17 07:57; Start 04/04/17 at 09:00; Stop 04/05/17 at 13:23; Status DC Quetiapine Fumarate (SEROquel) 50 mg QHS PO Last administered on 04/05/17 20: 26; Start 04/05/17 at 21:00; Stop 04/06/17 at 18:15; Status DC Sertraline HCl (Zoloft) 50 mg DAILY PO Last administered on 04/08/17 08:03; Start 04/06/17 at 09:00; Stop 04/08/17 at 11:04; Status DC Quetiapine Fumarate (SEROquel) 75 mg QHS PO Last administered on 04/20/17 19: 41; Start 04/06/17 at 21:00; Stop 04/21/17 at 14:43; Status DC Mirtazapine (Remeron) 15 mg QHS PO Last administered on 04/20/17 19:41; Start 04/08/17 at 21:00; Stop 04/21/17 at 14:43; Status DC Sertraline HCl (Zoloft) 75 mg DAILY PO Last administered on 04/11/17 08:00; Start 04/09/17 at 09:00; Stop 04/11/17 at 19:18; Status DC Quetiapine Fumarate (SEROquel) 12.5 mg BID92 PO Last administered on 08:22; Start 04/08/17 at 14:00; Stop 04/09/17 at 18:32; Status DC Quetiapine Fumarate (SEROquel) 12.5 mg TID@0900,1400,1700 PO Last administered on 04/27/17 17:30; Start 04/10/17 at 09:00; Stop 04/27/17 at 18:48; Status DC Fluvoxamine Maleate (Luvox) 50 mg HS PO Last administered on 04/13/17 20:22; Start 04/11/17 at 21:00; Stop 04/14/17 at 14:45; Status DC Fluvoxamine Maleate (Luvox) 75 mg HS PO Last administered on 04/15/17 19:14; Start 04/14/17 at 21:00; Stop 04/16/17 at 15:48; Status DC Fluvoxamine Maleate (Luvox) 75 mg DAILYWSUP PO Last administered on 04/27/17 17:29; Start 04/16/17 at 17:00; Stop 04/27/17 at 18:48; Status DC Magnesium Citrate (Citroma) 148 ml 1X ONCE PO Last administered on 04/18/17 13:45; Start 04/18/17 at 13:45; Stop 04/18/17 at 13:46; Status DC Mirtazapine (Remeron) 7.5 mg QHS PO Last administered on 05/10/17 19:43; Start 04/21/17 at 21:00 Quetiapine Fumarate (SEROquel) 150 mg QHS PO Last administered on 05/10/17 19 :44; Start 04/21/17 at 21:00 Divalproex Sodium (Depakote Sprinkles) 125 mg BID@0900,1400 PO Last administered on 04/23/17 12:38; Start 04/22/17 at 09:00; Stop 04/23/17 at 18 :26; Status DC Divalproex Sodium (Depakote Sprinkles) 250 mg BID@0900,1400 PO Last administered on 04/26/17 14:11; Start 04/24/17 at 09:00; Stop 04/26/17 at 19 :26; Status DC Divalproex Sodium (Depakote Sprinkles) 375 mg BID@0900,1400 PO Last administered on 04/29/17 14:11; Start 04/27/17 at 09:00; Stop 04/29/17 at 19: 13; Status DC Fluvoxamine Maleate (Luvox) 100 mg DAILYWSUP PO Last administered on 16:07; Start 04/28/17 at 17:00 Quetiapine Fumarate (SEROquel) 12.5 mg DAILY@1400 PO Last administered on 13:54; Start 04/28/17 at 14:00; Stop 04/30/17 at 18:36; Status DC Quetiapine Fumarate (SEROquel) 25 mg BID@0900,1700 PO Last administered on 04/30 16:29; Start 04/28/17 at 09:00; Stop 04/30/17 at 18:36; Status DC Magnesium Citrate (Citroma) 296 ml 1X ONCE PO Last administered on 04/28/17 08:56; Start 04/28/17 at 09:00; Stop 04/28/17 at 09:01; Status DC Magnesium Citrate (Citroma) 296 ml STK-MED ONCE .ROUTE Last administered on 08:56; Start 04/28/17 at 08:56; Stop 04/28/17 at 08:57; Status DC Polyethylene Glycol (miraLAX) 17 gm DAILY PO Last administered on 05/10/17 08 :56; Start 04/28/17 at 10:30 Bisacodyl (Dulcolax Supp) 10 mg 1X ONCE TX Last administered on 04/28/17 14: 00; Start 04/28/17 at 14:00; Stop 04/28/17 at 14:01; Status DC Senna/Docusate Sodium (Senna Plus) 2 tab 1X ONCE PO Last administered on 19:37; Start 04/28/17 at 21:00; Stop 04/28/17 at 21:01; Status DC Divalproex Sodium (Depakote Er) 1,000 mg QHS PO Last administered on 19:44; Start 04/30/17 at 21:00 Quetiapine Fumarate (SEROquel) 62.5 mg DAILY PO Last administered on 08:57; Start 05/01/17 at 09:00 Sennosides (Senna) 8.6 mg BID PO Last administered on 05/10/17 19:44; Start 05/04/17 at 21:00 Trazodone HCl (Desyrel) 100 mg PRN QHS PRN PO INSOMNIA, MAY REPEAT X1; Start 05/04/17 at 19:30 Trazodone HCl (Desyrel) 100 mg QHS PO Last administered on 05/10/17 19:44; Start 05/04/17 at 21:00 Nicotine (Nicoderm Cq 21mg) 1 patch PRN DAILY PRN TD smoking cessation; Start 05/08/17 at 09:00 Quetiapine Fumarate (SEROquel) 25 mg DAILY@1500 PO ; Start 05/11/17 at 15:00 Active Scripts Active Reported Meclizine Hcl 12.5 Mg Tablet 12.5 Mg PO PRN Q8HRS Haloperidol 2 Mg Tablet 1 Mg PO PRN Q8HRS PRN Seroquel (Quetiapine Fumarate) 25 Mg Tablet 12.5 Mg PO HS Docusate Sodium 100 Mg Capsule 100 Mg PO BID Atorvastatin Calcium 20 Mg Tablet 20 Mg PO QHS Aspirin 81 Mg Tab.chew 81 Mg PO QHS I have reviewed the current psychotropics carefully including drug interactions. Risk benefit ratio favors no change other than as noted in my dictated progress note. Diagnosis: Problems: (1) Medical clearance for psychiatric admission (2) Anxiety disorder (3) Dementia, vascular, with depression (4) Dementia, vascular, with delusions (5) Impulse control disorder (6) Major depressive disorder, recurrent episode EDE OGDEN MD May 10, 2017 20:14
[2017-05-11 06:03] VITALS: BP 94/57
--- NOTE | 2017-05-11 07:46 | PN ---
DATE: 05/09/2017 PSYCHIATRIC PROGRESS NOTE This is a late entry, date of service 05/09/2017, covers elements not covered in my initial note 05/09/2017. SUBJECTIVE: I met with the patient the evening of 05/09/2017. The patient remains confused, urinated on the floor. She was speaking with nursing staff in Ukrainian, somewhat more confused. Her son visited her in the evening. REVIEW OF SYSTEMS: No CV, , pulmonary, eye, ENT system symptoms on review. Despite the above, she is less repetitive, less obsessive with her person, back to the nursing station about various requests, slightly hard of hearing. MENTAL STATUS EXAM: Oriented to herself. Insight, judgment, recent and remote memory, attention, concentration, fund of knowledge poor, consistent with her diagnoses as mentioned in my initial note. PLAN: Continue psychotropics mentioned in my initial note. Make changes further as clinically indicated. EDE OGDEN MD DR: LEXII/shaina JOB#: [id number] / [id number]
[2017-05-11] MEDS: SENNOSIDES 8.6 MG TABLET PO SCH ×2 (08:56→19:19)
[2017-05-11] MEDS: DOCUSATE SODIUM 100 MG CAPSULE PO SCH ×2 (08:57→19:19)
[2017-05-11] MEDS: POLYETHYLENE GLYCOL 3350 17 GM PACKET. PO SCH (08:57)
[2017-05-11] MEDS: QUEtiapine 25 MG TABLET. PO SCH ×2 (08:57→15:46)
[2017-05-11 16:47] VITALS: BP 114/62
[2017-05-11] MEDS: DIVALPROEX ER 500 MG TAB.ER.24H PO SCH (19:18)
[2017-05-11] MEDS: traZODone 50 MG TABLET. PO SCH (19:18)
[2017-05-11] MEDS: MIRTAZAPINE 7.5 MG TABLET. PO SCH (19:19)
[2017-05-11] MEDS: ASPIRIN 81 MG TAB.CHEW PO SCH (19:19)
[2017-05-11] MEDS: QUEtiapine 50 MG TABLET. PO SCH (19:19)
[2017-05-11] MEDS: ATORVASTATIN CALCIUM 20 MG TABLET PO SCH (19:23)
--- NOTE | 2017-05-11 20:00 | PDOC ---
Exam Note: Unruly Note: Please also refer to the separate dictated note~for this date of service dictated separately.~Patient seen individually. Discussed the patient with Nursing staff reviewed the chart.~Reviewed interim history and current functioning. Reviewed vital signs,~Labs/ Radiology~and current medications noted below. Continue current treatment with the changes noted in the dictated addendum note Assessment: Vital Signs: Vital Signs Date Time Temp Pulse Resp B/P (MAP) Pulse Ox O2 Delivery O2 Flow Rate FiO2 05/11/17 16:47 97.9 85 16 114/62 (79) 97 05/09/17 16:05 Room Air I&O Intake and Output 05/11/17 07:00 Intake Total 1200 ml Balance 1200 ml Intake Oral 1200 ml Current Medications: Meds: Current Medications Ziprasidone (Geodon Im) 20 mg STK-MED ONCE IM ; Start 03/30/17 at 20:37; Stop 03/30/17 at 20:38; Status DC Ziprasidone (Geodon Im) 10 mg 1X ONCE IM Last administered on 03/30/17 20:45 ; Start 03/30/17 at 20:45; Stop 03/30/17 at 22:14; Status DC Acetaminophen (Tylenol) 650 mg PRN Q6HRS PRN PO PAIN / TEMP; Start 03/31/17 at 00:30 Multi-Ingredient Ointment (Analgesic [place]) 1 jefferson PRN QID PRN TP MUSCLE PAIN; Start 03/31/17 at 00:30 Al Hydroxide/Mg Hydroxide (Mylanta Plus Xs) 15 ml PRN AFTMEALHC PRN PO DYSPEPSIA Last administered on 04/11/17 14:17; Start 03/31/17 at 00:30 Magnesium Hydroxide (Milk Of Magnesia) 2,400 mg PRN QHS PRN PO CONSTIPATION Last administered on 04/27/17 17:30; Start 03/31/17 at 00:30 Nicotine (Nicoderm Cq 21mg) 1 patch DAILY TD Last administered on 05/06/17 10: 14; Start 03/31/17 at 09:00; Stop 05/07/17 at 11:22; Status DC Haloperidol (Haldol) 1 mg PRN Q8HRS PRN PO ANXIETY / AGITATION Last administered on 05/06/17 15:34; Start 03/31/17 at 01:15 Quetiapine Fumarate (SEROquel) 12.5 mg HS PO ; Start 03/31/17 at 21:00; Stop at 21:00; Status DC Aspirin (Children'S Aspirin) 81 mg QHS PO Last administered on 05/11/17 19:19 ; Start 03/31/17 at 21:00 Atorvastatin Calcium (Lipitor) 20 mg QHS PO Last administered on 05/11/17 19: 23; Start 03/31/17 at 21:00 Docusate Sodium (Colace) 100 mg BID PO Last administered on 05/11/17 19:19; Start 03/31/17 at 21:00 Meclizine HCl (Antivert) 12.5 mg PRN Q8HRS PO ; Start 03/31/17 at 09:30 Quetiapine Fumarate (SEROquel) 6.25 mg HS PO Last administered on 03/31/17 20: 05; Start 03/31/17 at 21:00; Stop 04/01/17 at 10:09; Status DC Mirtazapine (Remeron) 7.5 mg QHS PO Last administered on 04/07/17 20:32; Start 03/31/17 at 21:00; Stop 04/08/17 at 11:04; Status DC Trazodone HCl (Desyrel) 50 mg QHS PO Last administered on 05/04/17 19:20; Start 03/31/17 at 21:00; Stop 05/04/17 at 19:29; Status DC Trazodone HCl (Desyrel) 50 mg PRN QHS PRN PO INSOMNIA, MAY REPEAT X1 Last administered on 04/06/17 22:29; Start 03/31/17 at 18:00; Stop 05/04/17 at 19: 29; Status DC Olanzapine (ZyPREXA ZYDIS) 2.5 mg PRN Q2HR PRN PO psychosis Last administered on 05/10/17 16:07; Start 03/31/17 at 18:00 Quetiapine Fumarate (SEROquel) 25 mg HS PO Last administered on 04/02/17 19:15 ; Start 04/01/17 at 21:00; Stop 04/03/17 at 18:56; Status DC Sertraline HCl (Zoloft) 25 mg DAILY PO Last administered on 04/02/17 09:59; Start 04/02/17 at 09:00; Stop 04/02/17 at 18:43; Status DC Lorazepam (Ativan) 0.5 mg PRN Q2HR PRN PO ANXIETY / AGITATION Last administered on 04/27/17 17:30; Start 04/01/17 at 15:15 Famotidine (Pepcid) 20 mg PRN DAILY PRN PO HEARTBURN / GAS Last administered on 04/24/17 11:33; Start 04/02/17 at 09:15 Famotidine (Pepcid) 20 mg 1X ONCE PO Last administered on 04/02/17 09:59; Start 04/02/17 at 09:25; Stop 04/02/17 at 09:26; Status DC Sertraline HCl (Zoloft) 37.5 mg DAILY PO Last administered on 04/03/17 09:52; Start 04/03/17 at 09:00; Stop 04/03/17 at 18:56; Status DC Quetiapine Fumarate (SEROquel) 50 mg HS PO Last administered on 04/04/17 19:26 ; Start 04/03/17 at 21:00; Stop 04/05/17 at 13:22; Status DC Sertraline HCl (Zoloft) 50 mg DAILY PO Last administered on 04/05/17 07:57; Start 04/04/17 at 09:00; Stop 04/05/17 at 13:23; Status DC Quetiapine Fumarate (SEROquel) 50 mg QHS PO Last administered on 04/05/17 20: 26; Start 04/05/17 at 21:00; Stop 04/06/17 at 18:15; Status DC Sertraline HCl (Zoloft) 50 mg DAILY PO Last administered on 04/08/17 08:03; Start 04/06/17 at 09:00; Stop 04/08/17 at 11:04; Status DC Quetiapine Fumarate (SEROquel) 75 mg QHS PO Last administered on 04/20/17 19: 41; Start 04/06/17 at 21:00; Stop 04/21/17 at 14:43; Status DC Mirtazapine (Remeron) 15 mg QHS PO Last administered on 04/20/17 19:41; Start 04/08/17 at 21:00; Stop 04/21/17 at 14:43; Status DC Sertraline HCl (Zoloft) 75 mg DAILY PO Last administered on 04/11/17 08:00; Start 04/09/17 at 09:00; Stop 04/11/17 at 19:18; Status DC Quetiapine Fumarate (SEROquel) 12.5 mg BID92 PO Last administered on 08:22; Start 04/08/17 at 14:00; Stop 04/09/17 at 18:32; Status DC Quetiapine Fumarate (SEROquel) 12.5 mg TID@0900,1400,1700 PO Last administered on 04/27/17 17:30; Start 04/10/17 at 09:00; Stop 04/27/17 at 18:48; Status DC Fluvoxamine Maleate (Luvox) 50 mg HS PO Last administered on 04/13/17 20:22; Start 04/11/17 at 21:00; Stop 04/14/17 at 14:45; Status DC Fluvoxamine Maleate (Luvox) 75 mg HS PO Last administered on 04/15/17 19:14; Start 04/14/17 at 21:00; Stop 04/16/17 at 15:48; Status DC Fluvoxamine Maleate (Luvox) 75 mg DAILYWSUP PO Last administered on 04/27/17 17:29; Start 04/16/17 at 17:00; Stop 04/27/17 at 18:48; Status DC Magnesium Citrate (Citroma) 148 ml 1X ONCE PO Last administered on 04/18/17 13:45; Start 04/18/17 at 13:45; Stop 04/18/17 at 13:46; Status DC Mirtazapine (Remeron) 7.5 mg QHS PO Last administered on 05/11/17 19:19; Start 04/21/17 at 21:00 Quetiapine Fumarate (SEROquel) 150 mg QHS PO Last administered on 05/11/17 19 :19; Start 04/21/17 at 21:00 Divalproex Sodium (Depakote Sprinkles) 125 mg BID@0900,1400 PO Last administered on 04/23/17 12:38; Start 04/22/17 at 09:00; Stop 04/23/17 at 18 :26; Status DC Divalproex Sodium (Depakote Sprinkles) 250 mg BID@0900,1400 PO Last administered on 04/26/17 14:11; Start 04/24/17 at 09:00; Stop 04/26/17 at 19 :26; Status DC Divalproex Sodium (Depakote Sprinkles) 375 mg BID@0900,1400 PO Last administered on 04/29/17 14:11; Start 04/27/17 at 09:00; Stop 04/29/17 at 19: 13; Status DC Fluvoxamine Maleate (Luvox) 100 mg DAILYWSUP PO Last administered on 16:58; Start 04/28/17 at 17:00 Quetiapine Fumarate (SEROquel) 12.5 mg DAILY@1400 PO Last administered on 13:54; Start 04/28/17 at 14:00; Stop 04/30/17 at 18:36; Status DC Quetiapine Fumarate (SEROquel) 25 mg BID@0900,1700 PO Last administered on 04/30 16:29; Start 04/28/17 at 09:00; Stop 04/30/17 at 18:36; Status DC Magnesium Citrate (Citroma) 296 ml 1X ONCE PO Last administered on 04/28/17 08:56; Start 04/28/17 at 09:00; Stop 04/28/17 at 09:01; Status DC Magnesium Citrate (Citroma) 296 ml STK-MED ONCE .ROUTE Last administered on 08:56; Start 04/28/17 at 08:56; Stop 04/28/17 at 08:57; Status DC Polyethylene Glycol (miraLAX) 17 gm DAILY PO Last administered on 05/11/17 08 :57; Start 04/28/17 at 10:30 Bisacodyl (Dulcolax Supp) 10 mg 1X ONCE MS Last administered on 04/28/17 14: 00; Start 04/28/17 at 14:00; Stop 04/28/17 at 14:01; Status DC Senna/Docusate Sodium (Senna Plus) 2 tab 1X ONCE PO Last administered on 19:37; Start 04/28/17 at 21:00; Stop 04/28/17 at 21:01; Status DC Divalproex Sodium (Depakote Er) 1,000 mg QHS PO Last administered on 19:18; Start 04/30/17 at 21:00 Quetiapine Fumarate (SEROquel) 62.5 mg DAILY PO Last administered on 08:57; Start 05/01/17 at 09:00 Sennosides (Senna) 8.6 mg BID PO Last administered on 05/11/17 19:19; Start 05/04/17 at 21:00 Trazodone HCl (Desyrel) 100 mg PRN QHS PRN PO INSOMNIA, MAY REPEAT X1; Start 05/04/17 at 19:30 Trazodone HCl (Desyrel) 100 mg QHS PO Last administered on 05/11/17 19:18; Start 05/04/17 at 21:00 Nicotine (Nicoderm Cq 21mg) 1 patch PRN DAILY PRN TD smoking cessation; Start 05/08/17 at 09:00 Quetiapine Fumarate (SEROquel) 25 mg DAILY@1500 PO Last administered on 15:46; Start 05/11/17 at 15:00 Active Scripts Active Reported Meclizine Hcl 12.5 Mg Tablet 12.5 Mg PO PRN Q8HRS Haloperidol 2 Mg Tablet 1 Mg PO PRN Q8HRS PRN Seroquel (Quetiapine Fumarate) 25 Mg Tablet 12.5 Mg PO HS Docusate Sodium 100 Mg Capsule 100 Mg PO BID Atorvastatin Calcium 20 Mg Tablet 20 Mg PO QHS Aspirin 81 Mg Tab.chew 81 Mg PO QHS I have reviewed the current psychotropics carefully including drug interactions. Risk benefit ratio favors no change other than as noted in my dictated progress note. Diagnosis: Problems: (1) Medical clearance for psychiatric admission (2) Anxiety disorder (3) Dementia, vascular, with depression (4) Dementia, vascular, with delusions (5) Impulse control disorder (6) Major depressive disorder, recurrent episode EDE OGDEN MD May 11, 2017 20:00
[2017-05-11] MEDS: MAGNESIUM HYDROXIDE 2,400 MG/30 ML ORAL.SUSP. PO PRN (23:57)
[2017-05-12 05:45] VITALS: BP 109/66
[2017-05-12] MEDS: QUEtiapine 25 MG TABLET. PO SCH ×2 (09:19→16:06)
[2017-05-12] MEDS: POLYETHYLENE GLYCOL 3350 17 GM PACKET. PO SCH (09:19)
[2017-05-12] MEDS: DOCUSATE SODIUM 100 MG CAPSULE PO SCH ×2 (09:19→19:03)
[2017-05-12] MEDS: SENNOSIDES 8.6 MG TABLET PO SCH ×2 (09:20→19:03)
--- NOTE | 2017-05-12 11:05 | PN ---
DATE: 05/10/2017 PSYCHIATRIC PROGRESS NOTE This late entry 05/10/2017 covers elements not covered in my initial note 05/10/2017. SUBJECTIVE: Met with the patient in evening of 05/10/2017. She is fixated on wanting milk for rather than supper convinced that her doctor told her not to eat any food other than milk and cereal, attempted to reason with her with limited results. She slept reasonably well previous evening. On 05/10/2017, she did well till 16:10 then was more agitated, received Zyprexa for anxiety. REVIEW OF SYSTEMS: No CV, , pulmonary, eye, ENT system symptoms on review. MENTAL STATUS EXAM: Oriented to herself. Insight, judgment, recent and remote memory, attention, concentration, fund of knowledge poor, consistent with her diagnosis mentioned in my initial. PLAN: Start Seroquel 25 mg at 3 p.m. Continue rest of psychotropics mentioned in my initial note. The afternoon Seroquel should help with the mood lability, agitation and augment the Luvox currently 100 mg a day. MAN Jess OGDEN MD DR: LEXII/shaina JOB#: [id number] / [id number]
[2017-05-12 16:05] VITALS: BP 120/65
[2017-05-12] MEDS: MIRTAZAPINE 7.5 MG TABLET. PO SCH (19:02)
[2017-05-12] MEDS: ATORVASTATIN CALCIUM 20 MG TABLET PO SCH (19:03)
[2017-05-12] MEDS: traZODone 50 MG TABLET. PO SCH (19:03)
[2017-05-12] MEDS: DIVALPROEX ER 500 MG TAB.ER.24H PO SCH (19:03)
[2017-05-12] MEDS: QUEtiapine 50 MG TABLET. PO SCH (19:03)
[2017-05-12] MEDS: ASPIRIN 81 MG TAB.CHEW PO SCH (19:03)
--- NOTE | 2017-05-12 20:06 | PDOC ---
Exam Note: Unruly Note: Please also refer to the separate dictated note~for this date of service dictated separately.~Patient seen individually. Discussed the patient with Nursing staff reviewed the chart.~Reviewed interim history and current functioning. Reviewed vital signs,~Labs/ Radiology~and current medications noted below. Continue current treatment with the changes noted in the dictated addendum note Assessment: Vital Signs: Vital Signs Date Time Temp Pulse Resp B/P (MAP) Pulse Ox O2 Delivery O2 Flow Rate FiO2 05/12/17 16:05 97.2 73 18 120/65 (83) 98 05/09/17 16:05 Room Air I&O Intake and Output 05/12/17 07:00 Intake Total 750 ml Balance 750 ml Intake Oral 750 ml # Bowel Movements 2 Current Medications: Meds: Current Medications Ziprasidone (Geodon Im) 20 mg STK-MED ONCE IM ; Start 03/30/17 at 20:37; Stop 03/30/17 at 20:38; Status DC Ziprasidone (Geodon Im) 10 mg 1X ONCE IM Last administered on 03/30/17 20:45 ; Start 03/30/17 at 20:45; Stop 03/30/17 at 22:14; Status DC Acetaminophen (Tylenol) 650 mg PRN Q6HRS PRN PO PAIN / TEMP; Start 03/31/17 at 00:30 Multi-Ingredient Ointment (Analgesic [place]) 1 jefferson PRN QID PRN TP MUSCLE PAIN; Start 03/31/17 at 00:30 Al Hydroxide/Mg Hydroxide (Mylanta Plus Xs) 15 ml PRN AFTMEALHC PRN PO DYSPEPSIA Last administered on 04/11/17 14:17; Start 03/31/17 at 00:30 Magnesium Hydroxide (Milk Of Magnesia) 2,400 mg PRN QHS PRN PO CONSTIPATION Last administered on 05/11/17 23:57; Start 03/31/17 at 00:30 Nicotine (Nicoderm Cq 21mg) 1 patch DAILY TD Last administered on 05/06/17 10: 14; Start 03/31/17 at 09:00; Stop 05/07/17 at 11:22; Status DC Haloperidol (Haldol) 1 mg PRN Q8HRS PRN PO ANXIETY / AGITATION Last administered on 05/06/17 15:34; Start 03/31/17 at 01:15 Quetiapine Fumarate (SEROquel) 12.5 mg HS PO ; Start 03/31/17 at 21:00; Stop at 21:00; Status DC Aspirin (Children'S Aspirin) 81 mg QHS PO Last administered on 05/12/17 19:03 ; Start 03/31/17 at 21:00 Atorvastatin Calcium (Lipitor) 20 mg QHS PO Last administered on 05/12/17 19: 03; Start 03/31/17 at 21:00 Docusate Sodium (Colace) 100 mg BID PO Last administered on 05/12/17 19:03; Start 03/31/17 at 21:00 Meclizine HCl (Antivert) 12.5 mg PRN Q8HRS PO ; Start 03/31/17 at 09:30 Quetiapine Fumarate (SEROquel) 6.25 mg HS PO Last administered on 03/31/17 20: 05; Start 03/31/17 at 21:00; Stop 04/01/17 at 10:09; Status DC Mirtazapine (Remeron) 7.5 mg QHS PO Last administered on 04/07/17 20:32; Start 03/31/17 at 21:00; Stop 04/08/17 at 11:04; Status DC Trazodone HCl (Desyrel) 50 mg QHS PO Last administered on 05/04/17 19:20; Start 03/31/17 at 21:00; Stop 05/04/17 at 19:29; Status DC Trazodone HCl (Desyrel) 50 mg PRN QHS PRN PO INSOMNIA, MAY REPEAT X1 Last administered on 04/06/17 22:29; Start 03/31/17 at 18:00; Stop 05/04/17 at 19: 29; Status DC Olanzapine (ZyPREXA ZYDIS) 2.5 mg PRN Q2HR PRN PO psychosis Last administered on 05/10/17 16:07; Start 03/31/17 at 18:00 Quetiapine Fumarate (SEROquel) 25 mg HS PO Last administered on 04/02/17 19:15 ; Start 04/01/17 at 21:00; Stop 04/03/17 at 18:56; Status DC Sertraline HCl (Zoloft) 25 mg DAILY PO Last administered on 04/02/17 09:59; Start 04/02/17 at 09:00; Stop 04/02/17 at 18:43; Status DC Lorazepam (Ativan) 0.5 mg PRN Q2HR PRN PO ANXIETY / AGITATION Last administered on 04/27/17 17:30; Start 04/01/17 at 15:15 Famotidine (Pepcid) 20 mg PRN DAILY PRN PO HEARTBURN / GAS Last administered on 04/24/17 11:33; Start 04/02/17 at 09:15 Famotidine (Pepcid) 20 mg 1X ONCE PO Last administered on 04/02/17 09:59; Start 04/02/17 at 09:25; Stop 04/02/17 at 09:26; Status DC Sertraline HCl (Zoloft) 37.5 mg DAILY PO Last administered on 04/03/17 09:52; Start 04/03/17 at 09:00; Stop 04/03/17 at 18:56; Status DC Quetiapine Fumarate (SEROquel) 50 mg HS PO Last administered on 04/04/17 19:26 ; Start 04/03/17 at 21:00; Stop 04/05/17 at 13:22; Status DC Sertraline HCl (Zoloft) 50 mg DAILY PO Last administered on 04/05/17 07:57; Start 04/04/17 at 09:00; Stop 04/05/17 at 13:23; Status DC Quetiapine Fumarate (SEROquel) 50 mg QHS PO Last administered on 04/05/17 20: 26; Start 04/05/17 at 21:00; Stop 04/06/17 at 18:15; Status DC Sertraline HCl (Zoloft) 50 mg DAILY PO Last administered on 04/08/17 08:03; Start 04/06/17 at 09:00; Stop 04/08/17 at 11:04; Status DC Quetiapine Fumarate (SEROquel) 75 mg QHS PO Last administered on 04/20/17 19: 41; Start 04/06/17 at 21:00; Stop 04/21/17 at 14:43; Status DC Mirtazapine (Remeron) 15 mg QHS PO Last administered on 04/20/17 19:41; Start 04/08/17 at 21:00; Stop 04/21/17 at 14:43; Status DC Sertraline HCl (Zoloft) 75 mg DAILY PO Last administered on 04/11/17 08:00; Start 04/09/17 at 09:00; Stop 04/11/17 at 19:18; Status DC Quetiapine Fumarate (SEROquel) 12.5 mg BID92 PO Last administered on 08:22; Start 04/08/17 at 14:00; Stop 04/09/17 at 18:32; Status DC Quetiapine Fumarate (SEROquel) 12.5 mg TID@0900,1400,1700 PO Last administered on 04/27/17 17:30; Start 04/10/17 at 09:00; Stop 04/27/17 at 18:48; Status DC Fluvoxamine Maleate (Luvox) 50 mg HS PO Last administered on 04/13/17 20:22; Start 04/11/17 at 21:00; Stop 04/14/17 at 14:45; Status DC Fluvoxamine Maleate (Luvox) 75 mg HS PO Last administered on 04/15/17 19:14; Start 04/14/17 at 21:00; Stop 04/16/17 at 15:48; Status DC Fluvoxamine Maleate (Luvox) 75 mg DAILYWSUP PO Last administered on 04/27/17 17:29; Start 04/16/17 at 17:00; Stop 04/27/17 at 18:48; Status DC Magnesium Citrate (Citroma) 148 ml 1X ONCE PO Last administered on 04/18/17 13:45; Start 04/18/17 at 13:45; Stop 04/18/17 at 13:46; Status DC Mirtazapine (Remeron) 7.5 mg QHS PO Last administered on 05/12/17 19:02; Start 04/21/17 at 21:00 Quetiapine Fumarate (SEROquel) 150 mg QHS PO Last administered on 05/12/17 19 :03; Start 04/21/17 at 21:00 Divalproex Sodium (Depakote Sprinkles) 125 mg BID@0900,1400 PO Last administered on 04/23/17 12:38; Start 04/22/17 at 09:00; Stop 04/23/17 at 18 :26; Status DC Divalproex Sodium (Depakote Sprinkles) 250 mg BID@0900,1400 PO Last administered on 04/26/17 14:11; Start 04/24/17 at 09:00; Stop 04/26/17 at 19 :26; Status DC Divalproex Sodium (Depakote Sprinkles) 375 mg BID@0900,1400 PO Last administered on 04/29/17 14:11; Start 04/27/17 at 09:00; Stop 04/29/17 at 19: 13; Status DC Fluvoxamine Maleate (Luvox) 100 mg DAILYWSUP PO Last administered on 17:50; Start 04/28/17 at 17:00 Quetiapine Fumarate (SEROquel) 12.5 mg DAILY@1400 PO Last administered on 13:54; Start 04/28/17 at 14:00; Stop 04/30/17 at 18:36; Status DC Quetiapine Fumarate (SEROquel) 25 mg BID@0900,1700 PO Last administered on 04/30 16:29; Start 04/28/17 at 09:00; Stop 04/30/17 at 18:36; Status DC Magnesium Citrate (Citroma) 296 ml 1X ONCE PO Last administered on 04/28/17 08:56; Start 04/28/17 at 09:00; Stop 04/28/17 at 09:01; Status DC Magnesium Citrate (Citroma) 296 ml STK-MED ONCE .ROUTE Last administered on 08:56; Start 04/28/17 at 08:56; Stop 04/28/17 at 08:57; Status DC Polyethylene Glycol (miraLAX) 17 gm DAILY PO Last administered on 05/12/17 09 :19; Start 04/28/17 at 10:30 Bisacodyl (Dulcolax Supp) 10 mg 1X ONCE TN Last administered on 04/28/17 14: 00; Start 04/28/17 at 14:00; Stop 04/28/17 at 14:01; Status DC Senna/Docusate Sodium (Senna Plus) 2 tab 1X ONCE PO Last administered on 19:37; Start 04/28/17 at 21:00; Stop 04/28/17 at 21:01; Status DC Divalproex Sodium (Depakote Er) 1,000 mg QHS PO Last administered on 19:03; Start 04/30/17 at 21:00 Quetiapine Fumarate (SEROquel) 62.5 mg DAILY PO Last administered on 09:19; Start 05/01/17 at 09:00 Sennosides (Senna) 8.6 mg BID PO Last administered on 05/12/17 19:03; Start 05/04/17 at 21:00 Trazodone HCl (Desyrel) 100 mg PRN QHS PRN PO INSOMNIA, MAY REPEAT X1 Last administered on 05/11/17 23:05; Start 05/04/17 at 19:30 Trazodone HCl (Desyrel) 100 mg QHS PO Last administered on 05/12/17 19:03; Start 05/04/17 at 21:00 Nicotine (Nicoderm Cq 21mg) 1 patch PRN DAILY PRN TD smoking cessation; Start 05/08/17 at 09:00 Quetiapine Fumarate (SEROquel) 25 mg DAILY@1500 PO Last administered on 16:06; Start 05/11/17 at 15:00 Active Scripts Active Reported Meclizine Hcl 12.5 Mg Tablet 12.5 Mg PO PRN Q8HRS Haloperidol 2 Mg Tablet 1 Mg PO PRN Q8HRS PRN Seroquel (Quetiapine Fumarate) 25 Mg Tablet 12.5 Mg PO HS Docusate Sodium 100 Mg Capsule 100 Mg PO BID Atorvastatin Calcium 20 Mg Tablet 20 Mg PO QHS Aspirin 81 Mg Tab.chew 81 Mg PO QHS I have reviewed the current psychotropics carefully including drug interactions. Risk benefit ratio favors no change other than as noted in my dictated progress note. Diagnosis: Problems: (1) Medical clearance for psychiatric admission (2) Anxiety disorder (3) Dementia, vascular, with depression (4) Dementia, vascular, with delusions (5) Impulse control disorder (6) Major depressive disorder, recurrent episode EDE OGDEN MD May 12, 2017 20:06
[2017-05-13 05:46] LABS: BACTERIA,URINE MOD /HPF (0-FEW); BILIRUBIN,URINE NEG (NEG); CLARITY,URINE HAZY; COLOR,URINE YELLOW; GLUCOSE,URINE NEG (NEG); NITRITE,URINE NEG (NEG); RBC,URINE OCC /HPF (0-2); SQUAMOUS EPITHELIAL CELL,UR FEW /LPF; UROBILINOGEN,URINE 0.2 mg/dL (0.2 mg/dL); WBC,URINE 20-40 /HPF (0-4)
[2017-05-13 05:50] VITALS: BP 162/63
--- NOTE | 2017-05-13 07:36 | PN ---
DATE: 05/11/2017 PSYCHIATRIC PROGRESS NOTE This late entry for 05/11/2017, covers elements not covered in my initial note of 05/11/2017. SUBJECTIVE: I met with the patient evening of 05/11/2017. The patient has been somewhat paranoid, suspicious, believes people are taking her things, used a dry erase marker to draw her eyebrows. [facility] has accepted her. She is less obsessive returning back to the nursing counter, but otherwise continues with some of the anxiety obsessiveness. She said she knew she was in [place], but not aware she is in the hospital. REVIEW OF SYSTEMS: No CV, , pulmonary, eye, ENT system symptoms on review. Reliability poor. MENTAL STATUS EXAM: Oriented to herself. Insight, judgment, recent and remote memory, attention, concentration, fund of knowledge poor, consistent with her diagnosis mentioned in my initial note. ASSESSMENT: Major neurocognitive disorder, Alzheimer, vascular with delusion, behavioral disturbance; anxiety disorder, unspecified, obsessive-compulsive disorder, impulse control disorder, unspecified. PLAN: Continue psychotropics mentioned in my initial note, reviewed drug interactions, risk/benefit ratio favors no further change for now. MAN Jess OGDEN MD DR: LEXII/shaina JOB#: [id number] / [id number]
[2017-05-13] MEDS: SENNOSIDES 8.6 MG TABLET PO SCH ×2 (09:32→20:34)
[2017-05-13] MEDS: QUEtiapine 25 MG TABLET. PO SCH ×2 (09:32→14:51)
[2017-05-13] MEDS: DOCUSATE SODIUM 100 MG CAPSULE PO SCH ×2 (09:32→20:33)
[2017-05-13] MEDS: POLYETHYLENE GLYCOL 3350 17 GM PACKET. PO SCH (09:32)
[2017-05-13 09:55] LABS: BASO % 0 % (0-3); EOS # 0.2 x10^3/uL (0.0-0.7); EOS % 2 % (0-3); HEMATOCRIT 30.7 % (36.0-47.0); HEMOGLOBIN 10.5 g/dL (12.0-15.5); LYMPH # 1.8 x10^3/uL (1.0-4.8); LYMPH % 19 % (24-48); MEAN CORPUSCULAR HEMOGLOBIN 30 pg (25-35); MEAN CORPUSCULAR HGB CONC 34 g/dL (31-37); MEAN CORPUSCULAR VOLUME 87 fL (79-100); MONO # 0.8 x10^3/uL (0.0-1.1); MONO % 9 % (0-9); NEUT # 6.4 x10^3uL (1.8-7.7); NEUT % 70 % (31-73); PLATELET COUNT 201 x10^3/uL (140-400); RED BLOOD COUNT 3.54 x10^6/uL (3.50-5.40); RED CELL DISTRIBUTION WIDTH 13.8 % (11.5-14.5); WHITE BLOOD COUNT 9.3 x10^3/uL (4.0-11.0)
[2017-05-13 10:09] LABS: ALBUMIN/GLOBULIN RATIO 0.9 (1.0-1.7); ALK PHOS 70 U/L (46-116); ALT (SGPT) 21 U/L (14-59); ANION GAP 6 (6-14); AST (SGOT) 13 U/L (15-37); BLOOD UREA NITROGEN 13 mg/dL (7-20); BUN/CREATININE RATIO 19 (6-20); CALCIUM 9.2 mg/dL (8.5-10.1); CARBON DIOXIDE 31 mmol/L (21-32); CHLORIDE 102 mmol/L (98-107); CREATININE 0.7 mg/dL (0.6-1.0); GFR 79.9; GLUCOSE 141 mg/dL (70-99); MAGNESIUM 2.1 mg/dL (1.8-2.4); POTASSIUM 4.1 mmol/L (3.5-5.1); SODIUM 139 mmol/L (136-145); TOTAL BILIRUBIN 0.2 mg/dL (0.2-1.0); TOTAL PROTEIN 6.2 g/dL (6.4-8.2)
[2017-05-13 10:11] LABS: VAL ACID 74 mcg/mL (50-100)
[2017-05-13 16:55] VITALS: BP 130/79
[2017-05-13] MEDS: HALOPERIDOL 2 MG TABLET PO PRN (17:00)
--- NOTE | 2017-05-13 20:22 | PDOC ---
Exam Note: Unruly Note: Please also refer to the separate dictated note~for this date of service dictated separately.~Patient seen individually. Discussed the patient with Nursing staff reviewed the chart.~Reviewed interim history and current functioning. Reviewed vital signs,~Labs/ Radiology~and current medications noted below. Continue current treatment with the changes noted in the dictated addendum note Assessment: Vital Signs: Vital Signs Date Time Temp Pulse Resp B/P (MAP) Pulse Ox O2 Delivery O2 Flow Rate FiO2 05/13/17 16:55 97.4 85 18 130/79 (96) 96 Room Air I&O Intake and Output 05/13/17 07:00 Intake Total 1080 ml Balance 1080 ml Intake Oral 1080 ml Labs: Laboratory Tests Test 05/13/17 05:21 05/13/17 09:27 Urine Collection Type Unknown Urine Color Yellow Urine Clarity Hazy Urine pH 8.5 Urine Specific [place] 1.015 Urine Protein Neg (NEG-TRACE) Urine Glucose (UA) Neg mg/dL (NEG) Urine Ketones (Stick) Neg mg/dL (NEG) Urine Blood Trace (NEG) Urine Nitrite Neg (NEG) Urine Bilirubin Neg (NEG) Urine Urobilinogen Dipstick 0.2 mg/dL (0.2 mg/dL) Urine Leukocyte Esterase Mod (NEG) Urine RBC Occ /HPF (0-2) Urine WBC 20-40 /HPF (0-4) Urine Squamous Epithelial Cells Few /LPF Urine Bacteria Mod /HPF (0-FEW) White Blood Count 9.3 x10^3/uL (4.0-11.0) Red Blood Count 3.54 x10^6/uL (3.50-5.40) Hemoglobin 10.5 g/dL (12.0-15.5) L Hematocrit 30.7 % (36.0-47.0) L Mean Corpuscular Volume 87 fL (79-100) Mean Corpuscular Hemoglobin 30 pg (25-35) Mean Corpuscular Hemoglobin Concent 34 g/dL (31-37) Red Cell Distribution Width 13.8 % (11.5-14.5) Platelet Count 201 x10^3/uL (140-400) Neutrophils (%) (Auto) 70 % (31-73) Lymphocytes (%) (Auto) 19 % (24-48) L Monocytes (%) (Auto) 9 % (0-9) Eosinophils (%) (Auto) 2 % (0-3) Basophils (%) (Auto) 0 % (0-3) Neutrophils # (Auto) 6.4 x10^3uL (1.8-7.7) Lymphocytes # (Auto) 1.8 x10^3/uL (1.0-4.8) Monocytes # (Auto) 0.8 x10^3/uL (0.0-1.1) Eosinophils # (Auto) 0.2 x10^3/uL (0.0-0.7) Basophils # (Auto) 0.0 x10^3/uL (0.0-0.2) Sodium Level 139 mmol/L (136-145) Potassium Level 4.1 mmol/L (3.5-5.1) Chloride Level 102 mmol/L (98-107) Carbon Dioxide Level 31 mmol/L (21-32) Anion Gap 6 (6-14) Blood Urea Nitrogen 13 mg/dL (7-20) Creatinine 0.7 mg/dL (0.6-1.0) Estimated GFR (Cockcroft-Gault) 79.9 BUN/Creatinine Ratio 19 (6-20) Glucose Level 141 mg/dL (70-99) H Calcium Level 9.2 mg/dL (8.5-10.1) Magnesium Level 2.1 mg/dL (1.8-2.4) Total Bilirubin 0.2 mg/dL (0.2-1.0) Aspartate Amino Transferase (AST) 13 U/L (15-37) L Alanine Aminotransferase (ALT) 21 U/L (14-59) Alkaline Phosphatase 70 U/L (46-116) Total Protein 6.2 g/dL (6.4-8.2) L Albumin 3.0 g/dL (3.4-5.0) L Albumin/Globulin Ratio 0.9 (1.0-1.7) L Valproic Acid Level 74 mcg/mL (50-100) Valproic Acid Last Dose Date 05/12/17 Valproic Acid Last Dose Time 2100 Current Medications: Meds: Current Medications Ziprasidone (Geodon Im) 20 mg STK-MED ONCE IM ; Start 03/30/17 at 20:37; Stop 03/30/17 at 20:38; Status DC Ziprasidone (Geodon Im) 10 mg 1X ONCE IM Last administered on 03/30/17 20:45 ; Start 03/30/17 at 20:45; Stop 03/30/17 at 22:14; Status DC Acetaminophen (Tylenol) 650 mg PRN Q6HRS PRN PO PAIN / TEMP; Start 03/31/17 at 00:30 Multi-Ingredient Ointment (Analgesic [place]) 1 jefferson PRN QID PRN TP MUSCLE PAIN; Start 03/31/17 at 00:30 Al Hydroxide/Mg Hydroxide (Mylanta Plus Xs) 15 ml PRN AFTMEALHC PRN PO DYSPEPSIA Last administered on 04/11/17 14:17; Start 03/31/17 at 00:30 Magnesium Hydroxide (Milk Of Magnesia) 2,400 mg PRN QHS PRN PO CONSTIPATION Last administered on 05/11/17 23:57; Start 03/31/17 at 00:30 Nicotine (Nicoderm Cq 21mg) 1 patch DAILY TD Last administered on 05/06/17 10: 14; Start 03/31/17 at 09:00; Stop 05/07/17 at 11:22; Status DC Haloperidol (Haldol) 1 mg PRN Q8HRS PRN PO ANXIETY / AGITATION Last administered on 05/13/17 17:00; Start 03/31/17 at 01:15 Quetiapine Fumarate (SEROquel) 12.5 mg HS PO ; Start 03/31/17 at 21:00; Stop at 21:00; Status DC Aspirin (Children'S Aspirin) 81 mg QHS PO Last administered on 05/12/17 19:03 ; Start 03/31/17 at 21:00 Atorvastatin Calcium (Lipitor) 20 mg QHS PO Last administered on 05/12/17 19: 03; Start 03/31/17 at 21:00 Docusate Sodium (Colace) 100 mg BID PO Last administered on 05/13/17 09:32; Start 03/31/17 at 21:00 Meclizine HCl (Antivert) 12.5 mg PRN Q8HRS PO ; Start 03/31/17 at 09:30 Quetiapine Fumarate (SEROquel) 6.25 mg HS PO Last administered on 03/31/17 20: 05; Start 03/31/17 at 21:00; Stop 04/01/17 at 10:09; Status DC Mirtazapine (Remeron) 7.5 mg QHS PO Last administered on 04/07/17 20:32; Start 03/31/17 at 21:00; Stop 04/08/17 at 11:04; Status DC Trazodone HCl (Desyrel) 50 mg QHS PO Last administered on 05/04/17 19:20; Start 03/31/17 at 21:00; Stop 05/04/17 at 19:29; Status DC Trazodone HCl (Desyrel) 50 mg PRN QHS PRN PO INSOMNIA, MAY REPEAT X1 Last administered on 04/06/17 22:29; Start 03/31/17 at 18:00; Stop 05/04/17 at 19: 29; Status DC Olanzapine (ZyPREXA ZYDIS) 2.5 mg PRN Q2HR PRN PO psychosis Last administered on 05/10/17 16:07; Start 03/31/17 at 18:00 Quetiapine Fumarate (SEROquel) 25 mg HS PO Last administered on 04/02/17 19:15 ; Start 04/01/17 at 21:00; Stop 04/03/17 at 18:56; Status DC Sertraline HCl (Zoloft) 25 mg DAILY PO Last administered on 04/02/17 09:59; Start 04/02/17 at 09:00; Stop 04/02/17 at 18:43; Status DC Lorazepam (Ativan) 0.5 mg PRN Q2HR PRN PO ANXIETY / AGITATION Last administered on 04/27/17 17:30; Start 04/01/17 at 15:15 Famotidine (Pepcid) 20 mg PRN DAILY PRN PO HEARTBURN / GAS Last administered on 04/24/17 11:33; Start 04/02/17 at 09:15 Famotidine (Pepcid) 20 mg 1X ONCE PO Last administered on 04/02/17 09:59; Start 04/02/17 at 09:25; Stop 04/02/17 at 09:26; Status DC Sertraline HCl (Zoloft) 37.5 mg DAILY PO Last administered on 04/03/17 09:52; Start 04/03/17 at 09:00; Stop 04/03/17 at 18:56; Status DC Quetiapine Fumarate (SEROquel) 50 mg HS PO Last administered on 04/04/17 19:26 ; Start 04/03/17 at 21:00; Stop 04/05/17 at 13:22; Status DC Sertraline HCl (Zoloft) 50 mg DAILY PO Last administered on 04/05/17 07:57; Start 04/04/17 at 09:00; Stop 04/05/17 at 13:23; Status DC Quetiapine Fumarate (SEROquel) 50 mg QHS PO Last administered on 04/05/17 20: 26; Start 04/05/17 at 21:00; Stop 04/06/17 at 18:15; Status DC Sertraline HCl (Zoloft) 50 mg DAILY PO Last administered on 04/08/17 08:03; Start 04/06/17 at 09:00; Stop 04/08/17 at 11:04; Status DC Quetiapine Fumarate (SEROquel) 75 mg QHS PO Last administered on 04/20/17 19: 41; Start 04/06/17 at 21:00; Stop 04/21/17 at 14:43; Status DC Mirtazapine (Remeron) 15 mg QHS PO Last administered on 04/20/17 19:41; Start 04/08/17 at 21:00; Stop 04/21/17 at 14:43; Status DC Sertraline HCl (Zoloft) 75 mg DAILY PO Last administered on 04/11/17 08:00; Start 04/09/17 at 09:00; Stop 04/11/17 at 19:18; Status DC Quetiapine Fumarate (SEROquel) 12.5 mg BID92 PO Last administered on 08:22; Start 04/08/17 at 14:00; Stop 04/09/17 at 18:32; Status DC Quetiapine Fumarate (SEROquel) 12.5 mg TID@0900,1400,1700 PO Last administered on 04/27/17 17:30; Start 04/10/17 at 09:00; Stop 04/27/17 at 18:48; Status DC Fluvoxamine Maleate (Luvox) 50 mg HS PO Last administered on 04/13/17 20:22; Start 04/11/17 at 21:00; Stop 04/14/17 at 14:45; Status DC Fluvoxamine Maleate (Luvox) 75 mg HS PO Last administered on 04/15/17 19:14; Start 04/14/17 at 21:00; Stop 04/16/17 at 15:48; Status DC Fluvoxamine Maleate (Luvox) 75 mg DAILYWSUP PO Last administered on 04/27/17 17:29; Start 04/16/17 at 17:00; Stop 04/27/17 at 18:48; Status DC Magnesium Citrate (Citroma) 148 ml 1X ONCE PO Last administered on 04/18/17 13:45; Start 04/18/17 at 13:45; Stop 04/18/17 at 13:46; Status DC Mirtazapine (Remeron) 7.5 mg QHS PO Last administered on 05/12/17 19:02; Start 04/21/17 at 21:00 Quetiapine Fumarate (SEROquel) 150 mg QHS PO Last administered on 05/12/17 19 :03; Start 04/21/17 at 21:00 Divalproex Sodium (Depakote Sprinkles) 125 mg BID@0900,1400 PO Last administered on 04/23/17 12:38; Start 04/22/17 at 09:00; Stop 04/23/17 at 18 :26; Status DC Divalproex Sodium (Depakote Sprinkles) 250 mg BID@0900,1400 PO Last administered on 04/26/17 14:11; Start 04/24/17 at 09:00; Stop 04/26/17 at 19 :26; Status DC Divalproex Sodium (Depakote Sprinkles) 375 mg BID@0900,1400 PO Last administered on 04/29/17 14:11; Start 04/27/17 at 09:00; Stop 04/29/17 at 19: 13; Status DC Fluvoxamine Maleate (Luvox) 100 mg DAILYWSUP PO Last administered on 17:00; Start 04/28/17 at 17:00 Quetiapine Fumarate (SEROquel) 12.5 mg DAILY@1400 PO Last administered on 13:54; Start 04/28/17 at 14:00; Stop 04/30/17 at 18:36; Status DC Quetiapine Fumarate (SEROquel) 25 mg BID@0900,1700 PO Last administered on 04/30 16:29; Start 04/28/17 at 09:00; Stop 04/30/17 at 18:36; Status DC Magnesium Citrate (Citroma) 296 ml 1X ONCE PO Last administered on 04/28/17 08:56; Start 04/28/17 at 09:00; Stop 04/28/17 at 09:01; Status DC Magnesium Citrate (Citroma) 296 ml STK-MED ONCE .ROUTE Last administered on 08:56; Start 04/28/17 at 08:56; Stop 04/28/17 at 08:57; Status DC Polyethylene Glycol (miraLAX) 17 gm DAILY PO Last administered on 05/13/17 09 :32; Start 04/28/17 at 10:30 Bisacodyl (Dulcolax Supp) 10 mg 1X ONCE ND Last administered on 04/28/17 14: 00; Start 04/28/17 at 14:00; Stop 04/28/17 at 14:01; Status DC Senna/Docusate Sodium (Senna Plus) 2 tab 1X ONCE PO Last administered on 19:37; Start 04/28/17 at 21:00; Stop 04/28/17 at 21:01; Status DC Divalproex Sodium (Depakote Er) 1,000 mg QHS PO Last administered on 19:03; Start 04/30/17 at 21:00 Quetiapine Fumarate (SEROquel) 62.5 mg DAILY PO Last administered on 09:32; Start 05/01/17 at 09:00 Sennosides (Senna) 8.6 mg BID PO Last administered on 05/13/17 09:32; Start 05/04/17 at 21:00 Trazodone HCl (Desyrel) 100 mg PRN QHS PRN PO INSOMNIA, MAY REPEAT X1 Last administered on 05/11/17 23:05; Start 05/04/17 at 19:30 Trazodone HCl (Desyrel) 100 mg QHS PO Last administered on 05/12/17 19:03; Start 05/04/17 at 21:00 Nicotine (Nicoderm Cq 21mg) 1 patch PRN DAILY PRN TD smoking cessation; Start 05/08/17 at 09:00 Quetiapine Fumarate (SEROquel) 25 mg DAILY@1500 PO Last administered on 14:51; Start 05/11/17 at 15:00 Active Scripts Active Reported Meclizine Hcl 12.5 Mg Tablet 12.5 Mg PO PRN Q8HRS Haloperidol 2 Mg Tablet 1 Mg PO PRN Q8HRS PRN Seroquel (Quetiapine Fumarate) 25 Mg Tablet 12.5 Mg PO HS Docusate Sodium 100 Mg Capsule 100 Mg PO BID Atorvastatin Calcium 20 Mg Tablet 20 Mg PO QHS Aspirin 81 Mg Tab.chew 81 Mg PO QHS I have reviewed the current psychotropics carefully including drug interactions. Risk benefit ratio favors no change other than as noted in my dictated progress note. Diagnosis: Problems: (1) Medical clearance for psychiatric admission (2) Anxiety disorder (3) Dementia, vascular, with depression (4) Dementia, vascular, with delusions (5) Impulse control disorder (6) Major depressive disorder, recurrent episode EDE OGDEN MD May 13, 2017 20:22
[2017-05-13] MEDS: QUEtiapine 50 MG TABLET. PO SCH (20:33)
[2017-05-13] MEDS: ASPIRIN 81 MG TAB.CHEW PO SCH (20:33)
[2017-05-13] MEDS: traZODone 50 MG TABLET. PO SCH (20:34)
[2017-05-13] MEDS: ATORVASTATIN CALCIUM 20 MG TABLET PO SCH (20:34)
[2017-05-13] MEDS: MIRTAZAPINE 7.5 MG TABLET. PO SCH (20:34)
[2017-05-13] MEDS: DIVALPROEX ER 500 MG TAB.ER.24H PO SCH (20:34)
[2017-05-14 06:00] VITALS: BP 99/55
[2017-05-14] MEDS: SENNOSIDES 8.6 MG TABLET PO SCH ×2 (08:02→19:42)
[2017-05-14] MEDS: DOCUSATE SODIUM 100 MG CAPSULE PO SCH ×2 (08:03→19:42)
[2017-05-14] MEDS: POLYETHYLENE GLYCOL 3350 17 GM PACKET. PO SCH (08:03)
[2017-05-14] MEDS: QUEtiapine 25 MG TABLET. PO SCH ×2 (08:03→14:42)
[2017-05-14 16:14] VITALS: BP 156/68
[2017-05-14] MEDS: MIRTAZAPINE 7.5 MG TABLET. PO SCH (19:41)
[2017-05-14] MEDS: QUEtiapine 50 MG TABLET. PO SCH (19:41)
[2017-05-14] MEDS: DIVALPROEX ER 500 MG TAB.ER.24H PO SCH (19:42)
[2017-05-14] MEDS: ATORVASTATIN CALCIUM 20 MG TABLET PO SCH (19:42)
[2017-05-14] MEDS: traZODone 50 MG TABLET. PO SCH (19:42)
[2017-05-14] MEDS: ASPIRIN 81 MG TAB.CHEW PO SCH (19:42)
--- NOTE | 2017-05-14 20:05 | PDOC ---
Exam Note: Unruly Note: Please also refer to the separate dictated note~for this date of service dictated separately.~Patient seen individually. Discussed the patient with Nursing staff reviewed the chart.~Reviewed interim history and current functioning. Reviewed vital signs,~Labs/ Radiology~and current medications noted below. Continue current treatment with the changes noted in the dictated addendum note Assessment: Vital Signs: Vital Signs Date Time Temp Pulse Resp B/P (MAP) Pulse Ox O2 Delivery O2 Flow Rate FiO2 05/14/17 16:14 98.0 86 16 156/68 (97) 97 Room Air I&O Intake and Output 05/14/17 07:00 Intake Total 960 ml Balance 960 ml Intake Oral 960 ml Current Medications: Meds: Current Medications Ziprasidone (Geodon Im) 20 mg STK-MED ONCE IM ; Start 03/30/17 at 20:37; Stop 03/30/17 at 20:38; Status DC Ziprasidone (Geodon Im) 10 mg 1X ONCE IM Last administered on 03/30/17 20:45 ; Start 03/30/17 at 20:45; Stop 03/30/17 at 22:14; Status DC Acetaminophen (Tylenol) 650 mg PRN Q6HRS PRN PO PAIN / TEMP; Start 03/31/17 at 00:30 Multi-Ingredient Ointment (Analgesic [place]) 1 jefferson PRN QID PRN TP MUSCLE PAIN; Start 03/31/17 at 00:30 Al Hydroxide/Mg Hydroxide (Mylanta Plus Xs) 15 ml PRN AFTMEALHC PRN PO DYSPEPSIA Last administered on 04/11/17 14:17; Start 03/31/17 at 00:30 Magnesium Hydroxide (Milk Of Magnesia) 2,400 mg PRN QHS PRN PO CONSTIPATION Last administered on 05/11/17 23:57; Start 03/31/17 at 00:30 Nicotine (Nicoderm Cq 21mg) 1 patch DAILY TD Last administered on 05/06/17 10: 14; Start 03/31/17 at 09:00; Stop 05/07/17 at 11:22; Status DC Haloperidol (Haldol) 1 mg PRN Q8HRS PRN PO ANXIETY / AGITATION Last administered on 05/13/17 17:00; Start 03/31/17 at 01:15 Quetiapine Fumarate (SEROquel) 12.5 mg HS PO ; Start 03/31/17 at 21:00; Stop at 21:00; Status DC Aspirin (Children'S Aspirin) 81 mg QHS PO Last administered on 05/14/17 19:42 ; Start 03/31/17 at 21:00 Atorvastatin Calcium (Lipitor) 20 mg QHS PO Last administered on 05/14/17 19: 42; Start 03/31/17 at 21:00 Docusate Sodium (Colace) 100 mg BID PO Last administered on 05/14/17 19:42; Start 03/31/17 at 21:00 Meclizine HCl (Antivert) 12.5 mg PRN Q8HRS PO ; Start 03/31/17 at 09:30 Quetiapine Fumarate (SEROquel) 6.25 mg HS PO Last administered on 03/31/17 20: 05; Start 03/31/17 at 21:00; Stop 04/01/17 at 10:09; Status DC Mirtazapine (Remeron) 7.5 mg QHS PO Last administered on 04/07/17 20:32; Start 03/31/17 at 21:00; Stop 04/08/17 at 11:04; Status DC Trazodone HCl (Desyrel) 50 mg QHS PO Last administered on 05/04/17 19:20; Start 03/31/17 at 21:00; Stop 05/04/17 at 19:29; Status DC Trazodone HCl (Desyrel) 50 mg PRN QHS PRN PO INSOMNIA, MAY REPEAT X1 Last administered on 04/06/17 22:29; Start 03/31/17 at 18:00; Stop 05/04/17 at 19: 29; Status DC Olanzapine (ZyPREXA ZYDIS) 2.5 mg PRN Q2HR PRN PO psychosis Last administered on 05/10/17 16:07; Start 03/31/17 at 18:00 Quetiapine Fumarate (SEROquel) 25 mg HS PO Last administered on 04/02/17 19:15 ; Start 04/01/17 at 21:00; Stop 04/03/17 at 18:56; Status DC Sertraline HCl (Zoloft) 25 mg DAILY PO Last administered on 04/02/17 09:59; Start 04/02/17 at 09:00; Stop 04/02/17 at 18:43; Status DC Lorazepam (Ativan) 0.5 mg PRN Q2HR PRN PO ANXIETY / AGITATION Last administered on 04/27/17 17:30; Start 04/01/17 at 15:15 Famotidine (Pepcid) 20 mg PRN DAILY PRN PO HEARTBURN / GAS Last administered on 04/24/17 11:33; Start 04/02/17 at 09:15 Famotidine (Pepcid) 20 mg 1X ONCE PO Last administered on 04/02/17 09:59; Start 04/02/17 at 09:25; Stop 04/02/17 at 09:26; Status DC Sertraline HCl (Zoloft) 37.5 mg DAILY PO Last administered on 04/03/17 09:52; Start 04/03/17 at 09:00; Stop 04/03/17 at 18:56; Status DC Quetiapine Fumarate (SEROquel) 50 mg HS PO Last administered on 04/04/17 19:26 ; Start 04/03/17 at 21:00; Stop 04/05/17 at 13:22; Status DC Sertraline HCl (Zoloft) 50 mg DAILY PO Last administered on 04/05/17 07:57; Start 04/04/17 at 09:00; Stop 04/05/17 at 13:23; Status DC Quetiapine Fumarate (SEROquel) 50 mg QHS PO Last administered on 04/05/17 20: 26; Start 04/05/17 at 21:00; Stop 04/06/17 at 18:15; Status DC Sertraline HCl (Zoloft) 50 mg DAILY PO Last administered on 04/08/17 08:03; Start 04/06/17 at 09:00; Stop 04/08/17 at 11:04; Status DC Quetiapine Fumarate (SEROquel) 75 mg QHS PO Last administered on 04/20/17 19: 41; Start 04/06/17 at 21:00; Stop 04/21/17 at 14:43; Status DC Mirtazapine (Remeron) 15 mg QHS PO Last administered on 04/20/17 19:41; Start 04/08/17 at 21:00; Stop 04/21/17 at 14:43; Status DC Sertraline HCl (Zoloft) 75 mg DAILY PO Last administered on 04/11/17 08:00; Start 04/09/17 at 09:00; Stop 04/11/17 at 19:18; Status DC Quetiapine Fumarate (SEROquel) 12.5 mg BID92 PO Last administered on 08:22; Start 04/08/17 at 14:00; Stop 04/09/17 at 18:32; Status DC Quetiapine Fumarate (SEROquel) 12.5 mg TID@0900,1400,1700 PO Last administered on 04/27/17 17:30; Start 04/10/17 at 09:00; Stop 04/27/17 at 18:48; Status DC Fluvoxamine Maleate (Luvox) 50 mg HS PO Last administered on 04/13/17 20:22; Start 04/11/17 at 21:00; Stop 04/14/17 at 14:45; Status DC Fluvoxamine Maleate (Luvox) 75 mg HS PO Last administered on 04/15/17 19:14; Start 04/14/17 at 21:00; Stop 04/16/17 at 15:48; Status DC Fluvoxamine Maleate (Luvox) 75 mg DAILYWSUP PO Last administered on 04/27/17 17:29; Start 04/16/17 at 17:00; Stop 04/27/17 at 18:48; Status DC Magnesium Citrate (Citroma) 148 ml 1X ONCE PO Last administered on 04/18/17 13:45; Start 04/18/17 at 13:45; Stop 04/18/17 at 13:46; Status DC Mirtazapine (Remeron) 7.5 mg QHS PO Last administered on 05/14/17 19:41; Start 04/21/17 at 21:00 Quetiapine Fumarate (SEROquel) 150 mg QHS PO Last administered on 05/14/17 19 :41; Start 04/21/17 at 21:00 Divalproex Sodium (Depakote Sprinkles) 125 mg BID@0900,1400 PO Last administered on 04/23/17 12:38; Start 04/22/17 at 09:00; Stop 04/23/17 at 18 :26; Status DC Divalproex Sodium (Depakote Sprinkles) 250 mg BID@0900,1400 PO Last administered on 04/26/17 14:11; Start 04/24/17 at 09:00; Stop 04/26/17 at 19 :26; Status DC Divalproex Sodium (Depakote Sprinkles) 375 mg BID@0900,1400 PO Last administered on 04/29/17 14:11; Start 04/27/17 at 09:00; Stop 04/29/17 at 19: 13; Status DC Fluvoxamine Maleate (Luvox) 100 mg DAILYWSUP PO Last administered on 16:59; Start 04/28/17 at 17:00 Quetiapine Fumarate (SEROquel) 12.5 mg DAILY@1400 PO Last administered on 13:54; Start 04/28/17 at 14:00; Stop 04/30/17 at 18:36; Status DC Quetiapine Fumarate (SEROquel) 25 mg BID@0900,1700 PO Last administered on 04/30 16:29; Start 04/28/17 at 09:00; Stop 04/30/17 at 18:36; Status DC Magnesium Citrate (Citroma) 296 ml 1X ONCE PO Last administered on 04/28/17 08:56; Start 04/28/17 at 09:00; Stop 04/28/17 at 09:01; Status DC Magnesium Citrate (Citroma) 296 ml STK-MED ONCE .ROUTE Last administered on 08:56; Start 04/28/17 at 08:56; Stop 04/28/17 at 08:57; Status DC Polyethylene Glycol (miraLAX) 17 gm DAILY PO Last administered on 05/14/17 08 :03; Start 04/28/17 at 10:30 Bisacodyl (Dulcolax Supp) 10 mg 1X ONCE DE Last administered on 04/28/17 14: 00; Start 04/28/17 at 14:00; Stop 04/28/17 at 14:01; Status DC Senna/Docusate Sodium (Senna Plus) 2 tab 1X ONCE PO Last administered on 19:37; Start 04/28/17 at 21:00; Stop 04/28/17 at 21:01; Status DC Divalproex Sodium (Depakote Er) 1,000 mg QHS PO Last administered on 19:42; Start 04/30/17 at 21:00 Quetiapine Fumarate (SEROquel) 62.5 mg DAILY PO Last administered on 08:03; Start 05/01/17 at 09:00 Sennosides (Senna) 8.6 mg BID PO Last administered on 05/14/17 19:42; Start 05/04/17 at 21:00 Trazodone HCl (Desyrel) 100 mg PRN QHS PRN PO INSOMNIA, MAY REPEAT X1 Last administered on 05/11/17 23:05; Start 05/04/17 at 19:30 Trazodone HCl (Desyrel) 100 mg QHS PO Last administered on 05/14/17 19:42; Start 05/04/17 at 21:00 Nicotine (Nicoderm Cq 21mg) 1 patch PRN DAILY PRN TD smoking cessation; Start 05/08/17 at 09:00 Quetiapine Fumarate (SEROquel) 25 mg DAILY@1500 PO Last administered on 14:42; Start 05/11/17 at 15:00 Active Scripts Active Reported Meclizine Hcl 12.5 Mg Tablet 12.5 Mg PO PRN Q8HRS Haloperidol 2 Mg Tablet 1 Mg PO PRN Q8HRS PRN Seroquel (Quetiapine Fumarate) 25 Mg Tablet 12.5 Mg PO HS Docusate Sodium 100 Mg Capsule 100 Mg PO BID Atorvastatin Calcium 20 Mg Tablet 20 Mg PO QHS Aspirin 81 Mg Tab.chew 81 Mg PO QHS I have reviewed the current psychotropics carefully including drug interactions. Risk benefit ratio favors no change other than as noted in my dictated progress note. Diagnosis: Problems: (1) Medical clearance for psychiatric admission (2) Anxiety disorder (3) Dementia, vascular, with depression (4) Dementia, vascular, with delusions (5) Impulse control disorder (6) Major depressive disorder, recurrent episode EDE OGDEN MD May 14, 2017 20:05
[2017-05-14] MEDS ORDERED: ACET325T9 PO (23:49)
[2017-05-14] MEDS ORDERED: DIVA500T17 PO (23:49)
[2017-05-14] MEDS ORDERED: FAMO20TA5 PO (23:50)
[2017-05-14] MEDS ORDERED: MAG355OR22 PO (23:52)
[2017-05-14] MEDS ORDERED: MAGN2400 PO (23:52)
[2017-05-14] MEDS ORDERED: METH113C6 TP (23:53)
[2017-05-14] MEDS ORDERED: MIRT15TA3 PO (23:54)
[2017-05-14] MEDS ORDERED: NICO1PAT21 TD (23:55)
[2017-05-14] MEDS ORDERED: OLAN2.5T3 PO (23:56)
[2017-05-14] MEDS ORDERED: POLY255P PO (23:57)
[2017-05-14] MEDS ORDERED: QUET25TA5 PO ×2 (23:58)
[2017-05-14] MEDS ORDERED: SENN-79 PO (23:59)
[2017-05-15] MEDS ORDERED: FLUV100T2 PO
[2017-05-15] MEDS ORDERED: TRAZ-90 PO ×2 (00:01)
[2017-05-15 05:52] VITALS: BP 125/67
--- NOTE | 2017-05-15 06:11 | PN ---
DATE: 05/12/2017 PSYCHIATRIC PROGRESS NOTE This is a late entry for 05/12/2017, covers the elements not covered in my initial note of 05/12/2017. SUBJECTIVE: I met with the patient in the evening of 05/12/2017. She remains confused, has found gagging herself to make herself throw up, per nursing staff seemed to do it like she done at several times in the past. REVIEW OF SYSTEMS: No CV, , pulmonary, eye, ENT system symptoms on review. Reliability poor. MENTAL STATUS EXAM: Oriented to herself. Insight, judgment, recent and remote memory, attention, concentration, fund of knowledge poor, consistent with her diagnosis mentioned in my initial note. PLAN: Continue current psychotropics mentioned in my initial note. MAN Jess OGDEN MD DR: LEXII/shaina JOB#: [id number] / [id number]
--- NOTE | 2017-05-15 06:14 | PN ---
DATE: 05/13/2017 PSYCHIATRIC PROGRESS NOTE This is a late entry for 05/13/2017, covers the elements not covered in my initial note of 05/13/2017. SUBJECTIVE: The patient was staffed in the morning, seen individually in the evening. UA has reflex to culture. She has been making herself throw up, but we are monitoring this. REVIEW OF SYSTEMS: No CV, , pulmonary, eye, ENT system symptoms on review. Reliability poor, less obsessive. MENTAL STATUS EXAM: Oriented to herself. Insight, judgment, recent and remote memory, attention, concentration, fund of knowledge poor, consistent with her diagnosis mentioned in my initial note. PLAN: No change from a psychiatric standpoint from the initial note. MAN Jess OGDEN MD DR: LEXII/shaina JOB#: [id number] / [id number]
[2017-05-15] MEDS: QUEtiapine 25 MG TABLET. PO SCH ×2 (08:55→14:13)
[2017-05-15] MEDS: SENNOSIDES 8.6 MG TABLET PO SCH (08:56)
[2017-05-15] MEDS: DOCUSATE SODIUM 100 MG CAPSULE PO SCH (08:56)
[2017-05-15] MEDS: POLYETHYLENE GLYCOL 3350 17 GM PACKET. PO SCH (08:56)
[2017-05-15] MEDS: HALOPERIDOL 2 MG TABLET PO PRN (08:58)
[2017-05-15] MEDS ORDERED: NITROFURANTOIN MONOHYD/M-CRYST 100 MG CAPSULE. PO SCH (13:00)
--- NOTE | 2017-05-15 18:52 | PDOC ---
Exam Note: Unruly Note: Please also refer to the separate dictated note~for this date of service dictated separately.~Patient seen individually. Discussed the patient with Nursing staff reviewed the chart.~Reviewed interim history and current functioning. Reviewed vital signs,~Labs/ Radiology~and current medications noted below. Continue current treatment with the changes noted in the dictated addendum note Assessment: Vital Signs: Vital Signs Date Time Temp Pulse Resp B/P (MAP) Pulse Ox O2 Delivery O2 Flow Rate FiO2 05/15/17 05:52 97.1 72 18 125/67 (86) 93 05/14/17 16:14 Room Air I&O Intake and Output 05/15/17 07:00 Intake Total 1020 ml Balance 1020 ml Intake Oral 1020 ml # Bowel Movements 1 Current Medications: Meds: Current Medications Ziprasidone (Geodon Im) 20 mg STK-MED ONCE IM ; Start 03/30/17 at 20:37; Stop 03/30/17 at 20:38; Status DC Ziprasidone (Geodon Im) 10 mg 1X ONCE IM Last administered on 03/30/17 20:45 ; Start 03/30/17 at 20:45; Stop 03/30/17 at 22:14; Status DC Acetaminophen (Tylenol) 650 mg PRN Q6HRS PRN PO PAIN / TEMP; Start 03/31/17 at 00:30; Stop 05/15/17 at 15:57; Status DC Multi-Ingredient Ointment (Analgesic [place]) 1 chidi PRN QID PRN TP MUSCLE PAIN; Start 03/31/17 at 00:30; Stop 05/15/17 at 15:57; Status DC Al Hydroxide/Mg Hydroxide (Mylanta Plus Xs) 15 ml PRN AFTMEALHC PRN PO DYSPEPSIA Last administered on 04/11/17 14:17; Start 03/31/17 at 00:30; Stop 05/15/17 at 15:57; Status DC Magnesium Hydroxide (Milk Of Magnesia) 2,400 mg PRN QHS PRN PO CONSTIPATION Last administered on 05/11/17 23:57; Start 03/31/17 at 00:30; Stop 05/15/17 at 15:57; Status DC Nicotine (Nicoderm Cq 21mg) 1 patch DAILY TD Last administered on 05/06/17 10: 14; Start 03/31/17 at 09:00; Stop 05/07/17 at 11:22; Status DC Haloperidol (Haldol) 1 mg PRN Q8HRS PRN PO ANXIETY / AGITATION Last administered on 05/15/17 08:58; Start 03/31/17 at 01:15; Stop 05/15/17 at 15: 57; Status DC Quetiapine Fumarate (SEROquel) 12.5 mg HS PO ; Start 03/31/17 at 21:00; Stop at 21:00; Status DC Aspirin (Children'S Aspirin) 81 mg QHS PO Last administered on 05/14/17 19:42 ; Start 03/31/17 at 21:00; Stop 05/15/17 at 15:57; Status DC Atorvastatin Calcium (Lipitor) 20 mg QHS PO Last administered on 05/14/17 19: 42; Start 03/31/17 at 21:00; Stop 05/15/17 at 15:57; Status DC Docusate Sodium (Colace) 100 mg BID PO Last administered on 05/15/17 08:56; Start 03/31/17 at 21:00; Stop 05/15/17 at 15:57; Status DC Meclizine HCl (Antivert) 12.5 mg PRN Q8HRS PO ; Start 03/31/17 at 09:30; Stop 05/15/17 at 15:57; Status DC Quetiapine Fumarate (SEROquel) 6.25 mg HS PO Last administered on 03/31/17 20: 05; Start 03/31/17 at 21:00; Stop 04/01/17 at 10:09; Status DC Mirtazapine (Remeron) 7.5 mg QHS PO Last administered on 04/07/17 20:32; Start 03/31/17 at 21:00; Stop 04/08/17 at 11:04; Status DC Trazodone HCl (Desyrel) 50 mg QHS PO Last administered on 05/04/17 19:20; Start 03/31/17 at 21:00; Stop 05/04/17 at 19:29; Status DC Trazodone HCl (Desyrel) 50 mg PRN QHS PRN PO INSOMNIA, MAY REPEAT X1 Last administered on 04/06/17 22:29; Start 03/31/17 at 18:00; Stop 05/04/17 at 19: 29; Status DC Olanzapine (ZyPREXA ZYDIS) 2.5 mg PRN Q2HR PRN PO psychosis Last administered on 05/15/17 13:11; Start 03/31/17 at 18:00; Stop 05/15/17 at 15:57; Status DC Quetiapine Fumarate (SEROquel) 25 mg HS PO Last administered on 04/02/17 19:15 ; Start 04/01/17 at 21:00; Stop 04/03/17 at 18:56; Status DC Sertraline HCl (Zoloft) 25 mg DAILY PO Last administered on 04/02/17 09:59; Start 04/02/17 at 09:00; Stop 04/02/17 at 18:43; Status DC Lorazepam (Ativan) 0.5 mg PRN Q2HR PRN PO ANXIETY / AGITATION Last administered on 04/27/17 17:30; Start 04/01/17 at 15:15; Stop 05/15/17 at 15: 57; Status DC Famotidine (Pepcid) 20 mg PRN DAILY PRN PO HEARTBURN / GAS Last administered on 04/24/17 11:33; Start 04/02/17 at 09:15; Stop 05/15/17 at 15:57; Status DC Famotidine (Pepcid) 20 mg 1X ONCE PO Last administered on 04/02/17 09:59; Start 04/02/17 at 09:25; Stop 04/02/17 at 09:26; Status DC Sertraline HCl (Zoloft) 37.5 mg DAILY PO Last administered on 04/03/17 09:52; Start 04/03/17 at 09:00; Stop 04/03/17 at 18:56; Status DC Quetiapine Fumarate (SEROquel) 50 mg HS PO Last administered on 04/04/17 19:26 ; Start 04/03/17 at 21:00; Stop 04/05/17 at 13:22; Status DC Sertraline HCl (Zoloft) 50 mg DAILY PO Last administered on 04/05/17 07:57; Start 04/04/17 at 09:00; Stop 04/05/17 at 13:23; Status DC Quetiapine Fumarate (SEROquel) 50 mg QHS PO Last administered on 04/05/17 20: 26; Start 04/05/17 at 21:00; Stop 04/06/17 at 18:15; Status DC Sertraline HCl (Zoloft) 50 mg DAILY PO Last administered on 04/08/17 08:03; Start 04/06/17 at 09:00; Stop 04/08/17 at 11:04; Status DC Quetiapine Fumarate (SEROquel) 75 mg QHS PO Last administered on 04/20/17 19: 41; Start 04/06/17 at 21:00; Stop 04/21/17 at 14:43; Status DC Mirtazapine (Remeron) 15 mg QHS PO Last administered on 04/20/17 19:41; Start 04/08/17 at 21:00; Stop 04/21/17 at 14:43; Status DC Sertraline HCl (Zoloft) 75 mg DAILY PO Last administered on 04/11/17 08:00; Start 04/09/17 at 09:00; Stop 04/11/17 at 19:18; Status DC Quetiapine Fumarate (SEROquel) 12.5 mg BID92 PO Last administered on 08:22; Start 04/08/17 at 14:00; Stop 04/09/17 at 18:32; Status DC Quetiapine Fumarate (SEROquel) 12.5 mg TID@0900,1400,1700 PO Last administered on 04/27/17 17:30; Start 04/10/17 at 09:00; Stop 04/27/17 at 18:48; Status DC Fluvoxamine Maleate (Luvox) 50 mg HS PO Last administered on 04/13/17 20:22; Start 04/11/17 at 21:00; Stop 04/14/17 at 14:45; Status DC Fluvoxamine Maleate (Luvox) 75 mg HS PO Last administered on 04/15/17 19:14; Start 04/14/17 at 21:00; Stop 04/16/17 at 15:48; Status DC Fluvoxamine Maleate (Luvox) 75 mg DAILYWSUP PO Last administered on 04/27/17 17:29; Start 04/16/17 at 17:00; Stop 04/27/17 at 18:48; Status DC Magnesium Citrate (Citroma) 148 ml 1X ONCE PO Last administered on 04/18/17 13:45; Start 04/18/17 at 13:45; Stop 04/18/17 at 13:46; Status DC Mirtazapine (Remeron) 7.5 mg QHS PO Last administered on 05/14/17 19:41; Start 04/21/17 at 21:00; Stop 05/15/17 at 15:57; Status DC Quetiapine Fumarate (SEROquel) 150 mg QHS PO Last administered on 05/14/17 19 :41; Start 04/21/17 at 21:00; Stop 05/15/17 at 15:57; Status DC Divalproex Sodium (Depakote Sprinkles) 125 mg BID@0900,1400 PO Last administered on 04/23/17 12:38; Start 04/22/17 at 09:00; Stop 04/23/17 at 18 :26; Status DC Divalproex Sodium (Depakote Sprinkles) 250 mg BID@0900,1400 PO Last administered on 04/26/17 14:11; Start 04/24/17 at 09:00; Stop 04/26/17 at 19 :26; Status DC Divalproex Sodium (Depakote Sprinkles) 375 mg BID@0900,1400 PO Last administered on 04/29/17 14:11; Start 04/27/17 at 09:00; Stop 04/29/17 at 19: 13; Status DC Fluvoxamine Maleate (Luvox) 100 mg DAILYWSUP PO Last administered on 16:59; Start 04/28/17 at 17:00; Stop 05/15/17 at 15:57; Status DC Quetiapine Fumarate (SEROquel) 12.5 mg DAILY@1400 PO Last administered on 13:54; Start 04/28/17 at 14:00; Stop 04/30/17 at 18:36; Status DC Quetiapine Fumarate (SEROquel) 25 mg BID@0900,1700 PO Last administered on 04/30 16:29; Start 04/28/17 at 09:00; Stop 04/30/17 at 18:36; Status DC Magnesium Citrate (Citroma) 296 ml 1X ONCE PO Last administered on 04/28/17 08:56; Start 04/28/17 at 09:00; Stop 04/28/17 at 09:01; Status DC Magnesium Citrate (Citroma) 296 ml STK-MED ONCE .ROUTE Last administered on 08:56; Start 04/28/17 at 08:56; Stop 04/28/17 at 08:57; Status DC Polyethylene Glycol (miraLAX) 17 gm DAILY PO Last administered on 05/15/17 08 :56; Start 04/28/17 at 10:30; Stop 05/15/17 at 15:57; Status DC Bisacodyl (Dulcolax Supp) 10 mg 1X ONCE WI Last administered on 04/28/17 14: 00; Start 04/28/17 at 14:00; Stop 04/28/17 at 14:01; Status DC Senna/Docusate Sodium (Senna Plus) 2 tab 1X ONCE PO Last administered on 19:37; Start 04/28/17 at 21:00; Stop 04/28/17 at 21:01; Status DC Divalproex Sodium (Depakote Er) 1,000 mg QHS PO Last administered on 19:42; Start 04/30/17 at 21:00; Stop 05/15/17 at 15:57; Status DC Quetiapine Fumarate (SEROquel) 62.5 mg DAILY PO Last administered on 08:55; Start 05/01/17 at 09:00; Stop 05/15/17 at 15:57; Status DC Sennosides (Senna) 8.6 mg BID PO Last administered on 05/15/17 08:56; Start 05/04/17 at 21:00; Stop 05/15/17 at 15:57; Status DC Trazodone HCl (Desyrel) 100 mg PRN QHS PRN PO INSOMNIA, MAY REPEAT X1 Last administered on 05/11/17 23:05; Start 05/04/17 at 19:30; Stop 05/15/17 at 15: 57; Status DC Trazodone HCl (Desyrel) 100 mg QHS PO Last administered on 05/14/17 19:42; Start 05/04/17 at 21:00; Stop 05/15/17 at 15:57; Status DC Nicotine (Nicoderm Cq 21mg) 1 patch PRN DAILY PRN TD smoking cessation; Start 05/08/17 at 09:00; Stop 05/15/17 at 15:57; Status DC Quetiapine Fumarate (SEROquel) 25 mg DAILY@1500 PO Last administered on 14:13; Start 05/11/17 at 15:00; Stop 05/15/17 at 15:57; Status DC Nitrofurantoin Macrocrystals (Macrobid) 100 mg BID PO Last administered on 13:11; Start 05/15/17 at 13:00; Stop 05/15/17 at 15:57; Status DC Active Scripts Active Reported Trazodone Hcl 100 Mg Tablet 100 Mg PO QHS Trazodone Hcl 100 Mg Tablet 100 Mg PO PRN QHS PRN Fluvoxamine Maleate 100 Mg Tablet 100 Mg PO DAILYWSUP Senna (Sennosides) 8.6 Mg Tablet 8.6 Mg PO BID Seroquel (Quetiapine Fumarate) 25 Mg Tablet 25 Mg PO DAILY@1500 Seroquel (Quetiapine Fumarate) 25 Mg Tablet 62.5 Mg PO DAILY Polyethylene Glycol 3350 255 Gm Powder 17 Gm PO DAILY Zyprexa (Olanzapine) 2.5 Mg Tablet 2.5 Mg PO PRN Q2H NICODERM CQ 21mg (Nicotine) 1 Each Patch.td24 1 Patch TD PRN DAILY PRN MDD 21mg Mirtazapine 15 Mg Tablet 7.5 Mg PO QHS Muscle Rub Cream (Methyl Salicylate/Menthol) 113 Gm Cream..g. 1 Chidi TP PRN QID PRN Milk Of Magnesia (Magnesium Hydroxide) 2,400 Mg/10 Ml Oral.susp 2,400 Mg PO PRN QHS PRN Antacid Liquid (Mag Hydrox/Al Hydrox/Simeth) 355 Ml Oral.susp 15 Ml PO PRN AFTMEALHC PRN Famotidine 20 Mg Tablet 20 Mg PO PRN DAILY PRN Divalproex Sodium Er (Divalproex Sodium) 500 Mg Tab.er.24h 1,000 Mg PO QHS Tylenol (Acetaminophen) 325 Mg Tablet 650 Mg PO PRN Q6HRS PRN Meclizine Hcl 12.5 Mg Tablet 12.5 Mg PO PRN Q8HRS Haloperidol 2 Mg Tablet 1 Mg PO PRN Q8HRS PRN Seroquel (Quetiapine Fumarate) 25 Mg Tablet 150 Mg PO HS Docusate Sodium 100 Mg Capsule 100 Mg PO BID Atorvastatin Calcium 20 Mg Tablet 20 Mg PO QHS Aspirin 81 Mg Tab.chew 81 Mg PO QHS I have reviewed the current psychotropics carefully including drug interactions. Risk benefit ratio favors no change other than as noted in my dictated progress note. Diagnosis: Problems: (1) Major depressive disorder, recurrent episode (2) Impulse control disorder (3) Dementia, vascular, with delusions (4) Dementia, vascular, with depression (5) Anxiety disorder EDE OGDEN MD May 15, 2017 18:52
--- NOTE | 2017-05-16 10:08 | DS ---
DATE OF DISCHARGE: 05/15/2017 DISCHARGE SUMMARY/PSYCHIATRIC PROGRESS NOTE REASON FOR ADMISSION: Please refer to the admission history for details. Briefly, the patient is an 82-year-old female referred to us from [facility] by her primary care physician on account of worsening symptoms of confusion and depression with suicidal ideation with a plan to jump off the balcony. She is getting more agitated, impulsive, throwing things, combative with cares, yelling, had failed outpatient psychiatric interventions. SIGNIFICANT FINDINGS AND CLINICAL COURSE: Following admission, the patient was seen daily individually by myself, followed medically per Dr. Thomason/Dr. Martinez. She is quite obsessive, anxious, repetitively coming back to the nursing station asking the same questions over and over and forgetting what she had asked. Adjustments were made in her psychotropics. She seemed to respond to a combination of Seroquel 62.5 mg daily in the morning and 150 mg at bedtime, Depakote ER 1000 mg at bedtime with a valproic acid level therapeutic at 74, trazodone 100 mg at bedtime, may repeat x 1 for insomnia, Luvox 100 mg in the evening, Remeron 7.5 mg at bedtime, Ativan and Zyprexa p.r.n. REVIEW OF SYSTEMS: Prior to discharge on 05/15/2017, no CV, , pulmonary, eye, ENT system symptoms on review. She is still anxious back and forth, but much better than before, more redirectable. MENTAL STATUS EXAM: Oriented to herself. Insight, judgment, recent and remote memory, attention, concentration, fund of knowledge poor, consistent with her diagnoses. CONDITION AT DISCHARGE: Improved. FINAL DIAGNOSES: Major neurocognitive disorder, Alzheimer, vascular with depression, delusion, behavioral disturbance; anxiety disorder, unspecified; impulse control disorder, unspecified. Rest unchanged from admission. DISCHARGE MEDICATIONS: Please refer to the MRAD. DISCHARGE INSTRUCTIONS: Outpatient psychiatric and medical followup at the custodial. Time for discharge day management greater than 30 minutes. EDE OGDEN MD DR: LEXII/shaina JOB#: [id number] / [id number]
--- NOTE | 2017-05-16 10:26 | PN ---
DATE: 05/14/2017 This is a late entry for date of service 05/14/2017 and covers elements not covered in my initial note of 05/14/2017. I met with the patient evening of 05/14/2017. The patient is still anxious, restless, confused, but redirects better, less obsessive. REVIEW OF SYSTEMS: No CV, , pulmonary, eye, ENT system symptoms on review. Reliability poor. MENTAL STATUS EXAM: Oriented to herself. Insight, judgment, recent and remote memory, attention, concentration, fund of knowledge poor, consistent with her diagnoses as mentioned in my initial note. IMPRESSION: Unchanged from initial note. PLAN: No change from my initial note in her psychotropics. EDE OGDEN MD DR: LEXII/shaina JOB#: [id number] / [id number]
== END 2017-05-15 14:15 | DRG 884 ==
LOC: ER 20:12 → GEROPSY 03-31 00:10
PROVIDERS: ADMIT Psychiatry & Neurology Psychiatry; ATTEND Psychiatry & Neurology Psychiatry
PROC: 5A12012 Performance of Cardiac Output, Single, Manual (ICD-10-PCS; principal; 2017-04-17)
DX: F01.51 Vascular dementia, unspecified severity, with behavioral disturbance (principal); F33.3 Major depressive disorder, recurrent, severe with psychotic symptoms; G30.9 Alzheimer's disease, unspecified; R45.851 Suicidal ideations; F02.81 Dementia in other diseases classified elsewhere, unspecified severity, with behavioral disturbance; F17.210 Nicotine dependence, cigarettes, uncomplicated; F41.9 Anxiety disorder, unspecified; F42.9 Obsessive-compulsive disorder, unspecified; F63.9 Impulse disorder, unspecified; G47.00 Insomnia, unspecified; I10 Essential (primary) hypertension; H91.90 Unspecified hearing loss, unspecified ear; Z66 Do not resuscitate; Z79.899 Other long term (current) drug therapy; Z86.73 Personal history of transient ischemic attack (TIA), and cerebral infarction without residual deficits; Z91.81 History of falling; Z81.8 Family history of other mental and behavioral disorders; Z81.1 Family history of alcohol abuse and dependence
CPT/HCPCS: 36415; 74000; 80053; 80061; 80164; 81001; 82306; 82607; 83036; 83540; 83550; 83735; 84436; 84443; 84480; 85007; 85025; 86592; 86593; 87086; 93005; 96372; 99406; G0480; J3486; 97530; 97535; 99285-25